=== PATIENT | female | born 1945 | race Caucasian/White ===

== ENCOUNTER 2020-01-27 11:00 | Outpatient (RCR) | payer MEDICARE, SELFPAY | END 2020-04-15 13:08 | disposition other institution (70) | LOC: HO.PT 11:00 | PROVIDERS: Visit Provider Registered Nurse | DX: M54.30 Sciatica, unspecified side (principal) | CPT/HCPCS: 97110; 97140 ==

== ENCOUNTER 2020-02-24 11:48 | Outpatient (REF) | payer MEDICARE, SELFPAY ==
--- NOTE | 2020-02-24 11:59 | XR_ITS ---
EXAMINATION: XR LUMBOSACRAL SPINE WITH OBLIQUES CLINICAL INFORMATION: Low back pain. COMPARISON: None TECHNIQUE: AP, both oblique, and lateral views of the lumbar spine. Lateral view of the lumbosacral junction. FINDINGS: There is normal lumbar lordosis. The vertebral heights, alignment and disc heights are normal. No visible acute fracture, dislocation or subluxation seen. Mild bilateral L5-S1 facet joint arthropathy is noted. There is minimal dextroscoliosis lumbar spine. XR/XR lumbar spine 4V min IMPRESSION: Mild facet joint arthropathy L5-S1 disc level. No visible acute fracture, dislocation or subluxation seen. The SI joints are symmetrical and normal.
== END 2020-02-24 11:49 | disposition home or self-care (01) ==
LOC: HO.XRAY 11:48
PROVIDERS: PCP Internal Medicine; Visit Provider Internal Medicine
DX: D05.10 Intraductal carcinoma in situ of unspecified breast (principal); M54.5 Low back pain
CPT/HCPCS: 72110

== ENCOUNTER 2020-02-28 10:30 | Outpatient (REF) | payer MEDICARE, SELFPAY ==
--- NOTE | 2020-02-28 10:32 | MR_ITS ---
EXAMINATION: ROUTINE UNENHANCED MRI OF THE BRAIN. CLINICAL INFORMATION: Dysarthria. COMPARISON: CT head 02/13/2019. TECHNIQUE: Routine unenhanced MRI of the brain. FINDINGS: No intracranial hemorrhage, tumors or infarcts are noted. Mild diffuse commensurate prominence of ventricles and sulci is noted. A minimal number of nonspecific punctate supratentorial subcortical and periventricular white matter T2 hyperintensities are visualized and are of uncertain clinical significance given that similar findings are a frequent encountered asymptomatic finding. Normal flow-related signal intensity is noted in the major intracranial vessels and dural sinuses. Susceptibility weighted images reveal no evidence of acute or chronic hemorrhage within the brain parenchyma. The cervical medullary junction cerebellar tonsils are normal in configuration. No suspicious marrow abnormalities are visualized. The orbits and globes are normal in appearance. MR/MR head/brain wo con IMPRESSION: Normal unenhanced MRI of the brain. No acute abnormalities. No intrarenal hemorrhage or acute infarcts.
== END 2020-02-28 10:31 | disposition home or self-care (01) ==
LOC: HO.MRI 10:30
PROVIDERS: Visit Provider Internal Medicine
DX: R47.1 Dysarthria and anarthria (principal)
CPT/HCPCS: 70551

== ENCOUNTER → 2020-04-03 11:25 | Outpatient (BNV) | payer MEDICARE, SELFPAY | PROVIDERS: PCP Internal Medicine; Visit Provider Internal Medicine Medical Oncology | DX: D05.12 Intraductal carcinoma in situ of left breast (principal) | CPT/HCPCS: 99212; 99213; 99214 ==

== ENCOUNTER → 2020-04-06 11:19 | Outpatient (BNVA) | payer MEDICARE, SELFPAY | PROVIDERS: PCP Internal Medicine; Visit Provider Internal Medicine Cardiovascular Disease | DX: I47.1 Supraventricular tachycardia (principal); I10 Essential (primary) hypertension; R00.2 Palpitations | CPT/HCPCS: 93005; 99212 ==

== ENCOUNTER 2020-04-22 16:05 | Outpatient (REF) | payer MEDICARE, SELFPAY ==
--- NOTE | 2020-04-22 16:12 | XR_ITS ---
EXAMINATION: XR CHEST CLINICAL INFORMATION: Worsening shortness of breath and productive cough. Covid positive. COMPARISON: Previous chest x-ray 03/11/2019 TECHNIQUE: 2 views of the chest were obtained. FINDINGS: The cardiac and mediastinal contours are stable. There is new airspace disease in the right upper lobe suggestive of pneumonia. The lungs are otherwise clear. There is no pleural effusion or pneumothorax. There are degenerative changes of the spine. XR/XR chest 2V IMPRESSION: New airspace disease in the right upper lobe suggestive of pneumonia.
== END 2020-04-22 16:06 | disposition home or self-care (01) ==
LOC: HO.XRAY 16:05
PROVIDERS: PCP Internal Medicine; Visit Provider Emergency Medicine
DX: J45.901 Unspecified asthma with (acute) exacerbation (principal); R06.02 Shortness of breath; R05 Cough; Z86.16 Personal history of COVID-19
CPT/HCPCS: 71046

== ENCOUNTER → 2020-06-26 11:14 | Outpatient (BNVA) | payer MEDICARE, SELFPAY | PROVIDERS: PCP Internal Medicine; Visit Provider Nurse Practitioner | DX: Z13.89 Encounter for screening for other disorder (principal) | CPT/HCPCS: Q3014 ==

== ENCOUNTER 2020-07-08 20:15 | Emergency (ER) | payer MEDICARE, SELFPAY ==
--- NOTE | ~2020-07-08 | XR_ITS ---
EXAMINATION: PORTABLE CHEST 1 VIEW CLINICAL INFORMATION: chest pain . COMPARISON: 04/22/2020. TECHNIQUE: Portable frontal view of the chest was obtained. FINDINGS: The lungs are well expanded. Chronic appearing coarsened reticular markings seen with linear scarring or postinfectious/postinflammatory change in the right upper lobe improved from the prior study. No additional superimposed focal infiltrate, effusion, edema, or pneumothorax. Cardiac and mediastinal silhouettes are within normal limits for technique. No acute bony abnormality seen. XR/XR chest 1V IMPRESSION: Chronic appearing coarsened reticular and likely postinfectious/postinflammatory changes without acute superimposed process.
--- NOTE | 2020-07-08 20:18 | ECG_ITS ---
Test Reason : CHEST PAIN Blood Pressure : / mmHG Vent. Rate : 061 BPM Atrial Rate : 061 BPM P-R Int : 124 ms QRS Dur : 076 ms QT Int : 408 ms P-R-T Axes : 017 004 002 degrees QTc Int : 410 ms Normal sinus rhythm Nonspecific T wave abnormality Abnormal ECG When compared with ECG of 09-JUL-2016 23:10, No significant change was found Referred By: Generic ED Physician Electronically Signed By:Nate Arroyo
[2020-07-08 20:46] VITALS: BP 162/78; PULSE 67; RESP 18; TEMP 36.8; O2SAT 99
[2020-07-08 21:05] LABS: MANUAL DIFF FLAG NO
[2020-07-08 21:06] LABS: Basophils Percent Auto 0.3 % (0-2); Eosinophils Absolute Auto 0.1 X10*3/uL (0.0-0.4); Eosinophils Percent Auto 0.7 % (0-4); Hematocrit 41.1 % (37-47); Hemoglobin 13.6 g/dl (12.0-16.0); Imm Gran Abs Auto 0.01 X10*3/uL (0.00-0.03); Imm Gran Pct Auto 0.1 % (0.0-0.4); Lymphocytes Absolute Auto 2.6 X10*3/uL (1.2-4.9); Lymphocytes Percent Auto 37.5 % (20-40); Mean Corpuscular HGB Conc 33.1 g/dl (31.0-35.0); Mean Corpuscular Hemoglobin 30.3 pg (27.0-33.0); Mean Corpuscular Volume 91.5 fL (80-98); Mean Platelet Volume 10.5 fL (9.4-12.3); Monocytes Absolute Auto 0.5 X10*3/uL (0.1-1.2); Monocytes Percent Auto 7.2 % (2-11); Neutrophils Absolute Auto 3.8 X10*3/uL (2.0-8.3); Neutrophils Percent Auto 54.2 % (45-73); Platelet Count 236 X10*3/uL (160-400); Red Blood Count 4.49 X10*6/uL (4.20-5.50); Red Cell Distribution Width 13.2 % (11.0-16.0); White Blood Count 6.9 X10*3/uL (4.8-10.8)
[2020-07-08 21:33] LABS: Anion Gap 13 (12-20); Blood Urea Nitrogen 14 mg/dL (9-16); Calcium 10.2 mg/dL (8.4-10.2); Carbon Dioxide 31 mmol/L (22-29); Chloride 101 mmol/L (96-108); Creatinine Clr Calc Pharmacy 44.5; Estimated Glomerular Filt Rate 57; Glucose Random 134 mg/dL (60-115); Potassium 3.7 mmol/L (3.3-5.1); Sodium 141 mmol/L (135-145)
[2020-07-08 21:41] LABS: Troponin-I High Sensitivity < 3.5 ng/L (<3.5-17.0)
[2020-07-08 21:53] VITALS: BP 120/71; PULSE 62; RESP 18; TEMP 36.5; O2SAT 97
--- NOTE | 2020-07-08 23:17 | ED_ITS ---
HPI - Chest Pain General Chief Complaint: Chest Pain Stated Complaint: Chest pain Time Seen by Provider: 07/08/20 22:13 Source: patient Mode of arrival: ambulatory Limitations: no limitations History of Present Illness HPI narrative: 75-year-old female who presents emergency department for evaluation of chest pain x3 days. The patient states that the chest pain is intermittent and lasts seconds. She states she gets 20 episodes per day. She describes the pain as a sharp pain located in her anterior chest, greater on the left than on the right. The pain does radiate to her left neck left shoulder and left back. She states the pain is moderate in intensity. She denies associated lightheadedness, diaphoresis, nausea, vomiting. She did not take any medications at home for the pain. She states the pain can come on at rest and with exertion. Patient states that she had a COVID-19 infection in March of 2020 and that she had symptoms up until May 2020. She denies any recent fever, chills, cough. S he states she still feels short of breath and has dyspnea on exertion. Related Data Home Medications Medication Instructions Recorded Confirmed acetaminophen [Mapap Arthritis 1 tab PO Q8H PRN 04/03/20 04/06/20 Pain] atorvastatin 1 tab PO QAM 04/03/20 04/06/20 fluticasone propionate [Flovent 2 puff PO BID 04/03/20 04/06/20 HFA] hydrochlorothiazide 1 tab PO QAM 04/03/20 04/06/20 lisinopril 1 tab PO QAM 04/03/20 04/06/20 loratadine 1 tab PO QAM 04/03/20 04/06/20 ammonium lactate 12 % topical cream appl TOPICAL 04/06/20 04/06/20 ergocalciferol (vitamin D2) 1,250 1,250 mcg PO DAILY cap 04/06/20 04/06/20 mcg (50,000 unit) capsule fluticasone propionate 50 0 mcg INTRANASAL 04/06/20 04/06/20 mcg/actuation nasal spray,suspension levocetirizine 5 mg tablet 5 mg PO BEDTIME 04/06/20 04/06/20 meclizine 25 mg tablet 25 mg PO Q8H PRN 06/26/20 polyvinyl alcohol 1.4 % eye drops 20 drp OPHTHALMIC (EYE) BEDTIME 06/26/20 Previous Rx's Medication Instructions Recorded diltiazem HCl 120 mg 120 mg PO QAM #30 cap 02/06/20 capsule,extended release 24 hr metoprolol succinate 25 mg 25 mg PO DAILY 90 Days #90 tab 02/11/20 tablet,extended release 24 hr sennosides 8.6 mg tablet 17.2 mg PO BEDTIME #60 tab 03/05/20 dexlansoprazole 60 mg 60 mg PO BEDTIME #30 cap 05/29/20 capsule,biphase delayed release docusate sodium 100 mg capsule 100 mg PO BID #180 ea 06/18/20 methylcellulose (laxative) 500 mg 1,000 mg PO DAILY 30 Days #60 tab 06/26/20 tablet simethicone 180 mg capsule 180 mg PO QID 30 Days #120 cap 06/26/20 acidophilus 25 million 1 tab PO DAILY #30 tab 07/07/20 cell-pectin, citrus 100 mg tablet Allergies Allergy/AdvReac Type Severity Reaction Status Date / Time Tetanus Vaccines and Toxoid Allergy Mild SWELLING, Verified 06/26/20 11:16 [TETANUS VACCINES AND TOXOID] RASH albuterol [ALBUTEROL] Allergy Unknown HIVES Verified 06/26/20 11:16 verapamil [VERAPAMIL] Allergy Unknown UNKNOWN Verified 06/26/20 11:16 From Tuberculin PPD Eligh Test Allergy Unknown ARM Uncoded 12/05/19 16:27 SWELLING TB test Allergy Unknown large Uncoded 10/14/19 00:00 local reaction Review of Systems Review of Systems: Yes all other systems are reviewed and are negative [facility] Past Medical History [facility] Narrative: The patient lives alone. She does have a [employer] that helps her daily. She denies tobacco, alcohol and drug use. Medical History Bronchial asthma COVID-19 Gastritis HTN (hypertension) Hx of migraine headaches Hx of sinusitis Hyperlipidemia Osteopenia Supraventricular tachycardia Surgical History History of esophagogastroduodenoscopy (EGD) Hx of colonoscopy Status post tubal ligation Family History Family History (Updated 06/26/20 @ 11:45 by Jocelyn Batista Chloe) Mother Heart problem Angina pectoris Social History Social History Alcohol intake: current Alcohol intake frequency: does not drink Smoking Status: Never smoker Advance Directives: No Advance Directives Information Provided: Yes Physical Exam Vital Signs: Vital Signs: Last Vital Signs Temp 97.7 F 07/08/20 21:53 Pulse 62 07/08/20 21:53 Resp 18 07/08/20 21:53 BP 120/71 07/08/20 21:53 Pulse Ox 97 07/08/20 21:53 Body Mass Index 30.0 Const: General: cooperative and healthy appearing Orientation/consciousness: oriented to person and oriented to place Limitations: no limitations HENMT: Head: Yes normal to inspection, Yes normocephalic and Yes atraumatic Ears: external ears normal General nose exam: Normal external nose present Face and sinus: Yes normal facial exam Mouth: Normal oral and palatal mucosa present Throat: Yes posterior oropharynx normal Eyes: Periorbital: periorbital findings normal Eyelids: Yes eyelids normal Conjunctivae: conjunctivae normal Sclerae: sclerae normal Corneas: corneas normal Pupils: Equal, round and reactive pupils present Direct Ophthalmoscopy: normal light reflex Neck: Neck: Yes full ROM, Yes no lymphadenopathy, Yes no meningeal signs, Yes trachea midline and Yes supple Chest: Chest palpation & inspection: normal inspection of the chest and tenderness (Left anterior chest, moderate) Resp: Effort & Inspection: normal respiratory effort and able to speak in complete sentences Auscultation: clear to auscultation bilaterally Cardio: Rate: regular rate Rhythm: regular rhythm Heart sounds: S1 normal heart sound present, S2 normal heart sound present and no murmurs GI: Inspection: Yes normal to inspection Palpation (GI): Soft to palpation, nontender, no guarding, not rigid and No hepatosplenomegaly present : General: Yes no CVA tenderness Back/Spine/Pelvis: Back: no CVA tenderness Cervical Spine: normal cervical lordosis Thoracic/Lumbar Spine: thoracic and lumbar spine normal to inspection Skin: Lesions: no lesions Rashes: no rashes Wounds: no wounds Neuro: General: oriented to person, oriented to place and no meningeal signs Cranial nerves: Yes CN's II-XII intact bilaterally and Yes Equal, round and reactive pupils present Cognition (Neuro): normal cognition Motor exam (neuro): 5/5 motor strength present throughout Extrem: General: Yes normal to inspection and Yes full ROM Psych: Appearance: well kempt Mental Status: mental status grossly normal Speech and movement: Normal speech and movement present Affect: normal affect Attitude: cooperative Thought process: Normal thought process present Thought content: Normal thought content present Course Course Course Narrative: 75-year-old female who presents emergency department for evaluation of intermittent anterior left-sided chest pain which lasts seconds, she had more than 20 episodes per day each day over the past 3 days, pain does radiate to her left neck and left shoulder. She had no other concerning associated symptoms. Physical examination did reveal left-sided chest wall tenderness and mild hypertension with a blood pressure of 162/78. Laboratory evaluation was unremarkable with a nondetectable troponin. Twelve EKG revealed no acute ST segment elevation or depression. Chest x-ray revealed no acute findings. The patient's pain is very atypical for coronary pain and I did discuss this with her. Patient's pain is more consistent with costochondritis. She was given Tylenol for her pain here in the emergency department advised to take Tylenol 3 times a day over the next several days to try to see if this relieves her pain. She was given printed and verbal instructions advised to f ollow-up with her PCP and return to the emergency department if her symptoms get worse. MDM - Chest Pain Lab Data Result diagrams: 07/08/20 20:57 07/08/20 20:57 Labs: Lab Results 07/08/20 07/08/20 07/08/20 Range/Units 20:57 20:57 20:57 WBC 6.9 (4.8-10.8) X10*3/uL RBC 4.49 (4.20-5.50) X10*6/uL Hgb 13.6 (12.0-16.0) g/dl Hct 41.1 (37-47) % MCV 91.5 (80-98) fL MCH 30.3 (27.0-33.0) pg MCHC 33.1 (31.0-35.0) g/dl RDW 13.2 (11.0-16.0) % Plt Count 236 (160-400) X10*3/uL MPV 10.5 (9.4-12.3) fL Immature Gran % (Auto) 0.1 (0.0-0.4) % Neut % (Auto) 54.2 (45-73) % Lymph % (Auto) 37.5 (20-40) % Weakley % (Auto) 7.2 (2-11) % Eos % (Auto) 0.7 (0-4) % Baso % (Auto) 0.3 (0-2) % Lymph # (Auto) 2.6 (1.2-4.9) X10*3/uL Weak[place] # (Auto) 0.5 (0.1-1.2) X10*3/uL Eos # (Auto) 0.1 (0.0-0.4) X10*3/uL Baso # (Auto) 0.0 (0.0-0.2) X10*3/uL Abs Immat Gran (auto) 0.01 (0.00-0.03) X10*3/uL Absolute Neuts (auto) 3.8 (2.0-8.3) X10*3/uL Absolute Nucleated RBC 0.000 (0.0-0.012) X10*3/uL Nucleated RBC % (auto) 0.0 (0.0-0.2) /100WBC Hold Blue Top SEE NOTE Sodium 141 (135-145) mmol/L Potassium 3.7 (3.3-5.1) mmol/L Chloride 101 (96-108) mmol/L Carbon Dioxide 31 H (22-29) mmol/L Anion Gap 13 (12-20) BUN 14 D (9-16) mg/dL Creatinine 0.95 (0.5-1.4) mg/dL Estim Creat Clear Calc 44.5 Estimated GFR 57 Random Glucose 134 H D (60-115) mg/dL Calcium 10.2 D (8.4-10.2) mg/dL Troponin I High Sens (<3.5-17.0) ng/L 07/08/20 Range/Units 20:57 WBC (4.8-10.8) X10*3/uL RBC (4.20-5.50) X10*6/uL Hgb (12.0-16.0) g/dl Hct (37-47) % MCV (80-98) fL MCH (27.0-33.0) pg MCHC (31.0-35.0) g/dl RDW (11.0-16.0) % Plt Count (160-400) X10*3/uL MPV (9.4-12.3) fL Immature Gran % (Auto) (0.0-0.4) % Neut % (Auto) (45-73) % Lymph % (Auto) (20-40) % Weakley % (Auto) (2-11) % Eos % (Auto) (0-4) % Baso % (Auto) (0-2) % Lymph # (Auto) (1.2-4.9) X10*3/uL Weakley # (Auto) (0.1-1.2) X10*3/uL Eos # (Auto) (0.0-0.4) X10*3/uL Baso # (Auto) (0.0-0.2) X10*3/uL Abs Immat Gran (auto) (0.00-0.03) X10*3/uL Absolute Neuts (auto) (2.0-8.3) X10*3/uL Absolute Nucleated RBC (0.0-0.012) X10*3/uL Nucleated RBC % (auto) (0.0-0.2) /100WBC Hold Blue Top Sodium (135-145) mmol/L Potassium (3.3-5.1) mmol/L Chloride (96-108) mmol/L Carbon Dioxide (22-29) mmol/L Anion Gap (12-20) BUN (9-16) mg/dL Creatinine (0.5-1.4) mg/dL Estim Creat Clear Calc Estimated GFR Random Glucose (60-115) mg/dL Calcium (8.4-10.2) mg/dL Troponin I High Sens < 3.5 (<3.5-17.0) ng/L ECG Data ECG #1: Attestation: I personally reviewed and interpreted this ECG as follows: Interpretation: 2324: Normal sinus rhythm rate of 61, normal intervals, no ST segment elevation or depression, no T-wave abnormalities, no old EKG for comparison. Discharge Plan Discharge Clinical Impression: Chest pain Qualifiers: Chest pain type: unspecified Qualified Code(s): R07.9 - Chest pain, unspecified Patient Disposition: Home, Self-Care Instructions: Costochondritis (ED) Additional Instructions: Your blood work was normal. Your chest x-ray was unremarkable. Your EKG was unremarkable. Your pain is most likely caused by inflammation of the joints and muscles of your chest (costochondritis). Take Tylenol (acetaminophen) 500 mg pills, 2 pills every 4 to 6 hours as needed for pain. Follow-up with your doctor in 2 days. Please return to the emergency department if your symptoms get worse or if you develop any symptoms that are concerning to you. Prescriptions: No Action diltiazem HCl 120 mg capsule,extended release 24hr 120 mg PO QAM Qty: 30 RF: 6 metoprolol succinate 25 mg tablet extended release 24 hr 25 mg PO DAILY 90 Days Qty: 90 RF: 1 sennosides [senna] 8.6 mg tablet 17.2 mg PO BEDTIME Qty: 60 RF: 1 dexlansoprazole [Dexilant] 60 mg capsule,biphase delayed releas 60 mg PO BEDTIME Qty: 30 RF: 3 docusate sodium 100 mg capsule 100 mg PO BID Qty: 180 RF: 0 acidophilus-pectin, citrus 25 million cell -100 mg tablet 1 tab PO DAILY Qty: 30 RF: 2 acetaminophen [Mapap Arthritis Pain] 650 mg tablet extended release 1 tab PO Q8H PRN (Reason: Pain) RF: 0 lisinopril 10 mg tablet 1 tab PO QAM RF: 0 hydrochlorothiazide 25 mg tablet 1 tab PO QAM RF: 0 loratadine 10 mg tablet 1 tab PO QAM RF: 0 atorvastatin 20 mg tablet 1 tab PO QAM RF: 0 Flovent HFA 110 mcg/actuation HFA aerosol inhaler 2 puff PO BID RF: 0 levocetirizine 5 mg tablet 5 mg PO BEDTIME RF: 0 ammonium lactate 12 % cream topical RF: 0 fluticasone propionate 50 mcg/actuation spray,suspension 0 mcg intranasal RF: 0 ergocalciferol (vitamin D2) 1,250 mcg (50,000 unit) capsule 1,250 mcg PO DAILY RF: 0 meclizine 25 mg tablet 25 mg PO Q8H PRN (Reason: dizziness) RF: 0 polyvinyl alcohol 1.4 % drops 20 drp ophthalmic (eye) BEDTIME RF: 0 simethicone 180 mg capsule 180 mg PO QID 30 Days Qty: 120 RF: 3 Citrucel 500 mg tablet 1,000 mg PO DAILY 30 Days Qty: 60 RF: 4 Print Language: [place] Citizen
[2020-07-08] MEDS: Acetaminophen 325 MG TABLET 975 MG PO (23:36)
== END 2020-07-08 23:42 | disposition home or self-care (01) ==
PROVIDERS: Emergency Provider Emergency Medicine Emergency Medical Services; PCP Internal Medicine
DX: R07.9 Chest pain, unspecified (principal); Z79.899 Other long term (current) drug therapy
CPT/HCPCS: 36415; 71045; 80048; 84484; 85025; 93005; 99284

== ENCOUNTER 2020-08-05 13:23 | Outpatient (REF) | payer MEDICARE, SELFPAY ==
--- NOTE | ~2020-08-05 | MM_ITS ---
EXAMINATION: MM SCREENING DIGITAL BREAST TOMOSYNTHESIS, BILATERAL CLINICAL INFORMATION: Screening. Asymptomatic. COMPARISON: Mammography: May 06, 2019 and studies dating back to October 17, 2011 TECHNIQUE: Digital breast tomosynthesis is performed in both the craniocaudal and mediolateral oblique views along with computer-aided detection (CAD). Synthesized 2D images are generated from the tomosynthesis. FINDINGS: There are scattered areas of fibroglandular density (ACR BI-RADS breast composition Category b). There are no significant masses, abnormal calcifications, or other abnormalities. Architecture distortion within the left breast from previous lumpectomy again seen. MM/MM tomosynthesis screening BI IMPRESSION: There are no significant changes from prior study. ASSESSMENT: BI-RADS 2: Benign RECOMMENDATION: Routine annual mammography screening. This patient's information was entered into a reminder system with a target due date for their next mammogram.
== END 2020-08-05 13:24 | disposition home or self-care (01) ==
LOC: HO.MAMMO 13:23
PROVIDERS: Visit Provider Internal Medicine
DX: Z12.31 Encounter for screening mammogram for malignant neoplasm of breast (principal)
CPT/HCPCS: 77063; 77067

== ENCOUNTER → 2020-09-24 09:51 | Outpatient (BNVA) | payer MEDICARE, SELFPAY | PROVIDERS: Visit Provider Nurse Practitioner | DX: Z13.89 Encounter for screening for other disorder (principal) | CPT/HCPCS: Q3014 ==

== ENCOUNTER 2020-10-09 15:31 | Emergency (ER) | payer MEDICARE, SELFPAY ==
--- NOTE | ~2020-10-09 | XR_ITS ---
EXAMINATION: XR ELBOW, RIGHT CLINICAL INFORMATION: This is a 75-year-old female who is status post fall. Pain in the right elbow. COMPARISON: None TECHNIQUE: AP, lateral, and oblique views of the right elbow. FINDINGS: There is a small anterior joint effusion. There is a well-corticated bony density off the coronoid process of the proximal ulna. This is suspicious for a small avulsion fracture. The radial head appears intact. The distal humerus appears intact. XR/XR elbow RT min 3V IMPRESSION: 1. Possible avulsion fracture off the coronoid process of the proximal ulna.
--- NOTE | ~2020-10-09 | XR_ITS ---
EXAMINATION: RIGHT HAND/WRIST CLINICAL INFORMATION: Fall. Pain COMPARISON: None TECHNIQUE: 3 views of the right hand and wrist. Navicular view right wrist FINDINGS: There is no acute fracture or subluxation. There is some osteophyte formation predominantly involving the DIP joints. There is apparent soft tissue swelling involving the thumb. No definite navicular fracture demonstrated. XR/XR hand wrist RT IMPRESSION: No definite fracture or subluxation. There are degenerative changes. Suspect soft tissue swelling.
--- NOTE | ~2020-10-09 | CT_ITS ---
EXAMINATION: CT HEAD. CT CERVICAL SPINE CLINICAL INFORMATION: Trauma. Fall. Head injury. COMPARISON: CT abdomen 02/13/2019. TECHNIQUE: Head CT: Contiguous axial imaging from the skull base through the vertex. Coronal and sagittal reformats. Cervical spine CT: Contiguous axial imaging from the skull base through the thoracic inlet. Coronal and sagittal reformats. This CT examination was performed using dose optimization techniques as appropriate, variously including the following: *Automated exposure control *Adjustment of mA and/or kV according to patient size (this includes techniques or standardized protocols for targeted exams where dose is matched to indication/reason for exam; i.e. extremities or head) *Use of iterative reconstruction technique DLP: 976.09 FINDINGS: CT head: Small subgaleal hematoma underlying the right posterior parietal calvarium. No acute hemorrhage. No abnormal intra or extra-axial collection. No acute territorial infarction. Radford-white differentiation is preserved. No mass effect or shift of midline structures. The ventricles are symmetric, normal in size and midline in position. The posterior fossa is intact. The orbital contents are preserved. Hyperostosis frontalis interna. No acute fracture. The mastoid air cells and visualized paranasal sinuses are clear. The patient is edentulous. Cervical spine: No acute fracture. No compression deformity or malalignment. Vertebral body heights are maintained. Mild degenerative disc disease and spondylosis in the lower lumbar spine. Straightening of the cervical spine may indicate muscular spasm. Prevertebral soft tissues are normal. Facet joints articulate normally. Atherosclerotic peripheral vascular disease. The lung apices are clear. CT/CT cervical spine wo con IMPRESSION: 1. No acute intracranial abnormality. 2. Small right posterior scalp subgaleal hematoma. 3. No acute cervical spine fracture. Straightening of the cervical spine may indicate spasm.
--- NOTE | ~2020-10-09 | XR_ITS ---
EXAMINATION: XR SHOULDER, RIGHT CLINICAL INFORMATION: Fall. Pain COMPARISON: None TECHNIQUE: Four views of the right shoulder. FINDINGS: The alignment is within normal limits No acute fracture demonstrated. No suspicious focal lesion. There are some minor osteophytes in the visualized portions of the spine. Minor subsegmental linear opacity in the right upper lung could be atelectasis but is nonspecific. No obvious fracture of the scapula. XR/XR shoulder RT min 2V IMPRESSION: No acute fracture or subluxation demonstrated
[2020-10-09 16:46] VITALS: BP 163/85; PULSE 62; RESP 16; TEMP 36.7; O2SAT 99; BMI 30.9
--- NOTE | 2020-10-09 16:51 | ED.FALL ---
HPI - Fall General Chief Complaint: Fall Stated Complaint: fall Time Seen by Provider: 10/09/20 16:47 Related Data Home Medications Medication Instructions Recorded Confirmed acetaminophen [Mapap Arthritis 1 tab PO Q8H PRN 04/03/20 10/02/20 Pain] atorvastatin 1 tab PO QAM 04/03/20 10/02/20 fluticasone propionate [Flovent 2 puff PO BID 04/03/20 10/02/20 HFA] hydrochlorothiazide 1 tab PO QAM 04/03/20 10/02/20 loratadine 1 tab PO QAM 04/03/20 10/02/20 ammonium lactate 12 % topical cream 1 appl TOPICAL DAILY 04/06/20 10/02/20 ergocalciferol (vitamin D2) 1,250 1,250 mcg PO DAILY cap 04/06/20 10/02/20 mcg (50,000 unit) capsule levocetirizine 5 mg tablet 5 mg PO BEDTIME 04/06/20 10/02/20 polyvinyl alcohol 1.4 % eye drops 20 drp OPHTHALMIC (EYE) BEDTIME 06/26/20 10/02/20 Previous Rx's Medication Instructions Recorded metoprolol succinate 25 mg 25 mg PO QAM #90 tab 08/18/20 tablet,extended release 24 hr diltiazem HCl 120 mg 120 mg PO QAM #30 cap 09/01/20 capsule,extended release 24 hr lisinopril 10 mg tablet 10 mg PO QAM 90 Days #90 tab 09/02/20 acidophilus 25 million 1 tab PO DAILY #30 tab 09/24/20 cell-pectin, citrus 100 mg tablet dexlansoprazole 60 mg 60 mg PO BEDTIME #30 cap 09/24/20 capsule,biphase delayed release docusate sodium 100 mg capsule 100 mg PO BID #180 ea 09/24/20 methylcellulose (laxative) 500 mg 1,000 mg PO DAILY 30 Days #60 tab 09/24/20 tablet sennosides 8.6 mg tablet 17.2 mg PO BEDTIME #60 tab 09/24/20 simethicone 180 mg capsule 180 mg PO QID 30 Days #120 cap 09/24/20 Allergies Allergy/AdvReac Type Severity Reaction Status Date / Time Tetanus Vaccines and Toxoid Allergy Mild SWELLING, Verified 09/24/20 09:52 [TETANUS VACCINES AND TOXOID] RASH albuterol [ALBUTEROL] Allergy Unknown HIVES Verified 09/24/20 09:52 verapamil [VERAPAMIL] Allergy Unknown UNKNOWN Verified 09/24/20 09:52 From Tuberculin PPD Leigh Test Allergy Unknown ARM Uncoded 12/05/19 16:27 SWELLING TB test Allergy Unknown large Uncoded 10/14/19 00:00 local reaction PMFSH Past Medical History Medical History Bronchial asthma Costochondritis COVID-19 Gastritis HTN (hypertension) Hx of migraine headaches Hx of sinusitis Hyperlipidemia Osteopenia Supraventricular tachycardia Surgical History History of esophagogastroduodenoscopy (EGD) Hx of colonoscopy Status post tubal ligation Family History Family History Mother Heart problem Angina pectoris Social History Social History Alcohol intake: current Alcohol intake frequency: does not drink Course Course Course Narrative: 16:50 - 75-year-old female presenting to the ED with complaints of head pain, neck pain, right shoulder posterior aspect, right elbow and right hand and wrist pain after she had a mechanical fall yesterday where she lost her balance when she was trying to sit down she hit her head but did not lose consciousness. She denies prolonged down time. She is not on any blood thinners. She denies any symptoms prior to the fall. On exam patient is alert and oriented x3. Not in any acute distress. No focal no definite are noted. Lungs clear to auscultation. Normal steady gait with her cane. She is safe to go back to the waiting room for further evaluation and treatment into the emergency department. CT scan of brain/cervical spine, x-ray of right shoulder right hand and wrist and right elbow ordered at this time. Discharge Plan Discharge Prescriptions: No Action metoprolol succinate 25 mg tablet extended release 24 hr 25 mg PO QAM Qty: 90 RF: 3 diltiazem HCl 120 mg capsule,extended release 24hr 120 mg PO QAM Qty: 30 RF: 6 lisinopril 10 mg tablet 10 mg PO QAM 90 Days Qty: 90 RF: 1 acetaminophen [Mapap Arthritis Pain] 650 mg tablet extended release 1 tab PO Q8H PRN (Reason: Pain) RF: 0 hydrochlorothiazide 25 mg tablet 1 tab PO QAM RF: 0 loratadine 10 mg tablet 1 tab PO QAM RF: 0 atorvastatin 20 mg tablet 1 tab PO QAM RF: 0 Flovent HFA 110 mcg/actuation HFA aerosol inhaler 2 puff PO BID RF: 0 levocetirizine 5 mg tablet 5 mg PO BEDTIME RF: 0 ammonium lactate 12 % cream 1 appl topical DAILY RF: 0 ergocalciferol (vitamin D2) 1,250 mcg (50,000 unit) capsule 1,250 mcg PO DAILY RF: 0 Dexilant 60 mg capsule,biphase delayed releas 60 mg PO BEDTIME Qty: 30 RF: 6 Citrucel 500 mg tablet 1,000 mg PO DAILY 30 Days Qty: 60 RF: 6 simethicone 180 mg capsule 180 mg PO QID 30 Days Qty: 120 RF: 6 sennosides [senna] 8.6 mg tablet 17.2 mg PO BEDTIME Qty: 60 RF: 6 acidophilus-pectin, citrus 25 million cell -100 mg tablet 1 tab PO DAILY Qty: 30 RF: 6 docusate sodium 100 mg capsule 100 mg PO BID Qty: 180 RF: 1 polyvinyl alcohol 1.4 % drops 20 drp ophthalmic (eye) BEDTIME RF: 0
--- NOTE | 2020-10-09 20:08 | ED.FALL ---
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 Mode of arrival: ambulatory Limitations: no limitations History of Present Illness HPI Narrative: 75 yo female no AC therapy here with mechanical fall trying to sit in a chair - hit head no LOC and struck R arm MD complaint: fall Onset (ago): day(s) (yesterday ) Fall from: chair Fall witnessed: no Place fall occurred: home Loss of consciousness: none Prolonged down time: no Symptoms prior to fall: none Context: tripped/slipped Location of injury: head Location of injury - extremities: right: elbow Severity: mild Quality: dull and aching Associated symptoms (after fall): denies Related Data Home Medications Medication Instructions Recorded Confirmed acetaminophen [Mapap Arthritis 1 tab PO Q8H PRN 04/03/20 10/02/20 Pain] atorvastatin 1 tab PO QAM 04/03/20 10/02/20 fluticasone propionate [Flovent 2 puff PO BID 04/03/20 10/02/20 HFA] hydrochlorothiazide 1 tab PO QAM 04/03/20 10/02/20 loratadine 1 tab PO QAM 04/03/20 10/02/20 ammonium lactate 12 % topical cream 1 appl TOPICAL DAILY 04/06/20 10/02/20 ergocalciferol (vitamin D2) 1,250 1,250 mcg PO DAILY cap 04/06/20 10/02/20 mcg (50,000 unit) capsule levocetirizine 5 mg tablet 5 mg PO BEDTIME 04/06/20 10/02/20 polyvinyl alcohol 1.4 % eye drops 20 drp OPHTHALMIC (EYE) BEDTIME 06/26/20 10/02/20 Previous Rx's Medication Instructions Recorded metoprolol succinate 25 mg 25 mg PO QAM #90 tab 08/18/20 tablet,extended release 24 hr diltiazem HCl 120 mg 120 mg PO QAM #30 cap 09/01/20 capsule,extended release 24 hr lisinopril 10 mg tablet 10 mg PO QAM 90 Days #90 tab 09/02/20 acidophilus 25 million 1 tab PO DAILY #30 tab 09/24/20 cell-pectin, citrus 100 mg tablet dexlansoprazole 60 mg 60 mg PO BEDTIME #30 cap 07/08/21 capsule,biphase delayed release docusate sodium 100 mg capsule 100 mg PO BID #180 ea 09/24/20 methylcellulose (laxative) 500 mg 1,000 mg PO DAILY 30 Days #60 tab 09/24/20 tablet sennosides 8.6 mg tablet 17.2 mg PO BEDTIME #60 tab 09/24/20 simethicone 180 mg capsule 180 mg PO QID 30 Days #120 cap 09/24/20 hydrocodone-acetaminophen 1 tab PO Q6H PRN #12 tab 10/09/20 Allergies Allergy/AdvReac Type Severity Reaction Status Date / Time Tetanus Vaccines and Toxoid Allergy Mild SWELLING, Verified 09/24/20 09:52 [TETANUS VACCINES AND TOXOID] RASH albuterol [ALBUTEROL] Allergy Unknown HIVES Verified 09/24/20 09:52 verapamil [VERAPAMIL] Allergy Unknown UNKNOWN Verified 09/24/20 09:52 From Tuberculin PPD Leigh Test Allergy Unknown ARM Uncoded 12/05/19 16:27 SWELLING TB test Allergy Unknown large Uncoded 10/14/19 00:00 local reaction Review of Systems Review of Systems: Constitutional : No Fever, No Chills ENT/Mouth : No Ear Pain, No Hoarseness, No sore throat Eyes: No Eye Pain, No Swelling, No Redness, No Foreign Body Cardiovascular : No Chest Pain, No SOB Respiratory : No Cough, No Dyspnea Gastrointestinal : No Nausea, No Vomiting, No Diarrhea, No abdominal Pain Genitourinary : No Dysuria, No Hematuria Musculoskeletal : positive joint pain, No Myalgias, No Joint Swelling Skin : No Skin lacerations, No rash Neuro : No Weakness, No Numbness, No Loss of Consciousness, No Dizziness, No Headache Psych : No Anxiety/Panic, No Depression Heme/Lymph: no easy bruising, no Lymphadenopathy Endocrine : No Polyuria, No Polydipsia All other systems reviewed and are negative PMFSH Past Medical History Attestation statement: The following information was validated with the patient. Medical History Bronchial asthma Costochondritis COVID-19 Gastritis HTN (hypertension) Hx of migraine headaches Hx of sinusitis Hyperlipidemia Osteopenia Supraventricular tachycardia Surgical History History of esophagogastroduodenoscopy (EGD) Hx of colonoscopy Status post tubal ligation Family History Family History Mother Heart problem Angina pectoris Social History Social History (Updated 10/09/20 @ 20:35 by Kami Montelongo DO) Alcohol intake: current Alcohol intake frequency: does not drink Patient Tobacco Use Status: Never used Tobacco Advance Directives: No Advance Directives Information Provided: No Physical Exam Vital Signs: Vital Signs: Last Vital Signs Temp 98.1 F 10/09/20 16:46 Pulse 62 10/09/20 16:46 Resp 16 10/09/20 16:46 BP 163/85 H 10/09/20 16:46 Pulse Ox 99 10/09/20 16:46 Body Mass Index 30.9 Appearance: Alert. Oriented X3. No acute distress. Eyes: Pupils equal, round and reactive to light. ENT: Pharynx normal. Neck: Normal inspection. Neck supple. CVS: Normal heart rate and rhythm. Pulses normal. Respiratory: No respiratory distress. Breath sounds normal. Abdomen: Soft and nontender. Skin: Skin warm and dry. Normal skin color. Normal skin turgor. Extremities: No lower extremity edema. No calf ttp R elbow no effusion noted, has good range of motion distal NV intact, mild ttp on medial aspect Neuro: Oriented X 3. No motor deficit. No sensory deficit. Procedures Orthopedic Splinting/Casting Injury #1: Side: right Upper Extremity Injury Location: elbow Upper Extremity Immobilizer: sling/shoulder immobilizer MDM - Fall MDM Narrative Medical decision making narrative: 75 yo female with hx of falls, GERD, no AC therapy here with mechanical fall hitting head - CT head/cspine xrays of RUE for fracture dispo per results and findings Discharge Plan Discharge Clinical Impression: Hematoma Ulna fracture Qualifiers: Encounter type: initial encounter Ulna location: coronoid process Fracture type: closed Fracture alignment: displaced Laterality: right Qualified Code(s): S52.041A - Displaced fracture of coronoid process of right ulna, initial encounter for closed fracture Patient Disposition: Home, Self-Care Instructions: Elbow Fracture (ED), Head Injury (ED) Additional Instructions: Use eslinga hasta que sea liberada por [employer] Prescriptions: New hydrocodone-acetaminophen 5-325 mg tablet 1 tab PO Q6H PRN (Reason: pain) Qty: 12 RF: 0 No Action metoprolol succinate 25 mg tablet extended release 24 hr 25 mg PO QAM Qty: 90 RF: 3 diltiazem HCl 120 mg capsule,extended release 24hr 120 mg PO QAM Qty: 30 RF: 6 lisinopril 10 mg tablet 10 mg PO QAM 90 Days Qty: 90 RF: 1 acetaminophen [Mapap Arthritis Pain] 650 mg tablet extended release 1 tab PO Q8H PRN (Reason: Pain) RF: 0 hydrochlorothiazide 25 mg tablet 1 tab PO QAM RF: 0 loratadine 10 mg tablet 1 tab PO QAM RF: 0 atorvastatin 20 mg tablet 1 tab PO QAM RF: 0 Flovent HFA 110 mcg/actuation HFA aerosol inhaler 2 puff PO BID RF: 0 levocetirizine 5 mg tablet 5 mg PO BEDTIME RF: 0 ammonium lactate 12 % cream 1 appl topical DAILY RF: 0 ergocalciferol (vitamin D2) 1,250 mcg (50,000 unit) capsule 1,250 mcg PO DAILY RF: 0 Dexilant 60 mg capsule,biphase delayed releas 60 mg PO BEDTIME Qty: 30 RF: 6 Citrucel 500 mg tablet 1,000 mg PO DAILY 30 Days Qty: 60 RF: 6 simethicone 180 mg capsule 180 mg PO QID 30 Days Qty: 120 RF: 6 sennosides [senna] 8.6 mg tablet 17.2 mg PO BEDTIME Qty: 60 RF: 6 acidophilus-pectin, citrus 25 million cell -100 mg tablet 1 tab PO DAILY Qty: 30 RF: 6 docusate sodium 100 mg capsule 100 mg PO BID Qty: 180 RF: 1 polyvinyl alcohol 1.4 % drops 20 drp ophthalmic (eye) BEDTIME RF: 0
[2020-10-09 20:52] VITALS: BP 163/93; PULSE 50; RESP 16; TEMP 36.5; O2SAT 96
== END 2020-10-09 21:17 | disposition home or self-care (01) ==
PROVIDERS: Emergency Provider Emergency Medicine
DX: S52.041A Displaced fracture of coronoid process of right ulna, initial encounter for closed fracture (principal); S50.01XA Contusion of right elbow, initial encounter; S19.9XXA Unspecified injury of neck, initial encounter; G44.309 Post-traumatic headache, unspecified, not intractable; M54.2 Cervicalgia; M79.601 Pain in right arm; I10 Essential (primary) hypertension; W01.0XXA Fall on same level from slipping, tripping and stumbling without subsequent striking against object, initial encounter; Y93.9 Activity, unspecified; Y92.9 Unspecified place or not applicable; Y99.9 Unspecified external cause status; Z79.899 Other long term (current) drug therapy
CPT/HCPCS: 29105; 70450; 72125; 73030; 73080; 73110; 73130; 99284

== ENCOUNTER → 2020-10-29 14:44 | Outpatient (BNVA) | payer OTHER, SELFPAY | PROVIDERS: PCP Internal Medicine; Visit Provider Physician Assistant | DX: M77.8 Other enthesopathies, not elsewhere classified (principal) | CPT/HCPCS: 99202 ==

== ENCOUNTER → 2020-12-07 14:04 | Outpatient (BNVA) | payer MEDICARE, SELFPAY | PROVIDERS: PCP Internal Medicine; Referring Provider Internal Medicine; Visit Provider Internal Medicine Cardiovascular Disease | DX: R07.9 Chest pain, unspecified (principal); I47.1 Supraventricular tachycardia; I10 Essential (primary) hypertension; M94.0 Chondrocostal junction syndrome [Tietze]; J45.909 Unspecified asthma, uncomplicated; E78.5 Hyperlipidemia, unspecified; R42 Dizziness and giddiness; R11.0 Nausea; Z86.16 Personal history of COVID-19; Z88.7 Allergy status to serum and vaccine; Z88.8 Allergy status to other drugs, medicaments and biological substances; Z79.899 Other long term (current) drug therapy | CPT/HCPCS: 99212 ==

== ENCOUNTER 2020-12-16 13:00 | Outpatient (RCR) | payer MEDICARE, SELFPAY ==
--- NOTE | 2020-11-20 15:19 | MHC.PT.EP ---
[facility] [place] Office [place] Office [place] Office [address] [phone] F: [phone] F: [phone] F: [phone] F: [phone] Physical Therapy Plan of Care Date of Evaluation: Date of Surgery: na Diagnosis: RIGHT SHOULDER TENDONITIS Assessment: Eden is a pleasant 75 yo female with increasing shoulder and axillary pain. Upon exam she demonstrates decreased shoulder ROM, decreased thoracioc mobility, (+)scoli (previous PT for same), decreased strength of UE and upper back, altered posture and positioning, increased pain. Functional limitations included decreased ability to perform lifting, reaching, pushing and pulling, she reports disrupted sleep. She reports decreased ability to perform homemaking tasks, ADLs, decreased participation in comminuty and recreational tasks. 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 Manual therapy to restore motion and function. Therapeutic exercise to improve strength and flexibility. Neuromuscular re-education for posture and balance. Therapeutic activities to return to functional activities of daily living. Electronically signed by: Corazon Nguyễn PT, DPT Please sign and return to therapist. Thank you for your referral.
--- NOTE | 2021-01-14 08:06 | MHC.PT.DC ---
[facility] [place] Office [place] Office [place] Office [address] D[address] [phone] F: [phone] F: [phone] F: [phone] F: [phone] Physical Therapy Discharge Report Diagnosis: RIGHT SHOULDER TENDONITIS Date of Surgery: na Date of Evaluation: 11/19/20 Date of Discharge: 01/14/21 Treatments to Date: 8 Cancellations to Date: 1 No Shows to Date: 1 Discharge Status: Improved Function Independent with HEP Discharge Summary: Eden is independent with her current home program. Her shoulder demonstrates increased ROM and strength and she is more aware of her posture. Currently she is experiencing vertigo and low back pain which is impacting her tolerance to upper body exercise. At this time she is being DCed from therapy for her shoulder and has set up appointment to assess her low back pain. Electronically signed by: Corazon Nguyễn PT, DPT Please sign and return to therapist. Thank you for your referral.
== END 2021-01-14 08:06 | disposition home or self-care (01) ==
LOC: HO.PT 13:00
PROVIDERS: PCP Internal Medicine; Visit Provider Physician Assistant
DX: M77.8 Other enthesopathies, not elsewhere classified (principal)
CPT/HCPCS: 97110; 97161; 97535

== ENCOUNTER 2021-02-22 14:08 | Outpatient (REF) | payer MEDICARE, SELFPAY ==
--- NOTE | ~2021-02-22 | CT_ITS ---
EXAMINATION: CT HEAD WITHOUT CONTRAST CLINICAL INFORMATION: Headaches. Epicranial subaponeurotic hemorrhage. COMPARISON: Head CT 10/09/2020. TECHNIQUE: Contiguous axial imaging was performed from the skull base to vertex without intravenous administration of contrast. This CT examination was performed using dose optimization techniques as appropriate, variously including the following: *Automated exposure control *Adjustment of mA and/or kV according to patient size (this includes techniques or standardized protocols for targeted exams where dose is matched to indication/reason for exam; i.e. extremities or head) *Use of iterative reconstruction technique DLP: 685 mGy-cm FINDINGS: There is no intracranial hemorrhage, extra-axial collection, mass effect, or territorial infarction. The ventricles are normal in size and configuration without evidence of hydrocephalus. The paranasal sinuses are clear. No mastoid opacification is seen. No calvarial fracture is seen. A minimal amount of scarring is seen within the region of the prior right parietal scalp hematoma CT/CT head/brain wo con IMPRESSION: No acute intracranial abnormality identified.
== END 2021-02-22 14:09 | disposition home or self-care (01) ==
LOC: HO.CT 14:08
PROVIDERS: Visit Provider Internal Medicine
DX: R51.9 Headache, unspecified (principal); I62.9 Nontraumatic intracranial hemorrhage, unspecified
CPT/HCPCS: 70450

== ENCOUNTER 2021-03-10 13:00 | Outpatient (RCR) | payer MEDICARE, SELFPAY | END 2021-03-10 14:59 | disposition home or self-care (01) | LOC: HO.PT 13:00 | PROVIDERS: Visit Provider Internal Medicine | DX: M54.50 Low back pain, unspecified (principal) | CPT/HCPCS: 97110; 97161; 97530 ==

== ENCOUNTER → 2021-04-29 11:40 | Outpatient (BNVA) | payer MEDICARE, SELFPAY | PROVIDERS: PCP Internal Medicine Medical Oncology; Referring Provider Internal Medicine Medical Oncology; Visit Provider Surgery | DX: D05.12 Intraductal carcinoma in situ of left breast (principal) | CPT/HCPCS: 99202 ==

== ENCOUNTER → 2021-05-18 12:10 | Outpatient (BNVA) | payer MEDICARE, SELFPAY | PROVIDERS: PCP Internal Medicine; Referring Provider Internal Medicine; Visit Provider Nurse Practitioner | DX: K21.9 Gastro-esophageal reflux disease without esophagitis (principal); K58.2 Mixed irritable bowel syndrome; D12.6 Benign neoplasm of colon, unspecified; R14.0 Abdominal distension (gaseous) | CPT/HCPCS: 99212 ==

== ENCOUNTER → 2021-11-03 12:33 | Outpatient (BNVA) | payer MEDICARE, SELFPAY | PROVIDERS: PCP Internal Medicine; Visit Provider Nurse Practitioner | DX: K21.9 Gastro-esophageal reflux disease without esophagitis (principal); K59.04 Chronic idiopathic constipation; R14.0 Abdominal distension (gaseous); Z79.899 Other long term (current) drug therapy | CPT/HCPCS: 99212 ==

== ENCOUNTER 2022-01-31 12:21 | Emergency (ER) | payer MEDICARE, SELFPAY ==
--- NOTE | ~2022-01-31 | XR_ITS ---
EXAMINATION: RIGHT SHOULDER AND RIGHT ELBOW CLINICAL INFORMATION: Fall, pain. COMPARISON: None TECHNIQUE: 3 views right elbow and 3 views right shoulder. FINDINGS: RIGHT ELBOW: There is no visible acute fracture, dislocation or subluxation seen. There is mild spurring along the anterior coronoid process of the ulna. No loose bodies or joint effusion seen. RIGHT SHOULDER: The glenohumeral joint space is maintained normal. AC joint space is normal. No visible acute fracture, dislocation or lytic process seen. The soft tissues are normal. XR/XR shoulder RT min 2V IMPRESSION: Small anterior coronoid process enthesophyte. No visible acute fracture or dislocation seen. No abnormal joint effusion. Unremarkable right shoulder exam.
--- NOTE | ~2022-01-31 | XR_ITS ---
EXAMINATION: RIGHT SHOULDER AND RIGHT ELBOW CLINICAL INFORMATION: Fall, pain. COMPARISON: None TECHNIQUE: 3 views right elbow and 3 views right shoulder. FINDINGS: RIGHT ELBOW: There is no visible acute fracture, dislocation or subluxation seen. There is mild spurring along the anterior coronoid process of the ulna. No loose bodies or joint effusion seen. RIGHT SHOULDER: The glenohumeral joint space is maintained normal. AC joint space is normal. No visible acute fracture, dislocation or lytic process seen. The soft tissues are normal. XR/XR elbow RT min 3V IMPRESSION: Small anterior coronoid process enthesophyte. No visible acute fracture or dislocation seen. No abnormal joint effusion. Unremarkable right shoulder exam.
[2022-01-31 12:59] VITALS: BP 137/72; PULSE 53; RESP 18; TEMP 36; O2SAT 97; BMI 30.9
--- NOTE | 2022-01-31 13:00 | ED.GENADULT ---
HPI - General Adult General Chief complaint: Fall <Sally Nelson MD - Last Filed: 01/31/22 15:36> Stated complaint: Fall/Back pain/R side pain <Sally Nelson MD - Last Filed: 01/31/22 15:36> Time Seen by Provider: 01/31/22 15:53 <Sally Nelson MD - Last Filed: 01/31/22 15:36> Source: patient <Jazmine Vogel WILMAR Tello - Last Filed: 01/31/22 18:17> Mode of arrival: ambulatory <Jazmine Tello CNP - Last Filed: 01/31/22 18:17> Limitations: language barrier (Lebanese-speaking medical reception specialist utilized) <Jazmine Tello CNP - Last Filed: 01/31/22 18:17> History of Present Illness HPI narrative: Patient is a 76-year-old female who presents emergency department for evaluation of right arm pain. Patient had a mechanical fall 4 days ago is not using her cane and she fell forward without any head strike or loss of consciousness. Denies use of anticoagulants. She has since been experiencing pain to the right elbow, shoulder, and posterior shoulder region. Denies any numbness or tingling to the extremity. No cold sensation to the extremity. No subjective weakness. <Jazmine Tello CNP - Last Filed: 01/31/22 18:17> Related Data Home medications: Home Medications Medication Instructions Recorded Confirmed acetaminophen 650 mg 1 tab PO Q8H PRN Pain 04/03/20 04/29/21 tablet,extended release (Mapap Arthritis Pain) fluticasone propionate 110 2 puff PO BID 04/03/20 04/29/21 mcg/actuation HFA aerosol inhaler (Flovent HFA) loratadine 10 mg tablet 1 tab PO QAM 04/03/20 04/29/21 ammonium lactate 12 % topical cream 1 appl topical DAILY 04/06/20 04/29/21 ergocalciferol (vitamin D2) 1,250 1,250 mcg PO DAILY 04/06/20 04/29/21 mcg (50,000 unit) capsule polyvinyl alcohol 1.4 % eye drops 20 drp ophthalmic (eye) BEDTIME 06/26/20 04/29/21 atorvastatin 20 mg tablet 20 mg PO QAM 12/07/20 04/29/21 hydrochlorothiazide 25 mg tablet 25 mg PO QAM 12/07/20 04/29/21 levalbuterol tartrate 45 1 puff inhalation BID 12/07/20 04/29/21 mcg/actuation aerosol inhaler (Xopenex HFA) Previous Rx's Medication Instructions Recorded methylcellulose (laxative) 500 mg 1,000 mg PO DAILY 30 days #60 tabs 09/24/20 tablet (Citrucel) simethicone 180 mg capsule 180 mg PO QID 30 days #120 caps 09/24/20 ibuprofen 800 mg tablet 800 mg PO Q8H PRN pain 30 days #90 10/29/20 tabs lisinopril 10 mg tablet 10 mg PO QAM 90 days #90 tabs 02/22/21 docusate sodium 100 mg capsule 100 mg PO BID #180 caps 04/19/21 acidophilus 25 million 1 tab PO DAILY #30 tabs 06/29/21 cell-pectin, citrus 100 mg tablet metoprolol succinate 25 mg 25 mg PO QAM #90 tabs 08/30/21 tablet,extended release 24 hr diltiazem HCl 120 mg 120 mg PO QAM #30 caps 10/19/21 capsule,extended release 24 hr peg 3350-electrolytes 236 240 ml PO Q10M 1 day #4,000 mL 11/03/21 gram-22.74 gram-6.74 gram-5.86 gram solution (Golytely) plecanatide 3 mg tablet (Trulance) 3 mg PO DAILY #30 tabs 11/03/21 lansoprazole 30 mg capsule,delayed 30 mg PO BID #60 caps 11/26/21 release <Sally Nelson MD - Last Filed: 01/31/22 15:36> Allergies/adverse reactions: Allergies Allergy/AdvReac Type Severity Reaction Status Date / Time Tetanus Vaccines and Toxoid Allergy Mild SWELLING, Verified 11/03/21 12:35 [TETANUS VACCINES AND TOXOID] RASH albuterol [ALBUTEROL] Allergy Unknown HIVES Verified 11/03/21 12:35 verapamil [VERAPAMIL] Allergy Unknown UNKNOWN Verified 11/03/21 12:35 From Tuberculin PPD Leigh Test Allergy Unknown ARM Uncoded 05/18/21 12:23 SWELLING TB test Allergy Unknown large Uncoded 05/18/21 12:23 local reaction <Sally Nelson MD - Last Filed: 01/31/22 15:36> Review of Systems Review of Systems: Constitutional: No fever, chills, weakness or fatigue. Skin: No rash or itching. Cardiovascular: No chest pain. No palpitations Respiratory: No shortness of breath, cough or sputum production. Gastrointestinal: No nausea, vomiting or diarrhea. No abdominal pain Genitourinary: No burning micturition. No urinary frequency Musculoskeletal: Positive right arm pain as noted in HPI Psychiatric: No depression or anxiety. <Jazmine Tello CNP - Last Filed: 01/31/22 18:17> Yes all other systems are reviewed and are negative <Jazmine Tello CNP - Last Filed: 01/31/22 18:17> [facility] Past Medical History Attestation statement: The following information was validated with the patient. <Jazimne Tello CNP - Last Filed: 01/31/22 18:17> Source: old records reviewed <Jazmine Tello CNP - Last Filed: 01/31/22 18:17> Medical History: Medical History Bronchial asthma Costochondritis COVID-19 Gastritis HTN (hypertension) Hx of migraine headaches Hx of sinusitis Hyperlipidemia Osteopenia Supraventricular tachycardia <Sally Nelson MD - Last Filed: 01/31/22 15:36> Surgical History: Surgical History History of esophagogastroduodenoscopy (EGD) Hx of colonoscopy Status post tubal ligation <Sally Nelson MD - Last Filed: 01/31/22 15:36> Family History Family History: Family History Mother Heart problem Angina pectoris <Sally Nelson MD - Last Filed: 01/31/22 15:36> Social History Social History: Social History Alcohol intake: current Alcohol intake frequency: does not drink Patient Tobacco Use Status: Never used Tobacco Advance Directives: No Advance Directives Information Provided: Yes Current occupational status: retired Current occupation: rt handed <Sally Nelson MD - Last Filed: 01/31/22 15:36> Physical Exam ED Vital Signs: Vital Signs - 24 hr 01/31/22 12:59 Temperature 96.8 F Pulse Rate 53 Respiratory Rate 18 Blood Pressure 137/72 Pulse Oximetry 97 Oxygen Delivery Method Room Air BMI result Body Mass Index 30.9 <Sally Nelson MD - Last Filed: 01/31/22 15:36> Vital Signs - 24 hr 01/31/22 12:59 Temperature 96.8 F Pulse Rate 53 Respiratory Rate 18 Blood Pressure 137/72 Pulse Oximetry 97 Oxygen Delivery Method Room Air BMI result Body Mass Index 30.9 <Jazmine Tello CNP - Last Filed: 01/31/22 18:17> Course Course Course Narrative: FRANCISCA triage -c/o fall 4 days, fall, was supposed no use cane but didnt', pt fell forward, no loss of consciousness, no thinners -from the fall, pt c/o R arm pain elbow and shouler pain, and suprascapular pain -PE: pt able to abduct/adduct arm on right side, ecchymosis in r upper back posterior to axialla -f/u xrays <Sally Nelson MD - Last Filed: 01/31/22 15:36> Reevaluation(s) Reevaluation #1: Patient is a 76-year-old female with a past medical history of asthma, gastritis, hypertension, hyperlipidemia, osteopenia, SVT presents emergency department for evaluation of traumatic right arm pain status post mechanical fall 4 days ago. Patient without any head injury at the time of fall, no focal neurological deficits. Right upper extremity is neurovascularly intact distally upon examination. No obvious deformities. Has full range of motion to right shoulder elbow and wrist. XR right shoulder is unremarkable no visible fracture dislocation. XR of the right elbow without acute fracture dislocation, no joint effusion. Discussed plan of care for discharge home, rest, ice, acetaminophen, elevation of the extremity, and outpatient follow-up with primary care provider. Reviewed worsening any symptoms to return back to emergency department for pad all questions answered. Patient discharged home in stable condition. <Jazmine Tello CNP - Last Filed: 01/31/22 18:17> Time: 16:23 <Jazmine Tello CNP - Last Filed: 01/31/22 18:17> Medical Decision Making Medical Records Medical records reviewed: Yes I reviewed the patient's medical records. <Jazmine Gravesdavied Tello CNP - Last Filed: 01/31/22 18:17> Imaging Data elbow XR: Radiologist's impression: XR/XR elbow RT min 3V IMPRESSION: Small anterior coronoid process enthesophyte. No visible acute fracture or dislocation seen. No abnormal joint effusion. <Jazmineriya Tello CNP - Last Filed: 01/31/22 18:17> XR shoulder: Radiologist's impression: RIGHT SHOULDER: The glenohumeral joint space is maintained normal. AC joint space is normal. No visible acute fracture, dislocation or lytic process seen. The soft tissues are normal. IMPRESSION: Unremarkable right shoulder exam.? <Jazmine Vogel WILMAR Tello - Last Filed: 01/31/22 18:17> Discharge Plan Discharge Clinical Impression: Right shoulder strain, Contusion of elbow, right <Sally Nelson MD - Last Filed: 01/31/22 15:36> Patient Disposition: Home, Self-Care <Sally Nelson MD - Last Filed: 01/31/22 15:36> Instructions: Muscle Strain (ED), Contusion in Adults (ED) <Sally Nelson MD - Last Filed: 01/31/22 15:36> Additional Instructions: As discussed the x-rays do not show any broken bones or dislocations. You can take Tylenol 500 mg, 2 tablets (1,000mg) every 4-6 hours as needed for pain, but not to exceed 3 doses daily (3,000mg).? Be sure to rest over the next few days, apply ice/heat to the areas of pain for 10-15 minutes 4-6 times daily, elevate your arm when possible on pillows. Follow-up with your primary care provider within the next week as needed Return to the emergency department any new or worsening symptoms or concerns. <Slaly Nelson MD - Last Filed: 01/31/22 15:36> Prescriptions: No Action lisinopril 10 mg tablet 10 mg PO QAM 90 Days Qty: 90 3RF docusate sodium 100 mg capsule 100 mg PO BID Qty: 180 1RF acidophilus-pectin, citrus 25 million cell -100 mg tablet 1 tab PO DAILY Qty: 30 6RF metoprolol succinate 25 mg tablet extended release 24 hr 25 mg PO QAM Qty: 90 3RF diltiazem HCl 120 mg capsule,extended release 24hr 120 mg PO QAM Qty: 30 6RF lansoprazole 30 mg capsule,delayed release(DR/EC) 30 mg PO BID Qty: 60 6RF acetaminophen [Mapap Arthritis Pain] 650 mg tablet extended release 1 tab PO Q8H PRN (Reason: Pain) loratadine 10 mg tablet 1 tab PO QAM Flovent HFA 110 mcg/actuation HFA aerosol inhaler 2 puff PO BID atorvastatin 20 mg tablet 20 mg PO QAM hydrochlorothiazide 25 mg tablet 25 mg PO QAM ammonium lactate 12 % cream 1 appl topical DAILY ergocalciferol (vitamin D2) 1,250 mcg (50,000 unit) capsule 1,250 mcg PO DAILY Citrucel 500 mg tablet 1,000 mg PO DAILY 30 Days Qty: 60 6RF simethicone 180 mg capsule 180 mg PO QID 30 Days Qty: 120 6RF Rx Instructions: after meals ibuprofen 800 mg tablet 800 mg PO Q8H PRN (Reason: pain) 30 Days Qty: 90 3RF polyvinyl alcohol 1.4 % drops 20 drp ophthalmic (eye) BEDTIME levalbuterol tartrate [Xopenex HFA] 45 mcg/actuation HFA aerosol inhaler 1 puff inhalation BID peg 3350-electrolytes [Golytely] 236-22.74-6.74 -5.86 gram recon soln 240 ml PO Q10M 1 Days Qty: 4000 0RF Rx Instructions: until fecal effluent is clear; do not exceed a total volume of 2,000 mL Trulance 3 mg tablet 3 mg PO DAILY Qty: 30 3RF <Sally Nelson MD - Last Filed: 01/31/22 15:36> Referrals: Eden Leo NP [Primary Care Provider] - <Sally Nelson MD - Last Filed: 01/31/22 15:36> Interventions: ED Discharge Assessment Last Done: 01/31/22 16:43 <Sally Nelson MD - Last Filed: 01/31/22 15:36> Discharge Date/Time: 01/31/22 16:46 <Sally Nelson MD - Last Filed: 01/31/22 15:36> Print Language: Lebanese <Sally Nelson MD - Last Filed: 01/31/22 15:36>
== END 2022-01-31 16:46 | disposition home or self-care (01) ==
PROVIDERS: Emergency Provider Internal Medicine; PCP Hospitalist
DX: S46.911A Strain of unspecified muscle, fascia and tendon at shoulder and upper arm level, right arm, initial encounter (principal); S50.01XA Contusion of right elbow, initial encounter; W01.0XXA Fall on same level from slipping, tripping and stumbling without subsequent striking against object, initial encounter; Y93.9 Activity, unspecified; Y92.9 Unspecified place or not applicable; Y99.9 Unspecified external cause status
CPT/HCPCS: 73030; 73080; 99283

== ENCOUNTER → 2022-02-09 12:50 | Outpatient (BNVA) | payer MEDICARE, SELFPAY | PROVIDERS: PCP Internal Medicine; Visit Provider Nurse Practitioner | DX: K59.04 Chronic idiopathic constipation (principal); K21.9 Gastro-esophageal reflux disease without esophagitis; K58.2 Mixed irritable bowel syndrome | CPT/HCPCS: 99212 ==

== ENCOUNTER → 2022-02-24 12:22 | Outpatient (BNVA) | payer MEDICARE, SELFPAY | PROVIDERS: PCP Internal Medicine; Referring Provider Internal Medicine; Visit Provider Internal Medicine Cardiovascular Disease | DX: I47.1 Supraventricular tachycardia (principal); I10 Essential (primary) hypertension; R51.9 Headache, unspecified | CPT/HCPCS: 93005; 99212 ==

== ENCOUNTER 2022-03-16 16:44 | Emergency (ER) | payer MEDICARE, SELFPAY ==
[2022-03-16] VITALS (7 sets, daily range): BP systolic 130–152; BP diastolic 60–78; PULSE 49–60; RESP 16–20; TEMP 36.5–37.1; O2SAT 96–98; BMI 32.4
--- NOTE | ~2022-03-16 | CT_ITS ---
EXAMINATION: NONCONTRAST HEAD CT NONCONTRAST CERVICAL SPINE CT INDICATION INFORMATION: Fall. Question head strike COMPARISON: Head CT 02/22/2021, CT cervical spine 08/09 2020 TECHNIQUE: Separate noncontrast CT examinations of the head and cervical spine were performed. Coronal and sagittal images were created for each examination at the technologist workstation. This CT examination was performed using dose optimization techniques as appropriate, variously including the following: *Automated exposure control *Adjustment of mA and/or kV according to patient size (this includes techniques or standardized protocols for targeted exams where dose is matched to indication/reason for exam; i.e. extremities or head) *Use of iterative reconstruction technique DLP: 943 mGy-cm FINDINGS: HEAD: No intra or extra-axial fluid collection, hemorrhage, or mass. No ventriculomegaly. No midline shift or herniation. Basal cisterns are patent. Radford-white matter differentiation is maintained. No territorial encephalomalacia. No significant volume loss. There is no abnormal attenuation within the brain parenchyma. No calvarial fracture or soft tissue abnormality. Mild hyperostosis frontalis interna. The mastoid air cells and visualized portions of the paranasal sinuses are well aerated. CERVICAL SPINE: Alignment: Minimal retrolisthesis at C3-C4. Straightening of the normal cervical lordosis. No additional subluxation. Vertebra: No acute fracture. No prevertebral soft tissue swelling. Degenerative disc disease: Moderate cervical spondylosis at C5-C6 and C6-C7 with disc height loss, endplate sclerosis and proliferative change. Multilevel bilateral facet arthrosis and uncovertebral spurring. Other findings: No cervical lymphadenopathy. Visualized major salivary glands and thyroid gland are unremarkable. Visualized lung apices are clear. CT/CT cervical spine wo IV con IMPRESSION: 1. No intracranial hemorrhage or calvarial fracture. 2. No traumatic subluxation or acute cervical spine fracture.
--- NOTE | ~2022-03-16 | CT_ITS ---
EXAMINATION: CT CHEST, ABDOMEN AND PELVIS without contrast CLINICAL INFORMATION: Reason for Exam right sided cp sp trauma COMPARISON: CT abdomen and pelvis 2016 TECHNIQUE: Multidetector volumetric CT imaging of the chest abdomen and pelvis obtained Axial MIP volume rendering provided. Sagittal and coronal reformatted images were obtained. This CT examination was performed using dose optimization techniques as appropriate, variously including the following: *Automated exposure control *Adjustment of mA and/or kV according to patient size (this includes techniques or standardized protocols for targeted exams where dose is matched to indication/reason for exam; i.e. extremities or head) *Use of iterative reconstruction technique CONTRAST: , Noncontrasted study. Reformatted coronal and sagittal imaging was performed. DLP: 278 mGy-cm FINDINGS: FRAME SAMPLE AND PATTERN SUPERVISOR, LINES TUBES: Analysis Or Research Safety Inspector reviewed, no lines. LUNGS: Interstitial: Mild patchy interstitial groundglass opacification over the right upper lobe nonspecific, cannot rule out mild interstitial pneumonitis or residual of prior pneumonia versus mild interstitial lung disease. There is a platelike atelectasis at right lower lobe. Lung nodules: No lung mass or suspicious spiculated nodules, there are few scattered tiny nonspecific lung nodular densities measuring up to 4 mm or less. Discoid density upper segment left lower lobe likely mucus impaction in bronchial. AIRWAYS: No intratracheal mass. PLEURA: No pleural effusion or pneumothorax. MEDIASTINUM AND NORM: The visualized thyroid gland is unremarkable. No mediastinal, hilar or axillary lymphadenopathy. There is no mediastinal mass. THORACIC AORTA: Thoracic aorta is normal in size. CHEST WALL, LOWER NECK, SURROUNDING SOFT TISSUES: Normal HEART AND PERICARDIUM: Heart is normal in size. There is no pericardial effusion. There are coronary calcifications. HEPATOBILIARY: No focal hepatic lesions. No biliary ductal dilatation. GALLBLADDER: Gallbladder unremarkable. SPLEEN: Spleen is normal in size. PANCREAS: No focal mass or ductal dilatation. GI TRACT: No distention or wall thickening. No CT evidence of appendicitis. ADRENALS: No adrenal nodules. KIDNEYS/URETERS: No hydronephrosis, stones or solid mass lesions. PELVIC ORGANS/BLADDER: Unremarkable PERITONEUM: No free air or fluid. LYMPH NODES: no retroperitoneal or mesenteric lymphadenopathy. VASCULAR:Abdominal aorta normal in size, no aneurysm found. BONES, ABDOMINAL WALL AND SOFT TISSUES: Age-appropriate changes of the spine and skeletal system, no destructive osteolytic or osteosclerotic bone lesion found CT/CT chest wo IV con IMPRESSION: Limited CT noncontrast study has limited sensitivity detecting solid organ injuries. * Given its limitation, No definite evidence of solid organ injury. * No lung mass or suspicious spiculated nodules, there are few scattered tiny nonspecific lung nodular densities measuring up to 4 mm or less. * Mild patchy interstitial groundglass opacification at the right upper lobe nonspecific, cannot rule out mild interstitial pneumonitis or residual of prior pneumonia versus mild interstitial lung disease. Please correlate clinically. * Platelike atelectasis at right lower lobe. * Coronary calcifications.
--- NOTE | ~2022-03-16 | CT_ITS ---
EXAMINATION: CT CHEST, ABDOMEN AND PELVIS without contrast CLINICAL INFORMATION: Reason for Exam right sided cp sp trauma COMPARISON: CT abdomen and pelvis 2016 TECHNIQUE: Multidetector volumetric CT imaging of the chest abdomen and pelvis obtained Axial MIP volume rendering provided. Sagittal and coronal reformatted images were obtained. This CT examination was performed using dose optimization techniques as appropriate, variously including the following: *Automated exposure control *Adjustment of mA and/or kV according to patient size (this includes techniques or standardized protocols for targeted exams where dose is matched to indication/reason for exam; i.e. extremities or head) *Use of iterative reconstruction technique CONTRAST: , Noncontrasted study. Reformatted coronal and sagittal imaging was performed. DLP: 278 mGy-cm FINDINGS: MEDIA EXECUTIVE, LINES TUBES: [employer] reviewed, no lines. LUNGS: Interstitial: Mild patchy interstitial groundglass opacification over the right upper lobe nonspecific, cannot rule out mild interstitial pneumonitis or residual of prior pneumonia versus mild interstitial lung disease. There is a platelike atelectasis at right lower lobe. Lung nodules: No lung mass or suspicious spiculated nodules, there are few scattered tiny nonspecific lung nodular densities measuring up to 4 mm or less. Discoid density upper segment left lower lobe likely mucus impaction in bronchial. AIRWAYS: No intratracheal mass. PLEURA: No pleural effusion or pneumothorax. MEDIASTINUM AND NORM: The visualized thyroid gland is unremarkable. No mediastinal, hilar or axillary lymphadenopathy. There is no mediastinal mass. THORACIC AORTA: Thoracic aorta is normal in size. CHEST WALL, LOWER NECK, SURROUNDING SOFT TISSUES: Normal HEART AND PERICARDIUM: Heart is normal in size. There is no pericardial effusion. There are coronary calcifications. HEPATOBILIARY: No focal hepatic lesions. No biliary ductal dilatation. GALLBLADDER: Gallbladder unremarkable. SPLEEN: Spleen is normal in size. PANCREAS: No focal mass or ductal dilatation. GI TRACT: No distention or wall thickening. No CT evidence of appendicitis. ADRENALS: No adrenal nodules. KIDNEYS/URETERS: No hydronephrosis, stones or solid mass lesions. PELVIC ORGANS/BLADDER: Unremarkable PERITONEUM: No free air or fluid. LYMPH NODES: no retroperitoneal or mesenteric lymphadenopathy. VASCULAR:Abdominal aorta normal in size, no aneurysm found. BONES, ABDOMINAL WALL AND SOFT TISSUES: Age-appropriate changes of the spine and skeletal system, no destructive osteolytic or osteosclerotic bone lesion found CT/CT abdomen pelvis wo IV con IMPRESSION: Limited CT noncontrast study has limited sensitivity detecting solid organ injuries. * Given its limitation, No definite evidence of solid organ injury. * No lung mass or suspicious spiculated nodules, there are few scattered tiny nonspecific lung nodular densities measuring up to 4 mm or less. * Mild patchy interstitial groundglass opacification at the right upper lobe nonspecific, cannot rule out mild interstitial pneumonitis or residual of prior pneumonia versus mild interstitial lung disease. Please correlate clinically. * Platelike atelectasis at right lower lobe. * Coronary calcifications.
--- NOTE | 2022-03-16 17:28 | ED_ITS ---
HPI - Fall General Chief Complaint: Fall Stated Complaint: CP, R SIDE PAIN S/P FALL DOWN ESCALATOR PER EMS Time Seen by Provider: 03/16/22 17:26 Source: patient Mode of arrival: EMS Limitations: other (poor historian ) History of Present Illness HPI Narrative: This is a 77-year-old female poor historian history of hypertension presenting via ambulance for complaints of headache, neck pain sp fall just prior to hakeem kang's arrival, according to EMS and patient patient fell down 3 steps of the escalator at the [facility]. Patient reports she hit her head however did not lose consciousness. Currently reporting she has a severe headache, without vision changes, dizziness or weakness. Also reporting that she has pain to her right side of chest and right-sided ribs. Patient is a poor historian she tells me she is unsure if she is on blood thinners. She denies any preceding symptoms to fall. Denies double vision, neck pain, nausea, vomiting, abdominal pain, vision changes, weakness, numbness or tingling, shortness of breath chest pain Patient arrives in a cervical collar out of precaution Related Data Home Medications Medication Instructions Recorded Confirmed acetaminophen 650 mg 1 tab PO Q8H PRN Pain 04/03/20 03/16/22 tablet,extended release (Mapap Arthritis Pain) atorvastatin 20 mg tablet 20 mg PO DAILY 12/07/20 03/16/22 hydrochlorothiazide 25 mg tablet 25 mg PO DAILY 12/07/20 03/16/22 fexofenadine 180 mg tablet 180 mg PO DAILY 02/09/22 03/16/22 (Allergy Relief (fexofenadine)) fluticasone propionate 50 1 - 2 spray intranasal DAILY PRN 02/09/22 03/16/22 mcg/actuation nasal Allergy Symptoms spray,suspension diltiazem HCl 120 mg 120 mg PO DAILY 03/16/22 03/16/22 capsule,extended release 24 hr ergocalciferol (vitamin D2) 1,250 1 cap PO DIAZ 03/16/22 03/16/22 mcg (50,000 unit) capsule fluticasone propionate 220 1 puff inhalation BID 03/16/22 03/16/22 mcg/actuation HFA aerosol inhaler (Flovent HFA) lisinopril 10 mg tablet 10 mg PO DAILY 12/28/22 12/28/22 metoprolol succinate 25 mg 25 mg PO DAILY 03/16/22 03/16/22 tablet,extended release 24 hr simethicone 180 mg capsule 180 mg PO QID 03/16/22 03/16/22 sodium chloride 0.65 % nasal spray 1 spray intranasal Q3H PRN Dry 03/16/22 03/16/22 aerosol (Deep Sea Nasal) Nasal Passages triamcinolone acetonide 55 mcg 2 spray intranasal DAILY 03/16/22 03/16/22 nasal spray aerosol Previous Rx's Medication Instructions Recorded acidophilus 25 million 1 tab PO DAILY #30 tabs 06/29/21 cell-pectin, citrus 100 mg tablet docusate sodium 100 mg capsule 100 mg PO BID #180 caps 02/09/22 lansoprazole 30 mg capsule,delayed 30 mg PO BID #60 caps 02/09/22 release methylcellulose (laxative) 500 mg 1,000 mg PO DAILY 30 days #60 tabs 02/09/22 tablet (Citrucel) plecanatide 3 mg tablet (Trulance) 3 mg PO DAILY #30 tabs 02/09/22 Allergies Allergy/AdvReac Type Severity Reaction Status Date / Time Tetanus Vaccines and Toxoid Allergy Mild SWELLING, Verified 02/09/22 13:22 [TETANUS VACCINES AND TOXOID] RASH albuterol [ALBUTEROL] Allergy Unknown HIVES Verified 02/09/22 13:22 verapamil [VERAPAMIL] Allergy Unknown UNKNOWN Verified 02/09/22 13:22 From Tuberculin PPD Leigh Test Allergy Unknown ARM Uncoded 05/18/21 12:23 SWELLING TB test Allergy Unknown large Uncoded 05/18/21 12:23 local reaction Review of Systems Review of Systems: Constitutional : No Weight loss, No Fever, No Chills, No Fatigue, No Malaise ENT/Mouth : No sore throat, No Rhinorrhea Eyes: No Eye Pain, No Swelling, No Redness Cardiovascular : No Chest Pain, No SOB, No Dyspnea on Exertion, No Orthopnea, No Edema, No Palpitations Respiratory : No Cough, No Sputum, No Wheezing Gastrointestinal : No Nausea, No Vomiting, No Diarrhea, No Constipation, No abdominal Pain, No Hematochezia, No Melena Genitourinary : No Dysuria, No Urinary Frequency, No Hematuria, Musculoskeletal : No joint pain, No Myalgias, No Joint Swelling, + rib pain Skin : No Skin Lesions, No rash Neuro : No Weakness, No Numbness, No Dizziness, + Headache Psych : No Anxiety/Panic, No Depression All other systems reviewed and are negative Yes all other systems are reviewed and are negative [facility] Past Medical History Attestation statement: The following information was validated with the patient. Source: old records reviewed and nursing notes reviewed Medical History Bronchial asthma Costochondritis COVID-19 Gastritis HTN (hypertension) Hx of migraine headaches Hx of sinusitis Hyperlipidemia Osteopenia Supraventricular tachycardia Surgical History History of esophagogastroduodenoscopy (EGD) Hx of colonoscopy Status post tubal ligation Family History Family History Mother Heart problem Angina pectoris Social History Social History Alcohol intake: current Alcohol intake frequency: does not drink Patient Tobacco Use Status: Never used Tobacco Advance Directives: No Advance Directives Information Provided: No Current occupational status: retired Current occupation: rt handed Physical Exam Vital Signs: Vital Signs: Last Vital Signs Temp 98.7 F 03/16/22 20:54 Pulse 56 03/16/22 20:54 Resp 17 03/16/22 20:54 BP 140/74 H 03/16/22 20:54 Pulse Ox 97 03/16/22 20:54 O2 Del Method 03/16/22 20:54 BMI result Body Mass Index 32.4 vss Appearance: Alert.? Oriented X3.? No acute distress.? Head: Normocephalic, atraumatic, no step-offs or deformities Eyes: Pupils equal, round and reactive to light.? Extraocular movements intact and pain-free. ENT: Pharynx normal.? Neck: Normal inspection.? Neck supple.? CVS: Normal heart rate and rhythm.? Pulses normal.?+ pain w/ palpation of right sided ribs/ chest wall. No overlying skin changes. Respiratory: No respiratory distress.? Breath sounds normal.? Abdomen: Soft and nontender.? Skin: Skin warm and dry.? Normal skin color.? Normal skin turgor.? Extremities: No lower extremity edema.? No calf ttp. Global weakness. 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 Back: No midline tenderness, no C-spine tenderness, full range of motion, no CVA tenderness bilaterally Neuro: Oriented X 3.? No motor deficit.? No sensory deficit. CN 2-12 intact . No saddle paresthesias. Negative Romberg and pronator drift. Course Reevaluation(s) Reevaluation #1: CBC within normal limits. Chemistry with no acute electrolyte abnormalities req uiring intervention. Carbon dioxide slightly elevated however this appears to be around patient's baseline. Troponin negative, EKG nonischemic. Her EKG does show sinus bradycardia will obtain orthostatic vitals. Coags within normal limits. Patient in CT scan and adamantly refusing injection of contrast. Was explained risks versus benefits of this by myself and CT scan however patient refusing. Will do dry scans. Time: 19:00 Reevaluation #2: CT of head with no acute intracranial hemorrhage or clavicular fracture. No traumatic subluxation or acute cervical spine fracture. CT of the chest with no lung mass or suspicious spiculated nodules. Noncontrast study limited in detecting solid organ injuries however given with limitation noted definite evidence of solid organ injury. Mild patchy interstitial ground-glass opacification at the right upper lobe, patient not complaining of any respiratory symptoms at this time, unlikely interstitial pneumonitis or residual to prior pneumonia. No acute findings in the abdomen. Pending orthostatic vital signs. If these are normal I suspect patient can be discharged home. Time: 20:52 Reevaluation #3: Orthostatic vital signs negative. Patient feeling well. Neuro nonfocal. Patient without complaints of pain at this time. Will discharge home with prompt PCP follow-up. Advised to return with new or worsening symptoms. Educated on worrisome signs and symptoms, educated on signs of post concussive syndrome. Educated patient on diagnosis and treatment plan, answered all question, patient verbalizes understanding. At this time patient will be discharged home, advised to return with new or worsening symptoms. Educated on worrisome signs and symptoms and when to return. At this time I feel comfortable discharge home. Time: 21:12 Medications Administered Discontinued Medications Generic Name Dose Route Start Last Admin Trade Name Freq PRN Reason Stop Dose Admin Acetaminophen 975 mg 03/16/22 21:13 03/16/22 21:26 Acetaminophen 325 Mg Tablet PO 03/16/22 21:14 975 mg ONCE ONE Administration Medical Decision Making Medical Decision Making [facility] Narrative: 9822 This is a 77-year-old female presenting status post fall, complaining of headache and right-sided rib/chest pain. Unknown if patient is on blood thinners. Patient poor historian. Patient collared out of precaution. Physical examination significant for pain w/ palpation of right sided ribs/ chest wall. No overlying skin changes. Neuro nonfocal. GCS of 15. NIH stroke scale 0. Will obtain trauma scans as patient is poor historian, will rule out intracranial hemorrhage, fractures and dislocations of ribs. On my examination there is no signs of flail chest or pneumothorax. Will also rule out internal bleeding. Lab Data Result Diagrams: 03/16/22 17:52 03/16/22 17:52 Labs: Lab Results 03/16/22 03/16/22 03/16/22 Range/Units 17:52 17:52 17:52 WBC 6.1 (4.8-10.8) X10*3/uL RBC 4.37 (4.20-5.50) X10*6/uL Hgb 13.1 (12.0-16.0) g/dl Hct 38.7 (37.0-47.0) % MCV 88.6 (80.0-98.0) fL MCH 30.0 (27.0-33.0) pg MCHC 33.9 (31.0-35.0) g/dl RDW 12.3 (11.0-16.0) % Plt Count 211 (160-400) X10*3/uL MPV 10.6 (9.4-12.3) fL Immature Gran % (Auto) 0.2 (0.0-0.4) % Neut % (Auto) 53.5 (45-73) % Lymph % (Auto) 37.4 (20-40) % [place] % (Auto) 8.1 (2-11) % Eos % (Auto) 0.5 (0-4) % Baso % (Auto) 0.3 (0-2) % Lymph # (Auto) 2.3 (1.2-4.9) X10*3/uL [place] # (Auto) 0.5 (0.1-1.2) X10*3/uL Eos # (Auto) 0.0 (0.0-0.4) X10*3/uL Baso # (Auto) 0.0 (0.0-0.2) X10*3/uL Abs Immat Gran (auto) 0.01 (0.00-0.03) X10*3/uL Absolute Neuts (auto) 3.2 (2.0-8.3) x10*3/uL Absolute Nucleated RBC 0.000 (0.0-0.012) X10*3/uL Nucleated RBC % (auto) 0.0 (0.0-0.2) /100WBC PT 12.7 (10.0-13.1) SEC INR 1.1 (0.9-1.1) Sodium 140 (135-145) mmol/L Potassium 3.5 (3.3-5.1) mmol/L Chloride 103 (96-108) mmol/L Carbon Dioxide 30 H (22-29) mmol/L Anion Gap 11 L (12-20) BUN 19 H (9-16) mg/dL Creatinine 0.91 (0.5-1.4) mg/dL Estim Creat Clear Calc 56.9 Estimated GFR 60 Random Glucose 100 (60-115) mg/dL Calcium 9.7 (8.4-10.2) mg/dL Magnesium 1.8 (1.6-2.6) mg/dL Total Bilirubin 0.5 (0.0-1.0) mg/dL AST 17 (5-31) U/L ALT 17 (0-31) U/L Alkaline Phosphatase 75 (39-117) U/L Troponin I High Sens (<3.5-17.0) ng/L Total Protein 6.4 L (6.5-8.0) g/dL Albumin 4.1 (3.5-5.0) g/dL 03/16/22 Range/Units 17:52 WBC (4.8-10.8) X10*3/uL RBC (4.20-5.50) X10*6/uL Hgb (12.0-16.0) g/dl Hct (37.0-47.0) % MCV (80.0-98.0) fL MCH (27.0-33.0) pg MCHC (31.0-35.0) g/dl RDW (11.0-16.0) % Plt Count (160-400) X10*3/uL MPV (9.4-12.3) fL Immature Gran % (Auto) (0.0-0.4) % Neut % (Auto) (45-73) % Lymph % (Auto) (20-40) % [place] % (Auto) (2-11) % Eos % (Auto) (0-4) % Baso % (Auto) (0-2) % Lymph # (Auto) (1.2-4.9) X10*3/uL [place] # (Auto) (0.1-1.2) X10*3/uL Eos # (Auto) (0.0-0.4) X10*3/uL Baso # (Auto) (0.0-0.2) X10*3/uL Abs Immat Gran (auto) (0.00-0.03) X10*3/uL Absolute Neuts (auto) (2.0-8.3) x10*3/uL Absolute Nucleated RBC (0.0-0.012) X10*3/uL Nucleated RBC % (auto) (0.0-0.2) /100WBC PT (10.0-13.1) SEC INR (0.9-1.1) Sodium (135-145) mmol/L Potassium (3.3-5.1) mmol/L Chloride (96-108) mmol/L Carbon Dioxide (22-29) mmol/L Anion Gap (12-20) BUN (9-16) mg/dL Creatinine (0.5-1.4) mg/dL Estim Creat Clear Calc Estimated GFR Random Glucose (60-115) mg/dL Calcium (8.4-10.2) mg/dL Magnesium (1.6-2.6) mg/dL Total Bilirubin (0.0-1.0) mg/dL AST (5-31) U/L ALT (0-31) U/L Alkaline Phosphatase (39-117) U/L Troponin I High Sens < 3.5 (<3.5-17.0) ng/L Total Protein (6.5-8.0) g/dL Albumin (3.5-5.0) g/dL Critical Care Time Critical Care Time Critical Care Time: No Discharge Plan Discharge Clinical Impression: Fall, Concussion without loss of consciousness, Rib pain on right side Patient Disposition: Home, Self-Care Instructions: Chest Pain (ED), Concussion (ED), Fall Prevention for Older Adults (ED), Post Concussion Syndrome (ED), Fall Prevention (ED) Additional Instructions: Take your medications as prescribed. If you were prescribed antibiotics today, it is important that you take your medication to their entirety, do not skip any doses, do not finish them early. Follow-up with your primary care provider this week. Return to the emergency department with new or worsening symptoms. Such as fevers, chills, chest pain, shortness of breath, nausea, vomiting, dizziness, headache, vision changes, lethargy In case of emergency call 911 [place] medicamentos seg?n lo prescrito. Si le recetaron antibi?ticos hoy, es importante que tome diaz medicamento en daiz totalidad, no se salte ninguna dosis, no los termine antes de tiempo. Seguimiento con diaz proveedor de atenci?n primaria esta semana. Regrese al departamento de emergencias con s?ntomas nuevos o que empeoran. Escalante fiebre, escalofr?os, dolor de pecho, dificultad para respirar, n?useas, v?mitos, mareos, dolor de manjit, cambios en la visi?n, letargo En eileen de emergencia llama al 911 Prescriptions: No Action acidophilus-pectin, citrus 25 million cell -100 mg tablet 1 tab PO DAILY Qty: 30 6RF acetaminophen [Mapap Arthritis Pain] 650 mg tablet extended release 1 tab PO Q8H PRN (Reason: Pain) atorvastatin 20 mg tablet 20 mg PO DAILY hydrochlorothiazide 25 mg tablet 25 mg PO DAILY triamcinolone acetonide 55 mcg aerosol,spray 2 spray intranasal DAILY fluticasone propionate [Flovent HFA] 220 mcg/actuation HFA aerosol inhaler 1 puff INHALATION BID Deep Sea Nasal 0.65 % aerosol,spray 1 spray intranasal Q3H PRN (Reason: Dry Nasal Passages) simethicone 180 mg capsule 180 mg PO QID Rx Instructions: after meals diltiazem HCl 120 mg capsule,extended release 24hr 120 mg PO DAILY metoprolol succinate 25 mg tablet extended release 24 hr 25 mg PO DAILY ergocalciferol (vitamin D2) 1,250 mcg (50,000 unit) capsule 1 cap PO DIAZ lisinopril 10 mg tablet 10 mg PO DAILY fluticasone propionate 50 mcg/actuation spray,suspension 1 - 2 spray intranasal DAILY PRN (Reason: Allergy Symptoms) fexofenadine [Allergy Relief (fexofenadine)] 180 mg tablet 180 mg PO DAILY lansoprazole 30 mg capsule,delayed release(DR/EC) 30 mg PO BID Qty: 60 6RF Trulance 3 mg tablet 3 mg PO DAILY Qty: 30 6RF docusate sodium 100 mg capsule 100 mg PO BID Qty: 180 1RF Citrucel 500 mg tablet 1,000 mg PO DAILY 30 Days Qty: 60 6RF Referrals: Physician,Unknown J [Primary Care Provider] - 2 days Stand Alone Forms: Work/School Release Print Language: New Zealander
--- NOTE | 2022-03-16 17:29 | ECG_ITS ---
Test Reason : FALL Blood Pressure : / mmHG Vent. Rate : 052 BPM Atrial Rate : 052 BPM P-R Int : 144 ms QRS Dur : 074 ms QT Int : 448 ms P-R-T Axes : 014 006 -10 degrees QTc Int : 416 ms Sinus bradycardia Otherwise normal ECG When compared with ECG of 08-JUL-2020 20:28, No significant change was found Referred By: Tin Bales Electronically Signed By:NIMO BAUTISTA MD
[2022-03-16 17:56] LABS: MANUAL DIFF FLAG NO
--- NOTE | 2022-03-16 17:57 | PHA.MEDREC ---
Pharmacy Consult ? Medication Reconciliation Pharmacy has completed the medication reconciliation.
[2022-03-16 18:00] LABS: Basophils Percent Auto 0.3 % (0-2); Eosinophils Percent Auto 0.5 % (0-4); Hematocrit 38.7 % (37.0-47.0); Hemoglobin 13.1 g/dl (12.0-16.0); Imm Gran Abs Auto 0.01 X10*3/uL (0.00-0.03); Imm Gran Pct Auto 0.2 % (0.0-0.4); Lymphocytes Absolute Auto 2.3 X10*3/uL (1.2-4.9); Lymphocytes Percent Auto 37.4 % (20-40); Mean Corpuscular HGB Conc 33.9 g/dl (31.0-35.0); Mean Corpuscular Volume 88.6 fL (80.0-98.0); Mean Platelet Volume 10.6 fL (9.4-12.3); Monocytes Absolute Auto 0.5 X10*3/uL (0.1-1.2); Monocytes Percent Auto 8.1 % (2-11); Neutrophils Absolute Auto 3.2 x10*3/uL (2.0-8.3); Neutrophils Percent Auto 53.5 % (45-73); Platelet Count 211 X10*3/uL (160-400); Red Blood Count 4.37 X10*6/uL (4.20-5.50); Red Cell Distribution Width 12.3 % (11.0-16.0); White Blood Count 6.1 X10*3/uL (4.8-10.8)
[2022-03-16 18:03] LABS: INTERNATIONAL NORM RATIO 1.1 (0.9-1.1); Prothrombin Time 12.7 SEC (10.0-13.1)
[2022-03-16 18:15] LABS: Alanine Aminotransferase 17 U/L (0-31); Albumin Level 4.1 g/dL (3.5-5.0); Alkaline Phosphatase 75 U/L (39-117); Anion Gap 11 (12-20); Aspartate Amino Transferase 17 U/L (5-31); Bilirubin Total 0.5 mg/dL (0.0-1.0); Blood Urea Nitrogen 19 mg/dL (9-16); Calcium 9.7 mg/dL (8.4-10.2); Carbon Dioxide 30 mmol/L (22-29); Chloride 103 mmol/L (96-108); Creatinine Clr Calc Pharmacy 56.9; Estimated Glomerular Filt Rate 60; Glucose Random 100 mg/dL (60-115); Magnesium 1.8 mg/dL (1.6-2.6); Potassium 3.5 mmol/L (3.3-5.1); Sodium 140 mmol/L (135-145); Total Protein 6.4 g/dL (6.5-8.0)
[2022-03-16 18:18] LABS: Troponin-I High Sensitivity < 3.5 ng/L (<3.5-17.0)
--- NOTE | 2022-03-16 18:43 | PC.NURSE ---
Pt taken for CT scan
[2022-03-16] MEDS: Acetaminophen 325 MG TABLET 975 MG PO (21:26)
--- NOTE | 2022-03-16 21:29 | PC.NURSE ---
Pt's V/S are stable, this nurse just got report. Pt is d/c and reports pain 9/10. Meds has been given as order.
== END 2022-03-16 21:32 | disposition home or self-care (01) ==
PROVIDERS: Physician Assistant; Emergency Provider Emergency Medicine
DX: S06.0X0A Concussion without loss of consciousness, initial encounter (principal); R07.89 Other chest pain; R07.81 Pleurodynia; M54.2 Cervicalgia; R51.9 Headache, unspecified; M54.6 Pain in thoracic spine; W10.9XXA Fall (on) (from) unspecified stairs and steps, initial encounter; Y93.9 Activity, unspecified; Y92.9 Unspecified place or not applicable; Y99.9 Unspecified external cause status; Z79.899 Other long term (current) drug therapy
CPT/HCPCS: 36415; 70450; 71250; 72125; 74176; 80053; 83735; 84484; 85025; 85610; 93005; 99284; 99285

== ENCOUNTER → 2022-03-24 13:02 | Outpatient (BNVA) | payer MEDICARE, SELFPAY | PROVIDERS: PCP Internal Medicine; Visit Provider Surgery Vascular Surgery | DX: I83.11 Varicose veins of right lower extremity with inflammation (principal) | CPT/HCPCS: 99202 ==

== ENCOUNTER 2022-05-05 13:14 | Outpatient (REF) | payer OTHER, SELFPAY ==
--- NOTE | ~2022-05-05 | US_ITS ---
EXAMINATION: US VENOUS REFLUX/INSUFFICIENCY CLINICAL INFORMATION: The patient is a 77 year-old female with right lower extremity varicosities and inflammation. COMPARISON: None. TECHNIQUE: Bilateral lower extremity and venous insufficiency ultrasound was performed with velocity measurements. Color flow Doppler imaging was performed. FINDINGS: RIGHT SIDE: GREATER SAPHENOUS VEIN: The right saphenofemoral junction diameter is 0.7 cm. There is no reflux. The right proximal thigh diameter is 0.3 cm. There is no reflux. The right mid thigh diameter is 0.3 cm. There is no reflux. The right above-knee diameter is 0.3 cm. There is no reflux. The right at-knee diameter is 0.3 cm. There is no reflux. The right below-knee diameter is 0.3 cm. The reflux time is 1148 ms. The right mid calf diameter is 0.2 cm. The reflux time is 1100 ms. The right ankle diameter is 0.3 cm. There is no reflux. LATERAL ACCESSORY GREATER SAPHENOUS VEIN: The right saphenofemoral junction diameter is 0.2 cm. There is no reflux. The right mid thigh diameter is 0.2 cm. There is no reflux. LESSER SAPHENOUS VEIN: The right saphenopopliteal junction diameter is 0.2 cm. There is no reflux. The right mid calf diameter is 0.2 cm. There is no reflux. The right distal calf diameter is 0.2 cm. There is no reflux. LEFT SIDE: GREATER SAPHENOUS VEIN: The left saphenofemoral junction diameter is 0.8 cm. There is no reflux. The left proximal thigh diameter is 0.5 cm. There is no reflux. The left mid thigh diameter is 0.3 cm. There is no reflux. The left above-knee diameter is 0.4 cm. There is no reflux. The left at-knee diameter is 0.4 cm. There is no reflux. The left below-knee diameter is 0.2 cm. There is no reflux. The left mid calf diameter is 0.2 cm. There is no reflux. The left ankle diameter is 0.2 cm. There is no reflux. LATERAL ACCESSORY GREATER SAPHENOUS VEIN: The left saphenofemoral junction diameter is 0.4 cm. There is no reflux The left mid thigh diameter is 0.2 cm. There is no reflux. LESSER SAPHENOUS VEIN: The left saphenopopliteal junction diameter is 0.3 cm. There is no reflux. The left mid calf diameter is 0.1 cm. There is no reflux. The left distal calf diameter is 0.2 cm. There is no reflux. BILATERAL DEEP VENOUS SYSTEMS: There is no deep venous thrombosis or reflux on the right. There is no deep venous thrombosis or reflux on the left. OTHER: In the medial left calf, a 0.8 x 0.4 x 0.4 cm anechoic cyst is seen. US/US venous duplex LE BI IMPRESSION: 1. There is hemodynamically significant reflux of the right greater saphenous vein. 2. No hemodynamically significant reflux is seen of the right lesser saphenous vein. 3. No hemodynamically significant reflux is seen of the left greater or lesser saphenous veins. 4. An 8 mm simple appearing cyst is seen within the medial left calf soft tissues. The possibility of a liquefying hematoma is raised; the exact etiology is indeterminate. If of continued clinical concern, this can be further evaluated with MRI.
== END 2022-05-05 13:15 | disposition home or self-care (01) ==
LOC: HO.US 13:14
PROVIDERS: PCP Internal Medicine; Visit Provider Surgery Vascular Surgery
DX: I83.893 Varicose veins of bilateral lower extremities with other complications (principal)
CPT/HCPCS: 93970

== ENCOUNTER 2022-05-26 13:29 | Outpatient (REF) | payer OTHER, SELFPAY ==
[2022-05-26 14:31] LABS: MANUAL DIFF FLAG NO
[2022-05-26 15:16] LABS: Basophils Percent Auto 0.3 % (0-2); Eosinophils Percent Auto 0.3 % (0-4); Hematocrit 39.6 % (37.0-47.0); Hemoglobin 13.3 g/dl (12.0-16.0); Imm Gran Abs Auto 0.01 X10*3/uL (0.00-0.03); Imm Gran Pct Auto 0.2 % (0.0-0.4); Lymphocytes Absolute Auto 1.8 X10*3/uL (1.2-4.9); Lymphocytes Percent Auto 29.7 % (20-40); Mean Corpuscular HGB Conc 33.6 g/dl (31.0-35.0); Mean Corpuscular Hemoglobin 29.9 pg (27.0-33.0); Mean Platelet Volume 10.9 fL (9.4-12.3); Monocytes Absolute Auto 0.5 X10*3/uL (0.1-1.2); Neutrophils Absolute Auto 3.6 x10*3/uL (2.0-8.3); Neutrophils Percent Auto 61.5 % (45-73); Platelet Count 240 X10*3/uL (160-400); Red Blood Count 4.45 X10*6/uL (4.20-5.50); Red Cell Distribution Width 12.7 % (11.0-16.0); White Blood Count 5.9 X10*3/uL (4.8-10.8)
[2022-05-26 16:26] LABS: Erythrocyte Sedimentation Rate 10 MM/HR (0-20)
[2022-05-30 15:24] LABS: Cyclic Citrullinated Peptide <16 UNITS
[2022-05-30 15:28] LABS: Anti Nuclear Antibody Screen NEGATIVE (NEGATIVE)
[2022-05-31 01:53] LABS: Angiotensin Converting Enzyme 10.3 U/L (9-67)
== END 2022-05-26 13:30 | disposition home or self-care (01) ==
LOC: HO.LAB 13:29
PROVIDERS: PCP Internal Medicine; Visit Provider Hospitalist
DX: J18.9 Pneumonia, unspecified organism (principal); J45.909 Unspecified asthma, uncomplicated; R91.8 Other nonspecific abnormal finding of lung field; T78.40XA Allergy, unspecified, initial encounter
CPT/HCPCS: 36415; 82164; 82785; 85025; 85652; 86003; 86038; 86039; 86200; 99202

== ENCOUNTER 2022-06-09 12:07 | Outpatient (REF) | payer OTHER, SELFPAY ==
--- NOTE | ~2022-06-09 | XR_ITS ---
EXAMINATION: XR CHEST CLINICAL INFORMATION: Chest pain COMPARISON: Chest CT on 03/08/2022 TECHNIQUE: 2 views of the chest were obtained. FINDINGS: No significant abnormality is noted involving the heart, lungs, mediastinum, bony thorax or soft tissues. XR/XR chest 2V IMPRESSION: Unremarkable examination.
== END 2022-06-09 12:08 | disposition home or self-care (01) ==
LOC: HO.XRAY 12:07
PROVIDERS: PCP Internal Medicine; Visit Provider Hospitalist
DX: R07.9 Chest pain, unspecified (principal)
CPT/HCPCS: 71046

== ENCOUNTER 2022-06-10 11:04 | Outpatient (REF) | payer OTHER, SELFPAY ==
--- NOTE | 2022-06-10 14:36 | PFT_ITS ---
INDICATION: Pneumonia. SPIROMETRY: FEV1 to FVC of 81% with an FEV1 of 1.43 L, which is 92% predicted and FVC of 1.76 L, which is 84% predicted. No significant response to bronchodilators noted. Maximum voluntary ventilation 58% predicted. LUNG VOLUMES: Total lung capacity 76% predicted with a residual volume of 69% predicted. DIFFUSION CAPACITY: DLCO 99% predicted. COMPARISON: None. INTERPRETATION: No obstructive ventilatory defects. No significant response to bronchodilators noted, although there is some moderate decrease in maximum voluntary ventilation which could be secondary to deconditioning and/or neuromuscular conditions. Lung volumes with a restrictive ventilatory defect consistent with mild restrictive lung disease. In addition to that, diffusion capacity is within normal limits. Clinical correlation warranted. MD PHUONG Henry/MODRobbie / [id number]
== END 2022-06-10 11:05 | disposition home or self-care (01) ==
LOC: HO.RESP 11:04
PROVIDERS: PCP Emergency Medicine; Visit Provider Hospitalist
DX: J18.9 Pneumonia, unspecified organism (principal)
CPT/HCPCS: 94060; 94727; 94729

== ENCOUNTER → 2022-06-24 11:42 | Outpatient (BNVA) | payer OTHER, SELFPAY | PROVIDERS: PCP Internal Medicine; Visit Provider Surgery | DX: N64.4 Mastodynia (principal); Z86.000 Personal history of in-situ neoplasm of breast | CPT/HCPCS: 99212 ==

== ENCOUNTER → 2022-06-30 12:55 | Outpatient (BNVA) | payer OTHER, SELFPAY | PROVIDERS: PCP Internal Medicine; Visit Provider Surgery Vascular Surgery | DX: I83.11 Varicose veins of right lower extremity with inflammation (principal) | CPT/HCPCS: 99212 ==

== ENCOUNTER → 2022-07-07 13:01 | Outpatient (BNVA) | payer OTHER, SELFPAY | PROVIDERS: PCP Internal Medicine; Visit Provider Nurse Practitioner | DX: K21.9 Gastro-esophageal reflux disease without esophagitis (principal); K59.04 Chronic idiopathic constipation; D12.6 Benign neoplasm of colon, unspecified | CPT/HCPCS: 99212 ==

== ENCOUNTER 2022-08-01 13:00 | Outpatient (RCR) | payer OTHER, SELFPAY ==
--- NOTE | 2022-07-15 15:40 | MHC.PT.EP ---
[facility] Office [place] Office [place] Office [address] Joo Denson [address] [phone] F: [phone] F: [phone] F: [phone] F: [phone] Physical Therapy Plan of Care Date of Evaluation: Date of Surgery: Diagnosis: LOW BACK PAIN (KP) Assessment: JULIET IS A PLEASANT 77 YO FEMALE WHO FELL DOWN AN ESCALATOR IN [facility] AFTER LOSING HER BALANCE. SHE STATES SHE DID HIT HER HEAD ON THE WAY DOWN AND MAY HAVE LOST CONCIOUSNESS. EMS ON SCENE TO -> [facility], TREATED AND RELEASED. SINCE THAT TIME THE LOW BACK PAIN HAS REMAINED ABOUT THE SAME. DOES REPORT SOME PULMONARY EDEMA FOLLOWING FALL WELL. PAIN IS REPORTED ACROSS NECK, FRANSICO SHOULDERS AND ACROSS LOW BACK. PAIN IS DESCRIBED STRONG , STABBING . WHE SHE STANDS TOO LONG HER PAIN INCREASES TO THE POINT SHE BECOMES NAUSEOUS. SHE REPORTS AT HOME SHE MUST TAKE FREQUENT REST BREAKS TO KEEP PAIN FROM WORSENING. CURRENTLY HAS A SUPERVISOR ORDER TAKERS 21 HOURS/WEEK TO ASSIST WITH BATHING, DRESSING, COOKING AND CLEANING. Frequency and Duration: The patient will be seen 2 X WEEKS FOR 4 WEEKS Short Term Goals: INITIATE HEP AND PROMOTE SELF MANAGEMENT OF SYMPTOMS Acid Mixer Goals: To ambulate ad nathan on variable surfaces without pain greater than 2/10 To demonstrate 5/5 LE strength equal [place] IN To demonstrate a minimum of 50% lumbar ROM without pain greater than 2/10 Independent HEP Treatment Plan: Modalities to reduce pain, spasms and effusion. Manual therapy to restore motion and function. Therapeutic exercise to improve strength and flexibility. Neuromuscular re-education for posture and balance. Therapeutic activities to return to functional activities of daily living. Electronically signed by: Corazon Nguyễn PT, DPT Please sign and return to therapist. Thank you for your referral.
== END 2022-09-22 08:50 | disposition home or self-care (01) ==
LOC: HO.PT 13:00
PROVIDERS: PCP Internal Medicine; Visit Provider Emergency Medicine
DX: M51.36 Other intervertebral disc degeneration, lumbar region (principal); G89.29 Other chronic pain
CPT/HCPCS: 97110; 97161

== ENCOUNTER 2022-08-03 15:31 | Emergency (ER) | payer OTHER, SELFPAY ==
--- NOTE | ~2022-08-03 | XR_ITS ---
EXAMINATION: XR RIBS, RIGHT CLINICAL INFORMATION: Pain post fall COMPARISON: Previous chest x-ray most recent May 2022 TECHNIQUE: 3 views of the right ribs and one view of the chest were obtained. FINDINGS: Lungs are clear. No consolidation, pneumothorax, or pleural effusion. The cardiomediastinal silhouette and pulmonary vasculature are normal. Osseous structures are unremarkable. Ribs are intact. No fractures are identified. XR/XR ribs RT min 3V w CXR1V IMPRESSION: Unremarkable examination.
[2022-08-03 15:55] VITALS: BP 135/67; PULSE 66; RESP 18; TEMP 36.1; O2SAT 95; BMI 32.6
--- NOTE | 2022-08-03 15:57 | ED.FALL ---
HPI - Fall General Chief Complaint: Fall <JESSA Pastrana - Last Filed: 08/03/22 16:03> Stated Complaint: fall/hurt hip lower back <JESSA Pastrana - Last Filed: 08/03/22 16:03> Time Seen by Provider: 08/03/22 16:31 <JESSA Pastrana - Last Filed: 08/03/22 16:03> Source: patient <Bryn Martinez - Last Filed: 08/03/22 17:42> Limitations: no limitations <Bryn Martinez - Last Filed: 08/03/22 17:42> History of Present Illness HPI Narrative: 77-year-old female presents to the ER status post falling in the tub this morning. Patient states she slipped injuring the right side of her back and ribs on [place]. Patient denies hitting her head or passing out. Patient describes the pain as aching nature increases the palpation. Patient also states pain increases with deep inspiration. Patient denies loss consciousness states she is on no blood thinners. Patient has longstanding history of asthma right shoulder tendinitis hyperlipidemia hypertension. Patient states she did not pass out and did not feel dizzy. Patient states she has hurt her right shoulder in the past secondary to falls. <Bryn Martinez - Last Filed: 08/03/22 17:42> Related Data Home Medications: Home Medications Medication Instructions Recorded Confirmed acetaminophen 650 mg 1 tab PO Q8H PRN Pain 04/03/20 06/24/22 tablet,extended release (Mapap Arthritis Pain) atorvastatin 20 mg tablet 20 mg PO DAILY 12/07/20 06/24/22 hydrochlorothiazide 25 mg tablet 25 mg PO DAILY 12/07/20 06/24/22 fexofenadine 180 mg tablet 180 mg PO DAILY 02/09/22 06/24/22 (Allergy Relief (fexofenadine)) ergocalciferol (vitamin D2) 1,250 1 cap PO ASHER 03/16/22 06/24/22 mcg (50,000 unit) capsule fluticasone propionate 220 1 puff inhalation BID 03/16/22 06/24/22 mcg/actuation HFA aerosol inhaler (Flovent HFA) metoprolol succinate 25 mg 25 mg PO DAILY 03/16/22 06/24/22 tablet,extended release 24 hr sodium chloride 0.65 % nasal spray 1 spray intranasal Q3H PRN Dry 03/16/22 06/24/22 aerosol (Deep Sea Nasal) Nasal Passages triamcinolone acetonide 55 mcg 2 spray intranasal DAILY 03/16/22 06/24/22 nasal spray aerosol diltiazem HCl 120 mg 120 mg PO DAILY 07/07/22 capsule,extended release 24 hr levalbuterol tartrate 45 1 inh inhalation 07/07/22 mcg/actuation aerosol inhaler Previous Rx's Medication Instructions Recorded acidophilus 25 million 1 tab PO DAILY #30 tabs 06/29/21 cell-pectin, citrus 100 mg tablet lisinopril 10 mg tablet 10 mg PO DAILY 90 days #90 tabs 06/03/22 docusate sodium 100 mg capsule 100 mg PO BID #180 caps 07/07/22 lansoprazole 30 mg capsule,delayed 30 mg PO BID #60 caps 07/07/22 release methylcellulose (laxative) 500 mg 1,000 mg PO DAILY 30 days #60 tabs 07/07/22 tablet (Citrucel) plecanatide 3 mg tablet (Trulance) 3 mg PO DAILY #30 tabs 07/07/22 tramadol 50 mg tablet 50 mg PO BID PRN pain (scale score 08/03/22 7-10) #10 tabs <JESSA Pastrana - Last Filed: 08/03/22 16:03> Allergies/Adverse Reactions: Allergies Allergy/AdvReac Type Severity Reaction Status Date / Time Tetanus Vaccines and Toxoid Allergy Mild SWELLING, Verified 08/03/22 16:02 [TETANUS VACCINES AND TOXOID] RASH albuterol [ALBUTEROL] Allergy Unknown HIVES Verified 08/03/22 16:02 verapamil [VERAPAMIL] Allergy Unknown UNKNOWN Verified 08/03/22 16:02 aspirin AdvReac Severe Abdominal Verified 08/03/22 16:02 Pain From Tuberculin PPD Leigh Test Allergy Unknown ARM Uncoded 06/24/22 11:48 SWELLING TB test Allergy Unknown large Uncoded 06/24/22 11:48 local reaction <JESSA Pastrana - Last Filed: 08/03/22 16:03> Review of Systems Review of Systems: General: No fever, no chills Ophthalmology: No vision changes, no discharge ENT: No sore throat, no ear pain Cardiovascular: No chest pain, no peripheral edema, no shortness of breath Respiratory: Patient denies shortness rest present for right-sided rib pain. Pain with deep inspiration Muscle skeletal: Patient denies back pain neck pain GI: No abdominal pain: no nausea vomiting, no diarrhea : No dysuria, no urgency, no frequency Psychiatric: No depression, no suicidal ideation, no homicidal ideation Skin: No rash Neuro: No headache no loss of consciousness Immunology: No immunocompromised Hematology: No bleeding, no bruising <Bryn Martinez - Last Filed: 08/03/22 17:42> FOR[facility]LY [facility], [facility] Past Medical History Attestation statement: The following information was validated with the patient. <Bryn Martinez - Last Filed: 08/03/22 17:42> Medical History: Medical History Bronchial asthma Costochondritis COVID-19 Gastritis HTN (hypertension) Hx of migraine headaches Hx of sinusitis Hyperlipidemia Osteopenia Pneumonitis Pulmonary nodules Supraventricular tachycardia <JESSA Pastrana - Last Filed: 08/03/22 16:03> Surgical History: Surgical History History of esophagogastroduodenoscopy (EGD) Hx of colonoscopy Status post tubal ligation <JESSA Pastrana - Last Filed: 08/03/22 16:03> Family History Family History: Family History Mother Heart problem Angina pectoris Daughter Breast cancer <JESSA Pastrana - Last Filed: 08/03/22 16:03> Social History Social History: Social History Household Members: None Housing: Apartment Are you a primary early breastfeeding care specialist to a significant other at home: No Do you presently have visiting nurse or other home services: Yes Alcohol intake: current Alcohol intake frequency: does not drink Patient Tobacco Use Status: Never used Tobacco service: No Current occupational status: retired Current occupation: rt handed <JESSA Pastrana - Last Filed: 08/03/22 16:03> Physical Exam Vital Signs: Vital Signs: Last Vital Signs Temp 97.0 F 08/03/22 15:55 Pulse 66 08/03/22 15:55 Resp 18 08/03/22 15:55 BP 135/67 08/03/22 15:55 Pulse Ox 95 08/03/22 15:55 O2 Del Method Room Air 08/03/22 15:55 BMI result Body Mass Index 32.6 <JESSA Pastrana - Last Filed: 08/03/22 16:03> Vital Signs: Last Vital Signs Temp 97.0 F 08/03/22 15:55 Pulse 66 08/03/22 15:55 Resp 18 08/03/22 15:55 BP 135/67 08/03/22 15:55 Pulse Ox 95 08/03/22 15:55 O2 Del Method Room Air 08/03/22 15:55 BMI result Body Mass Index 32.6 <Bryn Martinez - Last Filed: 08/03/22 17:42> General appearance: Awake, alert, cooperative, in no acute distress Skin: No ecchymosis noted Eyes: PERRL, EOMI, no icterus ENT: Oropharynx normal, uvula midline Neck: Soft supple full range of motion, no midline tenderness Pulmonary: Breath sounds clear to auscultation bilaterally, no accessory muscle use, right lateral ribs positive tenderness no crepitus Cardiovascular: Regular rate and rhythm, no murmurs and rubs Abdomen: Soft nontender, no rebound or guarding, positive bowel sounds Extremities: Right shoulder full range of motion no crepitus clavicles intact scapula nontender. Neuro: Alert oriented x3, no focal deficit Psych: Normal affect <Bryn Martinez - Last Filed: 08/03/22 17:42> Course Course Course Narrative: RME 77 yo female with a PMH of presenting for right middle and posterior ribs s/p fall backwards onto the sink when she was stepping into the bathtub, without hitting her head (no anticoagulation). She has no bruising, is tender with palpation to right middle and posterior ribs, no midline tenderness. Plan: XR ribs <JESSA Pastrana - Last Filed: 08/03/22 16:03> Medications Administered Discontinued Medications Generic Name Dose Route Start Last Admin Trade Name Freq PRN Reason Stop Dose Admin Tramadol HCl 25 mg 08/03/22 17:14 08/03/22 17:23 Tramadol Hcl 50 Mg Tablet PO 08/03/22 17:15 25 mg ONCE ONE Administration <JESSA Pastrana - Last Filed: 08/03/22 16:03> Medications Administered Discontinued Medications Generic Name Dose Route Start Last Admin Trade Name David PRN Reason Stop Dose Admin Tramadol HCl 25 mg 08/03/22 17:14 08/03/22 17:23 Tramadol Hcl 50 Mg Tablet PO 08/03/22 17:15 25 mg ONCE ONE Administration <Bryn Martinez - Last Filed: 08/03/22 17:42> Medical Decision Making Medical Decision Making MDM Narrative: Right rib contusion Right-sided rib fracture Pneumothorax less likely Muscle strain 77-year-old female status post falling out of a tub injuring her midback and right ribs on sink. Patient states throughout the day the pain is slightly increased denies hitting her head loss of consciousness. X-ray of chest and ribs are pending at this time. Vital signs stable X-ray negative for rib fracture no pneumothorax otherwise clear <Bryn Martinez - Last Filed: 08/03/22 17:42> Radiology Impression Discussion of test interpretation with radiology: I have reviewed the radiologist's reading. <Bryn Martinez - Last Filed: 08/03/22 17:42> Radiologist Impression: [address] [address] XRay Report Signed Patient: Eden Mckinney MR#: [id number] : 1945 Acct:[id number] Age/Sex: 77 / F ADM Date: 08/03/22 Loc: .ED Attending Dr: Ordering Physician: Nadine Scruggs Date of Service: 08/03/22 Procedure(s): XR ribs RT min 3V w CXR1V Accession Number(s): [id number] cc: Nadine Scruggs~ EXAMINATION: XR RIBS, RIGHT CLINICAL INFORMATION: Pain post fall COMPARISON: Previous chest x-ray most recent May 2022 TECHNIQUE: 3 views of the right ribs and one view of the chest were obtained. FINDINGS: Lungs are clear. No consolidation, pneumothorax, or pleural effusion. The cardiomediastinal silhouette and pulmonary vasculature are normal. Osseous structures are unremarkable. Ribs are intact. No fractures are identified. XR/XR ribs RT min 3V w CXR1V IMPRESSION: Unremarkable examination. ? Dictated By: Stefanie Aguilar MD Signed By: <Electronically signed by Stefanie Aguilar MD in OV> 08/03/22 1641 DD/ 1626 TD/TT:? Editor [employer]: OTONIEL <Bryn Beens - Last Filed: 08/03/22 17:42> Discharge Plan Discharge Clinical Impression: Contusion of rib on right side <JESSA Pastrana - Last Filed: 08/03/22 16:03> Patient Disposition: Home, Self-Care <JESSA Pastrana - Last Filed: 08/03/22 16:03> Instructions: Rib Contusion (ED) <JESSA Pastrana - Last Filed: 08/03/22 16:03> Additional Instructions: X-ray of the chest and ribs was negative for fracture Medication as directed for pain When you bruising ribs it will take time for them to heal Return if symptoms worsen <JESSA Pastrana - Last Filed: 08/03/22 16:03> Prescriptions: New tramadol 50 mg tablet 50 mg PO BID PRN (Reason: pain (scale score 7-10)) Qty: 10 0RF No Action acidophilus-pectin, citrus 25 million cell -100 mg tablet 1 tab PO DAILY Qty: 30 6RF lisinopril 10 mg tablet 10 mg PO DAILY 90 Days Qty: 90 3RF acetaminophen [Mapap Arthritis Pain] 650 mg tablet extended release 1 tab PO Q8H PRN (Reason: Pain) atorvastatin 20 mg tablet 20 mg PO DAILY hydrochlorothiazide 25 mg tablet 25 mg PO DAILY triamcinolone acetonide 55 mcg aerosol,spray 2 spray intranasal DAILY fluticasone propionate [Flovent HFA] 220 mcg/actuation HFA aerosol inhaler 1 puff INHALATION BID Deep Sea Nasal 0.65 % aerosol,spray 1 spray intranasal Q3H PRN (Reason: Dry Nasal Passages) metoprolol succinate 25 mg tablet extended release 24 hr 25 mg PO DAILY ergocalciferol (vitamin D2) 1,250 mcg (50,000 unit) capsule 1 cap PO ASHER fexofenadine [Allergy Relief (fexofenadine)] 180 mg tablet 180 mg PO DAILY diltiazem HCl 120 mg capsule,extended release 24hr 120 mg PO DAILY levalbuterol tartrate 45 mcg/actuation HFA aerosol inhaler 1 inh inhalation docusate sodium 100 mg capsule 100 mg PO BID Qty: 180 1RF lansoprazole 30 mg capsule,delayed release(DR/EC) 30 mg PO BID Qty: 60 6RF Citrucel 500 mg tablet 1,000 mg PO DAILY 30 Days Qty: 60 6RF Trulance 3 mg tablet 3 mg PO DAILY Qty: 30 6RF <JESSA Pastrana - Last Filed: 08/03/22 16:03>
[2022-08-03] MEDS: traMADoL HCL 50 MG TABLET 25 MG PO (17:23)
[2022-08-03 17:44] VITALS: BP 124/57; PULSE 50; RESP 18; O2SAT 99
== END 2022-08-03 18:12 | disposition home or self-care (01) ==
LOC: HO.ED 18:09
PROVIDERS: Emergency Provider Emergency Medicine; PCP Internal Medicine
DX: S70.01XA Contusion of right hip, initial encounter (principal); R07.81 Pleurodynia; S20.211A Contusion of right front wall of thorax, initial encounter; W01.0XXA Fall on same level from slipping, tripping and stumbling without subsequent striking against object, initial encounter; Y93.9 Activity, unspecified; Y92.9 Unspecified place or not applicable; Y99.9 Unspecified external cause status
CPT/HCPCS: 71101; 99283; 99284

== ENCOUNTER 2022-08-11 12:15 | Outpatient (REF) | payer OTHER, SELFPAY | END 2022-08-11 12:16 | disposition home or self-care (01) | LOC: HO.MAMMO 12:15 | PROVIDERS: PCP Internal Medicine; Visit Provider Surgery | DX: Z13.89 Encounter for screening for other disorder (principal) ==

== ENCOUNTER → 2022-08-16 10:56 | Outpatient (BNVA) | payer OTHER, SELFPAY | PROVIDERS: PCP Internal Medicine; Visit Provider Hospitalist | DX: J18.9 Pneumonia, unspecified organism (principal); J45.909 Unspecified asthma, uncomplicated; R91.8 Other nonspecific abnormal finding of lung field; Z79.899 Other long term (current) drug therapy | CPT/HCPCS: 99212 ==

== ENCOUNTER 2022-09-27 13:12 | Outpatient (REF) | payer OTHER, SELFPAY ==
--- NOTE | ~2022-09-27 | MM_ITS ---
EXAMINATION: MM SCREENING DIGITAL BREAST TOMOSYNTHESIS, BILATERAL CLINICAL INFORMATION: Screening. Asymptomatic. History of conservatively treated left breast cancer. COMPARISON: Mammography: This study is compared with prior exams dating back to TECHNIQUE: Digital breast tomosynthesis is performed in both the craniocaudal and mediolateral oblique views along with computer-aided detection (CAD). Synthesized 2D images are generated from the tomosynthesis. FINDINGS: There are scattered areas of fibroglandular density (ACR BI-RADS breast composition Category b). There are no significant masses, abnormal calcifications, or other abnormalities. There are architectural changes in the upper inner quadrant of the left breast from prior surgery for breast cancer. There is biopsy tissue marker present in the central portion of the left breast. MM/MM tomosynthesis screening BI IMPRESSION: No mammographic evidence of malignancy. ASSESSMENT: BI-RADS BI-RADS 2 - Benign Findings RECOMMENDATION: Routine annual mammography screening. 1 year F/U This examination should not preclude the clinical evaluation of a suspicious palpable abnormality. This patient's information was entered into a reminder system with a target due date for their next mammogram.
== END 2022-09-27 13:13 | disposition home or self-care (01) ==
LOC: HO.MAMMO 13:12
PROVIDERS: PCP Internal Medicine; Visit Provider Surgery
DX: Z12.31 Encounter for screening mammogram for malignant neoplasm of breast (principal)
CPT/HCPCS: 77063; 77067

== ENCOUNTER → 2022-09-27 13:15 | Outpatient (BNV) | payer OTHER, SELFPAY | PROVIDERS: PCP Internal Medicine; Visit Provider Radiology Diagnostic Radiology | DX: Z12.31 Encounter for screening mammogram for malignant neoplasm of breast (principal) | CPT/HCPCS: 77063; 77067 ==

== ENCOUNTER 2022-10-25 13:05 | Outpatient (REF) | payer OTHER, SELFPAY ==
--- NOTE | ~2022-10-25 | MM_ITS ---
EXAMINATION: BONE DENSITOMETRY CLINICAL INDICATION: Osteopenia. COMPARISON: Previous BD dated 01/22/2019 and baseline BD dated 02/19/2007. TECHNIQUE: Using a [employer] DXA System (software version: 13.1) manufactured by [employer] for [employer], dual-energy x-ray absorptiometry was performed of the lumbar spine and left hip. The images are of good technical quality. Summary results are attached. FINDINGS: LEFT FEMUR, NECK: Current: BMD 0.816 g/cm2, Z-score 0.3, T-score -1.6, osteopenia. Prior: BMD 0.818 g/cm2. Baseline: BMD 0.808 g/cm2. LEFT FEMUR, TOTAL: Current: BMD 0.925 g/cm2, Z-score 1.1, T-score -0.7, normal, 2.2% decrease from previous, 2.7% decrease from baseline (<5% change is not significant). Prior: BMD 0.946 g/cm2. Baseline: BMD 0.951 g/cm2. AP SPINE L1-L4: Diffuse degenerative changes are seen in the lumbar spine, which may cause overestimation of the lumbar spine density. Current: BMD 1.052 g/cm2, Z-score 0.6, T-score -1.1, osteopenia, 4.9% increase from previous, 12.6% increase from baseline (<5% change is not significant). Prior: BMD 1.003 g/cm2. Baseline: BMD 0.934 g/cm2. IDENTIFIED RISK FACTORS: Early menopause, secondary osteoporosis, family history (parental hip fracture), glucocorticoids (chronic), height loss, history of fracture (adult), recurrent falls. HISTORY OF FRACTURE: Shoulder, forearm. MEDICATIONS: ERT/SERMS. Calcium supplements or multivitamin, vitamin D. MM/XR DEXA axial skeleton IMPRESSION: 1. DIAGNOSIS: Osteopenia based on the lowest T-score value of -1.6 in the femoral neck applying World Health Organization criteria. 2. 10-YEAR FRACTURE RISK PREDICTION, FRAX: Major osteoporotic fracture (clinical spine, forearm, hip or shoulder) 28.1%. Hip fracture 15.6%. 3. Treatment Recommendations: NOF guidelines recommend consideration for treatment in postmenopausal women and men age 50 and older presenting with the following: -A hip or vertebral (clinical or morphometric) fracture. -T-score less than or equal to -2.5 at the femoral neck or spine after appropriate evaluation to exclude secondary causes. -Low bone mass at the hip or spine and a 10-year fracture probability by FRAX of greater than or equal to 3% for hip fracture or greater than or equal to 20% for major osteoporotic fracture based on the [place] adapted WHO algorithm. 4. Other Recommendations: All treatment decisions require clinical judgment and consideration of individual patient factors, including patient preferences, comorbidities, previous drug use, risk factors not captured in the FRAX model (e.g. frailty, falls, vitamin D deficiency, increased bone turnover, interval significant decline in bone density) and possible under or overestimation of fracture risk by FRAX. Additional medical evaluation for secondary cause of low bone mineral density may be appropriate. FUTURE SCAN RECOMMENDATION: People with diagnosed cases of osteoporosis or at high risk for fracture should have regular bone mineral density tests. For patients eligible for Medicare, routine testing is allowed once every 2 years. The testing frequency can be increased to one year for patients who have rapidly progressing disease, those who are receiving or discontinuing medical therapy to restore bone mass, or have additional risk factors.
== END 2022-10-25 13:06 | disposition home or self-care (01) ==
LOC: HO.MAMMO 13:05
PROVIDERS: PCP Internal Medicine; Visit Provider Internal Medicine Medical Oncology
DX: Z13.820 Encounter for screening for osteoporosis (principal); Z78.0 Asymptomatic menopausal state; M85.80 Other specified disorders of bone density and structure, unspecified site
CPT/HCPCS: 77080

== ENCOUNTER 2022-11-01 11:26 | Outpatient (REF) | payer OTHER, SELFPAY ==
[2022-11-01 13:59] LABS: Cholesterol 155 mg/dL; HDL Cholesterol 40 mg/dL; LDL Cholesterol Calculated 92 mg/dl; Triglycerides 117 mg/dL
[2022-11-01 14:14] LABS: Reflex LDLD? No
[2022-11-01 14:23] LABS: Anion Gap 11 (12-20); Blood Urea Nitrogen 17 mg/dL (9-16); Calcium 9.8 mg/dL (8.4-10.2); Carbon Dioxide 29 mmol/L (22-29); Chloride 106 mmol/L (96-108); Estimated Glomerular Filt Rate 53; Glucose Random 103 mg/dL (60-115); Potassium 3.5 mmol/L (3.3-5.1); Sodium 142 mmol/L (135-145); TSH reflex Free T4 1.51 uIU/mL (0.32-4.0); Vitamin D 25-OH Total 52.7 ng/mL (>30)
== END 2022-11-01 11:27 | disposition home or self-care (01) ==
LOC: HO.HHCL 11:26
PROVIDERS: Visit Provider Internal Medicine
DX: I10 Essential (primary) hypertension (principal)
CPT/HCPCS: 36415; 80048; 80061; 82306; 84443

== ENCOUNTER 2022-11-18 12:58 | Outpatient (REF) | payer OTHER, SELFPAY ==
--- NOTE | ~2022-11-18 | CT_ITS ---
EXAMINATION: CT CHEST WITHOUT CONTRAST CLINICAL INFORMATION: Normal nonspecific lung findings. COMPARISON: Chest x-ray 08/03/2022. CT chest 03/08/2022. TECHNIQUE: Multidetector volumetric CT imaging of the chest was done. Axial MIP volume rendering provided. Sagittal and coronal reformatted images were obtained. This CT examination was performed using dose optimization techniques as appropriate, variously including the following: *Automated exposure control *Adjustment of mA and/or kV according to patient size (this includes techniques or standardized protocols for targeted exams where dose is matched to indication/reason for exam; i.e. extremities or head) *Use of iterative reconstruction technique DLP: 209 mGy-cm. 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 LUNGS: The lungs are well expanded with band-like atelectasis right lung base and ground-glass opacification right upper lobe similar to previous study. There are cystic changes in right upper lobe. There are 2 pulmonary nodules; a 4 mm nodule right upper lobe axial image 127/6, stable, a 5 mm nodule left upper lobe axial image 125/6, new, and a 3 mm nodule right upper lobe at the level of the bakari axial image 185/6, new. MEDIASTINUM: The thyroid lobes are symmetric and normal. The central trachea and the bronchi are widely patent. The heart size and pulmonary vascularity are normal. There is no pericardial effusion. CORONARY ARTERY CALCIFICATION: Mild coronary artery calcifications are present. PLEURA: There is no pleural effusion. No pleural mass or thickening. AXILLA: There are small shotty lymph nodes in the bilateral axilla. The chest wall is unremarkable. UPPER ABDOMEN: Visualized liver, spleen, pancreas and bilateral adrenal glands are unremarkable. OSSEOUS STRUCTURES: No aggressive lytic or sclerotic process seen. There is mild ventral spondylosis mid and lower dorsal spine. CT/CT chest wo IV con IMPRESSION: 1. Stable right upper lobe 4 mm nodule. There are 2 new nodules in the left upper lobe and right upper lobe 2. No abnormal mediastinal or axillary lymph nodes seen. 3. Stable ground-glass opacification right upper lobe and band-like atelectasis right lung base. Fleischner guidelines were followed.
== END 2022-11-18 12:59 | disposition home or self-care (01) ==
LOC: HO.CT 12:58
PROVIDERS: PCP Internal Medicine; Visit Provider Hospitalist
DX: R91.8 Other nonspecific abnormal finding of lung field (principal)
CPT/HCPCS: 71250

== ENCOUNTER 2022-11-29 12:51 | Outpatient (AMB) | payer OTHER, SELFPAY ==
--- NOTE | 2022-11-29 12:57 | A.OFFVIS_ITS ---
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 Contact Lens Required: No Allergies Tetanus Vaccines and Toxoid [TETANUS VACCINES AND TOXOID] Allergy (Mild, Verified 11/29/22 13:02) SWELLING, RASH albuterol [ALBUTEROL] Allergy (Unknown, Verified 11/29/22 13:02) HIVES verapamil [VERAPAMIL] Allergy (Unknown, Verified 11/29/22 13:02) UNKNOWN aspirin Adverse Reaction (Severe, Verified 11/29/22 13:02) Abdominal Pain From Tuberculin PPD Leigh Test Allergy (Unknown, Uncoded 11/29/22 13:02) ARM SWELLING TB test Allergy (Unknown, Uncoded 11/29/22 13:02) large local reaction HPI HPI Comments History of Present Illness Details The patient is a 77 year woman with a history of asthma who apparently was in her usual state health until sometime in February when she was in the mall and she fell down the escalator is a. She had significant amount of discomfort in injuries due to the event. She was taken to the hospital which she did have a CT of her major structures. She was noted to have evidence pneumonitis in the upper lung zones primarily on the right and also some small pulmonary nodules. The patient also has been complaining of worsening cough shortness of breath. And she still recovering from her significant injury. Will go ahead and request blood work in addition to that be reasonable just to treated with some prednisone to see if we can not decrease the inflammatory changes. in the meantime she is going to continue with respiratory therapy. 08/16/2022 the patient is here for pulmon allison follow-up visit. Overall she is doing okay. A few weeks ago she did have a fall in the bathroom hurt her right chest area. She did come into the hospital and she did have a rib series without any evidence of any fractures. She also start the prednisone because she did not like the way it made her feel. She did take it for a 1-2 weeks. I did review her chest x-ray that she had recently that shows better aeration overall. I do not appreciate any crackles on examination to suggest pneumonitis either. I do believe that she is doing better. She will need a repeat CT scan at some point. The patient also has continue to use the Flovent daily. She had 1 episode which she was having significant shortness of breath making it hard for her to breathe. She did use her Xopenex with good effect. She also has a history of glaucoma so therefore use of muscarinic antagonist are relatively contraindicated. Therefore, I did recommend that she can use Xopenex once or twice a day and also as needed in between. Hopefully this along with her Flovent will give her good asthma control without unnecessary adverse effects. 11/29/2022 the patient is here for pulmon allison follow-up visit. Overall she is doing well from a respiratory status. Over the summer she did have an episode of shortness of breath but now is back to baseline. She continues on the Flovent. She also has a rescue inhaler that she does not use more than twice a week. The patient has had issues with her gait. She has had some falls. Still recovering from some injuries. The patient does use a cane. She also has a walker at home. In the meantime she also had a CT scan of the chest on 11/18/2022 demonstrating stable pulmonary nodules although she has 2 new nodules measuring 3 and 5 mm in size. Both on the right side. The patient also still has some areas of ground-glass opacities have not changed. Based on the new nodules she will need another CT scan in a year's time. If the patient has any worsening symptoms prior to the next visit she will call in order to further optimize respiratory therapy. [facility] Medical History Bronchial asthma Costochondritis COVID-19 Gastritis HTN (hypertension) Hx of migraine headaches Hx of sinusitis Hyperlipidemia Osteopenia Pneumonitis Pulmonary nodules Supraventricular tachycardia Surgical History History of esophagogastroduodenoscopy (EGD) Hx of colonoscopy Status post tubal ligation Family History Mother Heart problem Angina pectoris Daughter Breast cancer Social History Household Members: None Housing: Apartment Are you a primary senior care specialist to a significant other at home: No Do you presently have visiting nurse or other home services: Yes Alcohol intake: current Alcohol intake frequency: does not drink Patient Tobacco Use Status: Never used Tobacco service: No Current occupational status: retired Current occupation: rt handed Female Reproductive History Menstrual Age of Menarche: 13 Review of Systems Const Denies chills, Denies fatigue, Denies fever(s), Denies frequent falls, Denies weakness, Denies weight gain and Denies weight loss ENT Reports Normal hearing present and Denies dizziness Card Denies chest pain, Denies leg edema, Denies lightheadedness, Denies palpitations, Denies dyspnea, Denies dyspnea on exertion, Denies orthopnea and Denies other (loss of consciousness) Resp Reports cough, Denies dyspnea, Denies dyspnea on exertion and Reports wheezing GI Denies hematochezia and Denies change in stool character Musc Denies abnormal gait, Reports myalgias, Reports arthralgias and Reports joint swelling Neuro Reports Normal hearing present, Denies Abnormal speech present, Denies abnormal gait, Denies dizziness, Denies frequent falls and Denies weakness Endo Denies fatigue and Denies palpitations Aller/Immun Reports wheezing Physical Exam Vital Signs: Last Vital Signs Pulse 57 11/29/22 12:59 BP 128/64 11/29/22 12:59 Pulse Ox 97 11/29/22 12:59 Oxygen Delivery Method Room Air 11/29/22 12:59 BMI result Body Mass Index 32.3 Const General: cooperative, no acute distress, well developed and well groomed Nutritional Appearance: well nourished Orientation/consciousness: oriented to person, oriented to place and oriented to time Limitations: language barrier HEENT Head: Yes normocephalic and Yes atraumatic Eyes General: appearance normal, both eyes and all related structures Pupils: Equal, round and reactive pupils present Neck Neck: Yes normal visual inspection and Yes no lymphadenopathy Thyroid: Thyroid normal Chest Chest palpation & inspection: normal inspection of the chest Resp Effort & Inspection: normal respiratory effort and able to speak in complete sentences Auscultation: clear to auscultation bilaterally, no crackles, no rales, no rhonchi and no wheezes Cardio Rate: regular rate Rhythm: regular rhythm Heart sounds: Normal, physiologic split S2 sound present Peripheral pulses: radial pulses present and posterior tibial pulses present GI Palpation (GI): Soft to palpation Auscultation: normal bowel sounds Skin General skin exam: no rashes or lesions noted Rashes: no rashes Nails: normal Neuro General: oriented to person, oriented to place and oriented to time Cranial nerves: Yes Equal, round and reactive pupils present and Yes Normal hearing present Speech: No Abnormal speech present Extrem General: Yes normal to inspection, No clubbing, No cyanosis and No edema Psych Appearance: grossly normal and well kempt Assessment & Plan Assessment & Plan (1) Pneumonitis: Code(s): J18.9 - Pneumonia, unspecified organism (2) Pulmonary nodules: Code(s): R91.8 - Other nonspecific abnormal finding of lung field (3) Bronchial asthma: Code(s): J45.909 - Unspecified asthma, uncomplicated Qualifiers: Asthma severity: moderate Asthma persistence: persistent Asthma complication type: uncomplicated Qualified Code(s): J45.40 - Moderate persistent asthma, uncomplicated Plan continue Flovent No LAMA due to history of glaucoma Xopenex twice a day and as needed CT chest in 12 months F/U 12 months Orders: Orders CT chest wo IV con 364 Days R91.8 - Other nonspecific abnormal finding of lung field Coding Level of Care Code Est Pt Level 4 (92731) Diagnoses Pneumonitis J18.9 Pulmonary nodules R91.8 Moderate persistent asthma without complication J45.40 Asthma severity: moderate Asthma persistence: persistent Asthma complication type: uncomplicated Time Spent (min) 17
[2022-11-29 12:59] VITALS: BP 128/64; PULSE 57; O2SAT 97; BMI 32.3
== END 2022-11-29 13:16 | disposition home or self-care (01) ==
PROVIDERS: PCP Internal Medicine; Visit Provider Hospitalist
DX: J18.9 Pneumonia, unspecified organism (principal); R91.8 Other nonspecific abnormal finding of lung field; J45.40 Moderate persistent asthma, uncomplicated
CPT/HCPCS: 99214

== ENCOUNTER → 2022-11-29 12:51 | Outpatient (BNVA) | payer OTHER, SELFPAY | PROVIDERS: PCP Internal Medicine; Visit Provider Hospitalist | DX: J18.9 Pneumonia, unspecified organism (principal); R91.8 Other nonspecific abnormal finding of lung field; J45.40 Moderate persistent asthma, uncomplicated | CPT/HCPCS: 99212 ==

== ENCOUNTER 2022-12-13 18:48 | Outpatient (REF) | payer OTHER, SELFPAY ==
[2022-12-13 20:05] LABS: Influenza A PCR NEGATIVE (Negative); Influenza B PCR POSITIVE (Negative); Resp Syncy Virus RNA Qual PCR NEGATIVE (Negative); SARS COV2 PCR INHOUSE NEGATIVE (Negative)
== END 2022-12-13 18:49 | disposition home or self-care (01) ==
LOC: HO.HHCLNP 18:48
PROVIDERS: Visit Provider Internal Medicine
DX: Z20.822 Contact with and (suspected) exposure to COVID-19 (principal); J45.40 Moderate persistent asthma, uncomplicated
CPT/HCPCS: 0241U

== ENCOUNTER → 2023-02-01 14:00 | Outpatient (BNV) | payer OTHER, SELFPAY | PROVIDERS: PCP Internal Medicine; Visit Provider Radiology Diagnostic Radiology | DX: N64.4 Mastodynia (principal) | CPT/HCPCS: 76642; 77061; 77065 ==

== ENCOUNTER 2023-02-01 14:02 | Outpatient (REF) | payer OTHER, SELFPAY ==
--- NOTE | ~2023-02-01 | MM_ITS ---
EXAMINATION: MM DIAGNOSTIC DIGITAL BREAST TOMOSYNTHESIS, LEFT US BREAST LIMITED, LEFT MAMMOGRAPHY: CLINICAL INFORMATION: The patient is seen for evaluation of upper outer quadrant left breast pain which extends from the 11 to 2:00 position. COMPARISON: Mammography: This study is compared with prior mammograms dating back to 2019. TECHNIQUE: Digital breast tomosynthesis is performed in both the craniocaudal and mediolateral oblique views along with computer-aided detection (CAD). Synthesized 2D images are generated from the tomosynthesis. A lateral view of the left breast was performed. FINDINGS: There are scattered areas of fibroglandular density (ACR BI-RADS breast composition Category b). There are minor architectural changes in the 12:00 region of the left breast from prior rest cancer surgery. The patient's focal pain occurs lateral to this region. There are no mammographic abnormalities in the area of focal pain. There is a tissue marker in the central portion of the left breast from prior biopsy. There are no mammographic signs of malignancy in the left breast.. ULTRASOUND: CLINICAL INFORMATION: Left breast pain from the 11 to 2:00 position. COMPARISON: None TECHNIQUE: Targeted sonographic evaluation was performed using a high frequency linear transducer. Selected archived documentation. FINDINGS: LEFT BREAST: Sonography of the 11:00 position, the area of patient's breast pain, reveals no abnormalities. MM/MM tomosynthesis diagnostic LT IMPRESSION: No mammographic or sonographic findings in the area patient's focal left breast pain. There is no evidence of malignancy. Clinical follow-up for the patient's breast pain is advised. The next bilateral annual screening mammogram is due in September 2023. OVERALL ASSESSMENT: Mammography: BI-RADS 2 - Benign Findings Ultrasound: BI-RADS 2 - Benign Findings RECOMMENDATION: 1 year F/U Results were provided to the patient at time of visit by the technologist. This patient's information was entered into a reminder system with a target due date for their next mammogram.
== END 2023-02-01 14:03 | disposition home or self-care (01) ==
LOC: HO.MAMMO 14:02
PROVIDERS: PCP Internal Medicine; Visit Provider Internal Medicine
DX: N64.4 Mastodynia (principal)
CPT/HCPCS: 76642; 77061; 77065

== ENCOUNTER 2023-03-30 12:35 | Outpatient (AMB) | payer OTHER, SELFPAY ==
--- NOTE | 2023-03-30 12:37 | MHC.OFFVIS ---
Intake Vital Signs 03/30/23 12:41 Height 4 ft 9 in Weight 145 lb BMI 31.4 BP 125/68 Blood Pressure Location Rt brachial Position Sitting Pulse 60 Intake Visit Reasons: Follow up CIC Allergies Tetanus Vaccines and Toxoid [TETANUS VACCINES AND TOXOID] Allergy (Mild, Verified 03/30/23 12:45) SWELLING, RASH albuterol [ALBUTEROL] Allergy (Unknown, Verified 03/30/23 12:45) HIVES verapamil [VERAPAMIL] Allergy (Unknown, Verified 03/30/23 12:45) UNKNOWN aspirin Adverse Reaction (Severe, Verified 03/30/23 12:45) Abdominal Pain From Tuberculin PPD Leigh Test Allergy (Unknown, Uncoded 11/29/22 13:02) ARM SWELLING TB test Allergy (Unknown, Uncoded 11/29/22 13:02) large local reaction HPI Follow up CIC HPI Details Assessment & Plan (1) GERD (gastroesophageal reflux disease): Code(s): K21.9 - Gastro-esophageal reflux disease without esophagitis Plan: Amharic #[employer]SEM[employer]PHOL[employer]ER will interpret per pt request/but then Sharon stefania We verify that she has the lansoprazole and is taking it bid. She also is taking the Trulance. But she complains of gasses and GERD with HB; but she admits she is not taking it bid. She is over due for colonoscopy, but she is reluctant because she had a lot of cramping that hurt in my vagina like period pain after the last one. It was preformed by Dr. Simon, I will speak with her and see if there is a way to prevent this. (? We consider Cologuard) ROV 6 mos. (2) Chronic idiopathic constipation: Code(s): K59.04 - Chronic idiopathic constipation (3) Tubular adenoma of colon: Comment: She is due for repeat colonoscopy in 2021 r/t large TA. 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 She again declines to have a repeat colonoscopy. We discuss Cologuard and watch the video. She is agreeable to doing this. This at least may convince her that she does have something that needs to be removed or me by her another 3 years. Her objection was that she had a great deal of cramping that hurt into her vagina after the last colonoscopy and I am uncertain how we could avoid that for the next 1. However she did have a rather large tubular adenoma that was removed at that time. ROV 8 weeks. [facility] Medical History Pulmonary nodules Pneumonitis Costochondritis COVID-19 Gastritis Hyperlipidemia Supraventricular tachycardia Osteopenia Hx of migraine headaches Hx of sinusitis HTN (hypertension) Bronchial asthma Surgical History History of esophagogastroduodenoscopy (EGD) Hx of colonoscopy Status post tubal ligation Family History Mother Heart problem Angina pectoris Daughter Breast cancer Social History Household Members: None Housing: Apartment Are you a primary customer care assistant to a significant other at home: No Do you presently have visiting nurse or other home services: Yes Alcohol intake: current Alcohol intake frequency: does not drink Patient Tobacco Use Status: Never used Tobacco service: No Current occupational status: retired Current occupation: rt handed Female Reproductive History Menstrual Age of Menarche: 13 Review of Systems Const Denies fatigue, Denies fever(s), Denies night sweats, Denies poor appetite and Denies weight loss Eyes Details: GLASSES Reports requires corrective lenses ENT Reports Normal hearing present, Denies dental pain, Denies dysphagia, Denies hearing loss, Denies mouth pain, Denies odynophagia, Denies throat swelling, Denies tongue swelling and Reports other (Dentition adequate) Card Reports no additional complaints Resp Reports no additional complaints GI Denies abdominal pain, Denies melena, Denies bloating, Denies hematochezia, Reports constipation, Denies GI cramping, Denies dysphagia, Denies excessive flatus, Denies early satiety, Reports heartburn, Denies diarrhea, Denies nausea, Denies odynophagia, Denies vomiting and Denies hematemesis Skin/Breast Denies pruritus, Denies lesions, Denies rash and Denies jaundice Neuro Reports Normal hearing present and Denies Abnormal speech present Endo Denies fatigue Aller/Immun Denies throat swelling and Denies tongue swelling Physical Exam Vital Signs: Last Vital Signs Pulse 60 03/30/23 12:41 BP 125/68 03/30/23 12:41 BMI result Body Mass Index 31.4 Const General: cooperative, no acute distress, well developed and well groomed Nutritional Appearance: well nourished and obese Orientation/consciousness: oriented to person, oriented to place and oriented to time Limitations: language barrier and ambulation with cane HEENT Head: Yes normocephalic and Yes atraumatic Eyes General: appearance normal, both eyes and all related structures Pupils: Equal, round and reactive pupils present Neck Neck: Yes normal visual inspection and Yes no lymphadenopathy Thyroid: Thyroid normal Resp Effort & Inspection: normal respiratory effort and able to speak in complete sentences Auscultation: clear to auscultation bilaterally Cardio Rate: regular rate Rhythm: regular rhythm Heart sounds: Normal, physiologic split S2 sound present Peripheral pulses: radial pulses present and posterior tibial pulses present GI Inspection: No distended, No Abdominal panniculus present and Yes obesity Palpation (GI): Soft to palpation, nontender, no guarding, not rigid and No hepatosplenomegaly present Percussion: Yes normal to percussion Auscultation: normal bowel sounds Rectal Exam - Female: deferred Skin General skin exam: no rashes or lesions noted, turgor normal, skin not dry, no jaundice, No spider nevi and no striae Rashes: no rashes Nails: normal Neuro General: oriented to person, oriented to place and oriented to time Cranial nerves: Yes Equal, round and reactive pupils present and Yes Normal hearing present Speech: No Abnormal speech present Extrem General: Yes normal to inspection, No clubbing, No cyanosis and No edema Psych Appearance: grossly normal and well kempt Mental Status: mental status grossly normal Speech and movement: Normal speech and movement present Affect: normal affect Attitude: cooperative Thought process: Normal thought process present and not confabulating Thought content: Normal thought content present Insight: Limited insight present (Psych) Judgement: Limited judgement present (Psych) Assessment & Plan Assessment & Plan (1) Chronic idiopathic constipation: Code(s): K59.04 - Chronic idiopathic constipation (2) Abdominal bloating: Code(s): R14.0 - Abdominal distension (gaseous) (3) GERD (gastroesophageal reflux disease): Code(s): K21.9 - Gastro-esophageal reflux disease without esophagitis (4) Tubular adenoma of colon: Comment: She is due for repeat colonoscopy in 2021 r/t large TA. 10-12 mm sessile polyp removed at that time 2019 Code(s): D12.6 - Benign neoplasm of colon, unspecified Plan Amharic #[id number], She continues to do well on her GI regimen of Trulance, lansoprazole, colace and fiber. She again declines to have a repeat colonoscopy. We discuss Cologuard and watch the video. She is agreeable to doing this. This at least may convince her that she does have something that needs to be removed or me by her another 3 years. Her objection was that she had a great deal of cramping that hurt into her vagina after the last colonoscopy and I am uncertain how we could avoid that for the next 1. However she did have a rather large tubular adenoma that was removed at that time. ROV 8 weeks. Medications: Refilled plecanatide (Trulance) 3 mg PO DAILY 30 tabs 6RF K59.04 - Chronic idiopathic constipation lansoprazole 30 mg PO BID 60 caps 6RF K21.9 - Gastro-esophageal reflux disease without esophagitis docusate sodium 100 mg PO BID 180 caps 1RF K58.2 - Mixed irritable bowel syndrome methylcellulose (laxative) (Citrucel) 1,000 mg (2 x 500 mg) PO DAILY 30 days 60 tabs 6RF K58.2 - Mixed irritable bowel syndrome Coding Level of Care Code Est Pt Level 3 (82456) Diagnoses Chronic idiopathic constipation K59.04 Abdominal bloating R14.0 GERD (gastroesophageal reflux disease) K21.9 Tubular adenoma of colon D12.6
--- NOTE | 2023-03-30 12:38 | A.OFFVIS_ITS ---
Intake Vital Signs 03/30/23 12:41 Height 4 ft 9 in Weight 145 lb BMI 31.4 BP 125/68 Blood Pressure Location Rt brachial Position Sitting Pulse 60 Intake Visit Reasons: Follow up CIC Intake Note: Patient presents to in office follow up for CIC and GERD. CC: Patient reports doing well and denies having any GI concerns. Roast Master Required: Yes Allergies Tetanus Vaccines and Toxoid [TETANUS VACCINES AND TOXOID] Allergy (Mild, Verified 03/30/23 12:45) SWELLING, RASH albuterol [ALBUTEROL] Allergy (Unknown, Verified 03/30/23 12:45) HIVES verapamil [VERAPAMIL] Allergy (Unknown, Verified 03/30/23 12:45) UNKNOWN aspirin Adverse Reaction (Severe, Verified 03/30/23 12:45) Abdominal Pain From Tuberculin PPD Leigh Test Allergy (Unknown, Uncoded 11/29/22 13:02) ARM SWELLING TB test Allergy (Unknown, Uncoded 11/29/22 13:02) large local reaction PFSH Medical History Pulmonary nodules Pneumonitis Costochondritis COVID-19 Gastritis Hyperlipidemia Supraventricular tachycardia Osteopenia Hx of migraine headaches Hx of sinusitis HTN (hypertension) Bronchial asthma Surgical History History of esophagogastroduodenoscopy (EGD) Hx of colonoscopy Status post tubal ligation Family History Mother Heart problem Angina pectoris Daughter Breast cancer Social History Household Members: None Housing: Apartment Are you a primary healthcare administrator to a significant other at home: No Do you presently have visiting nurse or other home services: Yes Alcohol intake: current Alcohol intake frequency: does not drink Patient Tobacco Use Status: Never used Tobacco service: No Current occupational status: retired Current occupation: rt handed Female Reproductive History Menstrual Age of Menarche: 13 Coding
[2023-03-30 12:41] VITALS: BP 125/68; PULSE 60; BMI 31.4
== END 2023-03-30 13:14 | disposition home or self-care (01) ==
PROVIDERS: PCP Internal Medicine; Visit Provider Nurse Practitioner
DX: K59.04 Chronic idiopathic constipation (principal); R14.0 Abdominal distension (gaseous); K21.9 Gastro-esophageal reflux disease without esophagitis; D12.6 Benign neoplasm of colon, unspecified
CPT/HCPCS: 99213

== ENCOUNTER → 2023-03-30 12:35 | Outpatient (BNVA) | payer OTHER, SELFPAY | PROVIDERS: PCP Internal Medicine; Visit Provider Nurse Practitioner | DX: K59.04 Chronic idiopathic constipation (principal); K21.9 Gastro-esophageal reflux disease without esophagitis; R14.0 Abdominal distension (gaseous); D12.6 Benign neoplasm of colon, unspecified | CPT/HCPCS: 99212 ==

== ENCOUNTER 2023-04-03 11:00 | Outpatient (RCR) | payer OTHER, SELFPAY | END 2023-04-13 07:25 | disposition home or self-care (01) | LOC: HO.PT 11:00 | PROVIDERS: PCP Internal Medicine; Visit Provider Internal Medicine | DX: M51.36 Other intervertebral disc degeneration, lumbar region (principal) | CPT/HCPCS: 97110; 97162; 97530 ==

== ENCOUNTER 2023-05-25 12:51 | Outpatient (AMB) | payer OTHER, SELFPAY ==
--- NOTE | 2023-05-25 12:52 | MHC.OFFVIS ---
Intake Vital Signs 05/25/23 13:15 05/25/23 13:20 Height 4 ft 9 in 4 ft 9 in Weight 143 lb 11.862 oz BMI 31.1 BP 146/66 H Blood Pressure Location Rt brachial Position Sitting Pulse 75 Pulse Source Pulse Oximeter Intake Visit Reasons: 8 week follow up Intake Note: Pt presents to the office today for a 8 week follow up. She states her abdominal bloating has improved since last time. Pt denies any V/D. She states she will get some nausea occasionally at random times of the day. Allergies Tetanus Vaccines and Toxoid [TETANUS VACCINES AND TOXOID] Allergy (Mild, Verified 05/25/23 13:18) SWELLING, RASH albuterol [ALBUTEROL] Allergy (Unknown, Verified 05/25/23 13:18) HIVES verapamil [VERAPAMIL] Allergy (Unknown, Verified 05/25/23 13:18) UNKNOWN aspirin Adverse Reaction (Severe, Verified 05/25/23 13:18) Abdominal Pain From Tuberculin PPD Leigh Test Allergy (Unknown, Uncoded 05/25/23 13:18) ARM SWELLING TB test Allergy (Unknown, Uncoded 05/25/23 13:18) large local reaction HPI 8 week follow up HPI Details Assessment & Plan (1) Chronic idiopathic constipation: Code(s): K59.04 - Chronic idiopathic constipation (2) Abdominal bloating: Code(s): R14.0 - Abdominal distension (gaseous) (3) GERD (gastroesophageal reflux disease): Code(s): K21.9 - Gastro-esophageal reflux disease without esophagitis (4) Tubular adenoma of colon: Comment: She is due for repeat colonoscopy in 2021 r/t large TA. 10-12 mm sessile polyp removed at that time 2018 Code(s): D12.6 - Benign neoplasm of colon, unspecified Plan Algerian #[id number], She continues to do well on her GI regimen of Trulance, lansoprazole, colace and fiber. She again declines to have a repeat colonoscopy. We discuss Cologuard and watch the video. She is agreeable to doing this. This at least may convince her that she does have something that needs to be removed or me by her another 3 years. Her objection was that she had a great deal of cramping that hurt into her vagina after the last colonoscopy and I am uncertain how we could avoid that for the next 1. However she did have a rather large tubular adenoma that was removed at that time. ROV 8 weeks. Medications: Refilled plecanatide (Trula nce) 3 mg PO DAILY 30 tabs 6RF K59.04 - Chronic i diopathic constipa tion lansoprazole 30 mg PO BID 60 c aps 6RF K21.9 - Gastro-eso phageal reflux dis ease without esoph agitis docusate sodium 100 mg PO BID 180 caps 1RF K58.2 - Mixed irri table bowel syndro me methylcellulose (l axative) (Citrucel ) 1,000 mg (2 x 500 mg) PO DAILY 30 da ys 60 tabs 6RF K58.2 - Mixed irri table bowel syndro me LABS Her Cologuard test was negative. TODAY'S VISIT Algerian #Charley Live She had some episodes of CIC, but she also ran out of her Trulance despite her also saying, my nurse told me I eat too many plantains. Now that her medication has been restored she is moving her bowels well. She also had an increase of HB during her CIC time, but this is now well controlled. Her GI regimen consists of Trulance, lansoprazole, colace and fiber. She was also out of her fiber for a time and she bought an OTC fiber powder with good effect. She continues to decline colonoscopy. However her Cologuard test was negative so we can repeat this in 3 years. ROV 6 mos. PFSH Medical History Pulmonary nodules Pneumonitis Costochondritis COVID-19 Gastritis Hyperlipidemia Supraventricular tachycardia Osteopenia Hx of migraine headaches Hx of sinusitis HTN (hypertension) Bronchial asthma Surgical History History of esophagogastroduodenoscopy (EGD) Hx of colonoscopy Status post tubal ligation Family History Mother Heart problem Angina pectoris Daughter Breast cancer Social History Household Members: None Housing: Apartment Are you a primary critical care registered nurse to a significant other at home: No Do you presently have visiting nurse or other home services: Yes Alcohol intake: current Alcohol intake frequency: does not drink Patient Tobacco Use Status: Never used Tobacco service: No Current occupational status: retired Current occupation: rt handed Female Reproductive History Menstrual Age of Menarche: 13 Review of Systems Const Denies fatigue, Denies fever(s), Denies night sweats, Denies poor appetite and Denies weight loss ENT Reports Normal hearing present, Denies dental pain, Denies dysphagia, Denies hearing loss, Denies mouth pain, Denies odynophagia, Denies throat swelling, Denies tongue swelling and Reports other (Dentition adequate) Card Reports no additional complaints Resp Reports no additional complaints GI Details: Denies abdominal pain, Denies melena, Reports bloating, Denies hematochezia, Reports constipation, Denies GI cramping, Denies dysphagia, Denies excessive flatus, Denies early satiety, Reports heartburn, Denies diarrhea, Denies nausea, Denies odynophagia, Denies vomiting and Denies hematemesis Skin/Breast Denies pruritus, Denies lesions, Denies rash and Denies jaundice Neuro Reports Normal hearing present and Denies Abnormal speech present Endo Denies fatigue Aller/Immun Denies throat swelling and Denies tongue swelling Physical Exam Vital Signs: Last Vital Signs Pulse 75 05/25/23 13:15 BP 146/66 H 05/25/23 13:15 BMI result Body Mass Index 31.1 Const General: cooperative, no acute distress, well developed and well groomed Nutritional Appearance: well nourished and overweight Orientation/consciousness: oriented to person, oriented to place and oriented to time Limitations: language barrier and ambulation with cane HEENT Head: Yes normocephalic and Yes atraumatic Eyes General: appearance normal, both eyes and all related structures Pupils: Equal, round and reactive pupils present Neck Neck: Yes normal visual inspection and Yes no lymphadenopathy Thyroid: Thyroid normal Resp Effort & Inspection: normal respiratory effort and able to speak in complete sentences Auscultation: clear to auscultation bilaterally Cardio Rate: regular rate Rhythm: regular rhythm Heart sounds: Normal, physiologic split S2 sound present Peripheral pulses: radial pulses present and posterior tibial pulses present GI Inspection: No distended, No Abdominal panniculus present and Yes obesity Palpation (GI): Soft to palpation, nontender, no guarding, not rigid and No hepatosplenomegaly present Percussion: Yes normal to percussion Auscultation: normal bowel sounds Rectal Exam - Female: deferred Skin General skin exam: no rashes or lesions noted, turgor normal, skin not dry, no jaundice, No spider nevi and no striae Rashes: no rashes Nails: normal Neuro General: oriented to person, oriented to place and oriented to time Cranial nerves: Yes Equal, round and reactive pupils present and Yes Normal hearing present Speech: No Abnormal speech present Extrem General: Yes normal to inspection, No clubbing, No cyanosis and No edema Psych Appearance: grossly normal and well kempt Mental Status: mental status grossly normal Speech and movement: Normal speech and movement present Affect: normal affect Attitude: cooperative Thought process: Normal thought process present and not confabulating Thought content: Normal thought content present Insight: Limited insight present (Psych) Judgement: Limited judgement present (Psych) Assessment & Plan Assessment & Plan (1) GERD (gastroesophageal reflux disease): Code(s): K21.9 - Gastro-esophageal reflux disease without esophagitis (2) Chronic idiopathic constipation: Code(s): K59.04 - Chronic idiopathic constipation (3) Abdominal bloating: Code(s): R14.0 - Abdominal distension (gaseous) (4) Colon cancer screening: Comment: 2022= negative Cologuard test repeat in 3 years Code(s): Z12.11 - Encounter for screening for malignant neoplasm of colon Plan Algerian #Charley Live She had some episodes of CIC, but she also ran out of her Trulance despite her also saying, my nurse told me I eat too many plantains. Now that her medication has been restored she is moving her bowels well. She also had an increase of HB during her CIC time, but this is now well controlled. Her GI regimen consists of Trulance, lansoprazole, colace and fiber. She was also out of her fiber for a time and she bought an OTC fiber powder with good effect. She continues to decline colonoscopy. However her Cologuard test was negative so we can repeat this in 3 years. ROV 6 mos. Medications: Refilled lansoprazole 30 mg PO BID 60 caps 6RF K21.9 - Gastro-esophageal reflux disease without esophagitis plecanatide (Trulance) 3 mg PO DAILY 30 tabs 6RF K59.04 - Chronic idiopathic constipation methylcellulose (laxative) (Citrucel) 1,000 mg (2 x 500 mg) PO DAILY 30 days 60 tabs 6RF K58.2 - Mixed irritable bowel syndrome docusate sodium 100 mg PO BID 180 caps 1RF K58.2 - Mixed irritable bowel syndrome Coding Level of Care Code Est Pt Level 3 (36535) Diagnoses GERD (gastroesophageal reflux disease) K21.9 Chronic idiopathic constipation K59.04 Abdominal bloating R14.0 Colon cancer screening Z12.11
[2023-05-25 13:15] VITALS: BP 146/66; PULSE 75; BMI 31.1
== END 2023-05-25 14:07 | disposition home or self-care (01) ==
PROVIDERS: PCP Internal Medicine; Visit Provider Nurse Practitioner
DX: K21.9 Gastro-esophageal reflux disease without esophagitis (principal); K59.04 Chronic idiopathic constipation; R14.0 Abdominal distension (gaseous); Z12.11 Encounter for screening for malignant neoplasm of colon
CPT/HCPCS: 99213

== ENCOUNTER → 2023-05-25 12:51 | Outpatient (BNVA) | payer OTHER, SELFPAY | PROVIDERS: PCP Internal Medicine; Visit Provider Nurse Practitioner | DX: Z12.11 Encounter for screening for malignant neoplasm of colon (principal); K21.9 Gastro-esophageal reflux disease without esophagitis; K59.04 Chronic idiopathic constipation; R14.0 Abdominal distension (gaseous) | CPT/HCPCS: 99212 ==

== ENCOUNTER → 2023-07-18 11:59 | Outpatient (BNVA) | payer OTHER, SELFPAY | PROVIDERS: PCP Internal Medicine; Visit Provider Surgery | DX: D05.12 Intraductal carcinoma in situ of left breast (principal) | CPT/HCPCS: 99212 ==

== ENCOUNTER 2023-07-18 13:15 | Outpatient (AMB) | payer OTHER, SELFPAY ==
--- NOTE | 2023-07-18 13:17 | A.OFFVIS_ITS ---
Vital Signs 3 07/18/23 13:20 Height 4 ft 9 in Weight 142 lb BMI 30.7 BP 149/70 H Blood Pressure Location Lt brachial Position Sitting Pulse 71 Intake Visit Reasons: yearly breast exam Intake Note: Patient is seen in office for yearly breast exam. Pt c/o: seen last visit been experiencing right breast discomfort, denies lump, discharge, redness or other concerns Machine Attendant Required: Yes Machine Attendant Language: Senior Talent Acquisition Specialist Name: Dana SAENZ Information Interpreted: non-clinical & clinical Hyster Machine Operator: Hyster Machine Operator Present Accompanied by: Self / Same As Patient Allergies Tetanus Vaccines and Toxoid [TETANUS VACCINES AND TOXOID] Allergy (Mild, Verified 07/18/23 13:20) SWELLING, RASH albuterol [ALBUTEROL] Allergy (Unknown, Verified 07/18/23 13:20) HIVES verapamil [VERAPAMIL] Allergy (Unknown, Verified 07/18/23 13:20) UNKNOWN aspirin Adverse Reaction (Severe, Verified 07/18/23 13:20) Abdominal Pain From Tuberculin PPD Leigh Test Allergy (Unknown, Uncoded 07/18/23 13:20) ARM SWELLING TB test Allergy (Unknown, Uncoded 07/18/23 13:20) large local reaction HPI Comments Details: 78-year-old female patient previous patient of Dr. Radford returning for follow-up breast examination. She was diagnosed with ductal carcinoma in situ, ER/ MD positive and underwent a left breast lumpectomy with needle localization on 09/22/2010. Following radiation therapy she was started on tamoxifen x 5 years and followed by Dr. Bowman. She denies any new breast symptoms on either side. She does have some intermittent pain in the left breast near the incisions. Pain is intermittent seems to increase with activity. She denies any palpable mass, skin changes, nipple discharge, or other associated breast changes. Her most recent mammogram and ultrasound dated 02/01/2023 revealed no mammographic evidence of malignancy and no sonographic evidence of malignancy (BI-RADS 2). Follow-up study in 1 year is recommended. [facility] Medical History Pulmonary nodules Pneumonitis Costochondritis COVID-19 Gastritis Hyperlipidemia Supraventricular tachycardia Osteopenia Hx of migraine headaches Hx of sinusitis HTN (hypertension) Bronchial asthma Surgical History History of esophagogastroduodenoscopy (EGD) Hx of colonoscopy Status post tubal ligation Family History Mother Heart problem Angina pectoris Daughter Breast cancer Social History Household Members: None Housing: Apartment Are you a primary long term care social worker to a significant other at home: No Do you presently have visiting nurse or other home services: Yes Alcohol intake: current Alcohol intake frequency: does not drink Patient Tobacco Use Status: Never used Tobacco service: No Current occupational status: retired Current occupation: rt handed Female Reproductive History Menstrual Age of Menarche: 13 Review of Systems Const Denies chills, Denies fever(s), Denies headache(s) and Denies poor appetite ENT Denies dizziness and Denies headache(s) Card Denies chest pain, Denies rapid heart rate, Denies palpitations and Denies slow heart rate Resp Denies chest congestion, Denies cough, Denies pain on inspiration and Denies wheezing GI Denies abdominal pain, Denies bloating, Denies change in stool character, Denies constipation, Denies diarrhea, Denies nausea, Denies vomiting and Denies hematemesis Musc Denies back pain, Denies arthralgias, Denies joint swelling and Denies numbness Skin/Breast Denies change in pigmentation, Denies erythema and Denies rash Neuro Denies dizziness, Denies headache(s) and Denies numbness Psych Denies anxiety and Denies depression Endo Denies palpitations Armando/Lymph Denies easy bleeding, Denies easy bruising and Denies lymphadenopathy Aller/Immun Denies wheezing Physical Exam Const General: cooperative, comfortable and well developed Nutritional Appearance: well nourished Orientation/consciousness: patient oriented x3 Eyes Sclerae: sclerae normal EOM: EOMs intact bilaterally Neck Neck: Yes normal visual inspection, Yes no lymphadenopathy and Yes trachea midline Chest Other: Left breast with well-healed incision in the upper outer quadrant without redness, discharge, palpable mass, or enlarged lymph nodes. There is tenderness to palpation mainly in the upper outer quadrant. Right breast reveals no skin change, nipple discharge, palpable mass, enlarged lymph node or tenderness. Chest/axillae images: 2 1. Area of tenderness in the upper outer quadrant near previous surgery at the upper outer quadrant. No palpable mass associated with the area of tenderness. Resp Effort & Inspection: normal respiratory effort, no cough, no respiratory distress and no stridor Cardio Jugular venous distension: no JVD GI Inspection: Yes normal to inspection Skin General skin exam: no rashes or lesions noted and dry skin Rashes: no rashes Neuro General: patient oriented x3 and no focal motor deficits Extrem General: Yes full ROM and Yes no clubbing, cyanosis or edema Psych Appearance: grossly normal Assessment & Plan Assessment & Plan (1) Ductal carcinoma in situ (DCIS) of left breast: Code(s): D05.12 - Intraductal carcinoma in situ of left breast Category: Medical Plan: 78-year-old female patient with a prior history of ductal carcinoma in situ of the left breast on 09/22/2010 returning today for follow-up breast examination. Examination today reveals no suspicious findings in either side with a well- healed incision in the left breast. There continues to be tenderness in the upper outer quadrant of the left breast. No suspicious findings are noted in this location. Her most recent mammogram of 02/01/2023 along with ultrasound of the breast revealed no evidence of malignancy on either side (BI-RADS 2). Routine mammography is recommended in 1 year. I recommended follow-up examination in 1 year. Coding Level of Care Code Est Pt Level 3 (73140) Diagnoses Ductal carcinoma in situ (DCIS) of left breast D05.12
[2023-07-18 13:20] VITALS: BP 149/70; PULSE 71; BMI 30.7
== END 2023-07-18 13:38 | disposition home or self-care (01) ==
PROVIDERS: PCP Internal Medicine; Visit Provider Surgery
DX: D05.12 Intraductal carcinoma in situ of left breast (principal)
CPT/HCPCS: 99213

== ENCOUNTER 2023-09-04 14:54 | Outpatient (REF) | payer OTHER, SELFPAY ==
[2023-09-04 15:58] LABS: MANUAL DIFF FLAG NO
[2023-09-04 16:15] LABS: Basophils Percent Auto 0.3 % (0-2); Eosinophils Percent Auto 0.7 % (0-4); Hematocrit 39.9 % (37.0-47.0); Hemoglobin 13.5 g/dl (12.0-16.0); Imm Gran Abs Auto 0.02 X10*3/uL (0.00-0.03); Imm Gran Pct Auto 0.3 % (0.0-0.4); Lymphocytes Percent Auto 33.7 % (20-40); Mean Corpuscular HGB Conc 33.8 g/dl (31.0-35.0); Mean Corpuscular Volume 91.5 fL (80.0-98.0); Monocytes Absolute Auto 0.5 X10*3/uL (0.1-1.2); Monocytes Percent Auto 8.8 % (2-11); Neutrophils Absolute Auto 3.2 x10*3/uL (2.0-8.3); Neutrophils Percent Auto 56.2 % (45-73); Platelet Count 226 X10*3/uL (160-400); Red Blood Count 4.36 X10*6/uL (4.20-5.50); Red Cell Distribution Width 12.9 % (11.0-16.0); White Blood Count 5.8 X10*3/uL (4.8-10.8)
[2023-09-04 16:40] LABS: Alanine Aminotransferase 18 U/L (0-31); Albumin Level 4.3 g/dL (3.5-5.0); Alkaline Phosphatase 71 U/L (39-117); Anion Gap 13 (12-20); Aspartate Amino Transferase 20 U/L (5-31); Bilirubin Total 0.5 mg/dL (0.0-1.0); Blood Urea Nitrogen 16 mg/dL (9-16); Carbon Dioxide 31 mmol/L (22-29); Chloride 102 mmol/L (96-108); Estimated Glomerular Filt Rate > 60; Glucose Random 100 mg/dL (60-115); Magnesium 1.9 mg/dL (1.6-2.6); Potassium 3.9 mmol/L (3.3-5.1); Sodium 142 mmol/L (135-145); Total Protein 7.2 g/dL (6.5-8.0)
[2023-09-04 16:41] LABS: TSH reflex Free T4 0.91 uIU/mL (0.32-4.0); Vitamin D 25-OH Total 48.2 ng/mL (>30)
[2023-09-04 16:59] LABS: Folate 14.8 ng/mL (> or = 4.0)
[2023-09-04 17:21] LABS: Vitamin B12 813 pg/mL (200-900)
[2023-09-05 03:53] LABS: ~HepC Num1 0.05 S/CO (0.00-0.79); ~Hepatitis C Antibody Nonreactive (Nonreactive)
== END 2023-09-04 14:55 | disposition home or self-care (01) ==
LOC: HO.HHCL 14:54
PROVIDERS: Visit Provider Internal Medicine
DX: R53.82 Chronic fatigue, unspecified (principal)
CPT/HCPCS: 36415; 80053; 82306; 82607; 82746; 83735; 84443; 85025; 86803

== ENCOUNTER 2023-09-14 12:50 | Emergency (ER) | payer OTHER, SELFPAY ==
--- NOTE | ~2023-09-14 | XR_ITS ---
EXAMINATION: XR CHEST CLINICAL INFORMATION: Weakness COMPARISON: Chest radiograph 06/09/2022, CT chest 11/18/2022 and 03/16/2022 TECHNIQUE: 2 views of the chest were obtained. FINDINGS: Again seen is some ill-defined patchy density in the right upper lobe slightly improved from prior and has been present on prior CT scan dating back to 03/16/2022. Heart size is normal. No evidence of CHF. No pleural effusions XR/XR chest 2V IMPRESSION: No acute intrathoracic disease. Persistent right upper lobe opacity.
[2023-09-14 13:13] VITALS: BP 141/71; PULSE 64; RESP 16; TEMP 36.6; O2SAT 98; BMI 28.3
--- NOTE | 2023-09-14 13:17 | ED_ITS ---
HPI - General Adult General Chief complaint: General Medical Stated complaint: dizzy tired Time Seen by Provider: 09/15/23 00:48 Source: patient and family Mode of arrival: ambulatory Limitations: no limitations History of Present Illness ED Provider: jose COPPOLA narrative: Patient is 78 years old lives alone comes here for increased weakness for last 3 months patient was seen by her PCP on 09/07 workup done which showed UTI started on Bactrim patient is still feeling weak denied any urinary symptoms no fever no cough no chills patient lives alone Related Data Home Medications ?Medication ?Instructions ?Recorded ?Confirmed acetaminophen 650 mg 1 tab PO Q8H PRN Pain 04/03/20 06/24/22 tablet,extended release (Mapap Arthritis Pain) atorvastatin 20 mg tablet 20 mg PO DAILY 12/07/20 10/07/22 hydrochlorothiazide 25 mg tablet 25 mg PO DAILY 12/07/20 10/07/22 fexofenadine 180 mg tablet 180 mg PO DAILY 02/09/22 10/07/22 (Allergy Relief (fexofenadine)) ergocalciferol (vitamin D2) 1,250 1 cap PO ASHER 03/16/22 10/07/22 mcg (50,000 unit) capsule fluticasone propionate 220 1 puff inhalation BID 03/16/22 10/07/22 mcg/actuation HFA aerosol inhaler (Flovent HFA) sodium chloride 0.65 % nasal spray 1 spray intranasal Q3H PRN Dry 03/16/22 10/07/22 aerosol (Deep Sea Nasal) Nasal Passages triamcinolone acetonide 55 mcg 2 spray intranasal DAILY 03/16/22 10/07/22 nasal spray aerosol levalbuterol tartrate 45 1 inh inhalation DAILY 07/07/22 10/07/22 mcg/actuation aerosol inhaler Previous Rx's ?Medication ?Instructions ?Recorded acidophilus 25 million 1 tab PO DAILY #30 tabs 06/29/21 cell-pectin, citrus 100 mg tablet lisinopril 10 mg tablet 10 mg PO QAM #90 tabs 05/16/23 docusate sodium 100 mg capsule 100 mg PO BID #180 caps 05/25/23 lansoprazole 30 mg capsule,delayed 30 mg PO BID #60 caps 05/25/23 release methylcellulose (laxative) 500 mg 1,000 mg (2 x 500 mg) PO DAILY 30 05/25/23 tablet (Citrucel) days #60 tabs plecanatide 3 mg tablet (Trulance) 3 mg PO DAILY #30 tabs 05/25/23 diltiazem HCl 120 mg 120 mg PO DAILY #30 caps 06/13/23 capsule,extended release 24 hr metoprolol succinate 25 mg 25 mg PO QAM #90 tabs 08/08/23 tablet,extended release 24 hr Allergies Allergy/AdvReac Type Severity Reaction Status Date / Time Tetanus Vaccines and Toxoid Allergy Mild SWELLING, Verified 09/14/23 13:16 [TETANUS VACCINES AND TOXOID] RASH albuterol [ALBUTEROL] Allergy Unknown HIVES Verified 09/14/23 13:16 verapamil [VERAPAMIL] Allergy Unknown UNKNOWN Verified 09/14/23 13:16 aspirin AdvReac Severe Abdominal Verified 09/14/23 13:16 Pain From Tuberculin PPD Leigh Test Allergy Unknown ARM Uncoded 09/14/23 13:16 SWELLING TB test Allergy Unknown large Uncoded 09/14/23 13:16 local reaction Review of Systems 2 Review of Systems: Yes all other systems are reviewed and are negative [facility] Past Medical History Medical History Pulmonary nodules Pneumonitis Costochondritis COVID-19 Gastritis Hyperlipidemia Supraventricular tachycardia Osteopenia Hx of migraine headaches Hx of sinusitis HTN (hypertension) Bronchial asthma Surgical History History of esophagogastroduodenoscopy (EGD) Hx of colonoscopy Status post tubal ligation Family History Family History Mother Heart problem Angina pectoris Daughter Breast cancer Social History Social History Household Members: None Housing: Apartment Are you a primary director of critical care to a significant other at home: No Do you presently have visiting nurse or other home services: Yes Alcohol intake: current Alcohol intake frequency: does not drink Patient Tobacco Use Status: Never used Tobacco Smoked in Last 30 Days: No Use of substances other than those prescribed or required for medical reasons: No Advance Directives: No Advance Directives Information Provided: Yes Do you have a plan to hurt others: No Plan service: No Current occupational status: retired Current occupation: rt handed Physical Exam ED Vital Signs: Vital Signs - 24 hr 09/15/23 02:17 09/15/23 02:18 Temperature 97.8 F 97.8 F Pulse Rate 55 55 Respiratory Rate 16 16 Blood Pressure 121/60 121/60 Pulse Oximetry 97 97 Oxygen Delivery Method Room Air Room Air BMI result Body Mass Index 28.3 Appearance: Alert. Oriented X3. No acute distress. Eyes: PERRLA, No Nystagmus ENT: Pharynx normal. Oral Mucosa moist Neck: Normal inspection. Neck supple. CVS: Normal heart rate and rhythm. Pulses normal. Respiratory: No respiratory distress. Equal air entry bilateral, no wheezing/rales/rhonchi Abdomen: Soft and nontender. Bowel sounds are present, no mass palpable, no CVA tenderness Skin: Skin warm and dry. Normal skin color. Normal skin turgor. Extremities: No lower extremity edema. No calf tenderness Neuro: Oriented X 3. No motor deficit. No sensory deficit.No cerebellar signs , cranial nerves II-XII intact Course Course Course Narrative: This is an RME: Additional HPI, ROS, PE not included below will be deferred to primary provider. RME assessment and note performed by: Tiki Ashton PA-C This is a 78-year-old Romansh-speaking female, with a medical history of HTN, asthma, breast cancer with left lumpectomy, who presents emergency department with complaints of weakness, and dizziness times 3 months of weakness, dizziness. Vital signs within normal limits. She is speaking full sentences under no acute distress. Plan: Labs, further ER evaluation needed. Medical Decision Making Medical Decision Making [facility] Narrative: Patient nonspecific weakness with recent UTI urine negative bacteria workup essentially is negative advised to drink plenty of fluids Differential Diagnosis Differential Diagnoses: The differential diagnosis associated with the presentation includes Metabolic encephalopathy/viral syndrome/UTI Lab Data [facility] Lab Attestation statement: I reviewed the patient's lab results. 09/14/23 14:58 09/14/23 14:58 Labs: Lab Results 09/14/23 09/15/23 Range/Units 14:58 01:32 WBC 6.4 (4.8-10.8) X10*3/uL RBC 4.36 (4.20-5.50) X10*6/uL Hgb 13.7 (12.0-16.0) g/dl Hct 39.8 (37.0-47.0) % MCV 91.3 (80.0-98.0) fL MCH 31.4 (27.0-33.0) pg MCHC 34.4 (31.0-35.0) g/dl RDW 12.8 (11.0-16.0) % Plt Count 234 (160-400) X10*3/uL MPV 10.2 (9.4-12.3) fL Immature Gran % (Auto) 0.3 (0.0-0.4) % Neut % (Auto) 53.2 (45-73) % Lymph % (Auto) 37.1 (20-40) % Knott % (Auto) 8.6 (2-11) % Eos % (Auto) 0.5 (0-4) % Baso % (Auto) 0.3 (0-2) % Lymph # (Auto) 2.4 (1.2-4.9) X10*3/uL Knott # (Auto) 0.6 (0.1-1.2) X10*3/uL Eos # (Auto) 0.0 (0.0-0.4) X10*3/uL Baso # (Auto) 0.0 (0.0-0.2) X10*3/uL Abs Immat Gran (auto) 0.02 (0.00-0.03) X10*3/uL Absolute Neuts (auto) 3.4 (2.0-8.3) x10*3/uL Absolute Nucleated RBC 0.000 (0.0-0.012) X10*3/uL Nucleated RBC % (auto) 0.0 (0.0-0.2) /100WBC Sodium 140 (135-145) mmol/L Potassium 4.0 (3.3-5.1) mmol/L Chloride 103 (96-108) mmol/L Carbon Dioxide 28 (22-29) mmol/L Anion Gap 13 (12-20) BUN 19 H (9-16) mg/dL Creatinine 1.26 (0.5-1.4) mg/dL Estim Creat Clear Calc 29.8 Estimated GFR 41 Random Glucose 87 (60-115) mg/dL Calcium 9.9 (8.4-10.2) mg/dL Magnesium 2.0 (1.6-2.6) mg/dL Total Bilirubin 0.4 (0.0-1.0) mg/dL Direct Bilirubin 0.1 (0.0-0.5) mg/dL AST 20 (5-31) U/L ALT 17 (0-31) U/L Alkaline Phosphatase 72 (39-117) U/L Troponin I High Sens < 2.7 (<3.5-17.0) ng/L Total Protein 7.3 (6.5-8.0) g/dL Albumin 4.5 (3.5-5.0) g/dL Urine Color Yellow Urine Appearance Clear Urine pH 5.5 (5.0-9.0) Ur Specific [place] 1.015 (1.005-1.025) Urine Protein Negative (Neg-Trace) mg/dL Urine Glucose (UA) Negative (Negative) mg/dL Urine Ketones Negative (Negative) mg/dL Urine Blood Negative (Negative) Urine Nitrite Negative (Negative) Ur Leukocyte Esterase Small (1+) H (Negative) Urine RBC 0-2 (0-2) /HPF Urine WBC 6-10 H (0-5) /HPF Ur Squamous Epith Cells 0-2 (0-2) /HPF Urine Bacteria None Seen (None Seen) Hyaline Casts 0-2 (0-2) /LPF Influenza Type A (PCR) NEGATIVE (Negative) Influenza Type B (PCR) NEGATIVE (Negative) RSV RNA Qual (PCR) NEGATIVE (Negative) SARS-CoV-2 RNA (RT-PCR) NEGATIVE (Negative) Discharge Plan Discharge Clinical Impression: Weakness, Acute UTI Patient Disposition: Home, Self-Care Instructions: Weakness (ED), Urinary Tract Infection in Older Adults (ED) Additional Instructions: Drink plenty of fluids You have slight infection of the urine which is getting better continue take medication as prescribed Prescriptions: No Action acidophilus-pectin, citrus 25 million cell -100 mg tablet 1 tab PO DAILY Qty: 30 6RF lisinopril 10 mg tablet 10 mg PO QAM Qty: 90 3RF diltiazem HCl 120 mg capsule,extended release 24hr 120 mg PO DAILY Qty: 30 5RF Rx Instructions: DUE FOR APPT IN 2023. PLEASE CALL [phone] TO SCHEDULE AN APPT SO WE CAN CONTINUR TO REFILL THIS MED. metoprolol succinate 25 mg tablet extended release 24 hr 25 mg PO QAM Qty: 90 1RF Rx Instructions: Due for 2 year follow up appt. Please call office to get scheduled by year end 2023. acetaminophen [Mapap Arthritis Pain] 650 mg tablet extended release 1 tab PO Q8H PRN (Reason: Pain) atorvastatin 20 mg tablet 20 mg PO DAILY hydrochlorothiazide 25 mg tablet 25 mg PO DAILY triamcinolone acetonide 55 mcg aerosol,spray 2 spray intranasal DAILY fluticasone propionate [Flovent HFA] 220 mcg/actuation HFA aerosol inhaler 1 puff INHALATION BID Deep Sea Nasal 0.65 % aerosol,spray 1 spray intranasal Q3H PRN (Reason: Dry Nasal Passages) ergocalciferol (vitamin D2) 1,250 mcg (50,000 unit) capsule 1 cap PO ASHER fexofenadine [Allergy Relief (fexofenadine)] 180 mg tablet 180 mg PO DAILY levalbuterol tartrate 45 mcg/actuation HFA aerosol inhaler 1 inh inhalation DAILY Trulance 3 mg tablet 3 mg PO DAILY Qty: 30 6RF Citrucel 500 mg tablet 1,000 mg PO DAILY 30 Days Qty: 60 6RF lansoprazole 30 mg capsule,delayed release(DR/EC) 30 mg PO BID Qty: 60 6RF docusate sodium 100 mg capsule 100 mg PO BID Qty: 180 1RF Interventions: ED Discharge Assessment Last Done: 09/15/23 02:18 Discharge Date/Time: 09/15/23 02:18 Print Language: Romansh
--- NOTE | 2023-09-14 13:19 | ECG_ITS ---
Test Reason : WEAKNESS Blood Pressure : / mmHG Vent. Rate : 058 BPM Atrial Rate : 058 BPM P-R Int : 150 ms QRS Dur : 072 ms QT Int : 412 ms P-R-T Axes : 029 009 004 degrees QTc Int : 404 ms Sinus bradycardia Otherwise normal ECG When compared with ECG of 16-MAR-2022 17:38, No significant change was found Referred By: Tiki Ashton Electronically Signed By:NIMO BAUTISTA MD
[2023-09-14 15:05] LABS: MANUAL DIFF FLAG NO
[2023-09-14 15:15] LABS: Basophils Percent Auto 0.3 % (0-2); Eosinophils Percent Auto 0.5 % (0-4); Hematocrit 39.8 % (37.0-47.0); Hemoglobin 13.7 g/dl (12.0-16.0); Imm Gran Abs Auto 0.02 X10*3/uL (0.00-0.03); Imm Gran Pct Auto 0.3 % (0.0-0.4); Lymphocytes Absolute Auto 2.4 X10*3/uL (1.2-4.9); Lymphocytes Percent Auto 37.1 % (20-40); Mean Corpuscular HGB Conc 34.4 g/dl (31.0-35.0); Mean Corpuscular Hemoglobin 31.4 pg (27.0-33.0); Mean Corpuscular Volume 91.3 fL (80.0-98.0); Mean Platelet Volume 10.2 fL (9.4-12.3); Monocytes Absolute Auto 0.6 X10*3/uL (0.1-1.2); Monocytes Percent Auto 8.6 % (2-11); Neutrophils Absolute Auto 3.4 x10*3/uL (2.0-8.3); Neutrophils Percent Auto 53.2 % (45-73); Platelet Count 234 X10*3/uL (160-400); Red Blood Count 4.36 X10*6/uL (4.20-5.50); Red Cell Distribution Width 12.8 % (11.0-16.0); White Blood Count 6.4 X10*3/uL (4.8-10.8)
[2023-09-14 15:22] LABS: Alanine Aminotransferase 17 U/L (0-31); Albumin Level 4.5 g/dL (3.5-5.0); Alkaline Phosphatase 72 U/L (39-117); Anion Gap 13 (12-20); Aspartate Amino Transferase 20 U/L (5-31); Bilirubin Direct 0.1 mg/dL (0.0-0.5); Bilirubin Total 0.4 mg/dL (0.0-1.0); Blood Urea Nitrogen 19 mg/dL (9-16); Calcium 9.9 mg/dL (8.4-10.2); Carbon Dioxide 28 mmol/L (22-29); Chloride 103 mmol/L (96-108); Creatinine Clr Calc Pharmacy 29.8; Estimated Glomerular Filt Rate 41; Glucose Random 87 mg/dL (60-115); Sodium 140 mmol/L (135-145); Total Protein 7.3 g/dL (6.5-8.0)
[2023-09-14 15:29] LABS: Troponin-I High Sensitivity < 2.7 ng/L (<3.5-17.0)
[2023-09-14 15:44] LABS: Influenza A PCR NEGATIVE (Negative); Influenza B PCR NEGATIVE (Negative); Resp Syncy Virus RNA Qual PCR NEGATIVE (Negative); SARS COV2 PCR INHOUSE NEGATIVE (Negative)
[2023-09-14 19:06] VITALS: BP 123/59; PULSE 57; RESP 16; TEMP 36.1; O2SAT 97
[2023-09-15 01:38] LABS: Appearance Urine Clear; Color Urine Yellow; Glucose Urine UA Negative (Negative); Leukocyte Esterase Urine Small (1+) (Negative); Nitrite Urine Negative (Negative); PH 5.5 (5.0-9.0); Specific Gravity - Urine 1.015 (1.005-1.025); UMIC TRIGGER UACC YES; Urine Blood Negative (Negative); Urine Ketones Negative (Negative); Urine Protein Negative (Neg-Trace)
[2023-09-15 01:43] LABS: Bacteria Urine None Seen (None Seen); Hyaline Casts Urine 0-2 /LPF (0-2); RBC Urine 0-2 /HPF (0-2); Squamous Epithelial Cell Urine 0-2 /HPF (0-2); UACC Culture Trigger YES
[2023-09-15 02:17] VITALS: BP 121/60; PULSE 55; RESP 16; TEMP 36.6; O2SAT 97
[2023-09-15 02:18] VITALS: BP 121/60; PULSE 55; RESP 16; TEMP 36.6; O2SAT 97
== END 2023-09-15 02:18 | disposition home or self-care (01) ==
PROVIDERS: Physician Assistant Medical; Emergency Provider Internal Medicine; PCP Internal Medicine
DX: N39.0 Urinary tract infection, site not specified (principal); R53.1 Weakness; R42 Dizziness and giddiness; I10 Essential (primary) hypertension; E78.5 Hyperlipidemia, unspecified; J45.909 Unspecified asthma, uncomplicated; Z79.02 Long term (current) use of antithrombotics/antiplatelets; Z79.899 Other long term (current) drug therapy; Z85.3 Personal history of malignant neoplasm of breast; Z03.818 Encounter for observation for suspected exposure to other biological agents ruled out
CPT/HCPCS: 0241U; 71046; 80048; 80076; 81001; 83735; 84484; 85025; 87086; 93005; 99283; 99284

== ENCOUNTER → 2023-09-14 13:19 | Outpatient (BNV) | payer OTHER, SELFPAY | PROVIDERS: PCP Internal Medicine; Visit Provider Internal Medicine Cardiovascular Disease | DX: R00.1 Bradycardia, unspecified (principal) | CPT/HCPCS: 93010 ==

== ENCOUNTER 2023-10-13 12:30 | Outpatient (REF) | payer OTHER, SELFPAY ==
--- NOTE | ~2023-10-13 | MM_ITS ---
EXAMINATION: MM SCREENING DIGITAL BREAST TOMOSYNTHESIS, BILATERAL CLINICAL INFORMATION: Screening. Asymptomatic. The patient has history of conservatively treated left DCIS diagnosed in 2011. COMPARISON: Mammography: This study is compared with prior exams dating back to 2018. TECHNIQUE: Digital breast tomosynthesis is performed in both the craniocaudal and mediolateral oblique views along with computer-aided detection (CAD). Synthesized 2D images are generated from the tomosynthesis. FINDINGS: There are scattered areas of fibroglandular density (ACR BI-RADS breast composition Category b). There are no significant masses, abnormal calcifications, or other abnormalities. There are postsurgical changes in the 12:00 region of the left breast. There is a biopsy tissue marker in the central portion of the left breast. MM/MM tomosynthesis screening BI IMPRESSION: No mammographic evidence of malignancy. ASSESSMENT: BI-RADS BI-RADS 2 - Benign Findings RECOMMENDATION: Routine annual mammography screening. 1 year F/U This examination should not preclude the clinical evaluation of a suspicious palpable abnormality. This patient's information was entered into a reminder system with a target due date for their next mammogram.
== END 2023-10-13 12:31 | disposition home or self-care (01) ==
LOC: HO.MAMMO 12:30
PROVIDERS: Visit Provider Internal Medicine
DX: Z12.31 Encounter for screening mammogram for malignant neoplasm of breast (principal)
CPT/HCPCS: 77063; 77067

== ENCOUNTER → 2023-10-13 12:30 | Outpatient (BNV) | payer OTHER, SELFPAY | PROVIDERS: Visit Provider Radiology Diagnostic Radiology | DX: Z12.31 Encounter for screening mammogram for malignant neoplasm of breast (principal) | CPT/HCPCS: 77063; 77067 ==

== ENCOUNTER 2023-10-20 13:32 | Outpatient (REF) | payer OTHER, SELFPAY ==
--- NOTE | ~2023-10-20 | CT_ITS ---
EXAMINATION: CT CHEST WITHOUT CONTRAST CLINICAL INFORMATION: Follow-up nodules COMPARISON: 11/18/2022, 03/16/2022 TECHNIQUE: Multidetector volumetric CT imaging of the chest was done. Axial MIP volume rendering provided. Sagittal and coronal reformatted images were obtained. This CT examination was performed using dose optimization techniques as appropriate, variously including the following: *Automated exposure control *Adjustment of mA and/or kV according to patient size (this includes techniques or standardized protocols for targeted exams where dose is matched to indication/reason for exam; i.e. extremities or head) *Use of iterative reconstruction technique DLP: 160 mGy-cm FINDINGS: LUNGS: Left lower lobe endobronchial 3 mm nodule is unchanged (9:178). Right upper lobe 4 mm nodule (9:09), unchanged. Right upper lobe 4 mm nodule, endobronchial, new from prior study likely reflects mucoid impaction. PLEURA: No pleural effusion. MEDIASTINUM: No cardiomegaly. Aorta and pulmonary artery are normal in caliber. No mediastinal adenopathy. Lack of intravenous contrast limits evaluation for hilar lymphadenopathy. No bulky hilar lymphadenopathy appreciated. CORONARY ARTERY CALCIFICATION: Coronary artery calcification is present. CHEST WALL/AXILLA: No axillary or internal mammary lymphadenopathy. UPPER ABDOMEN: Unremarkable. OSSEOUS STRUCTURES: Unremarkable. CT/CT chest wo IV con IMPRESSION: * Bilateral pulmonary nodules measuring up to 4 mm are unchanged. * Right upper lobe 4 mm nodule, new from prior study likely reflects mucoid impaction. According to the UPDATED 2017 Fleischner Society recommendations, the advised followup imaging for solid nodules < 6 mm is: LOW RISK PATIENT: No routine follow up. HIGH RISK PATIENT: Optional CT at 12 months. Electronically signed by: Anabel Galarza MD 11/27/2023 07:49 PM EDT
== END 2023-10-20 13:33 | disposition home or self-care (01) ==
LOC: HO.CT 13:32
PROVIDERS: Visit Provider Hospitalist
DX: R91.8 Other nonspecific abnormal finding of lung field (principal); R06.09 Other forms of dyspnea
CPT/HCPCS: 71250

== ENCOUNTER 2023-11-23 12:46 | Outpatient (AMB) | payer OTHER, SELFPAY ==
[2023-11-23 12:48] VITALS: BP 117/67; PULSE 62; BMI 28.6
--- NOTE | 2023-11-23 12:48 | A.OFFVIS_ITS ---
Vital Signs 11/23/23 12:48 Height 4 ft 11 in Weight 141 lb 8.588 oz BMI 28.6 BP 117/67 Blood Pressure Location Rt brachial Position Sitting Pulse 62 Intake Visit Reasons: 6 month follow up Intake Note: Eden presents to in office 6 months follow up of CIC and GERD. CC: Patient reports doing well and denies having any new GI symptoms today. Midwife Practitioner Required: No Accompanied by: Self / Same As Patient Allergies Tetanus Vaccines and Toxoid [TETANUS VACCINES AND TOXOID] Allergy (Mild, Verified 11/23/23 13:09) SWELLING, RASH albuterol [ALBUTEROL] Allergy (Unknown, Verified 11/23/23 13:09) HIVES verapamil [VERAPAMIL] Allergy (Unknown, Verified 11/23/23 13:09) UNKNOWN aspirin Adverse Reaction (Severe, Verified 11/23/23 13:09) Abdominal Pain From Tuberculin PPD Leigh Test Allergy (Unknown, Uncoded 09/14/23 13:16) ARM SWELLING TB test Allergy (Unknown, Uncoded 09/14/23 13:16) large local reaction PFSH Medical History Pulmonary nodules Pneumonitis Costochondritis COVID-19 Gastritis Hyperlipidemia Supraventricular tachycardia Osteopenia Hx of migraine headaches Hx of sinusitis HTN (hypertension) Bronchial asthma Surgical History History of esophagogastroduodenoscopy (EGD) Hx of colonoscopy Status post tubal ligation Family History Mother Heart problem Angina pectoris Daughter Breast cancer Social History Household Members: None Housing: Apartment Are you a primary animal care technician to a significant other at home: No Do you presently have visiting nurse or other home services: Yes Alcohol intake: current Alcohol intake frequency: does not drink Patient Tobacco Use Status: Never used Tobacco service: No Current occupational status: retired Current occupation: rt handed Female Reproductive History Menstrual Age of Menarche: 13 Coding
--- NOTE | 2023-11-23 12:48 | MHC.OFFVIS ---
Vital Signs 11/23/23 12:48 Height 4 ft 11 in Weight 141 lb 8.588 oz BMI 28.6 BP 117/67 Blood Pressure Location Rt brachial Position Sitting Pulse 62 Intake Visit Reasons: 6 month follow up Allergies Tetanus Vaccines and Toxoid [TETANUS VACCINES AND TOXOID] Allergy (Mild, Verified 11/23/23 13:09) SWELLING, RASH albuterol [ALBUTEROL] Allergy (Unknown, Verified 11/23/23 13:09) HIVES verapamil [VERAPAMIL] Allergy (Unknown, Verified 11/23/23 13:09) UNKNOWN aspirin Adverse Reaction (Severe, Verified 11/23/23 13:09) Abdominal Pain From Tuberculin PPD Leigh Test Allergy (Unknown, Uncoded 09/14/23 13:16) ARM SWELLING TB test Allergy (Unknown, Uncoded 09/14/23 13:16) large local reaction HPI HPI 6 month follow up: Details: Assessment & Plan (1) GERD (gastroesophageal reflux disease): Code(s): K21.9 - Gastro-esophageal reflux disease without esophagitis (2) Chronic idiopathic constipation: Code(s): K59.04 - Chronic idiopathic constipation (3) Abdominal bloating: Code(s): R14.0 - Abdominal distension (gaseous) (4) Colon cancer screening: Comment: 2022= negative Cologuard test repeat in 3 years Code(s): Z12.11 - Encounter for screening for malignant neoplasm of colon Plan [place]ese #Charley Live She had some episodes of CIC, but she also ran out of her Trulance despite her also saying, my nurse told me I eat too many plantains. Now that her medication has been restored she is moving her bowels well. She also had an increase of HB during her CIC time, but this is now well controlled. Her GI regimen consists of Trulance, lansoprazole, colace and fiber. She was also out of her fiber for a time and she bought an OTC fiber powder with good effect. She continues to decline colonoscopy. However her Cologuard test was negative so we can repeat this in 3 years. ROV 6 mos. Medications: Refilled lansoprazole 30 mg PO BID 60 caps 6RF K21.9 - Gastro-esophageal reflux disease without esophagitis plecanatide (Trulance) 3 mg PO DAILY 30 tabs 6RF K59.04 - Chronic idiopathic constipation methylcellulose (laxative) (Citrucel) 1,000 mg (2 x 500 mg) PO DAILY 30 days 60 tabs 6RF K58.2 - Mixed irritable bowel syndrome docusate sodium 100 mg PO BID 180 caps 1RF K58.2 - Mixed irritable bowel syndrome TODAYS VISIT Taiwanese #[id number] Her GI regimen consists of Trulance, lansoprazole, colace and fiber. She was also out of her fiber for a time and she bought an OTC fiber powder with good effect. Return office visit in 6 months [facility] Medical History Pulmonary nodules Pneumonitis Costochondritis COVID-19 Gastritis Hyperlipidemia Supraventricular tachycardia Osteopenia Hx of migraine headaches Hx of sinusitis HTN (hypertension) Bronchial asthma Surgical History History of esophagogastroduodenoscopy (EGD) Hx of colonoscopy Status post tubal ligation Family History Mother Heart problem Angina pectoris Daughter Breast cancer Social History Household Members: None Housing: Apartment Are you a primary intensive care ambulance paramedic to a significant other at home: No Do you presently have visiting nurse or other home services: Yes Alcohol intake: current Alcohol intake frequency: does not drink Patient Tobacco Use Status: Never used Tobacco service: No Current occupational status: retired Current occupation: rt handed Female Reproductive History Menstrual Age of Menarche: 13 Review of Systems Const Denies fatigue, Denies fever(s), Denies night sweats, Denies poor appetite and Denies weight loss Eyes Details: glasses Reports requires corrective lenses ENT Reports Normal hearing present, Denies dental pain, Denies dysphagia, Denies hearing loss, Denies mouth pain, Denies odynophagia, Denies throat swelling, Denies tongue swelling and Reports other (Dentition adequate) Card Reports no additional complaints Resp Reports no additional complaints GI Details: Denies abdominal pain, Denies melena, Denies bloating, Denies hematochezia, Reports constipation, Denies GI cramping, Denies dysphagia, Denies excessive flatus, Denies early satiety, Reports heartburn, Denies diarrhea, Denies nausea, Denies odynophagia, Denies vomiting and Denies hematemesis Skin/Breast Denies pruritus, Denies lesions, Denies rash and Denies jaundice Neuro Reports Normal hearing present and Denies Abnormal speech present Endo Denies fatigue Aller/Immun Denies throat swelling and Denies tongue swelling Physical Exam Vital Signs: Last Vital Signs Pulse 62 11/23/23 12:48 BP 117/67 11/23/23 12:48 BMI result Body Mass Index 28.6 Const General: cooperative, no acute distress, well developed and well groomed Nutritional Appearance: well nourished and overweight Orientation/consciousness: oriented to person, oriented to place and oriented to time Limitations: language barrier HEENT Head: Yes normocephalic and Yes atraumatic Eyes General: appearance normal, both eyes and all related structures Pupils: Equal, round and reactive pupils present Neck Neck: Yes normal visual inspection and Yes no lymphadenopathy Thyroid: Thyroid normal Resp Effort & Inspection: normal respiratory effort and able to speak in complete sentences Auscultation: clear to auscultation bilaterally Cardio Rate: regular rate Rhythm: regular rhythm Heart sounds: Normal, physiologic split S2 sound present Peripheral pulses: radial pulses present and posterior tibial pulses present GI Inspection: No distended, No Abdominal panniculus present and Yes obesity Palpation (GI): Soft to palpation, nontender, no guarding, not rigid and No hepatosplenomegaly present Percussion: Yes normal to percussion Auscultation: normal bowel sounds Rectal Exam - Female: deferred Skin General skin exam: no rashes or lesions noted, turgor normal, skin not dry, no jaundice, No spider nevi and no striae Rashes: no rashes Nails: normal Neuro General: oriented to person, oriented to place and oriented to time Cranial nerves: Yes Equal, round and reactive pupils present and Yes Normal hearing present Speech: No Abnormal speech present Extrem General: Yes normal to inspection, No clubbing, No cyanosis and No edema Psych Appearance: grossly normal and well kempt Mental Status: mental status grossly normal Speech and movement: Normal speech and movement present Affect: normal affect Attitude: cooperative Thought process: Normal thought process present and not confabulating Thought content: Normal thought content present Insight: Limited insight present (Psych) Judgement: Limited judgement present (Psych) Assessment & Plan Assessment & Plan (1) GERD (gastroesophageal reflux disease): Code(s): K21.9 - Gastro-esophageal reflux disease without esophagitis Category: Medical (2) Chronic idiopathic constipation: Code(s): K59.04 - Chronic idiopathic constipation Category: Medical Plan Taiwanese #[id number] Her GI regimen consists of Trulance, lansoprazole, colace and fiber. She was also out of her fiber for a time and she bought an OTC fiber powder with good effect. Return office visit in 6 months Medications: Refilled docusate sodium 100 mg PO BID 180 caps 1RF K58.2 - Mixed irritable bowel syndrome methylcellulose (laxative) (Citrucel) 1,000 mg (2 x 500 mg) PO DAILY 30 days 60 tabs 6RF K58.2 - Mixed irritable bowel syndrome lansoprazole 30 mg PO BID 60 caps 6RF K21.9 - Gastro-esophageal reflux disease without esophagitis plecanatide (Trulance) 3 mg PO DAILY 30 tabs 6RF K59.04 - Chronic idiopathic constipation Coding Level of Care Code Est Pt Level 3 (54834) Diagnoses GERD (gastroesophageal reflux disease) K21.9 Chronic idiopathic constipation K59.04
== END 2023-11-23 13:23 | disposition home or self-care (01) ==
PROVIDERS: PCP Internal Medicine; Visit Provider Nurse Practitioner
DX: K21.9 Gastro-esophageal reflux disease without esophagitis (principal); K59.04 Chronic idiopathic constipation
CPT/HCPCS: 99213

== ENCOUNTER → 2023-11-23 12:46 | Outpatient (BNVA) | payer OTHER, SELFPAY | PROVIDERS: PCP Internal Medicine; Visit Provider Nurse Practitioner | DX: K21.9 Gastro-esophageal reflux disease without esophagitis (principal); K58.2 Mixed irritable bowel syndrome; K59.04 Chronic idiopathic constipation | CPT/HCPCS: 99212 ==

== ENCOUNTER 2023-12-05 14:15 | Outpatient (AMB) | payer OTHER, SELFPAY ==
[2023-12-05 14:25] VITALS: BP 124/60; PULSE 67; O2SAT 98; BMI 28.5
--- NOTE | 2023-12-05 14:25 | A.OFFVIS_ITS ---
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: No Allergies Tetanus Vaccines and Toxoid [TETANUS VACCINES AND TOXOID] Allergy (Mild, Verified 12/05/23 14:28) SWELLING, RASH albuterol [ALBUTEROL] Allergy (Unknown, Verified 12/05/23 14:28) HIVES verapamil [VERAPAMIL] Allergy (Unknown, Verified 12/05/23 14:28) UNKNOWN aspirin Adverse Reaction (Severe, Verified 12/05/23 14:28) Abdominal Pain From Tuberculin PPD Leigh Test Allergy (Unknown, Uncoded 12/05/23 14:) ARM SWELLING TB test Allergy (Unknown, Uncoded 12/05/23 14:) large local reaction HPI Comments Details: The patient is a 78 year woman with a history of asthma who apparently was in her usual state health until sometime in February when she was in the mall and she fell down the escalator is a. She had significant amount of discomfort in injuries due to the event. She was taken to the hospital which she did have a CT of her major structures. She was noted to have evidence pneumonitis in the upper lung zones primarily on the right and also some small pulmonary nodules. The patient also has been complaining of worsening cough shortness of breath. And she still recovering from her significant injury. Will go ahead and request blood work in addition to that be reasonable just to treated with some prednisone to see if we can not decrease the inflammatory changes. in the meantime she is going to continue with respiratory therapy. 08/16/2022 the patient is here for pulmonary follow-up visit. Overall she is doing okay. A few weeks ago she did have a fall in the bathroom hurt her right chest area. She did come into the hospital and she did have a rib series wit hout any evidence of any fractures. She also start the prednisone because she did not like the way it made her feel. She did take it for a 1-2 weeks. I did review her chest x-ray that she had recently that shows better aeration overall. I do not appreciate any crackles on examination to suggest pneumonitis either. I do believe that she is doing better. She will need a repeat CT scan at some point. The patient also has continue to use the Flovent daily. She had 1 episode which she was having significant shortness of breath making it hard for her to breathe. She did use her Xopenex with good effect. She also has a history of glaucoma so therefore use of muscarinic antagonist are relatively contraindicated. Therefore, I did recommend that she can use Xopenex once or twice a day and also as needed in between. Hopefully this along with her Flovent will give her good asthma control without unnecessary adverse effects. 11/29/2022 the patient is here for pulmonary follow-up visit. Overall she is doing well from a respiratory status. Over the summer she did have an episode of shortness of breath but now is back to baseline. She continues on the Flovent. She also has a rescue inhaler that she does not use more than twice a week. The patient has had issues with her gait. She has had some falls. Still recovering from some injuries. The patient does use a cane. She also has a walker at home. In the meantime she also had a CT scan of the chest on 11/18/2022 demonstrating stable pulmonary nodules although she has 2 new nodules measuring 3 and 5 mm in size. Both on the right side. The patient also still has some areas of ground-glass opacities have not changed. Based on the new nodules she will need another CT scan in a year's time. If the patient has any worsening symptoms prior to the next visit she will call in order to further optimize respiratory therapy. 12/05/2023 the patient is here for a pulmonary follow-up visit. Overall the patient has been doing well from a respiratory status. the patient has not had any exacerbations from her breathing. She does have a rescue inhaler but she typically does not use it often typically less than 2 times a week. She did undergo a CT scan of the chest which we personally reviewed. The patient does have stable pulmonary nodules although she does have a new 4 mm pulmonary nodule also noted. The nodules do not look concerning. Although based on the fact that there is a new nodule she should have a repeat CT scan in a year's time. In the meantime she will continue with current respiratory therapy. If any issues arise she will call for an earlier assessment. Otherwise will follow-up after the CAT scan. [facility] Medical History Pulmonary nodules Pneumonitis Costochondritis COVID-19 Gastritis Hyperlipidemia Supraventricular tachycardia Osteopenia Hx of migraine headaches Hx of sinusitis HTN (hypertension) Bronchial asthma Surgical History History of esophagogastroduodenoscopy (EGD) Hx of colonoscopy Status post tubal ligation Family History Mother Heart problem Angina pectoris Daughter Breast cancer Social History Household Members: None Housing: Apartment Are you a primary medicare sales representative to a significant other at home: No Do you presently have visiting nurse or other home services: Yes Alcohol intake: current Alcohol intake frequency: does not drink Patient Tobacco Use Status: Never used Tobacco service: No Current occupational status: retired Current occupation: rt handed Female Reproductive History Menstrual Age of Menarche: 13 Review of Systems Const Denies chills, Denies fatigue, Denies fever(s), Denies frequent falls, Denies weakness, Denies weight gain and Denies weight loss ENT Reports Normal hearing present and Denies dizziness Card Denies chest pain, Denies leg edema, Denies lightheadedness, Denies palpitations, Denies dyspnea, Denies dyspnea on exertion, Denies orthopnea and Denies other (loss of consciousness) Resp Reports cough, Denies dyspnea, Denies dyspnea on exertion and Reports wheezing GI Denies hematochezia and Denies change in stool character Musc Denies abnormal gait, Reports myalgias, Reports arthralgias and Reports joint swelling Neuro Reports Normal hearing present, Denies Abnormal speech present, Denies abnormal gait, Denies dizziness, Denies frequent falls and Denies weakness Endo Denies fatigue and Denies palpitations Aller/Immun Reports wheezing Physical Exam Vital Signs: Last Vital Signs Pulse 67 12/05/23 14:25 BP 124/60 12/05/23 14:25 Pulse Ox 98 12/05/23 14:25 Oxygen Delivery Method Room Air 12/05/23 14:25 BMI result Body Mass Index 28.5 Const General: cooperative, no acute distress, well developed and well groomed HEENT Head: Yes normocephalic Eyes General: appearance normal, both eyes and all related structures Neck Neck: Yes normal visual inspection and Yes no lymphadenopathy Chest Chest palpation & inspection: normal inspection of the chest Resp Effort & Inspection: normal respiratory effort and able to speak in complete sentences Auscultation: clear to auscultation bilaterally, no crackles, no rales, no rhonchi and no wheezes Cardio Rate: regular rate Rhythm: regular rhythm Heart sounds: Normal, physiologic split S2 sound present GI Palpation (GI): Soft to palpation Auscultation: normal bowel sounds Skin General skin exam: no rashes or lesions noted Rashes: no rashes Nails: normal Neuro Cranial nerves: Yes Normal hearing present Speech: No Abnormal speech present Extrem General: Yes normal to inspection, No clubbing, No cyanosis and No edema Psych Appearance: grossly normal and well kempt Assessment & Plan Assessment & Plan (1) Pneumonitis: Comment: unchanged, likely some degree of scarring/injury Code(s): J18.9 - Pneumonia, unspecified organism Category: Medical (2) Pulmonary nodules: Code(s): R91.8 - Other nonspecific abnormal finding of lung field Category: Medical (3) Bronchial asthma: Code(s): J45.909 - Unspecified asthma, uncomplicated Category: Medical Qualifiers: Asthma complication type: uncomplicated Asthma persistence: persistent Asthma severity: moderate Qualified Code(s): J45.40 - Moderate persistent asthma, uncomplicated Plan No LAMA due to history of glaucoma Xopenex twice a day and as needed CT chest in 12 months F/U 12 months Orders: Orders CT chest wo IV con Today R91.8 - Other nonspecific abnormal finding of lung field Coding Level of Care Code Est Pt Level 4 (42790) Diagnoses Pneumonitis J18.9 Pulmonary nodules R91.8 Moderate persistent asthma without complication J45.40 Asthma complication type: uncomplicated Asthma persistence: persistent Asthma severity: moderate Time Spent (min) 17
== END 2023-12-05 14:53 | disposition home or self-care (01) ==
PROVIDERS: PCP Internal Medicine; Visit Provider Hospitalist
DX: J18.9 Pneumonia, unspecified organism (principal); R91.8 Other nonspecific abnormal finding of lung field; J45.40 Moderate persistent asthma, uncomplicated
CPT/HCPCS: 99214

== ENCOUNTER → 2023-12-05 14:15 | Outpatient (BNVA) | payer OTHER, SELFPAY | PROVIDERS: PCP Internal Medicine; Visit Provider Hospitalist | DX: J18.9 Pneumonia, unspecified organism (principal); J45.40 Moderate persistent asthma, uncomplicated; R91.8 Other nonspecific abnormal finding of lung field | CPT/HCPCS: 99212 ==

== ENCOUNTER 2024-03-14 12:45 | Outpatient (AMB) | payer OTHER, SELFPAY ==
--- NOTE | 2024-03-14 12:49 | MHC.OFFVIS ---
Vital Signs 03/14/24 12:50 Height 4 ft 11 in Weight 141 lb 1.533 oz BMI 28.5 BP 110/50 L Blood Pressure Location Rt brachial Position Sitting Pulse 65 Pulse Source Monitor Intake Visit Reasons: 2 yrs followup w/ekg dx: htn Superintendent Custodian Janitor Required: Yes Superintendent Custodian Janitor Name: SINCERE [id number] Allergies Tetanus Vaccines and Toxoid [TETANUS VACCINES AND TOXOID] Allergy (Mild, Verified 12/05/23 14:28) SWELLING, RASH albuterol [ALBUTEROL] Allergy (Unknown, Verified 12/05/23 14:28) HIVES verapamil [VERAPAMIL] Allergy (Unknown, Verified 12/05/23 14:28) UNKNOWN aspirin Adverse Reaction (Severe, Verified 12/05/23 14:28) Abdominal Pain From Tuberculin PPD Leigh Test Allergy (Unknown, Uncoded 12/05/23 14:28) ARM SWELLING TB test Allergy (Unknown, Uncoded 12/05/23 14:28) large local reaction Medication List - Last Reconciled 03/14/24 by Tavon Garcia MD acetaminophen ER (Mapap Arthritis Pain) 1 tab PO Q8H PRN acidophilus-pectin, citrus 25 million cell -100 mg 1 tab PO DAILY calcium polycarbophil (Fiber-Lax) mg PO diltiazem HCl CD 120 mg PO QAM docusate sodium 100 mg PO BID ergocalciferol (vitamin D2) 1 cap PO ASHER fexofenadine (Allergy Relief (fexofenadine)) 180 mg PO DAILY fluticasone propionate 220 mcg/actuation (Flovent HFA) 1 puff inhalation BID hydrochlorothiazide 25 mg PO DAILY levalbuterol tartrate 45 mcg/actuation 1 inh inhalation DAILY lisinopril 10 mg PO QAM methylcellulose (laxative) (Citrucel) 1,000 mg (2 x 500 mg) PO DAILY 30 days metoprolol succinate ER 25 mg PO QAM plecanatide (Trulance) 3 mg PO DAILY HPI Comments Details: Eden comes for a by annual visit. History was obtained with help of staff interpreter. Patient complains of occasional palpitation. She is a very vague historian. She said she had couple of days when she had frequent episodes of palpitation however over the last few weeks her palpitations have subsided. On further questioning with the symptoms of palpitation have increased in frequency, she said no although this is difficult to a certain from her. She also complains of intermittent episodes of retrosternal chest pain which she describes as pressure, lasting for 3-5 minutes. This has increase in frequency. The symptoms are not necessarily exertional in nature although this is also difficult to a certain. She says she is confused about this chest pain with a related to gastritis or acid reflux disease. She has not had any other complains of heart failure. [facility] Medical History Pulmonary nodules Pneumonitis Costochondritis COVID-19 Gastritis Hyperlipidemia Supraventricular tachycardia Osteopenia Hx of migraine headaches Hx of sinusitis HTN (hypertension) Bronchial asthma Surgical History History of esophagogastroduodenoscopy (EGD) Hx of colonoscopy Status post tubal ligation Family History Mother Heart problem Angina pectoris Daughter Breast cancer Social History Household Members: None Housing: Apartment Are you a primary child care aide to a significant other at home: No Do you presently have visiting nurse or other home services: Yes Alcohol intake: current Alcohol intake frequency: does not drink Patient Tobacco Use Status: Never used Tobacco service: No Current occupational status: retired Current occupation: rt handed Female Reproductive History Menstrual Age of Menarche: 13 Review of Systems Const Denies weakness ENT Denies dizziness Card Reports chest pain, Denies chest pain with activity, Denies syncope, Denies rapid heart rate, Denies pedal edema, Denies edema, Denies leg edema, Denies lightheadedness, Denies palpitations, Denies dyspnea, Denies dyspnea on exertion and Denies orthopnea Resp Denies cough, Denies dyspnea and Denies dyspnea on exertion GI Denies hematochezia and Denies change in stool character Musc Denies abnormal gait, Denies muscle cramps, Denies muscle weakness, Denies numbness, Denies radiating pain into limb and Denies tingling Neuro Denies abnormal gait, Denies dizziness, Denies syncope, Denies numbness, Denies tingling and Denies weakness Endo Denies palpitations Physical Exam Vital Signs: Last Vital Signs Pulse 65 03/14/24 12:50 BP 110/50 L 03/14/24 12:50 BMI result Body Mass Index 28.5 Const General: cooperative, comfortable, no acute distress, alert and awake Nutritional Appearance: obese Orientation/consciousness: patient oriented x3 Limitations: ambulation with cane Neck Neck: Yes trachea midline, Yes supple and Yes no JVD Resp Effort & Inspection: normal respiratory effort Auscultation: clear to auscultation bilaterally Cardio Jugular venous distension: no JVD Palpation: normal PMI Rate: regular rate Rhythm: regular rhythm Heart sounds: S1 normal heart sound present and S2 normal heart sound present Skin General skin exam: no rashes or lesions noted Neuro General: patient oriented x3 and no focal motor deficits Extrem General: Yes no clubbing, cyanosis or edema Psych Appearance: grossly normal Affect: Anxious affect present Office Procedures EKG Details: EKG shows normal sinus rhythm with diffuse flattening of T-waves across all precordial leads with inversion in lead 3 [id number], Complete Assessment & Plan Assessment & Plan (1) Atypical chest pain: Code(s): R07.89 - Other chest pain Plan: Intermittent episodes of retrosternal chest discomfort in this elderly woman, very vague historian difficult to interpret her symptoms. She does have new EKG changes which are nonspecific. She was limited exercise capacity. Would suggest her to undergo vasodilating myocardial perfusion imaging to evaluate for myocardial ischemia given her multiple risk factors. Also suggest an echocardiogram to evaluate LV systolic and diastolic function. These tests will be scheduled in near future. Further treatment based on finding of test results. If negative pursue noncardiac causes of chest pain. (2) Supraventricular tachycardia: Code(s): I47.1 - Supraventricular tachycardia Category: Medical Plan: Prior history of supraventricular tachycardia without any evidence of increased symptoms related to it. Continue Cardizem therapy for now. Avoidance of stimulants was discussed. Vagal maneuvers were discussed. No alternative therapy suggested. (3) HTN (hypertension): Code(s): I10 - Essential (primary) hypertension Category: Medical Plan: Hypertension which is currently well optimized on current therapy. Importance of good blood pressure control was discussed. Target goal blood pressure less than 130/84. Low-salt diet was discussed. Stress mitigation strategies were discussed. Will follow up in the clinic in 1 year's time, sooner p.r.n.. Thank you for allowing me to partake in her care Orders: Orders CA echo transthoracic complete Today R07.89 - Other chest pain CA lexiscan stress w elva Today R07.89 - Other chest pain Coding Level of Care Code Est Pt Level 4 (78082) Complex EM visit Add On G2211 Diagnoses Atypical chest pain R07.89 Supraventricular tachycardia I47.1 HTN (hypertension) I10 CPT Codes EKG - CPT: 02061-[id number], Complete ([id number])
[2024-03-14 12:50] VITALS: BP 110/50; PULSE 65; BMI 28.5
== END 2024-03-14 13:25 | disposition home or self-care (01) ==
PROVIDERS: PCP Internal Medicine; Visit Provider Internal Medicine Cardiovascular Disease
DX: R07.89 Other chest pain (principal); I47.10 Supraventricular tachycardia, unspecified; I10 Essential (primary) hypertension
CPT/HCPCS: 93010; 99214; G2211

== ENCOUNTER → 2024-03-14 12:45 | Outpatient (BNVA) | payer OTHER, SELFPAY | PROVIDERS: PCP Internal Medicine; Visit Provider Internal Medicine Cardiovascular Disease | DX: I10 Essential (primary) hypertension (principal); I47.10 Supraventricular tachycardia, unspecified; R00.2 Palpitations; R07.89 Other chest pain | CPT/HCPCS: 93005; 99212 ==

== ENCOUNTER 2024-03-30 15:44 | Emergency (ER) | payer OTHER, SELFPAY ==
[2024-03-30 15:54] VITALS: BP 151/70; PULSE 68; RESP 19; TEMP 36.6; O2SAT 96; BMI 29.9
--- NOTE | 2024-03-30 16:12 | ED.GENADULT ---
HPI - General Adult General Chief complaint: General Medical Stated complaint: medication refill Related Data Home Medications ?Medication ?Instructions ?Recorded ?Confirmed acetaminophen 650 mg 1 tab PO Q8H PRN Pain 04/03/20 03/14/24 tablet,extended release (Mapap Arthritis Pain) hydrochlorothiazide 25 mg tablet 25 mg PO DAILY 12/07/20 03/14/24 fexofenadine 180 mg tablet 180 mg PO DAILY 02/09/22 03/14/24 (Allergy Relief (fexofenadine)) ergocalciferol (vitamin D2) 1,250 1 cap PO ASHER 03/16/22 03/14/24 mcg (50,000 unit) capsule fluticasone propionate 220 1 puff inhalation BID 03/16/22 03/14/24 mcg/actuation HFA aerosol inhaler (Flovent HFA) levalbuterol tartrate 45 1 inh inhalation DAILY 07/07/22 03/14/24 mcg/actuation aerosol inhaler calcium polycarbophil 625 mg mg PO 11/23/23 03/14/24 tablet (Fiber-Lax) Previous Rx's ?Medication ?Instructions ?Recorded acidophilus 25 million 1 tab PO DAILY #30 tabs 06/29/21 cell-pectin, citrus 100 mg tablet lisinopril 10 mg tablet 10 mg PO QAM #90 tabs 05/16/23 docusate sodium 100 mg capsule 100 mg PO BID #180 caps 11/23/23 methylcellulose (laxative) 500 mg 1,000 mg (2 x 500 mg) PO DAILY 30 11/23/23 tablet (Citrucel) days #60 tabs plecanatide 3 mg tablet (Trulance) 3 mg PO DAILY #30 tabs 11/23/23 metoprolol succinate 25 mg 25 mg PO QAM #90 tabs 02/06/24 tablet,extended release 24 hr diltiazem HCl 120 mg 120 mg PO QAM #90 caps 03/05/24 capsule,extended release 24 hr Allergies Allergy/AdvReac Type Severity Reaction Status Date / Time Tetanus Vaccines and Toxoid Allergy Mild SWELLING, Verified 03/30/24 16:01 [TETANUS VACCINES AND TOXOID] RASH albuterol [ALBUTEROL] Allergy Unknown HIVES Verified 03/30/24 16:01 verapamil [VERAPAMIL] Allergy Unknown UNKNOWN Verified 03/30/24 16:01 aspirin AdvReac Severe Abdominal Verified 03/30/24 16:01 Pain From Tuberculin PPD Leigh Test Allergy Unknown ARM Uncoded 03/30/24 16:01 SWELLING TB test Allergy Unknown large Uncoded 03/30/24 16:01 local reaction PMFSH Past Medical History Medical History Pulmonary nodules Pneumonitis Costochondritis COVID-19 Gastritis Hyperlipidemia Supraventricular tachycardia Osteopenia Hx of migraine headaches Hx of sinusitis HTN (hypertension) Bronchial asthma Surgical History History of esophagogastroduodenoscopy (EGD) Hx of colonoscopy Status post tubal ligation Family History Family History Mother Heart problem Angina pectoris Daughter Breast cancer Social History Social History Household Members: None Housing: Apartment Are you a primary school child care attendant to a significant other at home: No Do you presently have visiting nurse or other home services: Yes Alcohol intake: current Alcohol intake frequency: does not drink Patient Tobacco Use Status: Never used Tobacco Advance Directives: No Advance Directives Information Provided: No Do you have a plan to hurt others: No Plan service: No Current occupational status: retired Current occupation: rt handed Physical Exam ED Vital Signs: Vital Signs - 24 hr 03/30/24 15:54 Temperature 98 F Pulse Rate 68 Respiratory Rate 19 Blood Pressure 151/70 H Pulse Oximetry 96 Oxygen Delivery Method Room Air BMI result Body Mass Index 29.9 Course Course Course Narrative: This is a Rapid Medical Examination (RME) performed by Jose Ramon John PA-C in triage. Full HPI, ROS, assessment and treatment plan per primary provider in the Main ED. 79 yo female here requesting medication refills. she states she needs refills of her heart and BP medications. she has a list of her medications with her however cannot state which ones she needs refills of. states she ran out of these yesterday. was unable to get to the pharmacy on time and the pharmacy is closed on the weekend. she states her prescriptions are ready at the pharmacy to be picked up on monday. Plan: med review [id number] -- patient tells me she needs refills of her heart and blood pressure medications. Appears confused on which medications she needs refilled, asks me which medications are for blood pressure and heart when she was handing the the list. attempted to call [facility] to confirm which meds she will be picking up on monday however they are closed. I did review her home med list online - it appears she received 90 day refills for her BP meds on 02/14/24 however tells me she has since run out of these medications. i do see new scripts for atorvastatin and diltiazem for 03/21/24. list requires further review as patient should still have 2 months worth of medications at home. Reevaluation(s) Reevaluation #1: Patient left the emergency department before myself or any of the other clinicians could review or explain physical exam findings, test results, need or lack there of for additional testing, treatment options, or a treatment plan. Discharge Plan Discharge Clinical Impression: Medication refill Patient Disposition: Left W/O Completing Treatment Prescriptions: No Action acidophilus-pectin, citrus 25 million cell -100 mg tablet 1 tab PO DAILY Qty: 30 6RF lisinopril 10 mg tablet 10 mg PO QAM Qty: 90 3RF metoprolol succinate 25 mg tablet extended release 24 hr 25 mg PO QAM Qty: 90 3RF Rx Instructions: Due for 2 year follow up appt. Please call office to get scheduled by year end 2023. diltiazem HCl 120 mg capsule,extended release 24hr 120 mg PO QAM Qty: 90 3RF acetaminophen [Mapap Arthritis Pain] 650 mg tablet extended release 1 tab PO Q8H PRN (Reason: Pain) hydrochlorothiazide 25 mg tablet 25 mg PO DAILY fluticasone propionate [Flovent HFA] 220 mcg/actuation HFA aerosol inhaler 1 puff INHALATION BID ergocalciferol (vitamin D2) 1,250 mcg (50,000 unit) capsule 1 cap PO ASHER fexofenadine [Allergy Relief (fexofenadine)] 180 mg tablet 180 mg PO DAILY levalbuterol tartrate 45 mcg/actuation HFA aerosol inhaler 1 inh inhalation DAILY calcium polycarbophil [Fiber-Lax] 625 mg tablet PO docusate sodium 100 mg capsule 100 mg PO BID Qty: 180 1RF Citrucel 500 mg tablet 1,000 mg PO DAILY 30 Days Qty: 60 6RF Trulance 3 mg tablet 3 mg PO DAILY Qty: 30 6RF Discharge Date/Time: 03/30/24 21:48
--- NOTE | 2024-03-30 21:47 | PC.NURSE ---
Patient called x 3 for room, no answer x 3, determined to have left w/o completing treatment, credit charge authorizer Jasmin made aware.
== END 2024-03-30 21:48 | disposition left against medical advice (07) ==
PROVIDERS: Emergency Provider Emergency Medicine; PCP Internal Medicine
DX: Z76.0 Encounter for issue of repeat prescription (principal); I10 Essential (primary) hypertension
CPT/HCPCS: 99281

== ENCOUNTER → 2024-04-09 13:12 | Outpatient (REF) | payer OTHER, SELFPAY ==
--- NOTE | 2024-04-09 13:15 | CA_ITS ---
Transthoracic Echocardiogram Patient (Last, First, Middle): Eden Mckinney, Gender: Female Date of : 1945 Age: 79 Procedure Date: 04/09/2024 Procedure Type: Transthoracic Echocardiogram Location: OP Height: 149.86 cm Weight: 63.96 kg BSA: 1.59 m2 Heart Rate: bpm BP: 110 / 50 mmHg Credit Professional: GEORGE Referring MD: Tavon Garcia MD Concession Cashier: Tavon Garcia MD Symptoms: R07.89 - Other chest pain Study Quality: Adequate ECG Rhythm: Sinus Conclusions: - 1. Normal LV ejection fraction of 65-70% with grade 1 diastolic dysfunction 2. Normal cardiac valvular Dopplers 3. Normal RV systolic pressure 4. No gross pericardial effusion Findings Left Ventricle Normal left ventricular size, thickness, and systolic function. The visually estimated ejection fraction is between 65-70%. Spectral Doppler is indicative of an impaired relaxation filling pattern. E/E prime ratio is <8, consistent with normal filling pressures. Evidence suggests grade I (mild) diastolic dysfunction. Right Ventricle Normal right ventricular cavity size and systolic function. Atria The left atrium is normal in size. There is no evidence of interatrial shunt. The right atrium is normal in size. Aortic Valve Normal aortic valve structure and function. There is no aortic valve stenosis. There is no aortic valve regurgitation. Mitral Valve Normal mitral valve structure and function. There is trace mitral valve regurgitation. There is no mitral valve stenosis. Pulmonic Valve The pulmonic valve is likely normal. There is trace pulmonic valve regurgitation. Tricuspid Valve Normal tricuspid valve structure. There is trace tricuspid valve regurgitation. The right ventricular systolic pressure is normal. The right ventricular systolic pressure is 24 mmHg. Normal right atrial pressure. There is no evidence of pulmonary hypertension. Great Vessels All visible segments of the aorta are normal in size. The pulmonary artery was not well visualized. There is no dilatation of the ascending aorta measuring 3.40 cm. Venous The inferior vena cava is normal in size and collapses greater than 50% with inspiration. Pericardium/Pleural There is no evidence of pericardial effusion. Prior Study Comparison No significant change compared to prior study dated: 10/24/2017. Measurements 2D Linear Measurements IVSd: 1.31 0.6-0.9/0.6-1.0 cm LVIDd: 3.84 3.9-5.3/4.2-5.9 cm LVIDd Index: 2.42 2.4-3.2/2.2-3.1 cm/m2 LVIDs: 2.40 2.0-3.6 cm LVPWd: 1.01 0.7-1.1 cm LA Diam: 2.80 2.7-3.8/3.0-4.0 cm LAIDs Index: 1.76 1.5-2.3 cm/m2 LV Mass: 184.21 67-162/88-224 g LV Mass Index: 115.85 43-95/49-115 g/m2 LVOT Diam: 2.00 3.0+(-)1.3 cm 2D Systolic Function EF 4C: 71.50 >55% EF 2C: 60.50 >55% EF BiP: 68.40 >55% Mitral Valve MV Pk E: 0.53 MV PK A: 0.71 MV Decel Time: 275.00 E/A: 0.70 E'Lateral: 5.87 E'Medial: 4.24 E/E' Med: 12.40 E/E' Lat: 9.00 PHT: 81.00 MVA PHT: 2.72 Decel Troup: 1.91 Aortic Valve AoV Pk Lai: 1.29 AoV Mn Lai: 0.82 AoV VTI: 0.31 AoV Pk Grad: 7.00 Aov Mn Grad: 3.00 YUDELKA Cont.VTI: 2.73 LVOT LVOT Pk Lai: 1.11 LVOT Mn Lai: 0.74 LVOT VTI: 0.27 LVOT Pk Grad: 5.00 LVOT Mn Grad: 2.00 LVOT Diam: 2.00 LVOT Area: 3.14 Diastolic Function MV Pk E: 0.53 MV Pk A: 0.71 E/A: 0.70 E'Medial: 4.24 E/E' Med: 12.40 E' Laterial: 5.87 E/E' Lat: 9.00 Right Ventricle TAPSE (mm): 24.70 TVS' Lai: 15.00 Tricuspid Valve TR Pk Lai: 2.27 TR Pk Grad: 21.00 RA Press: 3.00 RVSP: 24.00 Great Vessels Aorta Sinus of Valsalva: 3.32 2.0-3.[address] Ridge: 2.35 1.7-3.4 cm Ao Asc: 3.40 2.1-3.4 cm Ao Arch: 2.90 Updated in Other Vendor System with Status of Final Tavon Garcia MD electronically signed on 04/10/2024 12:54:37 PM with status of Final
--- OUTSIDE RECORDS SUMMARY | 2024-04-09 14:57 | XMS_ITS | Clinical Summary ---
Author Organization [employer] Address [address] [place] [address] [address] [place] [address] Care Team Providers Care Community Recreation Coordinator Name Role Phone Nicole Bauer MD Primary Care Provider + Allergies Active Allergy Reactions Criticality Noted Date Comments Albuterol 05/03/2018 Pneumococcal Polysaccharide Vaccine Swelling 08/02/2016 Tuberculin Purified Protein Derivative 03/22/2022 large reaction Tuberculin Tests 08/01/2016 Verapamil 12/06/2009 Other reaction(s): TACHYCARDIA Medications Blood Pressure Monitoring (Omron 3 Series BP Monitor) device USE TO CHECK BLOOD PRESSURE 2 Active Cartia XT 120 MG 24 hr capsule TAKE 1 CAPSULE BY MOUTH EVERY MORNING 2 Active docusate sodium (Colace) 100 MG capsule TAKE 1 CAPSULE BY MOUTH TWICE DAILY 2 Active lansoprazole (Prevacid) [address] capsule TAKE 1 CAPSULE BY MOUTH TWICE DAILY IN THE MORNING AND IN THE EVENING 2 Active SM Fiber Laxative 500 MG tablet TAKE 2 TABLETS BY MOUTH ONCE DAILY 2 Active metoprolol succinate XL (Toprol-XL) 25 MG 24 hr tablet TAKE 1 TABLET BY MOUTH EVERY MORNING 2 Active Trulance tablet tablet TAKE 1 TABLET BY MOUTH EVERY DAY 2 Active Acetaminophen Extra Strength 500 MG tabletIndication s:Lumbar degenerative disc disease,Chronic pain of both shoulders TAKE 1 TABLET BY MOUTH EVERY 6 HOURS NEEDED FOR PAIN OR FEVER 30 tablet 1 4 Active atorvastatin (Lipitor) 20 MG tablet TAKE 1 TABLET BY MOUTH EVERY MORNING 90 tablet 3 4 Active levalbuterol (Xopenex) 0.63 MG/3ML nebulizer solution Take 1 ampule by nebulization every 6 (six) hours if needed for wheezing. 72 mL 11 4 025 Active Nebulizer misc Use as directed 1 each 4 Active Fiber-Lax 625 MG tablet Take 2 tablets by mouth Once per day. 4 Active lisinopril 10 MG tablet Take 10 mg by mouth in the morning. 4 Active hydroCHLOROthiaz malachi (HYDRODiuril) 25 MG tablet TAKE 1 TABLET BY MOUTH EVERY MORNING 90 tablet 3 4 Active Diclofenac Sodium 1 % gelIndications:L umbar degenerative disc disease Apply topically to affected area twice a day as needed for pain 150 g 4 Active betamethasone valerate (Valisone) 0.1 % cream Apply topically if needed in the morning and at bedtime (dryness). 45 g 2 4 Active gabapentin (Neurontin) 100 MG capsuleIndicatio ns:Itchy scalp TAKE 1 CAPSULE BY MOUTH AT BEDTIME 30 capsule 2 4 Active fexofenadine (Suzanne) 180 MG tabletIndication s:Allergy, sequela TAKE 1 TABLET BY MOUTH EVERY MORNING 90 tablet 4 Active cyanocobalamin (Vitamin B-12) 1000 MCG tablet Take 1,000 mcg by mouth Once per day. Active Ascorbic Acid (vitamin C) 250 MG tablet Take 250 mg by mouth Once per day. Active Arnuity Ellipta 200 MCG/ACT inhalerIndicatio ns:Moderate persistent asthma without complication INHALE 1 PUFF BY MOUTH EVERY MORNING 30 each 3 4 Active Active Problems Problem Noted Date Diagnosed Date Bilateral primary osteoarthritis of hip 11/02/19 24 Assessment & Plan (11/02/2023 2:51 PM EDT): Use Diclofenac gel + Tylenol prn. Heat to affected area and refer to PT. Other fatigue 09/08/2023 Assessment & Plan (09/08/2023 12:58 PM EDT): Treat bacteriuria, due to urinary incontinence, she could be having recurrent UTOIs. Advised to take hydrochlorothiazide early in the AM, to avoid going to the bathroom at night. She will hold statin for 1mo until she sees me, fu with me in 4m Use albuterol q6h prn Urinary frequency 09/08/2023 Assessment & Plan (09/10/2023 5:51 PM EDT): It seems to be UTI, will rx bactrim ds and fu Lung nodule seen on imaging study 06/19/2023 Assessment & Plan (11/02/2023 2:50 PM EDT): Less than 1 cm, report of most recent CT scan of lungs is not available yet. Pt has appointment with Pulmonology next month. Assessment & Plan (06/19/2023 1:46 PM EDT): - CT scan was supposed to be done by May 2023 (every 6 months), ordered by Pedro Pablo Kim. Upon calling scheduling, I was informed CT is not until November 2023. -Will call dr. 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 Order left sided dx mammo with US and fu with results Use tylenol or diclofenac gel prn Leg weakness, bilateral 01/09/2023 Assessment & Plan (01/09/2023 2:25 PM EDT): Seen recently for this reason, no change in sxs. Patient to call PT to schedule appt Delayed healing of traumatic wound 12/13/2022 Assessment & Plan (12/13/2022 4:54 PM EDT): On right ear lobe Refer to derm Contusion of rib on right side 08/04/2022 Assessment & Plan (08/04/2022 12:25 PM EDT): recommended to use diclofenac gel BID PRN pain + Tylenol I gave her prescription for incentive spirometer I gave her a peak flow meter to use albuterol inhaler if peak flow is below 250 Lumbar degenerative disc disease 08/04/2022 Assessment & Plan (09/10/2023 5:49 PM EDT): Refer to PT again Tinea 08/04/2022 Assessment & Plan (08/04/2022 12:26 PM EDT): prescription for Lotrisone cream BID At high risk for injury related to fall 04/11/19 Assessment & Plan (04/11/2022 2:49 PM EST): Pt with repeated falls due to multiple sites of OA. -Needs ambulatory assistance. -Continue home care assistance for most ADLS (see POSTAL WORKER description). Cervical paraspinal muscle spasm 04/11/2022 Assessment & Plan (04/11/2022 3:01 PM EST): Use Tylenol and diclofenac gel PRN. -Continue PT. Abnormal finding on lung imaging 04/11/2022 Assessment & Plan (04/11/2022 3:02 PM EST): CT scan on 03/16/22 showed small lung nodules and chronic lung changes, most likely exacerbated after COVID, r/o other chronic conditions/pneumonitis -FU with pulmologist . Adult onset stuttering 03/22/2022 Irritable bowel syndrome with constipation 03/22 Chronic low back pain 03/22/2022 COVID-19 03/22/2022 Dysarthria 03/22/2022 Flexural atopic dermatitis 03/22/2022 Headache 03/22/2022 Intermittent stridor 03/22/2022 Moderate persistent asthma without complication 03/22/2022 Assessment & Plan (06/19/2023 1:39 PM EDT): Followed by pulmonology. Restart Flovent BID Will order Xopenex solution to use with nebulizer. The patient was prescribed a nebulizer from the DME vendor [employer]. Instructions on how to use the nebulizer were provided. LABA is to be use with caution if any due to HX of tachycardia. Maybe be a candidate for immune therapy Assessment & Plan (03/10/2023 1:04 PM EST): Followed by pulmonology. Continue Flovent TID LAVA is to be use with caution if any due to HX of tachycardia. Maybe be a candidate for immune therapy Assessment & Plan (12/13/2022 12:41 PM EDT): increase Flovent BID + xopenex Q6H Rapid COVID + PNA were negative, send PCR test PNA IZ given today, pt to repeat COVID test in 5 days Assessment & Plan (08/04/2022 12:26 PM EDT): continue albuterol Prn and FU with tool filer Assessment & Plan (06/13/2022 6:06 PM EDT): counseled to use Xopenex q6 x4 days and then q6 hours as needed continue Flovent BID as prescribed FU with me in 2 months. Dyspnea on exertion 03/22/2022 Assessment & Plan (09/19/2023 9:47 PM EDT): Pt dates her worsening SOB/GOMEZ to long recovery from COVID Mar-June 2023 - O2 sats 99%, pulse 67, afebrile today - lungs CTAB - will order CT chest for potential scarring or other post-inflammatory process after COVID - followup as scheduled with pulmonology in Nov 2023 Assessment & Plan (06/13/2022 6:04 PM EDT): Pt seems to have pneumonitis continue flovent BID FU with pulmonlogist Osteopenia 03/22/2022 Palpitations 03/22/2022 Pain in throat 03/22/2022 Primary osteoarthritis of both knees 03/22/2022 Assessment & Plan (12/13/2022 12:42 PM EDT): Ambulation with a cane, discussed the risk of falls refer to PT Recurrent acute sinusitis 03/22/2022 Streptococcal sore throat 03/22/2022 Tendinitis of shoulder 03/22/2022 Assessment & Plan (11/02/2023 2:50 PM EDT): Use Diclofenac gel + Tylenol prn. Heat to affected area and referral to PT. Assessment & Plan (11/02/2023 12:37 PM EDT): >>ASSESSMENT AND PLAN FOR ACUTE PAIN OF LEFT SHOULDER WRITTEN ON 04/11/2022 2:49 PM BY LORRAINE BLANCO Underlying OA + recent trauma after a fall. -Continue tylenol PRN and PT prn. -Continue coming to acupuncture clinic. -Continue home care assistance. -FU in 3 months. 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 See left mastalgia above Eczema 12/06/2017 Indigestion 12/06/2017 Benign hypertension 08/08/2017 Chronic constipation 08/08/2017 Dermatitis 08/08/2017 Assessment & Plan (09/08/2023 1:02 PM EDT): On her back Use TAC with moisturizer FU prn Glaucoma 08/08/2017 Hyperlipidemia 08/08/2017 Seasonal allergies 08/08/2017 Migraine 08/01/2016 Resolved Problems Problem Noted Date Diagnosed Date Resolved Date Moderate persistent asthma with exacerbation 3 11/02/2023 Assessment & Plan (03/10/2023 1:04 PM EST): Most likely residual on a specific URI Counseled to come in [place] if she develops URI Sx, so she can be diagnosed and better treated Continue Xopenex q6hr PRN SOB + flovent TID Start medrol dospak and FU w/ me in 3 m or earlier prn FU w/ pulmonolgy in a month Influenza B 12/16/2022 11/02/2023 Pneumonitis 12/13/2022 11/02/2023 Assessment & Plan (12/13/2022 12:39 PM EDT): R/u ILD FU with pulmonology Reminded to use Flovent BID once per day Cough in adult 12/13/2022 11/02/2023 Concussion without loss of consciousness 03/28/2022 03/28/2022 Orthopnea 03/22/2022 11/02/2023 Mild intermittent asthma 08/08/2017 Assessment & Plan (04/11/2022 3:04 PM EST): No recent exacerbation. Doing well with Flovent 220 BID. -Refer to pulmonology. -FU if abnormal CT scan. Encounters Date Type Department Care Team Description 03/08/2024 Refill [facility] [address] [place] [address] Nicole Bauer MD Moderate persistent asthma without complication 03/05/2024 Telephone [facility] [address] [place] [address] Jackie Chavez MA Chart prep 02/27/2024 Patient Outreach [facility] [address] [place] [address] Nicole Bauer MD Pre-visit Planning ([facility] screening completed on 06/19/2023) 01/15/2024 Refill [facility] [address] [place] [address] Nicole Bauer MD Allergy, sequela from Last 3 Months Immunizations Name Administration Dates Next Due Influenza High-dose Quadriva lent Preservative Free 12/13/2022,12/09/2021,12/11/2020 Influenza Injectable Quadriv alant Preservative Free IIV4 MDCK 01/23/2020 Influenza injectable quadriv alent IIV4 with preservative 02/21/2017,01/08/2016,12/16/2014 Influenza, High Dose Seasona l, Preservative Free 02/22/2019,12/06/2017 Influenza, IIV3, injectable 03/04/2014, 1,04/01/2009 Influenza, Split (incl. carmelo fied surface antigen) 12/12/2012,01/31/2012 Pfizer Covid-19 Vaccine 12+ harry-sucrose (Radford Cap) 06/18/2021,05/27/2021 Pneumococcal Conjugate PCV 13 11/12/2014 Pneumococcal Polysaccharide PPSV23 08/01/2016,,07/08/2005 RSV Bivalent 06/27/2023 TD (adult), 2 Lf tetanus tox oid, preservative free, adsorbed 06/18/2005,07/15/1996 Tdap 07/10/2015 Zoster, live 07/01/2014 Social History Tobacco Use Types Packs/Day Years Used Date Smoking Tobacco: Never Passive Smoke Exposure: Never Smokeless Tobacco: Never Tobacco Cessation:Counseling Given: Not Answered Alcohol Use Standard Drinks/Week Comments Never 0 (1 standard drink = 0.6 oz pur e alcohol) Alcohol Answer Date Recorded Frequency of Alcohol Consumption Not on file 06/19/2023 Average Number of Drinks Not on file 024 Frequency of Binge Drinking Not on file 03/2023 Score 0 06/19/2023 Depression Answer Date Recorded Patient Health Questionnaire-9 Score 0 06/19/2023 Patient Health Questionnaire-9 Score 0 06/19/2023 Last PHQ-9: Questionnaire Data Not on file 0 06/19/2023 Housing Stability Answer Date Recorded What is your housing situation today? I have noni jacome 06/19/[address] you li ve. Do you have problems with any of the following? None of the above 06/19/2023 Food Insecurity Answer Date Recorded Within the past 12 months, y ou worried that your food would run out before you got money to buy more: Never True 06/19/2023 Within the past 12 months,th e food you bought just didn't last and you didn't have enough money to get more: Never True 03/2023 Transportation Answer Date Recorded In the past 12 months, has l ack of transportation kept you from medical appts, meetings, work or from getting things needed for daily living? No 06/19/2023 Utilities Answer Date Recorded In the past 12 months, has t he electric, gas, oil or water company threatened to shut off services in your home? No 06/19/2023 Depression Answer Date Recorded Patient Health Questionnaire-2 Score 0 06/19/2023 Comments No Sex and Gender Information Value Date Recorded Sex Assigned at Female 01/17/2022 10:14 AM EDT Legal Sex Female 10:14 AM EDT Gender Identity Female 01/17/2022 10:14 AM EDT Sexual Orientation Choose not to disclose 2021 10:14 AM EDT Last Filed Vital Signs Vital Sign Reading Time Taken Comments Blood Pressure 110/70 01/19/2024 5:52 PM EDT Pulse 62 11/02/2023 12:13 PM EDT Temperature 36.6 ??C (97.9 ??F) 11/02/2023 12:13 PM E DT Respiratory Rate 20 09/19/2023 11:44 AM EDT Oxygen Saturation 97% 11/02/2023 12:13 PM EDT Inhaled Oxygen Concentration - - Weight 65 kg (143 lb 4 oz) 11/02/2023 12:13 PM E DT Height 142.2 cm (4' 8 ) 11/02/2023 12:13 PM EDT Body Mass Index 32.12 11/02/2023 12:13 PM EDT Plan of Treatment Upcoming Encounters Date Type Department Care Team (Late st Contact Info) Description 04/26/2024 11:45 AM EST Office Visit [facility] [address] [place] [address] Nicole Bauer MD [address] [place] [address] Health Maintenance Due Date Last Done Comments Zoster Vaccines (2 of 3) 08/26/2014 07/01/2014 COVID-19 Vaccine ( season) 2023 06/18/2021, 05/27/2021 Alcohol/Substance Use Screening 06/18/2024 06/19/2023 Depression Screening 06/18/2024 06/19/2023, 06/19/19 SDOH Screening 06/18/2024 06/19/2023 Mammogram 10/12/2024 10/13/2023, 01/18, 02/01/2023, Additional history exists Tobacco Screening 11/01/2024 11/02/2023 DTaP/Tdap/Td Vaccines (2 - Td or Tdap) 07/09/2025 07/10/2015, 06/18/2005, 07/15/1996 Lipid Panel 11/02/2027 11/01/2022, 01/23/2020 Pneumococcal Vaccine: 65+ Years Completed 08/01/2016, 02/25/2016, 11/12/2014, Additional history exists RSV Patients and Patients Aged 60 years or older Completed 06/27/2023 Hepatitis C Screening Completed 09/04/2023 Influenza Vaccine Completed 01/19/2024, , 12/09/2021, Additional history exists HIB Vaccines Aged Out No longer eligi ble based on patient's age to complete this topic HPV Vaccines Aged Out No longer eligi ble based on patient's age to complete this topic Hepatitis A Vaccines Aged Out No long er eligible based on patient's age to complete this topic Hepatitis B Vaccines Aged Out No long er eligible based on patient's age to complete this topic IPV Vaccines Aged Out No longer eligi ble based on patient's age to complete this topic Meningococcal Vaccine Aged Out No joseph amy eligible based on patient's age to complete this topic RSV under 20 months Aged Out No longe r eligible based on patient's age to complete this topic Rotavirus Vaccines Aged Out No longer eligible based on patient's age to complete this topic Procedures Procedure Name Priority Date/Time Associated Diagnosis Comments BI MAMMOGRAM SCREENING TOMOSYNTHESIS BILATERAL Routine 10/13/2023 12:55 PM EDT HEPATITIS C AB W/REFL TO HCV RNA, QN, PCR Routine 09/04/2023 2:55 PM EDT Chronic fatigue LIPID PANEL WITH REFLEX TO DIRECT LDL Routine 11/01/2022 11:32 AM EDT Benign hypertension from Last 3 Months or Most Recently Relevant to Health Maintenance Results * BI Mammogram Screening Tomosynthesis Bilateral (10/13/2023 12:55 PM EDT) Anatomical Region Laterality Modality Breast Bilateral Mammography 10/13/2023 12:5 5 PM EDT Narrative 10/13/2023 2:18 PM EDT ? [facility] ? [address] ?[place] [address] ? Mammography Report ? Signed ? Patient: Mckinney,Eden ?MR#: [id number] ? : 1945 ?Acct:[id number] ? Age/Sex: 78 / F ?ADM Date: 10/13/23 ? Loc: HO.MAMMO ? Attending Dr: Nicole Bauer MD ? Ordering Physician: Nicole Bauer MD ?Results: 2Be ?? nign Findings ? Date of Service: 10/13/23 ?Follow Up: 1 Year From Orig ?? inal Mammogram ? Procedure(s): MM tomosynthesis screening BI ?? Accession Number(s): [id number] ? cc: Nicole Bauer MD ? EXAMINATION: ?? MM SCREENING DIGITAL BREAST TOMOSYNTHESIS, BILATERAL ? CLINICAL INFORMATION: ? Screening. Asymptomatic. ? The patient has history of conservatively treated left DCIS diagnosed ?? in 2011. ? COMPARISON: ?? Mammography: This study is compared with prior exams dating back to ?? 2018. ? TECHNIQUE: ?? Digital breast tomosynthesis is performed in both the craniocaudal and ?? mediolateral oblique views along with computer-aided detection (CAD). ?? Synthesized 2D images are generated from the tomosynthesis. ? FINDINGS: ?? There are scattered areas of fibroglandular density (ACR BI-RADS breast ?? composition Category b). ? There are no significant masses, abnormal calcifications, or other ?? abnormalities. ?? There are postsurgical changes in the 12:00 region of the left breast. ?? There is a biopsy tissue marker in the central portion of the left ?? breast. ? MM/MM tomosynthesis screening BI ?? IMPRESSION: ?? No mammographic evidence of malignancy. ? ASSESSMENT: ? BI-RADS BI-RADS 2 - Benign Findings ? RECOMMENDATION: ?? Routine annual mammography screening. ? 1 year F/U ? This examination should not preclude the clinical evaluation of a ?? suspicious palpable abnormality. ? This patient's information was entered into a reminder system with a ?? target due date for their next mammogram. ? Dictated By: ?Erika Carreon MD ? Signed By: ?<Electronically signed by Erika Carreon MD in OV> ? 10/13/23 1414 ? DD/ 1255 ? TD/TT: ? Harvest Crew Supervisor: ? Procedure Note Elizabeth, Image - 10/13/2023 [facility] [address] [place] [address] Mammography Report Signed Patient: Eden MckinneyMR#: [id number] : 5Acct:[id number] Age/Sex: 78 / FADM Date: 10/13/23 Loc: HO.MAMMO Attending Dr: Nicole Bauer MD Ordering Physician: Nicole Bauer MDResults: 2Be nign Findings Date of Service: 10/13/23Follow Up: 1 Year From Orig inal Mammogram Procedure(s): MM tomosynthesis screening BI Accession Number(s): [id number] cc: Nicole Bauer MD EXAMINATION: MM SCREENING DIGITAL BREAST TOMOSYNTHESIS, BILATERAL CLINICAL INFORMATION: Screening. Asymptomatic. The patient has history of conservatively treated left DCIS diagnosed in 2010. COMPARISON: Mammography: This study is compared with prior exams dating back to 2018. TECHNIQUE: Digital breast tomosynthesis is performed in both the craniocaudal and mediolateral oblique views along with computer-aided detection (CAD). Synthesized 2D images are generated from the tomosynthesis. FINDINGS: There are scattered areas of fibroglandular density (ACR BI-RADS breast composition Category b). There are no significant masses, abnormal calcifications, or other abnormalities. There are postsurgical changes in the 12:00 region of the left breast. There is a biopsy tissue marker in the central portion of the left breast. MM/MM tomosynthesis screening BI IMPRESSION: No mammographic evidence of malignancy. ASSESSMENT: BI-RADS BI-RADS 2 - Benign Findings RECOMMENDATION: Routine annual mammography screening. 1 year F/U This examination should not preclude the clinical evaluation of a suspicious palpable abnormality. This patient's information was entered into a reminder system with a target due date for their next mammogram. Dictated By: Erika Carreon MD Signed By: <Electronically signed by Erika Carreon MD in OV> 10/13/23 1414 DD/ 1255 TD/TT: Harvest Crew Supervisor: us Nicole Baure MD IMG BI PROCEDURES Final Result * Hepatitis C Antibody with Reflex to HCV, RNA, Quantitative, Real-Time PCR (09/04/2023 2:55 PM EDT) Hepatitis C Antibody Nonreactive Nonreactive [facility] Comment:Antibodies to HCV no t detected; does not exclude early acuteHCV infection. Blood Venous blood specimen / Unknown 09/04/2023 2:55 PM EDT 09/04/2023 3:56 PM EDT us Jorge A Quinteros MD LAB BLOOD ORDERABLES Final Result [facility] [address] [place] [phone] * Lipid Panel with Reflex to Direct LDL (11/01/2022 11:32 AM EDT) Triglycerides 117 mg/dL [facility] Comment:Desirable Triglyceri de: less than 150 mg/dLBorderline High Triglyceride 150-199 mg/dLHigh Triglyceride: 200-499 mg/dLVery High Triglyceride: greater than or equal to 5OO mg/dL Cholesterol 155 mg/dL [facility] Comment:Desirable Cholestero l: less than 200 mg/dLBorderline High Cholesterol: 200-239 mg/dLHigh Cholesterol: greater than 239 mg/dL LDL Cholesterol Calculated 92 mg/dl [facility] Comment:Desirable LDL: less than 100 mg/dLNear Optimal/Above Optimal LDL: 110- 129 mg/dLBorderline High LDL: 130-159 mg/dLHigh LDL: 160-189 mg/dLVery High LDL: greater than or equal to 190 mg/dL HDL Cholesterol 40 mg/dL [facility] Comment:Desirable HDL: great er than 40 mg/dL Note: This HDL assay may give artificially low results in patients with liver disease. Blood 11/01/2022 11:3 2 AM EDT 11/01/2022 1:31 PM EDT us Nicole Bauer MD LAB BLOOD ORDERABLES Fin al Result [facility] [address] [place] [address] [phone] from Last 3 Months or Most Recently Relevant to Health Maintenance Insurance [facility] Care Teams Community Recreation Coordinator Relationship Specialty Start Date End Date Nicole Bauer MD [address] [place] [phone] PCP - General Family Medicine 11/03/17
--- OUTSIDE RECORDS SUMMARY | 2024-04-09 14:57 | XMS_ITS | Encounter Summary ---
Author Organization [employer] Address [address] 7t [place] [address] Care Team Providers Care Camera Operator Name Role Phone Nicole Bauer MD Primary Care Provider + Reason for Visit * Reason Comments Med Refill Encounter Details Date Type Department Care Team ([facility] st Contact Info) Description 04/14/2023 Refill [facility] [address] [place], [place] [phone] Carly Garner MD 230 [place] [address] Itchy scalp Social History Tobacco Use Types Packs/Day Years Used Date Smoking Tobacco: Never Passive Smoke Exposure: Never Smokeless Tobacco: Never Alcohol Use Standard Drinks/Week Comments Never 0 (1 standard drink = 0.6 oz pur e alcohol) Housing Stability Answer Date Recorded What is your housing situation today? I have nonimay jacome 01/06/[address] you li ve. Do you have problems with any of the following? None of the above 01/06/2023 Food Insecurity Answer Date Recorded Within the past 12 months, y ou worried that your food would run out before you got money to buy more: Never True 01/06/2023 Within the past 12 months,th e food you bought just didn't last and you didn't have enough money to get more: Never True Transportation Answer Date Recorded In the past 12 months, has l ack of transportation kept you from medical appts, meetings, work or from getting things needed for daily living? Yes, it has kept me from medical appointments or getting medications. 12/27/2022 Utilities Answer Date Recorded In the past 12 months, has t he electric, gas, oil or water company threatened to shut off services in your home? No 01/06/2023 Depression Answer Date Recorded Patient Health Questionnaire-2 Score 0 06/13/2022 Comments Unknown Sex and Gender Information Value Date Recorded Sex Assigned at Female 01/17/2022 10:14 AM EDT Legal Sex Female 10:14 AM EDT Gender Identity Female 01/17/2022 10:14 AM EDT Sexual Orientation Choose not to disclose 2021 10:14 AM EDT documented as of this encounter Plan of Treatment Upcoming Encounters Date Type Department Care Team (Late st Contact Info) Description 04/26/2024 11:45 AM EST Office Visit [facility] [address] [place] [address] [phone] Nicole Bauer MD [address] [place] [phone] documented as of this encounter Visit Diagnoses Diagnosis Itchy scalp Unspecified pruritic disorder documented in this encounter Care Teams Camera Operator Relationship Specialty Start Date End Date Nicole Bauer MD [address] [place] [address] [phone] PCP - General Family Medicine 11/03/17 documented as of this encounter
--- OUTSIDE RECORDS SUMMARY | 2024-04-09 14:58 | XMS_ITS | Encounter Summary ---
Author Organization [facility] Address [address] [facility] 7t [place] [address] Care Team Providers Care Motor And Generator Brush Cutter Name Role Phone Nicole Bauer MD Primary Care Provider + Reason for Visit * Reason Comments Med Refill Encounter Details Date Type Department Care Team ([facility] Contact Info) Description 05/26/2022 Refill [facility] [address] [place] [phone] Jesus Dixon MD [address] [place] [address] [phone] Social History Tobacco Use Types Packs/Day Years Used Date Smoking Tobacco: Never Smokeless Tobacco: Never Alcohol Use Standard Drinks/Week Comments Never 0 (1 standard drink = 0.6 oz pur e alcohol) Comments Unknown Sex and Gender Information Value Date Recorded Sex Assigned at Female 01/17/2022 10:14 AM EDT Legal Sex Female 10:14 AM EDT Gender Identity Female 01/17/2022 10:14 AM EDT Sexual Orientation Choose not to disclose 2021 10:14 AM EDT COVID-19 Exposure Response Date Recorded In the last 10 days, have yo u been in contact with someone who was confirmed or suspected to have Coronavirus/COVID-19? No / Unsure 05/19/2022 12:44 PM EST documented as of this encounter Plan of Treatment Upcoming Encounters Date Type Department Care Team ([facility] Contact Info) Description 04/26/2024 11:45 AM EST Office Visit [facility] [address] [place] [phone] Nicole Bauer MD [address] [place] [address] documented as of this encounter Visit Diagnoses Not on filedocumented in this encounter Care Teams Motor And Generator Brush Cutter Relationship Specialty Start Date End Date Nicole Bauer MD 230 [place] [address] PCP - General Family Medicine 11/03/17 documented as of this encounter
--- OUTSIDE RECORDS SUMMARY | 2024-04-09 14:58 | XMS_ITS | Encounter Summary ---
Author Organization [employer] Address [address] 7t [place] [address] Care Team Providers Care Quality Assurance Coach Name Role Phone Nicole Bauer MD Primary Care Provider + Encounter Details Date Type Department Care Team (Late st Contact Info) Description 03/03/2023 Orders Only [facility] 230 [place] [address] Jayna Chang MD [address] [place] [address] Social History Tobacco Use Types Packs/Day Years [...] Description 04/26/2024 11:45 AM EST Office Visit [facility] [address] [place] [phone] Nicole Bauer MD [address] [place] [phone] documented as of this encounter Visit Diagnoses Not on filedocumented in this encounter Care Teams Quality Assurance Coach Relationship Specialty Start Date End Date Nicole Bauer MD [address] [place] [phone] PCP - General Family Medicine 11/03/17 documented as of this encounter
== END ==
LOC: HO.CARD 13:12
PROVIDERS: PCP Internal Medicine; Visit Provider Internal Medicine Cardiovascular Disease
DX: R07.89 Other chest pain (principal)
CPT/HCPCS: 93306

== ENCOUNTER → 2024-04-09 13:15 | Outpatient (BNV) | payer OTHER, SELFPAY | PROVIDERS: PCP Internal Medicine; Visit Provider Internal Medicine Cardiovascular Disease | DX: I51.89 Other ill-defined heart diseases (principal) | CPT/HCPCS: 93306 ==

== ENCOUNTER 2024-04-17 17:50 | Outpatient (REF) | payer OTHER, SELFPAY ==
--- OUTSIDE RECORDS SUMMARY | 2024-04-17 17:59 | XMS_ITS | Encounter Summary ---
Author Organization [employer] Address [address] [facility] 7t [place] [address] Care Team Providers Care Cremator Name Role Phone Nicole Bauer MD Primary Care Provider + Reason for Visit * Reason Onset Date Comments Nurse Triage 04/17/2024 Encounter Details Date Type Department Care Team ([facility] st Contact Info) Description 04/17/2024 Telephone [facility] 230 [place] [address] Nicole Bauer MD 230 [place] [address] Nurse Triage (/) Social History Tobacco Use Types Packs/Day Years [...] AM EDT documented as of this encounter Miscellaneous Notes * Telephone Encounter - Mary Grace Herrera LPN - 04/17/2024 12:37 PM EST Triage call returned with BLS # [id number] Millie. Patient reports painful urination. No fever reported no blood or pus in urine. Feels asthma symptoms for several days and is not feeling well. Has pressure in her breast that she relates to her Asthma. Patient has not used nebulizer treatments has used inhaler only. Encouraged use of neb treatmentsfor symptoms and patient does have med calvin. Available at time of call. Patient reports that she haspain in right arm with movement and has had breast cancer and is not sure if that is cause of pain.Has no acute shortness of breath is speaking in full sentences. Patient offered home evaluation with [facility] but declined as she is nervous with someone in her home when she is alone. Patient has [employer] in home now till this afternoon. Patient advised of [facility] hours for today and will proceed to [facility] forcare now. Triage nurse informed the patient may have a wait of 1-2 hours because Walk In Clinic mayhave delays from patient's walking in with urgent medical needs. Multiple (2) protocols were used on this call. Disposition for Call: See in Office or Video Visit Today Protocol Used: Asthma Attack (Adult) Protocol-Based Disposition: See in Office or Video Visit Today Video visit not offered Positive Triage Question: * Patient wants to be seen * All higher-acuity triage questions were negative Care Advice Discussed: * Avoid Asthma Triggers * Reasons To Call Back - An asthma attack is not better after 2 or 3 quick-relief treatments (such as albuterol by inhaleror nebulizer) 20 minutes apart. - Quick-relief asthma medicine (such as albuterol by inhaler or nebulizer) is needed more often than every 4 hours - Mild asthma symptoms not better after 24 hours - Mild wheezing or other asthma symptoms come and go for more than 3 days - You become worse Protocol Used: Urinary Symptoms (Adult) Protocol-Based Disposition: See in Office or Video Visit Today or Tomorrow Video visit not offered Positive Triage Question: * Patient wants to be seen * All higher-acuity triage questions were negative Care Advice Discussed: * Reasons To Call Back - Fever occurs - Pain or burning with urination - Unable to urinate and bladder feels full - You become worse * Telephone Encounter - Yvonne Javed - 04/17/2024 12:32 PM EST Symptom: Urine Symptoms Outcome: Schedule an urgent appointment (within 4 hours) or talk to a nurse or provider soon Reason: Pain when passing urine (peeing) The caller accepted this outcome. [phone] (lao) documented in this encounter Plan of Treatment Upcoming Encounters Date Type Department Care Team (Late st Contact Info) Description 04/26/2024 11:45 AM EST Office Visit [facility] [address] [place], [place] [phone] Nicole Bauer MD 230 [place], [place] [phone] documented as of this encounter Visit Diagnoses Not on filedocumented in this encounter Additional Health Concerns Assessment Noted Time PHQ-9 Depression Total Score: 0 06/19/19 24 1:08 PM EDT documented as of this encounter Care Teams Cremator Relationship Specialty Start Date End Date Nicole Bauer MD [address] [place] [phone] PCP - General Family Medicine 11/03/17 documented as of this encounter
--- OUTSIDE RECORDS SUMMARY | 2024-04-17 17:59 | XMS_ITS | Clinical Summary ---
Author Organization [employer] Address [address] [place] [address] 7t [place] [address] Care Team Providers Care Ticket Taker Name Role Phone Nicole Bauer MD Primary [...] EVERY MORNING 30 each 3 4 Active sulfamethoxazole -trimethoprim (Bactrim DS) 800-160 MG tablet Take 1 tablet by mouth 2 times daily for 5 days. 10 tablet 5 025 Active Active Problems Problem Noted Date Diagnosed [...] home care assistance for most ADLS (see [facility] description). Cervical paraspinal muscle spasm 04/11/2022 Assessment [...] EDT): continue albuterol Prn and FU with scenic artist Assessment & Plan (06/13/2022 6:06 PM EDT): [...] Encounters Date Type Department Care Team Description 04/17/2024 3:20 PM EST Office Visit [facility] [address] [place] [phone] Dysuria (Primary Dx); Mild intermittent asthma with acute exacerbation 04/17/2024 Telephone [facility] [address] [place] [phone] Nicole Bauer MD Nurse Triage (/) 04/13/2024 Refill [facility] [address] [place] [address] Nicole Bauer MD Itchy scalp 03/08/2024 Refill [facility] [address] [place] [address] Nicole Bauer MD Moderate persistent asthma without complication 03/05/2024 Telephone [facility] [address] [place] [phone] Jackie Chavez MA Chart prep 02/27/2024 Patient Outreach [facility] [address] [place] [phone] Nicole Bauer MD Pre-visit Planning ([facility] screening completed on 06/19/2023) from Last 3 Months Immunizations Name Administration [...] Frequency of Binge Drinking Not on file 0403/2023 Score 0 06/19/2023 Depression Answer Date Recorded Patient Health Questionnaire-9 Score 0 06/19/2023 Patient Health Questionnaire-9 Score 0 06/19/2023 Last PHQ-9: Questionnaire Data Not on file 0 06/19/2023 Housing Stability Answer Date Recorded What is your housing situation today? I have noni naa 06/19/[address] you li [...] Sign Reading Time Taken Comments Blood Pressure 141/79 04/17/2024 3:12 PM EST Pulse 60 04/17/2024 3:12 PM EST Temperature 36.7 ??C (98.1 ??F) 04/17/2024 3:12 PM ES T Respiratory Rate 18 04/17/2024 3:12 PM EST Oxygen Saturation 98% 04/17/2024 3:12 PM EST Inhaled Oxygen Concentration - - Weight 65 kg (143 lb 3.2 oz) 04/17/2024 3:12 PM EST Height 142.2 cm (4' 8 ) 11/02/2023 12:13 PM EDT Body Mass Index 32.1 11/02/2023 12:13 PM EDT Plan of Treatment Upcoming Encounters Date Type Department Care Team (Late st Contact Info) Description 04/26/2024 11:45 AM EST Office Visit [facility] 230 [place] [address] Nicole Bauer MD 230 [place], [place] [phone] Health Maintenance Due Date Last Done Comments Zoster Vaccines (2 of 3) 08/26/2014 07/01/2014 COVID-19 Vaccine (3 - season) 2023 06/18/2021, 05/27/2021 Alcohol/Substance Use Screening 06/18/2024 06/19/2023 Depression Screening 06/18/2024 06/19/2023, 06/19/19 SDOH Screening 06/18/2024 06/19/2023 Mammogram 10/12/2024 10/13/2023, 01/18, 02/01/2023, Additional history exists Tobacco Screening 04/17/2025 04/17/2024 DTaP/Tdap/Td Vaccines (2 - Td or Tdap) 07/09/2025 07/10/2015, 06/18/2005, 07/15/1996 Lipid Panel 11/02/2027 11/01/2022, 01/23/2020 Pneumococcal Vaccine: 50+ Years Completed 08/01/2016, 02/25/2016, 11/12/2014, Additional history [...] Procedure Name Priority Date/Time Associated Diagnosis Comments POCT URINALYSIS DIPSTICK Routine 04/17/2024 3:59 PM EST Dysuria BI MAMMOGRAM SCREENING TOMOSYNTHESIS BILATERAL Routine 10/13/2023 12:55 PM EDT HEPATITIS C AB W/REFL TO HCV RNA, QN, PCR Routine 09/04/2023 2:55 PM EDT Chronic fatigue LIPID PANEL WITH REFLEX TO DIRECT LDL Routine 11/01/2022 11:32 AM EDT Benign hypertension from Last 3 Months or Most Recently Relevant to Health Maintenance Results * POCT urinalysis dipstick manually resulted (04/17/2024 3:59 PM EST) Color, UA Yellow Clarity, UA Clear Glucose, UA Negative Bilirubin, UA Negative Ketones, UA Negative Spec Grav, UA 1.010 Blood, UA Negative Negative, None Detected pH, UA 6.0 Protein, UA Negative Urobilinogen, UA 0.2 Leukocytes, UA Negative Negative, Rare, Trace Nitrite, UA Negative Negative, None Detected Urine 04/17/2024 3:59 PM EST us Jesus Dixon MD POINT OF CARE TEST ENTER/EDIT OR DERABLES Final Result * BI Mammogram Screening Tomosynthesis Bilateral (10/13/2023 12:55 PM EDT) Anatomical Region Laterality Modality Breast Bilateral Mammography 10/13/2023 12:5 5 PM EDT Narrative 10/13/2023 2:18 PM EDT ? [facility] [place] ? [address] ?[place] [address] ? Mammography Report ? Signed ? Patient: Mckinney,Eden ?MR#: [id number] ? : 1945 ?Acct:[id number] ? Age/Sex: 78 / F ?ADM Date: 07/26/24 ? Loc: HO.MAMMO ? Attending : Nicole Bauer MD ? Ordering Physician: Nicole Bauer MD ?Results: 2Be ?? nign Findings ? Date of Service: 10/13/23 ?Follow Up: 1 Year From Orig ?? inal Mammogram ? Procedure(s): MM tomosynthesis screening BI ?? Accession Number(s): [id number] ? cc: Nicole Bauer MD ? EXAMINATION: ?? MM SCREENING DIGITAL BREAST TOMOSYNTHESIS, BILATERAL ? CLINICAL INFORMATION: ? Screening. Asymptomatic. ? 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 ? COMPARISON: ?? Mammography: This study is [...] 1414 ? DD/ 1255 ? TD/TT: ? Paper Cup Handle Machine Operator: ? Procedure Note Dontaoter, Image - 10/13/2023 [facility] [address] [place] [address] [place] [address] Mammography Report Signed Patient: Eden MckinneyMR#: [id number] : 5Acct:[id number] Age/Sex: 78 / FADM Date: 10/13/23 Loc: HO.MAMMO Attending Dr: Nicole Bauer MD Ordering Physician: Nicole Bauer MDResults: 2Be nign Findings Date of Service: 10/13/23Follow Up: 1 Year From Orig [facility] Mammogram Procedure(s): MM tomosynthesis screening BI Accession Number(s): [id number] cc: Nicole Bauer MD EXAMINATION: MM SCREENING DIGITAL BREAST TOMOSYNTHESIS, BILATERAL CLINICAL INFORMATION: Screening. Asymptomatic. The patient has history of conservatively treated left DCIS diagnosed in 2011. COMPARISON: Mammography: This study is compared with [...] in OV> 10/13/23 1414 DD/ 1255 TD/TT: Paper Cup Handle Machine Operator: us Nicole Bauer MD IMG BI PROCEDURES Final Result * Hepatitis C Antibody with Reflex to HCV, RNA, Quantitative, Real-Time PCR (09/04/2023 2:55 PM EDT) Hepatitis C Antibody Nonreactive Nonreactive [facility] Comment:Antibodies to HCV no t detected; does not exclude early acuteHCV infection. Blood Venous blood specimen / Unknown 09/04/2023 2:55 PM EDT 09/04/2023 3:56 PM EDT us Jorge A Quinteros MD LAB BLOOD ORDERABLES Final Result [facility] [address] [place] [phone] * Lipid Panel with Reflex to Direct LDL (11/01/2022 11:32 AM EDT) Triglycerides 117 mg/dL [facility] Comment:Desirable Triglyceri de: less than 150 mg/dLBorderline High Triglyceride 150-199 mg/dLHigh Triglyceride: 200-499 mg/dLVery High Triglyceride: greater than or equal to 5OO mg/dL Cholesterol 155 mg/dL [facility] Comment:Desirable Cholestero l: less than 200 mg/dLBorderline High Cholesterol: 200-239 mg/dLHigh Cholesterol: greater than 239 mg/dL LDL Cholesterol Calculated 92 mg/dl [facility] Comment:Desirable LDL: less than 100 mg/dLNear Optimal/Above Optimal LDL: 110- 129 mg/dLBorderline High LDL: 130-159 mg/dLHigh LDL: 160-189 mg/dLVery High LDL: greater than or equal to 190 mg/dL HDL Cholesterol 40 mg/dL [facility] Comment:Desirable HDL: great er than 40 mg/dL Note: This HDL assay may give artificially low results in patients with liver disease. Blood 11/01/2022 11:3 2 AM EDT 11/01/2022 1:31 PM EDT Nicole Bauer MD LAB BLOOD ORDERABLES Fin al Result [facility] [address] [place] [address] [phone] from Last 3 Months or Most Recently Relevant to Health Maintenance Insurance [facility] Care Teams Ticket Taker Relationship Specialty Start Date End Date Nicole Bauer MD [address] [place] [phone] PCP - General Family Medicine 11/03/17
--- OUTSIDE RECORDS SUMMARY | 2024-04-17 17:59 | XMS_ITS | Encounter Summary ---
Author Organization [employer] Address [address] [facility] 7t [place] [address] Care Team Providers Care Sand Filler Name Role Phone Nicole Bauer MD Primary Care Provider + Reason for Visit * Reason Comments Med Refill Encounter Details Date Type Department Care Team ([facility] st Contact Info) Description 04/13/2024 Refill [facility] [address] [place], [place] [phone] Nicole Bauer MD [address] [place], [place] [phone] Itchy scalp Social History Tobacco Use Types [...] Description 04/26/2024 11:45 AM EST Office Visit [facility] [address] [place] [phone] Nicole Bauer MD [address] [place] [address] documented as of this encounter Visit Diagnoses Diagnosis Itchy scalp Unspecified pruritic disorder documented in this encounter Additional Health Concerns Assessment Noted Time PHQ-9 Depression Total Score: 0 06/19/19 24 1:08 PM EDT documented as of this encounter Care Teams Sand Filler Relationship Specialty Start Date End Date Nicole Bauer MD [address] [place] [phone] PCP - General Family Medicine 11/03/17 documented as of this encounter
--- OUTSIDE RECORDS SUMMARY | 2024-04-17 17:59 | XMS_ITS | Encounter Summary ---
Author Organization [employer] Address [address] 7t [place] [address] Care Team Providers Care Test Director Name Role Phone Nicole Bauer MD Primary Care Provider + Encounter Details Date Type Department Care Team (Late st Contact Info) Description 04/17/2024 3:20 PM EST Office Visit [facility] [address] [place] [address] Dysuria (Primary Dx); Mild intermittent asthma with acute exacerbation Social History Tobacco Use Types Packs/Day Years [...] housing situation today? I have nonimay jacome 06/19/[address] you [...] AM EDT documented as of this encounter Last Filed Vital Signs Vital Sign Reading [...] 3.2 oz) 04/17/2024 3:12 PM EST Height - - Body Mass Index 32.1 11/02/2023 12:13 PM EDT documented in this encounter Plan of Treatment Upcoming Encounters Date Type Department Care Team (Late st Contact Info) Description 04/26/2024 11:45 AM EST Office Visit [facility] 230 [place] [address] Nicole Bauer MD [address] [place] [address] Scheduled Orders Name Type Priority Associated Diagnoses Orde r Schedule Culture, Urine, Routine Microbiology Routine Dysuria Ordered: 04/17/2024 documented as of this encounter Procedures Procedure Name Priority Date/Time Associated Diagnosis Comments POCT URINALYSIS DIPSTICK Routine 04/17/2024 3:59 PM EST Dysuria documented in this encounter Results * POCT urinalysis dipstick manually resulted (04/17/2024 3:59 PM EST) Color, UA Yellow Clarity, UA Clear Glucose, UA Negative Bilirubin, UA Negative Ketones, UA Negative Spec Grav, UA 1.010 Blood, UA Negative Negative, None Detected pH, UA 6.0 Protein, UA Negative Urobilinogen, UA 0.2 Leukocytes, UA Negative Negative, Rare, Trace Nitrite, UA Negative Negative, None Detected Urine 04/17/2024 3:59 PM EST Jesus Dixon MD POINT OF CARE TEST ENTER/EDIT OR DERABLES Final Result documented in this encounter Visit Diagnoses Diagnosis Dysuria- Primary Mild intermittent asthma with acute exacerbation documented in this encounter Additional Health Concerns Assessment Noted Time PHQ-9 Depression Total Score: 0 06/19/19 24 1:08 PM EDT documented as of this encounter Care Teams Test Director Relationship Specialty Start Date End Date Nicole Bauer MD [address] [place] [phone] PCP - General Family Medicine 11/03/17 documented as of this encounter
--- OUTSIDE RECORDS SUMMARY | 2024-04-17 17:59 | XMS_ITS | Encounter Summary ---
Author Organization [employer] Address [address] 7t [place] [address] Care Team Providers Care Hand Buffer Name Role Phone Nicole Bauer MD Primary Care Provider + Encounter Details Date Type Department Care Team (Late st Contact Info) Description 03/03/2023 Orders Only [facility] [address] [place] [address] Jayna Chang MD [address] [place] [address] Social History Tobacco Use Types Packs/Day Years [...] Description 04/26/2024 11:45 AM EST Office Visit [facility] [address] [place] [phone] Nicole Bauer MD [address] [place] [phone] documented as of this encounter Visit Diagnoses Not on filedocumented in this encounter Care Teams Hand Buffer Relationship Specialty Start Date End Date Nicole Bauer MD [address] [place] [phone] PCP - General Family Medicine 11/03/17 documented as of this encounter
--- OUTSIDE RECORDS SUMMARY | 2024-04-17 17:59 | XMS_ITS | Encounter Summary ---
Author Organization [facility] Address [address] [facility] 7t [place] [address] Care Team Providers Care Vat House Supervisor Name Role Phone Nicole Bauer MD Primary Care Provider + Reason for Visit * Reason Comments Med Refill Encounter Details Date Type Department Care Team ([facility] Contact Info) Description 05/26/2022 Refill [facility] [address] [place] [phone] Jesus Dixon MD [address] [place] [address] [phone] Social History Tobacco Use Types Packs/Day Years [...] Upcoming Encounters Date Type Department Care Team ([facility] Contact Info) Description 04/26/2024 11:45 AM EST Office Visit [facility] [address] [place] [phone] Nicole Bauer MD [address] [place] [phone] documented as of this encounter Visit Diagnoses Not on filedocumented in this encounter Care Teams Vat House Supervisor Relationship Specialty Start Date End Date Nicole Bauer MD 230 [place] [phone] PCP - General Family Medicine 11/03/17 documented as of this encounter
--- OUTSIDE RECORDS SUMMARY | 2024-04-17 17:59 | XMS_ITS | Encounter Summary ---
Author Organization [employer] Address [address] [facility] [address] [place] [address] Care Team Providers Care Public Events Facilities Rental Manager Name Role Phone Nicole Bauer MD Primary Care Provider + Reason for Visit * Reason Comments Med Refill Encounter Details Date Type Department Care Team ([facility] st Contact Info) Description 04/14/2023 Refill [facility] [address] [place], [place] [phone] Carly Garner MD [address] [place] [address] Itchy scalp Social History Tobacco Use Types [...] Description 04/26/2024 11:45 AM EST Office Visit [facility] [address] [place] [address] [phone] Nicole Bauer MD [address] [place] [phone] documented as of this encounter Visit Diagnoses Diagnosis Itchy scalp Unspecified pruritic disorder documented in this encounter Care Teams Public Events Facilities Rental Manager Relationship Specialty Start Date End Date Nicole Bauer MD [address] [place] [address] [phone] PCP - General Family Medicine 11/03/17 documented as of this encounter
== END 2024-04-17 17:51 | disposition home or self-care (01) ==
LOC: HO.HHCLNP 17:50
PROVIDERS: Visit Provider Emergency Medicine
DX: R30.0 Dysuria (principal)
CPT/HCPCS: 87086

== ENCOUNTER → 2024-05-21 12:59 | Outpatient (BNVA) | payer OTHER, SELFPAY | PROVIDERS: PCP Internal Medicine; Visit Provider Nurse Practitioner ==

== ENCOUNTER 2024-07-24 13:32 | Outpatient (AMB) | payer OTHER, SELFPAY ==
--- NOTE | 2024-07-24 13:34 | MHC.OFFVIS ---
Vital Signs 07/24/24 13:35 Height 4 ft 10 in Weight 144 lb 9.972 oz BMI 30.2 BP 146/67 H Blood Pressure Location Rt brachial Position Sitting Pulse 64 Pulse Source Pulse Oximeter Pulse Oximetry (%) 96 Oxygen Delivery Method Room Air Intake Visit Reasons: Follow up 8 months Intake Note: Pt presents to the office today for an 8 month follow up. Tape Fastener Machine Operator Required: Yes Tape Fastener Machine Operator Language: Broadcast Program Director Name: Morales [email or web address] ([id number]) Allergies Tetanus Vaccines and Toxoid [TETANUS VACCINES AND TOXOID] Allergy (Mild, Verified 07/24/24 13:34) SWELLING, RASH albuterol [ALBUTEROL] Allergy (Unknown, Verified 07/24/24 13:34) HIVES verapamil [VERAPAMIL] Allergy (Unknown, Verified 07/24/24 13:34) UNKNOWN aspirin Adverse Reaction (Severe, Verified 07/24/24 13:34) Abdominal Pain From Tuberculin PPD Leigh Test Allergy (Unknown, Uncoded 07/24/24 13:34) ARM SWELLING TB test Allergy (Unknown, Uncoded 07/24/24 13:34) large local reaction HPI HPI Follow up 8 months: Details: Assessment & Plan (1) GERD (gastroesophageal reflux disease): Code(s): K21.9 - Gastro-esophageal reflux disease without esophagitis Category: Medical (2) Chronic idiopathic constipation: Code(s): K59.04 - Chronic idiopathic constipation Category: Medical Plan Z[place]ian #[id number] Her GI regimen consists of Trulance, lansoprazole, colace and fiber. She was also out of her fiber for a time and she bought an OTC fiber powder with good effect. Return office visit in 6 months Medications: Refilled docusate sodium 100 mg PO BID 180 caps 1RF K58.2 - Mixed irritable bowel syndrome methylcellulose (laxative) (Citrucel) 1,000 mg (2 x 500 mg) PO DAILY 30 days 60 tabs 6RF K58.2 - Mixed irritable bowel syndrome lansoprazole 30 mg PO BID 60 caps 6RF K21.9 - Gastro-esophageal reflux disease without esophagitis plecanatide (Trulance) 3 mg PO DAILY 30 tabs 6RF K59.04 - Chronic idiopathic constipation TODAY'S VISIT [place]ian #[id number] Her GI regimen consists of Trulance, lansoprazole, colace and fiber. She was also out of her fiber for a time and she bought an OTC fiber powder with good effect. she continues to be satisfied with the current regimen. Return office visit in 6 months [facility] Medical History Pulmonary nodules Pneumonitis Costochondritis COVID-19 Gastritis Hyperlipidemia Supraventricular tachycardia Osteopenia Hx of migraine headaches Hx of sinusitis HTN (hypertension) Bronchial asthma Surgical History History of esophagogastroduodenoscopy (EGD) Hx of colonoscopy Status post tubal ligation Family History Mother Heart problem Angina pectoris Daughter Breast cancer Social History Household Members: None Housing: Apartment Are you a primary skin care instructor to a significant other at home: No Do you presently have visiting nurse or other home services: Yes Alcohol intake: current Alcohol intake frequency: does not drink Patient Tobacco Use Status: Never used Tobacco service: No Current occupational status: retired Current occupation: rt handed Female Reproductive History Menstrual Age of Menarche: 13 Review of Systems Const Denies fatigue, Denies fever(s), Denies night sweats, Denies poor appetite and Denies weight loss ENT Reports Normal hearing present, Denies dental pain, Denies dysphagia, Denies hearing loss, Denies mouth pain, Denies odynophagia, Denies throat swelling, Denies tongue swelling and Reports other (Dentition adequate) Card Reports no additional complaints Resp Reports no additional complaints GI Details: Denies abdominal pain, Denies melena, Denies bloating, Denies hematochezia, Reports constipation, Denies GI cramping, Denies dysphagia, Denies excessive flatus, Denies early satiety, Reports heartburn, Denies diarrhea, Reports loose stools, Denies nausea, Denies odynophagia, Denies vomiting and Denies hematemesis Skin/Breast Denies pruritus, Denies lesions, Denies rash and Denies jaundice Neuro Reports Normal hearing present and Denies Abnormal speech present Endo Denies fatigue Aller/Immun Denies throat swelling and Denies tongue swelling Physical Exam Vital Signs: Last Vital Signs Pulse 64 07/24/24 13:35 BP 146/67 H 07/24/24 13:35 Pulse Ox 96 07/24/24 13:35 Oxygen Delivery Method Room Air 07/24/24 13:35 BMI result Body Mass Index 30.2 Const General: cooperative, no acute distress, well developed and well groomed Nutritional Appearance: well nourished and obese Orientation/consciousness: oriented to person, oriented to place and oriented to time Limitations: language barrier HEENT Head: Yes normocephalic and Yes atraumatic Eyes General: appearance normal, both eyes and all related structures Pupils: Equal, round and reactive pupils present Neck Neck: Yes normal visual inspection and Yes no lymphadenopathy Thyroid: Thyroid normal Resp Effort & Inspection: normal respiratory effort and able to speak in complete sentences Auscultation: clear to auscultation bilaterally Cardio Rate: regular rate Rhythm: regular rhythm Heart sounds: Normal, physiologic split S2 sound present Peripheral pulses: radial pulses present and posterior tibial pulses present GI Inspection: No distended, No Abdominal panniculus present and Yes obesity Palpation (GI): Soft to palpation, nontender, no guarding, not rigid and No hepatosplenomegaly present Percussion: Yes normal to percussion Auscultation: normal bowel sounds Rectal Exam - Female: deferred Skin General skin exam: no rashes or lesions noted, turgor normal, skin not dry, no jaundice, No spider nevi and no striae Rashes: no rashes Nails: normal Neuro General: oriented to person, oriented to place and oriented to time Cranial nerves: Yes Equal, round and reactive pupils present and Yes Normal hearing present Speech: No Abnormal speech present Extrem General: Yes normal to inspection, No clubbing, No cyanosis and No edema Psych Appearance: grossly normal and well kempt Mental Status: mental status grossly normal Speech and movement: Normal speech and movement present Affect: normal affect Attitude: cooperative Thought process: Normal thought process present and not confabulating Thought content: Normal thought content present Insight: Good insight present (Psych) Judgement: Good judgement present (Psych) Assessment & Plan Assessment & Plan (1) GERD (gastroesophageal reflux disease): Code(s): K21.9 - Gastro-esophageal reflux disease without esophagitis Category: Medical (2) Irritable bowel syndrome with both constipation and diarrhea: Code(s): K58.2 - Mixed irritable bowel syndrome Category: Medical Plan [place]ian #[id number] Her GI regimen consists of Trulance, lansoprazole, colace and fiber. She was also out of her fiber for a time and she bought an OTC fiber powder with good effect. she continues to be satisfied with the current regimen. Return office visit in 6 months Medications: New lansoprazole 30 mg PO BID 180 caps 1RF 90 days K21.9 - Gastro-esophageal reflux disease without esophagitis Refilled docusate sodium 100 mg PO BID 180 caps 1RF K58.2 - Mixed irritable bowel syndrome plecanatide (Trulance) 3 mg PO DAILY 30 tabs 6RF K59.04 - Chronic idiopathic constipation methylcellulose (laxative) (Citrucel) 1,000 mg (2 x 500 mg) PO DAILY 60 tabs 6RF 30 days K58.2 - Mixed irritable bowel syndrome Coding Level of Care Code Est Pt Level 3 (23617) Diagnoses GERD (gastroesophageal reflux disease) K21.9 Irritable bowel syndrome with both constipation and diarrhea K58.2
[2024-07-24 13:35] VITALS: BP 146/67; PULSE 64; O2SAT 96; BMI 30.2
--- OUTSIDE RECORDS SUMMARY | 2024-07-24 14:51 | XMS_ITS | Encounter Summary ---
Author Organization [employer] Address [address] [facility] 7t [place] [address] Care Team Providers Care Client Relationship Executive Name Role Phone Nicole Bauer MD Primary Care Provider + Reason for Visit * Reason Comments Med Refill Encounter Details Date Type Department Care Team ([facility] Contact Info) Description 05/26/2022 Refill [facility] [address] [place] [address] [phone] Jesus Dixon MD [address] [place], [place] [phone] Social History Tobacco Use Types Packs/Day Years [...] Upcoming Encounters Date Type Department Care Team ([facility] Contact Info) Description 09/27/2024 11:45 AM EDT Office Visit [facility] [address] [place] [address] [phone] Nicole Bauer MD [address] [place] [address] documented as of this encounter Visit Diagnoses Not on filedocumented in this encounter Care Teams Client Relationship Executive Relationship Specialty Start Date End Date Nicole Bauer MD [address] [place] [address] PCP - General Family Medicine 11/03/17 documented as of this encounter
--- OUTSIDE RECORDS SUMMARY | 2024-07-24 14:51 | XMS_ITS | Encounter Summary ---
Author Organization [employer] Address [address] [facility] 7t [place] [address] Care Team Providers Care Gum Machine Operator Name Role Phone Nicole Bauer MD Primary Care Provider + Reason for Visit * Reason Comments Med Refill Encounter Details Date Type Department Care Team ([facility] st Contact Info) Description 04/13/2024 Refill [facility] [address] [place], [place] [phone] Nicole Bauer MD [address] [place], [place] [phone] Itchy scalp Social History Tobacco Use Types [...] Care Team (Late st Contact Info) Description 09/27/2024 11:45 AM EDT Office Visit [facility] [address] [place] [address] Nicole Bauer MD [address] [place] [phone] documented as of this encounter Visit Diagnoses Diagnosis Itchy scalp Unspecified pruritic disorder documented in this encounter Additional Health Concerns Assessment Noted Time PHQ-9 Depression Total Score: 0 06/19/19 24 1:08 PM EDT documented as of this encounter Care Teams Gum Machine Operator Relationship Specialty Start Date End Date Nicole Bauer MD [address] [place] [address] PCP - General Family Medicine 11/03/17 documented as of this encounter
--- OUTSIDE RECORDS SUMMARY | 2024-07-24 14:51 | XMS_ITS | Encounter Summary ---
Author Organization [employer] Address [address] [facility] [address] [place] [address] Care Team Providers Care Medical Care Administrator Name Role Phone Nicole Bauer MD Primary Care Provider + Encounter Details Date Type Department Care Team (Late st Contact Info) Description 03/03/2023 Orders Only [facility] [address] [place], [place] [phone] Jayna Chang MD [address] [place], [place] [phone] Social History Tobacco Use Types Packs/Day Years Used Date Smoking Tobacco: Never Smokeless Tobacco: Never Alcohol Use Standard Drinks/Week Comments Never 0 (1 standard drink = 0.6 oz pur e alcohol) Housing Stability Answer Date Recorded What is your housing situation today? I have noni jacome 01/06/[address] you [...] Description 09/27/2024 11:45 AM EDT Office Visit [facility] [address] [place] [address] Nicole Bauer MD [address] [place] [phone] documented as of this encounter Visit Diagnoses Not on filedocumented in this encounter Care Teams Medical Care Administrator Relationship Specialty Start Date End Date Nicole Bauer MD [address] [place] [phone] PCP - General Family Medicine 11/03/17 documented as of this encounter
--- OUTSIDE RECORDS SUMMARY | 2024-07-24 14:51 | XMS_ITS | Encounter Summary ---
Author Organization [employer] Address [address] [place] [address] Care Team Providers Care Heater Mechanic Name Role Phone Nicole Bauer MD Primary Care Provider + Reason for Visit * Reason Comments Med Refill Encounter Details Date Type Department Care Team ([facility] st Contact Info) Description 04/14/[address] [facility] [address] [place], [place] [phone] Carly Garner MD [address] [place], [place] [phone] Itchy scalp Social History Tobacco Use Types Packs/Day Years Used Date Smoking Tobacco: Never Passive Smoke Exposure: Never Smokeless Tobacco: Never Alcohol Use Standard Drinks/Week Comments Never 0 (1 standard drink = 0.6 oz pur e alcohol) Housing Stability Answer Date Recorded What is your housing situation today? I have noni naa 01/06/[address] you li [...] Description 09/27/2024 11:45 AM EDT Office Visit [facility] [address] [place] [address] [phone] Nicole Bauer MD [address] [place] [phone] documented as of this encounter Visit Diagnoses Diagnosis Itchy scalp Unspecified pruritic disorder documented in this encounter Care Teams Heater Mechanic Relationship Specialty Start Date End Date Nicole Bauer MD [address] [place] [address] [phone] PCP - General Family Medicine 11/03/17 documented as of this encounter
--- OUTSIDE RECORDS SUMMARY | 2024-07-24 14:51 | XMS_ITS | Encounter Summary ---
Author Organization [employer] Address [address] [facility] 7t [place] [address] Care Team Providers Care Product Development Worker Name Role Phone Nicole Bauer MD Primary Care Provider + Reason for Visit * Reason Onset Date Comments Medication Question 07/18/2024 Encounter Details Date Type Department Care Team ([facility] Contact Info) Description 07/18/2024 Telephone [facility] [address] [place], [place] [phone] Nicole Bauer MD [address] [place], [place] [phone] Medication Question Social History Tobacco Use Types Packs/Day Years [...] encounter Miscellaneous Notes * Telephone Encounter - Christoph Sarah RN - 07/19/2024 11:09 AM EDT TC placed to Poison Control (Anthony) [phone] regarding below message. RN spoke with Anthony with Poison control about patient taking 2 doses of Losartan 50 mg yesterday at 12 pm. RN informed Anthony that patient was status checked and is doing okay. Patient denies any complaints at this time.Anthony recommended that PCP be notified for any medication changes. RN verbalized understanding. RN will F/U PRN. * Telephone Encounter - Christoph Sarah RN - 07/19/2024 10:45 AM EDT Incoming call from [place] [id number] regarding below message. Patient informed RN that yesterday 07/18/24 @ 12 pm she took 2 doses of Losartan 50 mg. Patient reported to RN it was a mistake and that never happened before. RN status checked patient. Patient denies any symptoms of hypotension. Last B/P was 127/77 per patient. RN educated patient that if she experiences any dizziness, diaphoresis, near syncope or headaches to go to the [facility] or the ED for further evaluation. RN informed patient that Poison Control will be contacted. Pt verbalized understanding. PT to F/U PRN. * Telephone Encounter - Reynaldo Goldberg - 07/19/2024 10:32 AM EDT Tc from pt returning call to red team nurses. Pt was transferred. * Telephone Encounter - Christoph Sarah RN - 07/19/2024 9:02 AM EDT TC placed to patient [phone] regarding below message. RN left VM for patient to Red tem nurses. RN will re-attempt in PM. TC placed to patient daughter (Cassie) [phone] not on HIPAA regarding below message. RN inquired if the patient was present with her she said no . RN advised patient daughter for patient to Red team nurses. Daughter verbalized understanding. RN to F/U with patient. * Telephone Encounter - Nick Gomez - 07/18/2024 4:39 PM EDT TC from pt reports took two doses of Losartan 50 mg . Pt non symptomatic at the moment and was provided with poison control number. Poison control # [phone] documented in this encounter Plan of Treatment Upcoming Encounters Date Type Department Care Team (Late st Contact Info) Description 09/27/2024 11:45 AM EDT Office Visit [facility] [address] [place] [address] Nicole Bauer MD [address] [place], [place] [phone] documented as of this encounter Visit Diagnoses Not on filedocumented in this encounter Additional Health Concerns Assessment Noted Time PHQ-9 Depression Total Score: 0 06/19/19 24 1:08 PM EDT documented as of this encounter Care Teams Product Development Worker Relationship Specialty Start Date End Date Nicole Bauer MD [address] [place] [address] PCP - General Family Medicine 11/03/17 documented as of this encounter
--- OUTSIDE RECORDS SUMMARY | 2024-07-24 14:51 | XMS_ITS | Encounter Summary ---
Author Organization [employer] Address [address] [facility] [address]t [place] [address] Care Team Providers Care Size Roller Operator Name Role Phone Nicole Bauer MD Primary Care Provider + Reason for Visit * Reason Comments Med Refill Encounter Details Date Type Department Care Team ([facility] st Contact Info) Description 07/06/2024 Refill [facility] [address] [place], [place] [phone] Nicole Bauer MD [address] [place], [place] [phone] Itchy scalp Social History Tobacco Use Types [...] Description 09/27/2024 11:45 AM EDT Office Visit [facility] [address] [place] [address] Nicole Bauer MD [address] [place] [address] documented as of this encounter Visit Diagnoses Diagnosis Itchy scalp Unspecified pruritic disorder documented in this encounter Additional Health Concerns Assessment Noted Time PHQ-9 Depression Total Score: 0 06/19/19 24 1:08 PM EDT documented as of this encounter Care Teams Size Roller Operator Relationship Specialty Start Date End Date Nicole Bauer MD [address] [place] [address] PCP - General Family Medicine 11/03/17 documented as of this encounter
--- OUTSIDE RECORDS SUMMARY | 2024-07-24 14:51 | XMS_ITS | Clinical Summary ---
Author Organization [employer] Address [address] [facility] [address] [place] [address] Care Team Providers Care Shared Services Representative Name Role Phone Nicole Bauer MD Primary Care Provider + Allergies Active Allergy Reactions Criticality Noted Date Comments Albuterol 05/03/2018 Pneumococcal Polysaccharide Vaccine Swelling 08/02/2016 Tuberculin Purified Protein Derivative 03/22/2022 large reaction Tuberculin Tests 08/01/2016 Verapamil 12/06/2009 Other reaction(s): TACHYCARDIA Medications Blood Pressure Monitoring (Omron 3 Series BP Monitor) device USE TO CHECK BLOOD PRESSURE Active Cartia XT 120 MG 24 hr capsule TAKE 1 CAPSULE BY MOUTH EVERY MORNING Active docusate sodium (Colace) 100 MG capsule TAKE 1 CAPSULE BY MOUTH TWICE DAILY Active lansoprazole (Prevacid) [address] capsule TAKE 1 CAPSULE BY MOUTH TWICE DAILY IN THE MORNING AND IN THE EVENING Active SM Fiber Laxative 500 MG tablet TAKE 2 TABLETS BY MOUTH ONCE DAILY Active metoprolol succinate XL (Toprol-XL) 25 MG 24 hr tablet TAKE 1 TABLET BY MOUTH EVERY MORNING Active Trulance tablet tablet TAKE 1 TABLET BY MOUTH EVERY DAY Active Acetaminophen Extra Strength 500 MG tabletIndicatio ns:Lumbar degenerative disc disease,Chronic pain of both shoulders TAKE 1 TABLET BY MOUTH EVERY 6 HOURS NEEDED FOR PAIN OR FEVER 30 tablet 1 Active Nebulizer misc Use as directed 1 each Active Fiber-Lax 625 MG tablet Take 2 tablets by mouth Once per day. Active hydroCHLOROthia zide (HYDRODiuril) 25 MG tablet TAKE 1 TABLET BY MOUTH EVERY MORNING 90 tablet 3 Active betamethasone valerate (Valisone) 0.1 % cream Apply topically if needed in the morning and at bedtime (dryness). 45 g 2 Active cyanocobalamin (Vitamin B-12) 1000 MCG tablet Take 1,000 mcg by mouth Once per day. Active Ascorbic Acid (vitamin C) 250 MG tablet Take 250 mg by mouth Once per day. Active fexofenadine (Suzanne) 180 MG tabletIndicatio ns:Allergy, sequela TAKE 1 TABLET BY MOUTH EVERYDAY AT NOON 90 tablet 2 Active losartan (Cozaar) 50 MG tablet Take 1 tablet (50 mg) by mouth Once per day. 30 tablet 11 025 2025 Active atorvastatin (Lipitor) 20 MG tablet TAKE 1 TABLET BY MOUTH AT BEDTIME 90 tablet 3 Active DULoxetine (Cymbalta) [address] capsule Take 1 capsule (30 mg) by mouth Once per day. Do not crush or chew. 30 capsule 025 2025 Active levalbuterol (Xopenex) 0.63 MG/3ML nebulizer solutionIndicat ions:Moderate persistent asthma without complication Take 1 ampule by nebulization every 6 (six) hours if needed for wheezing. 72 mL 025 2025 Active Diclofenac Sodium 1 % gelIndications: Lumbar degenerative disc disease Apply topically to affected area twice a day as needed for pain 150 g Active fluticasone (Flovent) 220 MCG/ACT inhaler Inhale 1 puff in the morning and at bedtime. Rinse mouth with water after use to reduce aftertaste and incidence of candidiasis. Do not swallow. 12 g 025 2025 Active gabapentin (Neurontin) 100 MG capsuleIndicati ons:Itchy scalp TAKE 1 CAPSULE BY MOUTH AT BEDTIME 30 capsule 2 Active levalbuterol (Xopenex) 0.63 MG/3ML nebulizer solution Take 1 ampule by nebulization every 6 (six) hours if needed for wheezing. 72 mL 11 024 2024 Discontinued(R eorder (will not trigger notification to Pharmacy)) Diclofenac Sodium 1 % gelIndications: Lumbar degenerative disc disease Apply topically to affected area twice a day as needed for pain 150 g 2024 Discontinued(R eorder (will not trigger notification to Pharmacy)) Arnuity Ellipta 200 MCG/ACT inhalerIndicati ons:Moderate persistent asthma without complication INHALE 1 PUFF BY MOUTH EVERY MORNING 30 each 3 024 2024 Discontinued(N on-compliance) gabapentin (Neurontin) 100 MG capsuleIndicati ons:Itchy scalp TAKE 1 CAPSULE BY MOUTH AT BEDTIME 30 capsule 2 025 2024 Discontinued Active Problems Problem Noted Date Diagnosed Date Mixed stress and urge urinary incontinence 06/27 Dysuria 04/26/2024 Assessment & Plan (04/26/2024 2:19 PM EST): UA within normal limits. Advised to drink cranberry juice. Take Pyridium PRN Re consult PRN. Bilateral primary osteoarthritis of hip 11/02/19 Assessment & Plan (11/02/2023 2:51 PM EDT): [...] on imaging study 06/19/2023 Assessment & Plan (04/26/2024 2:14 PM EST): Bilateral lung nodules are stable, new lung nodule 4mm. FU with Pulmonology. Assessment & Plan (11/02/2023 2:50 PM EDT): [...] home care assistance for most ADLS (see [employer] description). Cervical paraspinal muscle spasm 04/11/2022 [...] asthma without complication 03/22/2022 Assessment & Plan (04/26/2024 2:17 PM EST): Uncontrolled, she is taking Arnuity max dose, advised to FU with Pulmonology. Continue Xopenex PRN. Declined COVID booster at this time. Assessment & Plan (06/19/2023 1:39 PM EDT): [...] EDT): continue albuterol Prn and FU with talent acquisition consultant Assessment & Plan (06/13/2022 6:06 PM EDT): [...] Eczema 12/06/2017 Indigestion 12/06/2017 Benign hypertension 08/08/2017 Assessment & Plan (04/26/2024 2:18 PM EST): Controlled, unclear if she doesn't tolerate Lisinopril (cough). DC Lisinopril and start Losartan. FU in 4 weeks. Chronic constipation 08/08/2017 Dermatitis 08/08/2017 Assessment & [...] Encounters Date Type Department Care Team Description 07/18/2024 Telephone [facility] [address] [place] [address] Nicole Bauer MD Medication Question 07/15/2024 Refill [facility] [address] [place] [address] Nicole Bauer MD Itchy scalp 07/06/2024 Refill [facility] [address] [place] [address] Nicole Bauer MD Itchy scalp 06/27/2024 12:00 PM EDT Office Visit [facility] [address] [place] [address] Nicole Bauer MD Benign hypertension (Primary Dx); Moderate persistent asthma without complication; Mixed stress and urge urinary incontinence; Lumbar degenerative disc disease 06/27/2024 Travel 06/26/2024 Telephone [facility] [address] [place] [address] Nicole Bauer MD Chart prep 06/12/2024 Refill [facility] [address] [facility] [place] [address] Nicole Bauer MD 05/07/2024 Telephone [facility] [place] [address] Nicole Bauer MD Call Back Request 04/26/2024 11:45 AM EST Office Visit [facility] [address] [facility] [place] [address] Nicole Bauer MD Lung nodule seen on imaging study (Primary Dx); Moderate persistent asthma without complication; Benign hypertension; Dysuria 04/26/2024 Travel from Last 3 Months Immunizations Name Administration [...] Frequency of Binge Drinking Not on file 040 03/2023 Score 0 06/19/2023 Depression Answer Date [...] Sign Reading Time Taken Comments Blood Pressure 140/66 06/27/2024 12:06 PM EDT Pulse 67 06/27/2024 12:06 PM EDT Temperature 36.4 ??C (97.6 ??F) 06/27/2024 12:06 PM E DT Respiratory Rate 12 06/27/2024 12:06 PM EDT Oxygen Saturation 99% 06/27/2024 12:06 PM EDT Inhaled Oxygen Concentration - - Weight 64.2 kg (141 lb 8 oz) 06/27/2024 12:06 PM EDT Height 142.2 cm (4' 8 ) 06/27/2024 12:06 PM EDT Body Mass Index 31.72 06/27/2024 12:06 PM EDT Plan of Treatment Upcoming Encounters Date Type Department Care Team (Late st Contact Info) Description 09/27/2024 11:45 AM EDT Office Visit [facility] [address] [place] [address] Nicole Bauer MD [address] [place], [place] [phone] Health Maintenance Due Date Last Done Comments Alcohol/Substance Use Screening 1957 COVID-19 Vaccine (2023- season) 2023 06/18/2021, 05/27/2021 Depression Screening 06/18/2024 06/19/2023, 06/19/19 24 SDOH Screening 06/18/2024 06/19/2023 Zoster Vaccines (3 of 3) 07/18/2024 05/23/2024, 06/18 Mammogram 10/12/2024 10/13/2023, 01/18, 02/01/2023, Additional history exists Tobacco Screening 06/27/2025 06/27/2024 DTaP/Tdap/Td Vaccines (2 - Td or Tdap) [...] Associated Diagnosis Comments POCT URINALYSIS DIPSTICK Routine 04/26/2024 12:35 PM EST Dysuria BI MAMMOGRAM SCREENING TOMOSYNTHESIS BILATERAL Routine 10/13/2023 12:55 PM EDT HEPATITIS C AB W/REFL TO HCV RNA, QN, PCR Routine 09/04/2023 2:55 PM EDT Chronic fatigue LIPID PANEL WITH REFLEX TO DIRECT LDL Routine 11/01/2022 11:32 AM EDT Benign hypertension from Last 3 Months or Most Recently Relevant to Health Maintenance Results * POCT Urinalysis (04/26/2024 12:35 PM EST) Color, UA Yellow Clarity, UA Clear Glucose, UA Negative Bilirubin, UA Negative Ketones, UA Negative Spec Grav, UA 1.020 Blood, UA Negative Negative, None Detected pH, UA 5.0 Protein, UA Negative Urobilinogen, UA 0.2 Leukocytes, UA Negative Negative, Rare, Trace Nitrite, UA Negative Negative, None Detected Appearance, UA clear QC Media Lot # [id number] Lot# Expiration Date Urine 04/26/2024 12:3 5 PM EST Nicole Bauer MD POINT OF CARE TEST ENTER /EDIT ORDERABLES Final Result * BI Mammogram Screening Tomosynthesis Bilateral (10/13/2023 12:55 PM EDT) Anatomical Region Laterality Modality Breast Bilateral Mammography 10/13/2023 12:5 5 PM EDT Narrative 10/13/2023 2:18 PM EDT ? [facility] ? [address] ?[place] [address] ? Mammography Report ? Signed ? Patient: Mckinney,Eden ?MR#: [id number] ? : 1945 ?Acct:[id number] ? Age/Sex: 78 / F ?ADM Date: 10/13/23 ? Loc: HO.MAMMO ? Attending Dr: Nicole Bauer MD ? Ordering Physician: Nicole Bauer MD ?Results: 2Be ?? nign Findings ? Date of Service: 10/13/23 ?Follow Up: 1 Year From Orig ?? inal Mammogram ? Procedure(s): MM tomosynthesis screening BI ?? Accession Number(s): [id number] ? cc: Nicole Bauer MD ? EXAMINATION: [...] 1414 ? DD/ 1255 ? TD/TT: ? Scientific Laboratory Supervisor: ? Procedure Note Donjonleilanikellyter, Image - 10/13/2023 [facility] [address] [place] [address] Mammography Report Signed Patient: tIzel Mckinney#: [id number] : 5Acct:[id number] Age/Sex: 78 / FADM Date: 10/13/23 Loc: HO.MAMMO Attending Dr: Nicole Bauer MD Ordering Physician: Nicole Bauer MDResults: 2Be nign Findings Date of Service: 10/13/23Follow Up: 1 Year From Orig inal Mammogram Procedure(s): MM tomosynthesis screening BI Accession Number(s): [id number] cc: Nicole Bauer MD EXAMINATION: MM SCREENING [...] in OV> 10/13/23 1414 DD/ 1255 TD/TT: Scientific Laboratory Supervisor: us Nicole Bauer MD IMG BI PROCEDURES Final Result * Hepatitis C Antibody with Reflex to HCV, RNA, Quantitative, Real-Time PCR (09/04/2023 2:55 PM EDT) Hepatitis C Antibody Nonreactive Nonreactive [facility] Comment:Antibodies to HCV no t detected; does not exclude early acuteHCV infection. Blood Venous blood specimen / Unknown 09/04/2023 2:55 PM EDT 09/04/2023 3:56 PM EDT us Jorge A Quinteros MD LAB BLOOD ORDERABLES Final Result [facility] [address] [place] [phone] * Lipid Panel with Reflex to Direct LDL (11/01/2022 11:32 AM EDT) Triglycerides 117 mg/dL [facility] Comment:Desirable Triglyceri de: less than 150 mg/dLBorderline High Triglyceride 150-199 mg/dLHigh Triglyceride: 200-499 mg/dLVery High Triglyceride: greater than or equal to 5OO mg/dL Cholesterol 155 mg/dL [facility] Comment:Desirable Cholestero l: less than 200 mg/dLBorderline High Cholesterol: 200-239 mg/dLHigh Cholesterol: greater than 239 mg/dL LDL Cholesterol Calculated 92 mg/dl [facility] Comment:Desirable LDL: less than 100 mg/dLNear Optimal/Above Optimal LDL: 110- 129 mg/dLBorderline High LDL: 130-159 mg/dLHigh LDL: 160-189 mg/dLVery High LDL: greater than or equal to 190 mg/dL HDL Cholesterol 40 mg/dL [facility] Comment:Desirable HDL: great er than 40 mg/dL Note: This HDL assay may give artificially low results in patients with liver disease. Blood 11/01/2022 11:3 2 AM EDT 11/01/2022 1:31 PM EDT us Nicole Bauer MD LAB BLOOD ORDERABLES Fin al Result [facility] [address] [place] [address] [phone] from Last 3 Months or Most Recently Relevant to Health Maintenance Insurance [id number] [employer] OPTIONS (O D-SNP) JESSA JIMENEZ [id number] [facility] [employer] OPTIONS (O D-SNP) JESSA JIMENEZ [id number] Care Teams Shared Services Representative Relationship Specialty Start Date End Date Nicole Bauer MD [address] [place] [phone] PCP - General Family Medicine 11/03/17
== END 2024-07-24 13:54 | disposition home or self-care (01) ==
LOC: HO.HGI 13:32
PROVIDERS: PCP Internal Medicine; Visit Provider Nurse Practitioner
DX: K21.9 Gastro-esophageal reflux disease without esophagitis (principal); K58.2 Mixed irritable bowel syndrome
CPT/HCPCS: 99213

== ENCOUNTER → 2024-07-24 13:32 | Outpatient (BNVA) | payer OTHER, SELFPAY | PROVIDERS: PCP Internal Medicine; Visit Provider Nurse Practitioner | DX: K21.9 Gastro-esophageal reflux disease without esophagitis (principal); K58.2 Mixed irritable bowel syndrome; K59.04 Chronic idiopathic constipation | CPT/HCPCS: 99212 ==

== ENCOUNTER → 2024-08-06 11:02 | Outpatient (REF) | payer OTHER, SELFPAY ==
--- NOTE | 2024-08-06 11:06 | CA_ITS ---
Acquisition Time: 2024-08-06 11:28:35 Total Exercise Time: 00:12:31 Test Indications: CHEST PAIN PALPS Medications: HCTZ Protocol: DOBUTAMINE Max HR: 131 BPM 92% of Pred: 141 BPM Max BP: 148/68 mmHG Max Work Load: 1.0 METS . Referred By: Tavon Garcia Electronically Signed By: Carlos Burnett
--- OUTSIDE RECORDS SUMMARY | 2024-08-06 12:21 | XMS_ITS | Clinical Summary ---
Author Organization [employer] Address [address] [place] [address] 7t [place] [address] Care Team Providers Care Bioengineer Name Role Phone Nicole Bauer MD Primary Care Provider + Allergies Active Allergy Reactions Criticality Noted Date Comments Albuterol 05/03/2018 Pneumococcal Polysaccharide Vaccine Swelling 08/02/2016 Tuberculin Purified Protein Derivative 03/22/2022 large reaction Tuberculin Tests 08/01/2016 Verapamil 12/06/2009 Other reaction(s): TACHYCARDIA Medications Blood Pressure Monitoring (Omron 3 Series BP Monitor) device USE TO CHECK BLOOD PRESSURE 11/11/19 22 Active Cartia XT 120 MG 24 hr capsule TAKE 1 CAPSULE BY MOUTH EVERY MORNING 02/24/20 22 Active docusate sodium (Colace) 100 MG capsule TAKE 1 CAPSULE BY MOUTH TWICE DAILY 02/10/20 22 Active lansoprazole (Prevacid) [address] capsule TAKE 1 CAPSULE BY MOUTH TWICE DAILY IN THE MORNING AND IN THE EVENING 02/24/20 22 Active SM Fiber Laxative 500 MG tablet TAKE 2 TABLETS BY MOUTH ONCE DAILY 02/10/20 22 Active metoprolol succinate XL (Toprol-XL) 25 MG 24 hr tablet TAKE 1 TABLET BY MOUTH EVERY MORNING 02/24/20 22 Active Trulance tablet tablet TAKE 1 TABLET BY MOUTH EVERY DAY 02/24/20 22 Active Acetaminophen Extra Strength 500 MG tabletIndicatio ns:Lumbar degenerative disc disease,Chronic pain of both shoulders TAKE 1 TABLET BY MOUTH EVERY 6 HOURS NEEDED FOR PAIN OR FEVER 30 tablet 1 05/17/19 24 Active Nebulizer misc Use as directed 1 each 06/19/19 24 Active Fiber-Lax 625 MG tablet Take 2 tablets by mouth Once per day. 06/19/19 24 Active hydroCHLOROthia zide (HYDRODiuril) 25 MG tablet TAKE 1 TABLET BY MOUTH EVERY MORNING 90 tablet 3 10/31/19 24 Active betamethasone valerate (Valisone) 0.1 % cream Apply topically if needed in the morning and at bedtime (dryness). 45 g 2 11/02/19 24 Active cyanocobalamin (Vitamin B-12) 1000 MCG tablet Take 1,000 mcg by mouth Once per day. Active Ascorbic Acid (vitamin C) 250 MG tablet Take 250 mg by mouth Once per day. Active fexofenadine (Suzanne) 180 MG tabletIndicatio ns:Allergy, sequela TAKE 1 TABLET BY MOUTH EVERYDAY AT NOON 90 tablet 2 04/23/19 25 Active losartan (Cozaar) 50 MG tablet Take 1 tablet (50 mg) by mouth Once per day. 30 tablet 11 04/26/19 25 2025 Active atorvastatin (Lipitor) 20 MG tablet TAKE 1 TABLET BY MOUTH AT BEDTIME 90 tablet 3 06/13/19 25 Active DULoxetine (Cymbalta) [address] capsule Take 1 capsule (30 mg) by mouth Once per day. Do not crush or chew. 30 capsule 06/28/19 25 2025 Active levalbuterol (Xopenex) 0.63 MG/3ML nebulizer solutionIndicat ions:Moderate persistent asthma without complication Take 1 ampule by nebulization every 6 (six) hours if needed for wheezing. 72 mL 06/28/19 25 2025 Active Diclofenac Sodium 1 % gelIndications: Lumbar degenerative disc disease Apply topically to affected area twice a day as needed for pain 150 g 06/28/19 25 Active fluticasone (Flovent) 220 MCG/ACT inhaler Inhale 1 puff in the morning and at bedtime. Rinse mouth with water after use to reduce aftertaste and incidence of candidiasis. Do not swallow. 12 g 11 06/28/19 25 2025 Active gabapentin (Neurontin) 100 MG capsuleIndicati ons:Itchy scalp TAKE 1 CAPSULE BY MOUTH AT BEDTIME 30 capsule 2 07/16/19 25 Active gabapentin (Neurontin) 100 MG capsuleIndicati ons:Itchy scalp TAKE 1 CAPSULE BY MOUTH AT BEDTIME 30 capsule 2 04/23/19 25 2024 Discontinued Active Problems Problem Noted Date [...] home care assistance for most ADLS (see [employer] description). Cervical paraspinal muscle spasm 04/11/2022 Assessment [...] EDT): continue albuterol Prn and FU with motel operator Assessment & Plan (06/13/2022 6:06 PM EDT): [...] Resolved Date Moderate persistent asthma with exacerbation 11/02/2023 Assessment & Plan (03/10/2023 1:04 PM [...] Type Department Care Team Description 07/18/2024 Telephone [facility] [address] [place] [address] Nicole Bauer MD Medication Question 07/15/2024 Refill [facility] [address] [place] [address] Nicole Bauer MD Itchy scalp 07/06/2024 Refill [facility] [address] [place] [address] Nicole Bauer MD Itchy scalp 06/27/2024 12:00 PM EDT Office Visit [facility] [address] [place] [address] Nicole Bauer MD Benign hypertension (Primary Dx); Moderate persistent asthma without complication; Mixed stress and urge urinary incontinence; Lumbar degenerative disc disease 06/27/2024 Travel 06/26/2024 Telephone [facility] [address] [place] [address] Nicole Bauer MD Chart prep 06/12/2024 Refill [facility] [address] [place] [address] Nicole Bauer MD from Last 3 Months Immunizations Immunization Administration Dates Next Due Influenza High-dose Quadriva [...] 09/27/2024 11:45 AM EDT Office Visit [facility] [address] [place] [address] Nicole Bauer MD [address] [place] [address] Health Maintenance Due Date Last Done Comments Alcohol/Substance Use Screening 1957 COVID-19 Vaccine ( season) 2023 06/18/2021, 05/27/2021 Depression Screening 06/18/2024 [...] patient's age to complete this topic Meningococcal B Vaccine Aged Out No l onger eligible based on patient's age to complete [...] EDT Narrative 10/13/2023 2:18 PM EDT ? [facility] ? [address] ?[place] [address] ? Mammography Report ? Signed ? Patient: Mckinney,Eden ?MR#: [id number] ? : 1945 ?Acct:[id number] ? Age/Sex: 78 / F ?ADM Date: 10/13/23 ? Loc: HO.MAMMO ? Attending Dr: Nicole Bauer MD ? Ordering Physician: Nicole Bauer MD ?Results: 2Be ?? nign Findings ? Date of Service: 10/13/23 ?Follow Up: 1 Year From Orig ?? inal Mammogram ? Procedure(s): MM tomosynthesis screening BI ?? Accession Number(s): [id number] ? cc: Nicole Bauer MD ? EXAMINATION: [...] 1414 ? DD/ 1255 ? TD/TT: ? Ethics Manager: ? Procedure Note Elizabeth, Image - 10/13/2023 [facility] [address] [place] [address] Mammography Report Signed Patient: Eden MckinneyMR#: [id number] : 5Acct:[id number] Age/Sex: 78 / FADM Date: 10/13/23 Loc: HO.MAMMO Attending Dr: Nicole Bauer MD Ordering Physician: Nicole Bauer MDResults: 2Be nign Findings Date of Service: 10/13/23Follow Up: 1 Year From Orig inal Mammogram Procedure(s): MM tomosynthesis screening BI Accession Number(s): [id number] cc: Nicole Bauer MD EXAMINATION: MM SCREENING [...] in OV> 10/13/23 1414 DD/ 1255 TD/TT: Ethics Manager: us Nicole Bauer MD IMG BI PROCEDURES Final Result * Hepatitis C Antibody with Reflex to HCV, RNA, Quantitative, Real-Time PCR (09/04/2023 2:55 PM EDT) Hepatitis C Antibody Nonreactive Nonreactive [facility] Comment:Antibodies to HCV no t detected; does not exclude early acuteHCV infection. Blood Venous blood specimen / Unknown 09/04/2023 2:55 PM EDT 09/04/2023 3:56 PM EDT us Jorge A Quinteros MD LAB BLOOD ORDERABLES Final Result [facility] [address] [place] [phone] * Lipid Panel with Reflex to Direct LDL (11/01/2022 11:32 AM EDT) Triglycerides 117 mg/dL [facility] Comment:Desirable Triglyceri de: less than 150 mg/dLBorderline High Triglyceride 150-199 mg/dLHigh Triglyceride: 200-499 mg/dLVery High Triglyceride: greater than or equal to 5OO mg/dL Cholesterol 155 mg/dL [facility] Comment:Desirable Cholestero l: less than 200 mg/dLBorderline High Cholesterol: 200-239 mg/dLHigh Cholesterol: greater than 239 mg/dL LDL Cholesterol Calculated 92 mg/dl [facility] Comment:Desirable LDL: less than 100 mg/dLNear Optimal/Above Optimal LDL: 110- 129 mg/dLBorderline High LDL: 130-159 mg/dLHigh LDL: 160-189 mg/dLVery High LDL: greater than or equal to 190 mg/dL HDL Cholesterol 40 mg/dL [facility] Comment:Desirable HDL: great er than 40 mg/dL Note: This HDL assay may give artificially low results in patients with liver disease. Blood 11/01/2022 11:3 2 AM EDT 11/01/2022 1:31 PM EDT us Nicole Bauer MD LAB BLOOD ORDERABLES Fin al Result [facility] [address] [place] [address] [phone] from Last 3 Months or Most Recently Relevant to Health Maintenance Insurance [employer] OPTIONS (HMO D-SNP) [facility] [employer] OPTIONS (HMO D-SNP) Care Teams Bioengineer Relationship Specialty Start Date End Date Nicole Bauer MD [address] [place] [phone] PCP - General Family Medicine 11/03/17
--- OUTSIDE RECORDS SUMMARY | 2024-08-06 12:21 | XMS_ITS | Encounter Summary ---
Author Organization [employer] Address [address] [facility] [facility] [address] [facility] [address]t [place] [address] Care Team Providers Care Automatic Coil Machine Operator Name Role Phone Nicole Bauer MD Primary Care Provider + Encounter Details Date Type Department Care Team (Late st Contact Info) Description 03/03/2023 Orders Only [facility] [address] [place], [place] [phone] Jayna Chang MD [address] [place], [place] [phone] Social History Tobacco Use Types Packs/Day Years [...] Description 09/27/2024 11:45 AM EDT Office Visit [facility] [address] [place] [address] Nicole Bauer MD [address] [place] [phone] documented as of this encounter Visit Diagnoses Not on filedocumented in this encounter Care Teams Automatic Coil Machine Operator Relationship Specialty Start Date End Date Nicole Bauer MD [address] [place] [phone] PCP - General Family Medicine 11/03/17 documented as of this encounter
--- OUTSIDE RECORDS SUMMARY | 2024-08-06 12:21 | XMS_ITS | Encounter Summary ---
Author Organization [employer] Address [address] [facility] 7t [place] [address] Care Team Providers Care Gear Repair Supervisor Name Role Phone Nicole Bauer MD Primary Care Provider + Reason for Visit * Reason Comments Med Refill Encounter Details Date Type Department Care Team ([facility] Contact Info) Description 05/26/2022 Refill [facility] [address] [place] [address] [phone] Jesus Dixon MD [address] [place], [place] [phone] Social History Tobacco Use Types Packs/Day Years [...] Upcoming Encounters Date Type Department Care Team ([facility] Contact Info) Description 09/27/2024 11:45 AM EDT Office Visit [facility] [address] [place] [address] [phone] Nicole Bauer MD [address] [place] [address] documented as of this encounter Visit Diagnoses Not on filedocumented in this encounter Care Teams Gear Repair Supervisor Relationship Specialty Start Date End Date Nicole Bauer MD [address] [place] [address] PCP - General Family Medicine 11/03/17 documented as of this encounter
--- OUTSIDE RECORDS SUMMARY | 2024-08-06 12:21 | XMS_ITS | Encounter Summary ---
Author Organization [employer] Address [address] [facility] 7t [place] [address] Care Team Providers Care Patient Manager Name Role Phone Nicole Bauer MD Primary Care Provider + Reason for Visit * Reason Comments Med Refill Encounter Details Date Type Department Care Team ([facility] st Contact Info) Description 07/06/2024 Refill [facility] MED[facility]INE [address] [place], [place] [phone] Nicole Bauer MD [address] [place], [place] [phone] Itchy scalp Social History Tobacco Use Types [...] Office Visit [facility] [address] [place] [address] Nicole Bauer MD [address] [place] [address] documented as of this encounter Visit Diagnoses Diagnosis Itchy scalp Unspecified pruritic disorder documented in this encounter Additional Health Concerns Assessment Noted Time PHQ-9 Depression Total Score: 0 06/19/19 24 1:08 PM EDT documented as of this encounter Care Teams Patient Manager Relationship Specialty Start Date End Date Nicole Bauer MD [address] [place] [address] PCP - General Family Medicine 11/03/17 documented as of this encounter
--- OUTSIDE RECORDS SUMMARY | 2024-08-06 12:21 | XMS_ITS | Encounter Summary ---
Author Organization [employer] Address [address] [facility] [address] 7[address] [place] [address] Care Team Providers Care Airport Operations Specialist Name Role Phone Nicole Bauer MD Primary Care Provider + Reason for Visit * Reason Comments Med Refill Encounter Details Date Type Department Care Team ([facility] st Contact Info) Description 04/14/2023 Refill [facility] MEDICINE [address] [place], [place] [phone] Carly Garner MD [address] [place], [place] [phone] Itchy scalp Social History Tobacco Use Types Packs/Day Years Used Date Smoking Tobacco: Never Passive Smoke Exposure: Never Smokeless Tobacco: Never Alcohol Use Standard Drinks/Week Comments Never 0 (1 standard drink = 0.6 oz pur e alcohol) Housing Stability Answer Date Recorded What is your housing situation today? I have noni sing 01/06/[address] you li [...] Description 09/27/2024 11:45 AM EDT Office Visit [facility] MEDICINE [address] [place] [address] [phone] Nicole Bauer MD [address] [place] [phone] documented as of this encounter Visit Diagnoses Diagnosis Itchy scalp Unspecified pruritic disorder documented in this encounter Care Teams Airport Operations Specialist Relationship Specialty Start Date End Date Nicole Bauer MD [address] [place] [address] [phone] PCP - General Family Medicine 11/03/17 documented as of this encounter
--- OUTSIDE RECORDS SUMMARY | 2024-08-06 12:21 | XMS_ITS | Encounter Summary ---
Author Organization [employer] Address [address] [facility] 7t [place] [address] Care Team Providers Care Cell Geneticist Name Role Phone Nicole Bauer MD Primary Care Provider + Reason for Visit * Reason Comments Med Refill Encounter Details Date Type Department Care Team ([facility] st Contact Info) Description 04/13/2024 Refill [facility] MEDICINE [address] [place], [place] [phone] Nicole Bauer MD [address] [place], [place] [phone] Itchy scalp Social History Tobacco Use Types [...] Description 09/27/2024 11:45 AM EDT Office Visit [facility] MEDICINE [address] [place] [address] Nicole Bauer MD [address] [place] [address] documented as of this encounter Visit Diagnoses Diagnosis Itchy scalp Unspecified pruritic disorder documented in this encounter Additional Health Concerns Assessment Noted Time PHQ-9 Depression Total Score: 0 06/19/19 24 1:08 PM EDT documented as of this encounter Care Teams Cell Geneticist Relationship Specialty Start Date End Date Nicole Bauer MD [address] [place] [address] PCP - General Family Medicine 11/03/17 documented as of this encounter
== END ==
LOC: HO.CARD 11:02
PROVIDERS: PCP Internal Medicine; Visit Provider Internal Medicine Cardiovascular Disease
DX: R07.9 Chest pain, unspecified (principal); J45.40 Moderate persistent asthma, uncomplicated; R00.2 Palpitations
CPT/HCPCS: 93351; J1250; Q9957

== ENCOUNTER → 2024-08-06 11:06 | Outpatient (BNV) | payer OTHER, SELFPAY | PROVIDERS: PCP Internal Medicine | DX: R07.9 Chest pain, unspecified (principal); R94.31 Abnormal electrocardiogram [ECG] [EKG]; I49.3 Ventricular premature depolarization | CPT/HCPCS: 93016; 93018; 93350; 93352 ==

== ENCOUNTER 2024-08-22 14:49 | Outpatient (AMB) | payer OTHER, SELFPAY ==
--- NOTE | 2024-08-22 15:19 | MHC.OFFVIS ---
Vital Signs 08/22/24 15:32 Height 4 ft 10 in Weight 145 lb BMI 30.3 BP 144/67 H Blood Pressure Location Lt brachial Position Sitting Pulse 55 Intake Visit Reasons: yearly breast exam Intake Note: Patient is seen in office for yearly breast exam. Pt c/o: states she fell 3 times last year, last fall was in 02/2024 and since has been experiencing some pain in the back and left breast near the axilla, unsure if its breast or related to the fall, at night time uses a pillow under the arm in the left side for support for the back and mention this could also be the cause of her pain, denies any other concerns mm: 10/13/23 (Due Soon) Conference Planning Manager Required: Yes Conference Planning Manager Language: Microbiology Technician Services: Conference Planning Manager Present Conference Planning Manager Name: Dana SAENZ Information Interpreted: non-clinical & clinical Group Work Program Director: Group Work Program Director Present Accompanied by: Self / Same As Patient Allergies Tetanus Vaccines and Toxoid [TETANUS VACCINES AND TOXOID] Allergy (Mild, Verified 08/22/24 15:20) SWELLING, RASH albuterol [ALBUTEROL] Allergy (Unknown, Verified 08/22/24 15:20) HIVES verapamil [VERAPAMIL] Allergy (Unknown, Verified 08/22/24 15:20) UNKNOWN aspirin Adverse Reaction (Severe, Verified 08/22/24 15:20) Abdominal Pain From Tuberculin PPD Leigh Test Allergy (Unknown, Uncoded 08/22/24 15:20) ARM SWELLING TB test Allergy (Unknown, Uncoded 08/22/24 15:20) large local reaction HPI Comments Details: 79-year-old female patient previous patient of Dr. Radford returning for follow-up breast examination. 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 Following radiation therapy she was started on tamoxifen x 5 years and followed by Dr. Bowman. She denies any new breast symptoms on either side. She does have some intermittent pain in the left breast near the incisions. Pain is intermittent seems to increase with activity. She denies any palpable mass, skin changes, nipple discharge, or other associated breast changes. Her most recent mammogram and ultrasound dated 10/13/2023 revealed no mammographic evidence of malignancy and no sonographic evidence of malignancy (BI-RADS 2). Follow-up study in 1 year is recommended. She reports falling several times last year and has some back and rib pain. [facility] Medical History Pulmonary nodules Pneumonitis Costochondritis COVID-19 Gastritis Hyperlipidemia Supraventricular tachycardia Osteopenia Hx of migraine headaches Hx of sinusitis HTN (hypertension) Bronchial asthma Surgical History History of esophagogastroduodenoscopy (EGD) Hx of colonoscopy Status post tubal ligation Family History Mother Heart problem Angina pectoris Daughter Breast cancer Social History Household Members: None Housing: Apartment Are you a primary healthcare administration internship to a significant other at home: No Do you presently have visiting nurse or other home services: Yes Alcohol intake: current Alcohol intake frequency: does not drink Patient Tobacco Use Status: Never used Tobacco service: No Current occupational status: retired Current occupation: rt handed Female Reproductive History Menstrual Age of Menarche: 13 Review of Systems Const Denies chills, Denies fever(s), Denies headache(s) and Denies poor appetite ENT Denies dizziness and Denies headache(s) Card Denies chest pain, Denies rapid heart rate, Denies palpitations and Denies slow heart rate Resp Denies chest congestion, Denies cough, Denies pain on inspiration and Denies wheezing GI Denies abdominal pain, Denies bloating, Denies change in stool character, Denies constipation, Denies diarrhea, Denies nausea, Denies vomiting and Denies hematemesis Musc Denies back pain, Denies arthralgias, Denies joint swelling and Denies numbness Skin/Breast Denies change in pigmentation, Denies erythema and Denies rash Neuro Denies dizziness, Denies headache(s) and Denies numbness Psych Denies anxiety and Denies depression Endo Denies palpitations Armando/Lymph Denies easy bleeding, Denies easy bruising and Denies lymphadenopathy Aller/Immun Denies wheezing Physical Exam Const General: cooperative, comfortable and well developed Nutritional Appearance: well nourished Orientation/consciousness: patient oriented x3 Eyes Sclerae: sclerae normal EOM: EOMs intact bilaterally Neck Neck: Yes normal visual inspection, Yes no lymphadenopathy and Yes trachea midline Chest Other: Left breast with well-healed incision in the upper outer quadrant without redness, discharge, palpable mass, or enlarged lymph nodes. There is tenderness to palpation mainly in the upper outer quadrant. Right breast reveals no skin change, nipple discharge, palpable mass, enlarged lymph node or tenderness. Chest/axillae images: 1. Incision upper portion of the left breast Resp Effort & Inspection: normal respiratory effort, no cough, no respiratory distress and no stridor Cardio Jugular venous distension: no JVD GI Inspection: Yes normal to inspection Skin General skin exam: no rashes or lesions noted and dry skin Rashes: no rashes Neuro Other: Mobility Assessment: 1. 3 meter assessment time (seconds) 7 2. 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 Examination today reveals no suspicious findings in either side with a well-healed incision in the left breast. There continues to be tenderness in the upper outer quadrant of the left breast. No suspicious findings are noted in either breast. She will be due for an annual mammogram next month. An order has been placed for this study. I recommended follow-up clinical breast examination in 1 year. She is welcome to call sooner for any new concerns. Orders: Orders MM screening mammo BI 10/14/24 D05.12 - Intraductal carcinoma in situ of left breast Coding Level of Care Code Est Pt Level 3 (73323) Complex EM visit Add On G2211 Diagnoses Ductal carcinoma in situ (DCIS) of left breast D05.12
[2024-08-22 15:32] VITALS: BP 144/67; PULSE 55; BMI 30.3
--- OUTSIDE RECORDS SUMMARY | 2024-08-22 17:29 | XMS_ITS | Encounter Summary ---
Author Organization [employer] Address [address] [facility] 7t [place] [address] Care Team Providers Care Commercial Drafter Name Role Phone Nicole Bauer MD Primary Care Provider + Reason for Visit * Reason Comments Med Refill Encounter Details Date Type Department Care Team ([facility] Contact Info) Description 05/26/2022 Refill [facility] [address] [place] [address] [phone] Jesus Dixon MD [address] [place], [place] [phone] Social History Tobacco Use Types Packs/Day Years [...] Upcoming Encounters Date Type Department Care Team ([facility] Contact Info) Description 09/27/2024 11:45 AM EDT Office Visit [facility] MED[facility] [address] [place] [address] [phone] Nicole Bauer MD [address] [place] [address] documented as of this encounter Visit Diagnoses Not on filedocumented in this encounter Care Teams Commercial Drafter Relationship Specialty Start Date End Date Nicole Bauer MD [address] [place] [address] PCP - General Family Medicine 11/03/17 documented as of this encounter
== END 2024-08-22 15:43 | disposition home or self-care (01) ==
LOC: HO.HGS 14:50
PROVIDERS: PCP Internal Medicine; Visit Provider Surgery
DX: D05.12 Intraductal carcinoma in situ of left breast (principal)
CPT/HCPCS: 99213; G2211

== ENCOUNTER → 2024-08-22 14:49 | Outpatient (BNVA) | payer OTHER, SELFPAY | PROVIDERS: PCP Internal Medicine; Visit Provider Surgery | DX: N64.4 Mastodynia (principal); Z86.000 Personal history of in-situ neoplasm of breast | CPT/HCPCS: 99212 ==

== ENCOUNTER 2024-10-16 15:49 | Outpatient (REF) | payer OTHER, SELFPAY ==
--- NOTE | ~2024-10-16 | XR_ITS ---
EXAMINATION: XR CHEST CLINICAL INFORMATION: Fever, cough T SOB COMPARISON: CT October 20, 2023 and x-ray September 14, 2023 TECHNIQUE: 2 views of the chest were obtained. FINDINGS: Again seen are focal chronic coarse interstitial markings in the right upper lung zone Lungs are clear otherwise. There is no pleural effusion. Heart size is normal. Mediastinum is within normal limits. XR/XR chest 2V IMPRESSION: No acute disease. Electronically signed by: Alejandro Diaz MD 10/16/2024 04:34 PM EDT
--- OUTSIDE RECORDS SUMMARY | 2024-10-16 16:21 | XMS_ITS | Encounter Summary ---
Author Organization [employer] Address [address] [facility] 7t [place] [address] Care Team Providers Care Joint Cleaning Machine Operator Name Role Phone Nicole Bauer MD Primary Care Provider + Reason for Visit * Reason Comments Med Refill Encounter Details Date Type Department Care Team ([facility] st Contact Info) Description 05/26/2022 Refill [facility] [address] [place] [address] [phone] Jesus Dixon MD [address] [place] [address] [phone] Social History Tobacco Use Types Packs/Day Years [...] as of this encounter Plan of Treatment Not on file documented as of this encounter Visit Diagnoses Not on filedocumented in this encounter Care Teams Joint Cleaning Machine Operator Relationship Specialty Start Date End Date Nicole Bauer MD [address] [place] [address] [phone] PCP - General Family Medicine 11/03/17 documented as of this encounter
--- OUTSIDE RECORDS SUMMARY | 2024-10-16 16:21 | XMS_ITS | Patient Health Record ---
Author Organization [facility] Address [address] [place] [address] Care Team Providers Care Gas Regulator Repairer Name Role Phone Nicole Bauer MD Primary Care Provider Unavail able Mike Alvarez Unavailable [phone] Chandrakant Horton MD Unavailable Unavailable Allergies Allergen (clinical drug ingredient) Drug/Non Drug Allergy documented on EMR Reaction Allergy Type Onset Date Status verapamil Verapamil HCl Unknown Drug Allergy Act magui Tetanus-Diphtheria Toxoids Td Unknown Drug Allergy Active albuterol Albuterol Unknown Drug Allergy Active PPD (uncoded) Unknown Allergy Active Reason For Referral No Information Medications Medication SIG (Take, Route, Frequency, Duration) Notes Start Date End Date Status Loratadine 10 MG 1 tablet Orally Once a day for 30 day(s) Active Lisinopril 10 MG 1 tablet Orally Once a day for 30 day(s) Active hydroCHLOROthiazide 25 MG 1 tablet in th e morning Orally Once a day for 30 day(s) Active Calcitrate Plus D 315-200 MG-UNIT 1 tablet Orally QOD Active Metoprolol Succinate 25 MG 1 capsule Ora lly Once a day for 30 day(s) Active Dexilant 60 MG 1 capsule Orally Onc e a day for 30 day(s) Active Cartia XT 120 MG 1 capsule Orally Onc e a day for 30 day(s) Active Atorvastatin Calcium 20 MG 1 tablet Oral ly Once a day for 30 day(s) Active Immunizations Vaccine Route Administration Date Status Comme nts Influenza Unknown 12/28/2017 Administered Social History Tobacco Use: Social History Observation Description Date Details (start date - stop date) Never Smoker NA - NA Tobacco Use/Smoking Question Answer Notes Patient is a nonsmoker Alcohol Screen Question Answer Notes Did you have a drink containing alcohol in the p ast year? No Points 0 Interpretation Negative Section Notes: Nonsmoker, no sig. alcohol Problems Problem Type SNOMED Code ICD Code Onset Dates Problem Status W/U Status Risk Notes Problem 819858390 Hx of adenomatous colonic polyps (Z86.010) Active confirmed Problem [id number] Esophageal dysphagia (R13.10) Active confirmed Plan Of Treatment No Information Insurance Providers Payer Name Payer Address Payer Phone Subscriber Number Group Number Insured Name Patient Relationship to Insured Coverage Start Date Coverage End Date [facility] [address] [place] [phone] [id number] CHARMAINEKANDYIA Self - patient is the insured Medical (General) History Medical History History ICD Code Denies [place],DM,CVA,Lung disease,renal dise ase Hypertension Breast cancer Asthma Tubular adenomas removed in 2007 by me a nd [place] [address] Strong GERD-EGD with Dr. Strong in 2013 that revealed a hiatal hernia, but no significant esophagitis nor Eubanks's esophagus Surgical History Surgery Date(Month/Year) Lumpectomy, left breast Tubal ligation
== END 2024-10-16 15:50 | disposition home or self-care (01) ==
LOC: HO.HHCX 15:49
PROVIDERS: Visit Provider Internal Medicine
DX: R05.9 Cough, unspecified (principal); R06.02 Shortness of breath; R50.9 Fever, unspecified
CPT/HCPCS: 71046

== ENCOUNTER → 2024-10-16 15:50 | Outpatient (BNV) | payer OTHER, SELFPAY | PROVIDERS: Visit Provider Radiology Diagnostic Radiology | DX: R05.9 Cough, unspecified (principal) | CPT/HCPCS: 71046 ==

== ENCOUNTER 2024-10-22 14:43 | Outpatient (REF) | payer OTHER, SELFPAY ==
--- NOTE | ~2024-10-22 | XR_ITS ---
EXAMINATION: XR CHEST CLINICAL INFORMATION: cotninued chest tigness. COMPARISON: October 16, 2024 TECHNIQUE: 2 views of the chest were obtained. FINDINGS: Subtle coarse interstitial markings are again seen in the right upper lung zone. Lungs are clear otherwise. Heart size is within normal limits. There is atherosclerotic calcification in the aortic knob. There is no blunting of the costophrenic angles. XR/XR chest 2V IMPRESSION: Stable mild chronic changes in the right upper lung zone. Electronically signed by: Alejandro Diaz MD 10/22/2024 03:07 PM EDT
--- OUTSIDE RECORDS SUMMARY | 2024-10-22 15:16 | XMS_ITS | Patient Health Record ---
Author Organization [facility] Address [address] [place] [address] Care Team Providers Care Veterinary Laboratory Technician Name Role Phone Nicole Bauer MD Primary Care Provider Unavail able Mike Alvarez Unavailable [phone] Chandrakant Horton MD Unavailable Unavailable Allergies Allergen [...] Problem Status W/U Status Risk Notes Problem [id number] Hx of adenomatous colonic polyps (Z86.010) Active confirmed Problem [id number] Esophageal dysphagia (R13.10) Active confirmed Plan Of Treatment No Information Insurance Providers Payer Name Payer Address Payer Phone Subscriber Number Group Number Insured Name Patient Relationship to Insured Coverage Start Date Coverage End Date [facility] [address] [place] [phone] [id number] CHARMAINEKANDYIA Self - patient is the insured Medical (General) History Medical History History ICD Code Denies [place],DM,CVA,Lung disease,renal dise ase Hypertension Breast cancer Asthma Tubular adenomas removed in 2007 by me a nd in [address] Strong GERD-EGD with Dr. Strong in 2013 that revealed a hiatal hernia, but no significant esophagitis nor Eubanks's esophagus Surgical History Surgery Date(Month/Year) Lumpectomy, left breast Tubal ligation
--- OUTSIDE RECORDS SUMMARY | 2024-10-22 15:16 | XMS_ITS | Encounter Summary ---
Author Organization [employer] Address [address] [facility] 7t [place] [address] Care Team Providers Care Tool And Die Assembler Name Role Phone Nicole Bauer MD Primary Care Provider + Reason for Visit * Reason Comments Med Refill Encounter Details Date Type Department Care Team ([facility] st Contact Info) Description 05/26/2022 Refill [facility] [address] [place] [address] [phone] Jesus Dixon MD [address] [place] [address] [phone] Social History Tobacco Use Types Packs/Day Years [...] on filedocumented in this encounter Care Teams Tool And Die Assembler Relationship Specialty Start Date End Date Nicole Bauer MD [address] [place] [address] [phone] PCP - General Family Medicine 11/03/17 documented as of this encounter
[2024-10-22 16:16] LABS: Hematocrit 41.3 % (37.0-47.0); Hemoglobin 14.0 g/dl (12.0-16.0); Mean Corpuscular HGB Conc 33.9 g/dl (31.0-35.0); Mean Corpuscular Hemoglobin 30.6 pg (27.0-33.0); Mean Corpuscular Volume 90.4 fL (80.0-98.0); NRBC Abs Auto 0.000 X10*3/uL (0.0-0.012); NRBC Pct Auto 0.0 /100WBC (0.0-0.2); Platelet Count 243 X10*3/uL (160-400); Red Blood Count 4.57 X10*6/uL (4.20-5.50); White Blood Count 9.5 X10*3/uL (4.8-10.8)
[2024-10-22 16:31] LABS: Anion Gap 10 (12-20); Blood Urea Nitrogen 17 mg/dL (9-16); Calcium 9.5 mg/dL (8.4-10.2); Carbon Dioxide 33 mmol/L (22-29); Chloride 102 mmol/L (96-108); Estimated Glomerular Filt Rate 51; Potassium 3.8 mmol/L (3.3-5.1); Sodium 141 mmol/L (135-145)
== END 2024-10-22 14:44 | disposition home or self-care (01) ==
LOC: HO.HHCX 14:43
PROVIDERS: Visit Provider Family Medicine
DX: R07.89 Other chest pain (principal); R53.1 Weakness
CPT/HCPCS: 36415; 71046; 80048; 85027

== ENCOUNTER → 2024-10-22 14:44 | Outpatient (BNV) | payer OTHER, SELFPAY | PROVIDERS: Visit Provider Radiology Diagnostic Radiology | DX: R07.89 Other chest pain (principal) | CPT/HCPCS: 71046 ==

== ENCOUNTER 2024-10-22 15:05 | Outpatient (REF) | payer OTHER, SELFPAY | END 2024-10-22 15:06 | disposition home or self-care (01) | LOC: HO.HHCL 15:05 | PROVIDERS: PCP Family Medicine; Visit Provider Family Medicine | DX: Z13.89 Encounter for screening for other disorder (principal) ==

== ENCOUNTER 2024-11-07 12:18 | Outpatient (REF) | payer OTHER, SELFPAY | END 2024-11-07 12:19 | disposition home or self-care (01) | LOC: HO.MAMMO 12:18 | PROVIDERS: Visit Provider Surgery | DX: Z12.31 Encounter for screening mammogram for malignant neoplasm of breast (principal) | CPT/HCPCS: 77063; 77067 ==

== ENCOUNTER → 2024-11-07 12:30 | Outpatient (BNV) | payer OTHER, SELFPAY | PROVIDERS: Visit Provider Internal Medicine | DX: Z12.31 Encounter for screening mammogram for malignant neoplasm of breast (principal) | CPT/HCPCS: 77063; 77067 ==

== ENCOUNTER 2024-12-18 13:00 | Outpatient (REF) | payer OTHER, SELFPAY ==
--- NOTE | ~2024-12-18 | CT_ITS ---
EXAMINATION: CT CHEST WITHOUT CONTRAST CLINICAL INFORMATION: Pulmonary nodule. COMPARISON: 10/20/2023, 11/18/2022. TECHNIQUE: Multidetector volumetric CT imaging of the chest was done. Axial MIP volume rendering provided. Sagittal and coronal reformatted images were obtained. This CT examination was performed using dose optimization techniques as appropriate, variously including the following: *Automated exposure control *Adjustment of mA and/or kV according to patient size (this includes techniques or standardized protocols for targeted exams where dose is matched to indication/reason for exam; i.e. extremities or head) *Use of iterative reconstruction technique FINDINGS: NODULES: Stable average diameter 4 mm nodule in the right upper lobe medially (series 6, image 37). This demonstrates a pleural tag and may represent an intrapulmonary lymph node. 4 mm nodule in the lateral posterior right upper lobe (series 6, image 51) is unchanged. 4 mm endobronchial nodule in the superior segment left lower lobe (series 6, image 55) is unchanged. There is no new or enlarging pulmonary nodule. LUNGS: Lungs are well inspired bilaterally. Mild emphysema. There are no consolidations or abnormal interstitial opacities. Mild linear scarring is noted in both lower lobes. Mild linear scarring also present in the lateral right upper lobe, also unchanged. Small airways demonstrate minimal bronchiectasis. There is no bronchial wall thickening. No effusion or pneumothorax. MEDIASTINUM: No abnormal lymph nodes or masses. Thyroid is unremarkable. Central airways are patent. Aorta is nonaneurysmal, with moderate degree of calcification. Main pulmonary artery is normal in size. Heart size is top normal. There is no pericardial effusion. CORONARY ARTERY CALCIFICATION: Moderate. AXILLA/CHEST WALL: No masses or abnormal lymph nodes. UPPER ABDOMEN: Limited imaging of the upper abdominal structures demonstrates no abnormality. OSSEOUS STRUCTURES: No suspicious lytic or blastic bone lesion. Mild degenerative changes in the spine. CT/CT chest wo IV con IMPRESSION: 1. A few scattered 4 mm tiny nodules are stable and unchanged from the prior exams. No new or enlarging pulmonary nodule. 2. Mild COPD. No active lung disease. 3. Ancillary findings as discussed in the body of the report. Electronically signed by: Jaylan Gonzalez MD 12/18/2024 01:45 PM EDT
--- OUTSIDE RECORDS SUMMARY | 2024-12-18 14:18 | XMS_ITS | Encounter Summary ---
Author Organization [employer] Address [address] [facility] 7t [place] [address] Care Team Providers Care Program Support Assistant Name Role Phone Nicole Bauer MD Primary Care Provider + Reason for Visit * Reason Comments Med Refill Encounter Details Date Type Department Care Team ([facility] st Contact Info) Description 04/13/2024 Refill [facility] MEDICINE [address] [place], [place] [phone] Nicole Bauer MD [address] [place], [place] [phone] Itchy scalp Social History Tobacco Use Types [...] documented as of this encounter Care Teams Program Support Assistant Relationship Specialty Start Date End Date Nicole Bauer MD [address] [place] [phone] PCP - General Family Medicine 11/03/17 documented as of this encounter
--- OUTSIDE RECORDS SUMMARY | 2024-12-18 14:18 | XMS_ITS | Clinical Summary ---
Author Organization [employer] Address [address] [place] [address] [address] [place] [address] Care Team Providers Care Box Cutter Name Role Phone Nicole Bauer MD [...] BY MOUTH EVERY DAY 02/24/20 22 Active Nebulizer misc Use as directed 1 each 06/19/19 24 Active Fiber-Lax 625 MG tablet Take 2 tablets by mouth Once per day. 06/19/19 24 Active betamethasone valerate (Valisone) 0.1 % cream Apply topically if needed in the morning and at bedtime (dryness). 45 g 2 11/02/19 24 Active cyanocobalamin (Vitamin B-12) 1000 MCG tablet Take 1,000 mcg by mouth Once per day. Active Ascorbic Acid (vitamin C) 250 MG tablet Take 250 mg by mouth Once per day. Active fexofenadine (Suzanne) 180 MG tabletIndications: Allergy, sequela TAKE 1 TABLET BY MOUTH EVERYDAY AT NOON 90 tablet 2 04/23/19 25 Active losartan (Cozaar) 50 MG tablet Take 1 tablet (50 mg) by mouth Once per day. 30 tablet 11 04/26/19 25 Active atorvastatin (Lipitor) 20 MG tablet TAKE 1 TABLET BY MOUTH AT BEDTIME 90 tablet 3 06/13/19 25 Active DULoxetine (Cymbalta) [address] capsule Take 1 capsule (30 mg) by mouth Once per day. Do not crush or chew. 30 capsule 06/28/19 25 Active fluticasone (Flovent) 220 MCG/ACT inhaler Inhale 1 puff in the morning and at bedtime. Rinse mouth with water after use to reduce aftertaste and incidence of candidiasis. Do not swallow. 12 g 06/28/19 25 026 Active Diclofenac Sodium 1 % gelIndications:Deg eneration of intervertebral disc of lumbar region with discogenic back pain Apply topically to affected area twice a day as needed for pain 150 g 09/28/19 25 Active Emollient (CeraVe Moisturizing) cream Mix with triamcinolone cream and apply daily to affected area 340 mL 09/28/19 25 Active triamcinolone (Kenalog) 0.1 % cream Mix with moisturizing cream and apply daily to affected area 80 g 09/28/19 25 Active gabapentin (Neurontin) 100 MG capsuleIndications :Itchy scalp TAKE 1 CAPSULE BY MOUTH AT BEDTIME 30 capsule 2 10/11/19 25 Active levalbuterol (Xopenex) 0.63 MG/3ML nebulizer solutionIndication s:Moderate persistent asthma without complication Take 1 ampule by nebulization every 6 (six) hours if needed for wheezing. 72 mL 10/17/19 25 026 Active hydroCHLOROthiazid e (HYDRODiuril) 25 MG tablet Take 1 tablet (25 mg) by mouth in the morning. 90 tablet 3 08/22/20 25 Active Acetaminophen Extra Strength 500 MG tabletIndications: Degeneration of intervertebral disc of lumbar region with discogenic back pain,Chronic midline low back pain, unspecified whether sciatica present TAKE 1 TABLET BY MOUTH EVERY 6 HOURS NEEDED FOR PAIN OR FEVER 30 tablet 1 11/14/19 25 Active Active Problems Problem Noted Date Diagnosed Date Mixed stress and urge urinary incontinence 06/27 Assessment & Plan (09/27/2024 1:58 PM EDT): Improved, continue duloxetine and Worple labs as needed Assessment & Plan (09/22/2024 2:49 PM EDT): Encouraged re Norbert's exercises Will start duloxetine as she has associated MDD/anxiety sxs\ FU in 3mo Dysuria 04/26/2024 Assessment & Plan (04/26/2024 2:19 PM EST): UA within normal limits. Advised to drink cranberry juice. Take Pyridium PRN Re consult PRN. Bilateral primary osteoarthritis of hip 11/02/19 24 [...] results Use tylenol or diclofenac gel prn Delayed healing of traumatic wound 12/13/2022 Assessment & Plan (12/13/2022 4:54 PM EDT): On right ear lobe Refer to derm Lumbar degenerative disc disease 08/04/2022 Assessment & Plan (09/27/2024 1:59 PM EDT): Referred to PT to improve hip, lower back and leg strength, fall reduction and gait retraining. Continue Tylenol as needed and diclofenac gel as needed Follow-up in 3 months Assessment & Plan (09/22/2024 2:50 PM EDT): Doing well on Tylenol prn Rx Diclofenac gel to use prn as well in place of tylenol Assessment & Plan (09/10/2023 5:49 PM EDT): Refer to PT again Tinea 08/04/2022 Assessment & Plan (08/04/2022 12:26 PM EDT): prescription for Lotrisone cream BID At high risk for injury related to fall 04/11/19 Assessment & Plan (04/11/2022 2:49 PM EST): Pt with repeated falls due to multiple sites of OA. -Needs ambulatory assistance. -Continue home care assistance for most ADLS (see MS SQL DEVELOPER description). Cervical paraspinal muscle spasm 04/11/2022 Assessment [...] constipation 03/22 Chronic low back pain 03/22/2022 Assessment & Plan (09/27/2024 1:59 PM EDT): Secondary to DJD of the spine Flexural atopic dermatitis 03/22/2022 Intermittent stridor 03/22/2022 Moderate persistent asthma without complication 03/22/2022 Assessment & Plan (09/27/2024 2:00 PM EDT): Doing better on fluticasone twice daily, continue Xopenex as needed and follow- up with plywood and veneer repairer Assessment & Plan (09/22/2024 2:51 PM EDT): Off Arnuity, rx for fluticasone bid sent to pharmacy Continue Xopenex prn, fu with pulmonology Assessment & Plan (04/26/2024 2:17 PM EST): [...] EDT): continue albuterol Prn and FU with plywood and veneer repairer Assessment & Plan (06/13/2022 6:06 PM EDT): [...] FU with pulmonlogist Osteopenia 03/22/2022 Palpitations 03/22/2022 Primary osteoarthritis of both knees 03/22/2022 Assessment & Plan (12/13/2022 12:42 PM EDT): Ambulation with a cane, discussed the risk of falls refer to PT Tendinitis of shoulder 03/22/2022 Assessment & Plan [...] 3 months. 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 See left mastalgia above Eczema 12/06/2017 Benign hypertension 08/08/2017 Assessment & Plan (09/22/2024 2:48 PM EDT): Firly controlled. Compliant w/meds Continue losartan hydrochlorothiazide and metoprolol Counseled re low salt diet/increase moderate physical activity. Check home BP BIW and prn CP/HU/GOMEZ Non smoking patient. FU in 6m Assessment & Plan (04/26/2024 2:18 PM EST): Controlled, unclear if she doesn't tolerate Lisinopril (cough). DC Lisinopril and start Losartan. FU in 4 weeks. Chronic constipation 08/08/2017 Dermatitis 08/08/2017 Assessment & Plan (09/27/2024 2:00 PM EDT): On lower back Refill for triamcinolone cream +CeraVe cream to apply on affected area once per day Assessment & Plan (09/08/2023 1:02 PM EDT): [...] prn FU w/ pulmonolgy in a month Leg weakness, bilateral 01/09/202309/17 Assessment & Plan (01/09/2023 2:25 PM EDT): Seen recently for this reason, no change in sxs. Patient to call PT to schedule appt Influenza B 12/16/2022 11/02/2023 Pneumonitis 12/13/2022 11/02/2023 Assessment & Plan (12/13/2022 12:39 PM EDT): R/u ILD FU with pulmonology Reminded to use Flovent BID once per day Cough in adult 12/13/2022 11/02/2023 Contusion of rib on right side 08/04/2022 09/27/2024 Assessment & Plan (08/04/2022 12:25 PM EDT): recommended to use diclofenac gel BID PRN pain + Tylenol I gave her prescription for incentive spirometer I gave her a peak flow meter to use albuterol inhaler if peak flow is below 250 Concussion without loss of consciousness 03/28/2022 03/28/2022 COVID-19 03/22/2022 09/27/2024 Dysarthria 03/22/2022 09/27/2024 Headache 03/22/2022 09/27/2024 Orthopnea 03/22/2022 11/02/2023 Pain in throat 03/22/2022 09/27/2024 Recurrent acute sinusitis 03/22/2022 Streptococcal sore throat 03/22/2022 Candidiasis 03/26/2018 09/27/2024 Indigestion 12/06/2017 09/27/2024 Mild intermittent asthma 08/08/2017 Assessment & Plan (04/11/2022 3:04 PM EST): No recent exacerbation. Doing well with Flovent 220 BID. -Refer to pulmonology. -FU if abnormal CT scan. Encounters Date Type Department Care Team Description 12/18/2024 Orders Only [facility] External Provider, [facility] 11/09/2024 Refill [facility] [address] [place] [phone] Nicole Bauer MD Degeneration of intervertebral disc of lumbar region with discogenic back pain; Chronic midline low back pain, unspecified whether sciatica present 11/08/2024 Refill [facility] [address] [place] [phone] Nicole Bauer MD 10/22/2024 2:00 PM EDT [facility] [address] [address] Elma Diaz MD Weakness (Primary Dx); Chest tightness 10/22/2024 Results Follow-Up [facility] [address] [address] Elma Diaz MD XR Chest 2 Views 10/16/2024 3:20 PM EDT [facility] [address] [address] Nimisha Brown MD Chest heaviness (Primary Dx); Cough in adult patient; Acute bronchitis, unspecified organism; Moderate persistent asthma without complication 10/16/2024 Telephone [facility] [address] [place] [phone] Nicole Bauer MD ER Follow-up 10/11/[address] [phone] Nicole Bauer MD Nurse Triage 10/09/[address] [phone] Nicole Bauer MD Itchy scalp 09/27/2024 11:45 AM EDT Office Visit [address] [phone] Nicole Bauer MD Mixed stress and urge urinary incontinence (Primary Dx); Moderate persistent asthma without complication; Degeneration of intervertebral disc of lumbar region with discogenic back pain; Dermatitis; Chronic midline low back pain, unspecified whether sciatica present 09/27/2024 Travel 09/18/2024 Patient Outreach [address] [phone] Nicole Bauer MD Pre-visit Planning (SDOH screening negative and tobacco screening negative) from Last 3 Months Immunizations Immunization Administration [...] Answer Date Recorded Patient Health Questionnaire-9 Score 2 09/27/2024 Patient Health Questionnaire-9 Score 2 09/27/2024 Last PHQ-9: Questionnaire Data Not on file 0 09/27/2024 Housing Stability Answer Date Recorded What is your housing situation today? I have noni jacome 09/18/[address] you li ve. Do you have problems with any of the following? None of the above 09/18/2024 Food Insecurity Answer Date Recorded Within the past 12 months, y ou worried that your food would run out before you got money to buy more: Never True 09/18/2024 Within the past 12 months,th e food you bought just didn't last and you didn't have enough money to get more: Never True 04/2024 Transportation Answer Date Recorded In the past 12 months, has l ack of transportation kept you from medical appts, meetings, work or from getting things needed for daily living? No 09/18/2024 Utilities Answer Date Recorded In the past 12 months, has t he electric, gas, oil or water company threatened to shut off services in your home? No 09/18/2024 Depression Answer Date Recorded Patient Health Questionnaire-2 Score 0 09/27/2024 Internet Access Answer Date Recorded Internet Access Q1 Yes 09/18/2024 Internet Access Q2 Not on file 09/18/2024 Comments No Sex and Gender Information Value Date Recorded Sex Assigned at Female 01/17/2022 10:14 AM EDT Legal Sex Female 10:14 AM EDT Gender Identity Female 01/17/2022 10:14 AM EDT Sexual Orientation Choose not to disclose 10/31/ 2022 10:14 AM EDT Last Filed Vital Signs Vital Sign Reading Time Taken Comments Blood Pressure 135/78 10/22/2024 1:23 PM EDT Pulse 75 10/22/2024 1:23 PM EDT Temperature 35.7 C (96.2 F) 10/22/2024 1:23 PM EDT Respiratory Rate 18 10/22/2024 1:23 PM EDT Oxygen Saturation 98% 10/22/2024 1:23 PM EDT Inhaled Oxygen Concentration - - Weight 64.4 kg (142 lb) 10/16/2024 3:06 PM EDT Height 142.9 cm (4' 8.25 ) 09/27/2024 12:21 PM E DT Body Mass Index 31.55 09/27/2024 12:21 PM EDT Plan of Treatment Health Maintenance Due Date Last Done Comments Alcohol/Substance Use Screening 1957 Zoster Vaccines (3 of 3) 07/18/2024 05/23/2024, 06/18 Mammogram 10/12/2024 10/13/2023, 01/18, 02/01/2023, Additional history exists COVID-19 Vaccine (3 - season) 2024 06/18/2021, 05/27/2021 Influenza Vaccine (#1) 2024 , 12/13/2022, 12/09/2021, Additional history exists DTaP/Tdap/Td Vaccines (2 - Td or Tdap) 07/09/2025 07/10/2015, 06/18/2005, 07/15/1996 SDOH Screening 09/18/2025 09/18/2024 Depression Screening 09/27/2025 09/27/2024, 09/28/19 25 Tobacco Screening 10/16/2025 10/16/2024 Lipid Panel 11/02/2027 11/01/2022, 01/23/2020 Pneumococcal Vaccine: 50+ Years Completed 08/01/2016, 02/25/2016, 11/12/2014, Additional history exists RSV Patients and Patients Aged 60 years or older Completed 06/27/2023 Hepatitis C Screening Completed 09/04/2023 HIB Vaccines Aged Out No longer eligi [...] Procedure Name Priority Date/Time Associated Diagnosis Comments CT CHEST WO CONTRAST Routine 12/18/2024 1:05 PM EDT BASIC METABOLIC PANEL Routine 10/22/2024 3:10 PM EDT Weakness CBC Routine 10/22/2024 3:10 PM EDT Weakness ECG 12-LEAD Routine 10/22/2024 2:25 PM EDT Chest tightness XR CHEST 2 VIEWS Routine 10/22/2024 2:10 PM EDT Chest tightness ECG 12-LEAD Routine 10/16/2024 5:00 PM EDT Chest heaviness XR CHEST 2 VIEWS Routine 10/16/2024 3:35 PM EDT Cough in adult patient POCT INFLUENZA A (ID NOW RAPID MOLECULAR) Routine 10/16/2024 3:10 PM EDT Cough in adult patient POCT RAPID COVID ANTIGEN Routine 10/16/2024 3:09 PM EDT Cough in adult patient POCT INFLUENZA B (ID NOW RAPID MOLECULAR) Routine 10/16/2024 3:09 PM EDT Cough in adult patient BI MAMMOGRAM SCREENING TOMOSYNTHESIS BILATERAL Routine 10/13/2023 12:55 PM EDT HEPATITIS C AB W/REFL TO HCV RNA, QN, PCR Routine 09/04/2023 2:55 PM EDT Chronic fatigue LIPID PANEL WITH REFLEX TO DIRECT LDL Routine 11/01/2022 11:32 AM EDT Benign hypertension from Last 3 Months or Most Recently Relevant to Health Maintenance Results * CT Chest w/o Contrast (12/18/2024 1:05 PM EDT) Anatomical Region Laterality Modality Body, Chest Computed Tomogra phy 12/18/2024 1:05 PM EDT Narrative 12/18/2024 1:48 PM EDT [place] [address] CT Scan Report Signed Patient: Eden Mckinney MR#: [id number] : 1945 Acct:[id number] Age/Sex: 79 / F ADM Date: 12/18/24 Loc: HO.CT Attending Dr: Bam Chamorro MD Ordering Physician: Bam Chamorro MD Date of Service: 12/18/24 Procedure(s): CT chest wo IV con Accession Number(s): [id number] cc: Elma Diaz MD; Bam Chamorro MD Report Number: [id number]: Total DLP = 145.00 mGy-cm Reason for Exam: R91.8 - Other nonspecific abnormal finding of lung field EXAMINATION: CT CHEST WITHOUT CONTRAST CLINICAL INFORMATION: Pulmonary nodule. COMPARISON: 10/20/2023, 11/18/2022. TECHNIQUE: Multidetector volumetric CT imaging of the chest was done. Axial MIP volume rendering provided. Sagittal and coronal reformatted images were obtained. This CT examination was performed using dose optimization techniques as appropriate, variously including the following: *Automated exposure control *Adjustment of mA and/or kV according to patient size (this includes techniques or standardized protocols for targeted exams where dose is matched to indication/reason for exam; i.e. extremities or head) *Use of iterative reconstruction technique FINDINGS: NODULES: Stable average diameter 4 mm nodule in the right upper lobe medially (series 6, image 37). This demonstrates a pleural tag and may represent an intrapulmonary lymph node. 4 mm nodule in the lateral posterior right upper lobe (series 6, image 51) is unchanged. 4 mm endobronchial nodule in the superior segment left lower lobe (series 6, image 55) is unchanged. There is no new or enlarging pulmonary nodule. LUNGS: Lungs are well inspired bilaterally. Mild emphysema. There are no consolidations or abnormal interstitial opacities. Mild linear scarring is noted in both lower lobes. Mild linear scarring also present in the lateral right upper lobe, also unchanged. Small airways demonstrate minimal bronchiectasis. There is no bronchial wall thickening. No effusion or pneumothorax. MEDIASTINUM: No abnormal lymph nodes or masses. Thyroid is unremarkable. Central airways are patent. Aorta is nonaneurysmal, with moderate degree of calcification. Main pulmonary artery is normal in size. Heart size is top normal. There is no pericardial effusion. CORONARY ARTERY CALCIFICATION: Moderate. AXILLA/CHEST WALL: No masses or abnormal lymph nodes. UPPER ABDOMEN: Limited imaging of the upper abdominal structures demonstrates no abnormality. OSSEOUS STRUCTURES: No suspicious lytic or blastic bone lesion. Mild degenerative changes in the spine. CT/CT chest wo IV con IMPRESSION: 1. A few scattered 4 mm tiny nodules are stable and unchanged from the prior exams. No new or enlarging pulmonary nodule. 2. Mild COPD. No active lung disease. 3. Ancillary findings as discussed in the body of the report. Electronically signed by: Jaylan Gonzalez MD 12/18/2024 01:45 PM EDT Dictated By: Jaylan Gonzalez MD Signed By: <Electronically signed by Jaylan Gonzalez MD in OV> 12/18/24 1345 DD/ 1305 TD/TT: 12/18/24 1327 Principal Android Developer: Procedure Note Donotuseinterpreter, Image - 12/18/[address] [address] [address] Scan Report Signed Patient: Eden MckinneyMR#: [id number] : 5Acct:[id number] Age/Sex: 79 / FADM Date: 12/18/24 Loc: HO.CT Attending Dr: Bam Chamorro MD Ordering Physician: Bam Chamorro MD Date of Service: 12/18/24 Procedure(s): CT chest wo IV con Accession Number(s): [id number] cc: Elma Diaz MD; Bam Chamorro MD Report Number: [id number]: Total DLP = 145.00 mGy-cm Reason for Exam: R91.8 - Other nonspecific abnormal finding of lung field EXAMINATION: CT CHEST WITHOUT CONTRAST CLINICAL INFORMATION: Pulmonary nodule. COMPARISON: 10/20/2023, 11/18/2022. TECHNIQUE: Multidetector volumetric CT imaging of the chest was done. Axial MIP volume rendering provided. Sagittal and coronal reformatted images were obtained. This CT examination was performed using dose optimization techniques as appropriate, variously including the following: *Automated exposure control *Adjustment of mA and/or kV according to patient size (this includes techniques or standardized protocols for targeted exams where dose is matched to indication/reason for exam; i.e. extremities or head) *Use of iterative reconstruction technique FINDINGS: NODULES: Stable average diameter 4 mm nodule in the right upper lobe medially (series 6, image 37). This demonstrates a pleural tag and may represent an intrapulmonary lymph node. 4 mm nodule in the lateral posterior right upper lobe (series 6, image 51) is unchanged. 4 mm endobronchial nodule in the superior segment left lower lobe (series 6, image 55) is unchanged. There is no new or enlarging pulmonary nodule. LUNGS: Lungs are well inspired bilaterally. Mild emphysema. There are no consolidations or abnormal interstitial opacities. Mild linear scarring is noted in both lower lobes. Mild linear scarring also present in the lateral right upper lobe, also unchanged. Small airways demonstrate minimal bronchiectasis. There is no bronchial wall thickening. No effusion or pneumothorax. MEDIASTINUM: No abnormal lymph nodes or masses. Thyroid is unremarkable. Central airways are patent. Aorta is nonaneurysmal, with moderate degree of calcification. Main pulmonary artery is normal in size. Heart size is top normal. There is no pericardial effusion. CORONARY ARTERY CALCIFICATION: Moderate. AXILLA/CHEST WALL: No masses or abnormal lymph nodes. UPPER ABDOMEN: Limited imaging of the upper abdominal structures demonstrates no abnormality. OSSEOUS STRUCTURES: No suspicious lytic or blastic bone lesion. Mild degenerative changes in the spine. CT/CT chest wo IV con IMPRESSION: 1. A few scattered 4 mm tiny nodules are stable and unchanged from the prior exams. No new or enlarging pulmonary nodule. 2. Mild COPD. No active lung disease. 3. Ancillary findings as discussed in the body of the report. Electronically signed by: Jaylan Gonzalez MD 12/18/2024 01:45 PM EDT RP Dictated By: Jaylan Gonzalez MD Signed By: <Electronically signed by Jaylan Gonzalez MD in OV> 12/18/24 1345 DD/ 1305 TD/TT: 12/18/24 1327 Principal Android Developer: [facility] External Provider IMG CT PROCEDURES Final Result * CBC (10/22/2024 3:10 PM EDT) White Blood Count 9.5 4.8 - 10.8 X10*3/uL [facility] Red Blood Count 4.57 4.20 - 5.50 X10*6/uL [facility] Hemoglobin 14.0 12.0 - 16.0 g/dl [facility] Hematocrit 41.3 37.0 - 47.0 % [facility] Mean Corpuscular Volume 90.4 80.0 - 98.0 fL [facility] Mean Corpuscular Hemoglobin 30.6 27.0 - 33.0 pg [facility] Mean Corpuscular HGB Conc 33.9 31.0 - 35.0 g/dl [facility] Red Cell Distribution Width 12.7 11.0 - 16.0 % [facility] Platelet Count 243 160 - 400 X10*3/uL [facility] Mean Platelet Volume 10.9 9.4 - 12.3 fL [facility] NRBC Pct Auto 0.0 0.0 - 0.2 /100WBC [facility] NRBC Abs Auto 0.000 0.0 - 0.012 X10*3/uL [facility] Blood Venous blood specimen / Unknown 10/22/2024 3:10 PM EDT 10/22/2024 4:03 PM EDT Elma Diaz MD LAB BLOOD ORDERABLES Final Result Performing Organization Address [facility] Co de Phone Number [facility] [address] [place] [address] [phone] * (ABNORMAL) Basic Metabolic Panel (10/22/2024 3:10 PM EDT) Sodium 141 135 - 145 mmol/L [facility] Potassium 3.8 3.3 - 5.1 mmol/L [facility] Chloride 102 96 - 108 mmol/L [facility] Carbon Dioxide 33(H) 22 - 29 mmol/L [facility] Anion Gap 10(L) 12 - 20 [facility] Urea Nitrogen (BUN) 17(H) 9 - 16 mg/dL [facility] Creatinine, Serum 1.05 0.5 - 1.4 mg/dL [facility] Estimated Glomerular Filt Rate 51 [facility] Comment:Chronic Kidney Disea se: Estimated GFR < 60 mL/min/1.36c4Fdyizu Kidney Disease: Estimated GFR < 15 mL/min/1.73m2 Glucose 98 60 - 115 mg/dL [facility] Calcium 9.5 8.4 - 10.2 mg/dL [facility] Blood Venous blood specimen / Unknown 10/22/2024 3:10 PM EDT 10/22/2024 4:03 PM EDT us Elma Diaz MD LAB BLOOD ORDERABLES Final Result Performing Organization Address City/[facility]/ZIP Co de Phone Number [facility] [address] [place] [address] [phone] * ECG 12 lead (10/22/2024 2:25 PM EDT) Only the most recent of2 resultswithin the time period is included. Elma Figueroa MD - 10/22/2024 2:25 PM EDT NSR 59 bpm, no evidence of ischemia or past infarction. Elma Diaz MD ECG ORDERABLES Final Resu lt * XR Chest 2 Views (10/22/2024 2:10 PM EDT) Only the most recent of2 resultswithin the time period is included. Anatomical Region Laterality Modality Chest Radiographic Grace ging 10/22/2024 2:10 PM EDT Narrative 10/22/2024 3:10 PM EDT [address] [address] XRay Report Signed Patient: Eden Mckinney MR#: [id number] : 1945 Acct:[id number] Age/Sex: 79 / F ADM Date: 10/22/24 Loc: HO.HHCX Attending Dr: Elma Diaz MD Ordering Physician: Elma Diaz MD Date of Service: 10/22/24 Procedure(s): XR chest 2V Accession Number(s): [id number] cc: Elma Diaz MD EXAMINATION: XR CHEST CLINICAL INFORMATION: cotninued chest tigness. COMPARISON: October 16, 2024 TECHNIQUE: 2 views of the chest were obtained. FINDINGS: Subtle coarse interstitial markings are again seen in the right upper lung zone. Lungs are clear otherwise. Heart size is within normal limits. There is atherosclerotic calcification in the aortic knob. There is no blunting of the costophrenic angles. XR/XR chest 2V IMPRESSION: Stable mild chronic changes in the right upper lung zone. Electronically signed by: Alejandro Diaz MD 10/22/2024 03:07 PM EDT Dictated By: Alejandro Diaz MD Signed By: <Electronically signed by Alejandro Diaz MD in OV> 10/22/24 1507 DD/ 1410 TD/TT: 10/22/24 1410 Principal Android Developer: Procedure Note Donotuseinterpreter, Image - 10/22/[address] [address] XRay Report Signed Patient: Eden MckinneyMR#: [id number] : 5Acct:[id number] Age/Sex: 79 / FADM Date: 10/22/24 Loc: HO.HHCX Attending Dr: Elma Diaz MD Ordering Physician: Elma Diaz MD Date of Service: 10/22/24 Procedure(s): XR chest 2V Accession Number(s): [id number] cc: Elma Diaz MD EXAMINATION: XR CHEST CLINICAL INFORMATION: cotninued chest tigness. COMPARISON: October 16, 2024 TECHNIQUE: 2 views of the chest were obtained. FINDINGS: Subtle coarse interstitial markings are again seen in the right upper lung zone. Lungs are clear otherwise. Heart size is within normal limits. There is atherosclerotic calcification in the aortic knob. There is no blunting of the costophrenic angles. XR/XR chest 2V IMPRESSION: Stable mild chronic changes in the right upper lung zone. Electronically signed by: Alejandro Diaz MD 10/22/2024 03:07 PM EDT Dictated By: Alejandro Diaz MD Signed By: <Electronically signed by Alejandro Diaz MD in OV> 10/22/24 1507 DD/ 1410 TD/TT: 10/22/24 1410 Principal Android Developer: Elma Diaz MD IMG XR PROCEDURES Edited R esult - Final * Influenza A (ID NOW Rapid Molecular) (10/16/2024 3:10 PM EDT) Influenza A Negative Negative, Indeterminate [facility] Swab 10/16/2024 3:10 PM EDT Nimisha Brown MD POINT OF CARE TEST ENTER/EDIT ORDERABLES Final Result [facility] [address] [place] [phone] [phone] * Influenza B (ID NOW Rapid Molecular) (10/16/2024 3:09 PM EDT) Influenza B Negative Negative, Indeterminate [facility] Swab 10/16/2024 3:09 PM EDT Nimisha Brown MD POINT OF CARE TEST ENTER/EDIT ORDERABLES Final Result [facility] [address] [place] [phone] * POCT Rapid COVID Ag (10/16/2024 3:09 PM EDT) Rapid COVID Ag Negative Swab 10/16/2024 3:09 PM EDT Nimisha Brown MD POINT OF CARE TEST ENTER/EDIT ORDERABLES Final Result * BI Mammogram Screening Tomosynthesis Bilateral (10/13/2023 12:55 PM EDT) Anatomical Region Laterality Modality Breast Bilateral Mammography 10/13/2023 12:5 5 PM EDT Narrative 10/13/2023 2:18 PM EDT [facility] [address] [place] [address] Mammography Report Signed Patient: Eden Mckinney MR#: [id number] : 1945 Acct:[id number] Age/Sex: 78 / F ADM Date: 10/13/23 Loc: HO.MAMMO Attending Dr: Nicole Bauer MD Ordering Physician: Nicole Bauer MD Results: 2Be nign Findings Date of Service: 10/13/23 Follow Up: 1 Year From Orig ina Mammogram Procedure(s): MM tomosynthesis screening BI Accession Number(s): [id number] cc: Nicole Bauer MD EXAMINATION: MM SCREENING [...] in OV> 10/13/23 1414 DD/ 1255 TD/TT: Principal Android Developer: Procedure Note Donotuseinterpreter, Image - 10/13/2023 [place] [facility] [address] [place] [address] Mammography Report Signed Patient: Eden MckinneyMR#: [id number] : 5Acct:[id number] Age/Sex: 78 / FADM Date: 10/13/23 Loc: KAYLEE Attending Dr: Nicole Bauer MD Ordering Physician: Nicole Bauer MDResults: 2Be nign Findings Date of Service: 10/13/23Follow Up: 1 Year From Orig inal Mammogram Procedure(s): MM tomosynthesis screening BI Accession Number(s): [id number] cc: Nicole Bauer MD EXAMINATION: MM SCREENING [...] in OV> 10/13/23 1414 DD/ 1255 TD/TT: Principal Android Developer: us Nicole Bauer MD IMG BI PROCEDURES Final Result * Hepatitis C Antibody with Reflex to HCV, RNA, Quantitative, Real-Time PCR (09/04/2023 2:55 PM EDT) Hepatitis C Antibody Nonreactive Nonreactive [facility] Comment:Antibodies to HCV no t detected; does not exclude early acuteHCV infection. Blood Venous blood specimen / Unknown 09/04/2023 2:55 PM EDT 09/04/2023 3:56 PM EDT us Jorge A Quinteros MD LAB BLOOD ORDERABLES Final Result [facility] [address] [place] [phone] * Lipid Panel with Reflex to Direct LDL (11/01/2022 11:32 AM EDT) Triglycerides 117 mg/dL [facility] Comment:Desirable Triglyceri de: less than 150 mg/dLBorderline High Triglyceride 150-199 mg/dLHigh Triglyceride: 200-499 mg/dLVery High Triglyceride: greater than or equal to 5OO mg/dL Cholesterol 155 mg/dL [facility] Comment:Desirable Cholestero l: less than 200 mg/dLBorderline High Cholesterol: 200-239 mg/dLHigh Cholesterol: greater than 239 mg/dL LDL Cholesterol Calculated 92 mg/dl [facility] Comment:Desirable LDL: less than 100 mg/dLNear Optimal/Above Optimal LDL: 110- 129 mg/dLBorderline High LDL: 130-159 mg/dLHigh LDL: 160-189 mg/dLVery High LDL: greater than or equal to 190 mg/dL HDL Cholesterol 40 mg/dL [facility] Comment:Desirable HDL: great er than 40 mg/dL Note: This HDL assay may give artificially low results in patients with liver disease. Blood 11/01/2022 11:3 2 AM EDT 11/01/2022 1:31 PM EDT us Nicole Bauer MD LAB BLOOD ORDERABLES Fin al Result [facility] [address] [place] [address] [phone] from Last 3 Months or Most Recently Relevant to Health Maintenance Insurance [employer] (HMO D-SNP) JESSA JIMENEZ [id number] Care Teams Box Cutter Relationship Specialty Start Date End Date Nicole Bauer MD [address] [place] [phone] PCP - General Family Medicine 11/03/17
--- OUTSIDE RECORDS SUMMARY | 2024-12-18 14:18 | XMS_ITS | Encounter Summary ---
Author Organization [employer] Address [address] [facility] 7t [place] [address] Care Team Providers Care Track Walker Name Role Phone Nicole Bauer MD Primary Care Provider + Reason for Visit * Reason Comments Med Refill Encounter Details Date Type Department Care Team ([facility] st Contact Info) Description 05/26/2022 Refill [facility] [address] [place] [address] [phone] Jesus Dixon MD [address] [place] [address] [phone] Social History Tobacco Use Types Packs/Day Years [...] on filedocumented in this encounter Care Teams Track Walker Relationship Specialty Start Date End Date Nicole Bauer MD [address] [place] [address] [phone] PCP - General Family Medicine 11/03/17 documented as of this encounter
--- OUTSIDE RECORDS SUMMARY | 2024-12-18 14:18 | XMS_ITS | Encounter Summary ---
Author Organization [employer] Address [address] [facility] 7t [place] [address] Care Team Providers Care Driver Retraining Instructor Name Role Phone Nicole Bauer MD Primary Care Provider + Reason for Visit * Reason Comments Med Refill Encounter Details Date Type Department Care Team ([facility] st Contact Info) Description 07/06/2024 Refill [facility] [address] [place], [place] [phone] Nicole Bauer MD [address] [place], [place] [phone] Itchy scalp Social History Tobacco Use Types [...] documented as of this encounter Care Teams Driver Retraining Instructor Relationship Specialty Start Date End Date Nicole Bauer MD [address] [place] [phone] PCP - General Family Medicine 11/03/17 documented as of this encounter
--- OUTSIDE RECORDS SUMMARY | 2024-12-18 14:18 | XMS_ITS | Encounter Summary ---
Author Organization [employer] Address [address] [facility] [address] 7t [place] [address] Care Team Providers Care Wet Mix Operator Name Role Phone Nicole Bauer MD Primary Care Provider + Reason for Visit * Reason Comments Med Refill Encounter Details Date Type Department Care Team ([facility] st Contact Info) Description 04/14/2023 Refill [facility] [address] [place], [place] [phone] Carly Garner MD [address] [place], [place] [phone] Itchy scalp Social History Tobacco Use Types [...] disorder documented in this encounter Care Teams Wet Mix Operator Relationship Specialty Start Date End Date Nicole Bauer MD [address] [place] [phone] PCP - General Family Medicine 11/03/17 documented as of this encounter
--- OUTSIDE RECORDS SUMMARY | 2024-12-18 14:18 | XMS_ITS | Encounter Summary ---
Author Organization [employer] Address [address] 7[address] [place] [address] Care Team Providers Care Business Representative Name Role Phone Nicole Bauer MD Primary Care Provider + Encounter Details Date Type Department Care Team (Late st Contact Info) Description 03/03/2023 Orders Only [facility] [address] [place], [place] [phone] Jayna Chang MD [address] [place], [place] [phone] Social History Tobacco Use Types Packs/Day Years [...] on filedocumented in this encounter Care Teams Business Representative Relationship Specialty Start Date End Date Nicole Bauer MD [address] [place] [phone] PCP - General Family Medicine 11/03/17 documented as of this encounter
--- OUTSIDE RECORDS SUMMARY | 2024-12-18 14:18 | XMS_ITS | Encounter Summary ---
Author Organization [employer] Address [address] [facility] [address] 7[address] [place] [address] Care Team Providers Care Third Hand Name Role Phone Nicole Bauer MD Primary Care Provider + Encounter Details Date Type Department Care Team ([facility] st Contact Info) Description 12/18/2024 Orders Only [facility] External Provider, [facility] Social History Tobacco Use Types Packs/Day Years [...] on file documented as of this encounter Procedures Procedure Name Priority Date/Time Associated Diagnosis Comments CT CHEST WO CONTRAST Routine 12/18/2024 1:05 PM EDT documented in this encounter Results * CT Chest w/o Contrast (12/18/2024 1:05 PM EDT) Anatomical Region Laterality Modality Body, Chest Computed Tomogra phy 12/18/2024 1:05 PM EDT Narrative 12/18/2024 1:48 PM EDT [place] [address] [address] Scan Report Signed Patient: Eden Mckinney MR#: [id number] : 1945 Acct:[id number] Age/Sex: 79 / F ADM Date: 12/18/24 Loc: HO.CT Attending Dr: Bam Chamorro MD Ordering Physician: Bam Chamorro MD Date of Service: 12/18/24 Procedure(s): CT chest wo IV con Accession Number(s): [id number] cc: Elma Diaz MD; Bam Chamorro MD Report Number: [id number]: Total DLP = 145.00 mGy-cm Reason for [...] 12/18/24 1345 DD/ 1305 TD/TT: 12/18/24 1327 Final Inspector Paper: Procedure Note Donotuseinterpreter, Image - 12/18/[address] [address] [address] Scan Report Signed Patient: Eden MckinneyMR#: [id number] : 5Acct:[id number] Age/Sex: 79 / FADM Date: 12/18/24 Loc: HO.CT Attending Dr: Bam Chamorro MD Ordering Physician: Bam Chamorro MD Date of Service: 12/18/24 Procedure(s): CT chest wo IV con Accession Number(s): [id number] cc: Elma Diaz MD; Bam Chamorro MD Report Number: [id number]: Total DLP = 145.00 mGy-cm Reason for [...] 12/18/24 1345 DD/ 1305 TD/TT: 12/18/24 1327 Final Inspector Paper: [facility] External Provider IMG CT PROCEDURES Final Result documented in this encounter Visit Diagnoses Not on filedocumented in this encounter Additional Health Concerns Assessment Noted Time PHQ-9 Depression Total Score: 2 09/28/19 25 12:25 PM EDT documented as of this encounter Care Teams Third Hand Relationship Specialty Start Date End Date Nicole Bauer MD [address] [place] [phone] PCP - General Family Medicine 11/03/17 documented as of this encounter
== END 2024-12-18 13:01 | disposition home or self-care (01) ==
LOC: HO.CT 13:00
PROVIDERS: PCP Family Medicine; Visit Provider Hospitalist
DX: R91.8 Other nonspecific abnormal finding of lung field (principal)
CPT/HCPCS: 71250

== ENCOUNTER → 2024-12-18 13:02 | Outpatient (BNV) | payer OTHER, SELFPAY | PROVIDERS: PCP Family Medicine; Visit Provider Radiology Diagnostic Radiology | DX: R91.8 Other nonspecific abnormal finding of lung field (principal); J44.9 Chronic obstructive pulmonary disease, unspecified | CPT/HCPCS: 71250 ==

== ENCOUNTER 2025-01-21 13:36 | Outpatient (AMB) | payer OTHER, SELFPAY ==
--- NOTE | 2025-01-21 13:39 | MHC.OFFVIS ---
Vital Signs 01/21/25 13:45 Height 4 ft 10 in Weight 143 lb 4.807 oz BMI 29.9 BP 107/61 Blood Pressure Location Lt brachial Position Sitting Pulse 70 Intake Visit Reasons: 6 mo f/u GERD, CIC Intake Note: Eden presents in the officce as a 6 month follow up for GERD and CIC. CC: States that she is not having concerns at this time. Car Builder Required: Yes Car Builder Name: [email or web address] [id number] Allergies Tetanus Vaccines and Toxoid (TETANUS VACCINES AND TOXOID) Allergy (Mild, Verified 01/21/25 13:46) SWELLING, RASH albuterol (ALBUTEROL) Allergy (Unknown, Verified 01/21/25 13:46) HIVES verapamil (VERAPAMIL) Allergy (Unknown, Verified 01/21/25 13:46) UNKNOWN aspirin Adverse Reaction (Severe, Verified 01/21/25 13:46) Abdominal Pain From Tuberculin PPD Leigh Test Allergy (Unknown, Uncoded 01/21/25 13:46) ARM SWELLING TB test Allergy (Unknown, Uncoded 01/21/25 13:46) large local reaction HPI HPI 6 mo f/u GERD, CIC: Details: Assessment & Plan (1) GERD (gastroesophageal reflux disease): Code(s): K21.9 - Gastro-esophageal reflux disease without esophagitis Category: Medical (2) Irritable bowel syndrome with both constipation and diarrhea: Code(s): K58.2 - Mixed irritable bowel syndrome Category: Medical Plan Bulgarian #[id number] Her GI regimen consists of Trulance, lansoprazole, colace and fiber. She was also out of her fiber for a time and she bought an OTC fiber powder with good effect. she continues to be satisfied with the current regimen. Return office visit in 6 months Medications: New lansoprazole 30 mg PO BID 180 caps 1RF 90 days K21.9 - Gastro-esophageal reflux disease without esophagitis Refilled docusate sodium 100 mg PO BID 180 caps 1RF K58.2 - Mixed irritable bowel syndrome plecanatide (Trulance) 3 mg PO DAILY 30 tabs 6RF K59.04 - Chronic idiopathic constipation methylcellulose (laxative) (Citrucel) 1,000 mg (2 x 500 mg) PO DAILY 60 tabs 6RF 30 days K58.2 - Mixed irritable bowel syndrome TODAY'S VISIT Bulgarian # PFSH Medical History Pulmonary nodules Pneumonitis Costochondritis COVID-19 Gastritis Hyperlipidemia Supraventricular tachycardia Osteopenia Hx of migraine headaches Hx of sinusitis HTN (hypertension) Bronchial asthma Surgical History History of esophagogastroduodenoscopy (EGD) Hx of colonoscopy Status post tubal ligation Family History Mother Heart problem Angina pectoris Daughter Breast cancer Social History Household Members: None Housing: Apartment Are you a primary child care specialist to a significant other at home: No Do you presently have visiting nurse or other home services: Yes Alcohol intake: current Alcohol intake frequency: does not drink Patient Tobacco Use Status: Never used Tobacco service: No Current occupational status: retired Current occupation: rt handed Female Reproductive History Menstrual Age of Menarche: 13 Review of Systems Const Denies fatigue, Denies fever(s), Denies night sweats, Denies poor appetite and Denies weight loss Eyes Details: glasses Reports requires corrective lenses ENT Reports Normal hearing present, Denies dental pain, Denies dysphagia, Denies hearing loss, Denies mouth pain, Denies odynophagia, Denies throat swelling, Denies tongue swelling and Reports other (Dentition adequate) Card Reports no additional complaints Resp Reports no additional complaints GI Details: Denies abdominal pain, Denies melena, Denies bloating, Denies hematochezia, Reports constipation, Denies GI cramping, Denies dysphagia, Denies excessive flatus, Denies early satiety, Reports heartburn, Denies diarrhea, Denies nausea, Denies odynophagia, Denies vomiting and Denies hematemesis Skin/Breast Denies pruritus, Denies lesions, Denies rash and Denies jaundice Neuro Reports Normal hearing present and Denies Abnormal speech present Endo Denies fatigue Aller/Immun Denies throat swelling and Denies tongue swelling Physical Exam Vital Signs: Last Vital Signs Pulse 70 01/21/25 13:45 BP 107/61 01/21/25 13:45 BMI result Body Mass Index 29.9 Const General: cooperative, no acute distress, well developed and well groomed Nutritional Appearance: well nourished and obese Orientation/consciousness: oriented to person, oriented to place and oriented to time Limitations: language barrier HEENT Head: Yes normocephalic and Yes atraumatic Eyes General: appearance normal, both eyes and all related structures Pupils: Equal, round and reactive pupils present Neck Neck: Yes normal visual inspection and Yes no lymphadenopathy Thyroid: Thyroid normal Resp Effort & Inspection: normal respiratory effort and able to speak in complete sentences Auscultation: clear to auscultation bilaterally Cardio Rate: regular rate Rhythm: regular rhythm Heart sounds: Normal, physiologic split S2 sound present Peripheral pulses: radial pulses present and posterior tibial pulses present GI Inspection: No distended, Yes Abdominal panniculus present and Yes obesity Palpation (GI): Soft to palpation, nontender, no guarding, not rigid and No hepatosplenomegaly present Percussion: Yes normal to percussion Auscultation: normal bowel sounds Rectal Exam - Female: deferred Skin General skin exam: no rashes or lesions noted, turgor normal, skin not dry, no jaundice, No spider nevi and no striae Rashes: no rashes Nails: normal Neuro General: oriented to person, oriented to place and oriented to time Cranial nerves: Yes Equal, round and reactive pupils present and Yes Normal hearing present Speech: No Abnormal speech present Extrem General: Yes normal to inspection, No clubbing, No cyanosis and No edema Psych Appearance: grossly normal and well kempt Mental Status: mental status grossly normal Speech and movement: Normal speech and movement present Affect: normal affect Attitude: cooperative Thought process: Normal thought process present and not confabulating Thought content: Normal thought content present Insight: Fair insight present (Psych) and Limited insight present (Psych) Judgement: Fair judgement present (Psych) and Limited judgement present (Psych) Assessment & Plan Assessment & Plan (1) Chronic idiopathic constipation: Code(s): K59.04 - Chronic idiopathic constipation Category: Medical (2) GERD (gastroesophageal reflux disease): Code(s): K21.9 - Gastro-esophageal reflux disease without esophagitis Category: Medical (3) Colon cancer screening: Comment: 2022= negative Cologuard test repeat in 3 years Code(s): Z12.11 - Encounter for screening for malignant neoplasm of colon Category: Medical (4) Tubular adenoma of colon: Comment: She is due for repeat colonoscopy in 2021 r/t large TA. 10-12 mm sessile polyp removed at that time 2019 Code(s): D12.6 - Benign neoplasm of colon, unspecified Category: Medical Plan Bulgarian #Latosha aguiar Her GI regimen consists of Trulance, lansoprazole, colace and fiber. She continues to do well with control of her constipation and her GERD on her current regimen. We review her colon cancer screening and she does have a history of tubular adenoma in the past, however she is not in favor of colonoscopy. Because of this we did a Cologuard screening in 2022 that was negative. I let her know that we need to repeat that next year as it is standard practice to repeat this every 3 years. Should it come back positive at any point then we need to consider colonoscopy. She repeat verbalizes understanding of this. Return office visit in 6 months Medications: Changed From plecanatide (Trulance) 3 mg PO DAILY 30 tabs 6RF K59.04 - Chronic idiopathic constipation To plecanatide (Trulance) 3 mg PO DAILY 90 tabs 1RF 90 days K59.04 - Chronic idiopathic constipation From methylcellulose (laxative) (Citrucel) 1,000 mg (2 x 500 mg) PO DAILY 30 days 60 tabs 6RF K58.2 - Mixed irritable bowel syndrome To methylcellulose (laxative) (Citrucel) 1,000 mg (2 x 500 mg) PO DAILY 180 tabs 1RF 90 days K58.2 - Mixed irritable bowel syndrome Refilled docusate sodium 100 mg PO BID 180 caps 1RF K58.2 - Mixed irritable bowel syndrome lansoprazole 30 mg PO BID 180 caps 1RF 90 days K21.9 - Gastro-esophageal reflux disease without esophagitis Coding Level of Care Code Est Pt Level 3 (03705) Diagnoses Chronic idiopathic constipation K59.04 GERD (gastroesophageal reflux disease) K21.9 Colon cancer screening Z12.11 Tubular adenoma of colon D12.6
[2025-01-21 13:45] VITALS: BP 107/61; PULSE 70; BMI 29.9
--- OUTSIDE RECORDS SUMMARY | 2025-01-21 16:39 | XMS_ITS | Encounter Summary ---
Author Organization [employer] Address [address] [facility] 7t [place] [address] Care Team Providers Care Merchandising Professor Name Role Phone Nicole Bauer MD Primary Care Provider + Reason for Visit * Reason Onset Date Comments Durable Medical Equipment 01/16/2025 Encounter Details Date Type Department Care Team ([place] [facility] Contact Info) Description 01/16/2025 Telephone [facility] [address] [place], [place] [phone] Nicole Bauer MD [address] [place], [place] [phone] Durable Medical Equipment Social History Tobacco Use Types Packs/Day Years [...] encounter Miscellaneous Notes * Telephone Encounter - Joesphaida Chamorro - 01/16/2025 2:46 PM EDT Tc from pt requesting a script for a cane. If any questions you can contact pt at [phone]. (Upper Sorbian Speaker) documented in this encounter Plan of Treatment Not on file documented as of this encounter Visit Diagnoses Not on filedocumented in this encounter Additional Health Concerns Assessment Noted Time PHQ-9 Depression Total Score: 2 09/28/19 25 12:25 PM EDT documented as of this encounter Care Teams Merchandising Professor Relationship Specialty Start Date End Date Nicole Bauer MD [address] [place] [phone] PCP - General Family Medicine 11/03/17 documented as of this encounter
--- OUTSIDE RECORDS SUMMARY | 2025-01-21 16:39 | XMS_ITS | Clinical Summary ---
Author Organization [employer] Address [address] [place] [address] 7t [place] [address] Care Team Providers Care Pipe Smoking Machine Offbearer Name Role Phone Nicole Bauer MD Primary [...] 1 TABLET BY MOUTH EVERY DAY Active Nebulizer misc Use as directed 1 each Active Fiber-Lax 625 MG tablet Take 2 tablets by mouth Once per day. Active betamethasone valerate (Valisone) 0.1 % cream Apply topically if needed in the morning and at bedtime (dryness). 45 g 2 Active cyanocobalamin (Vitamin B-12) 1000 MCG tablet Take 1,000 mcg by mouth Once per day. Active Ascorbic Acid (vitamin C) 250 MG tablet Take 250 mg by mouth Once per day. Active losartan (Cozaar) 50 MG tablet Take 1 tablet (50 mg) by mouth Once per day. 30 tablet 11 025 2025 Active atorvastatin (Lipitor) 20 MG tablet TAKE 1 TABLET BY MOUTH AT BEDTIME 90 tablet Active DULoxetine (Cymbalta) [address] capsule Take 1 capsule (30 mg) by mouth Once per day. Do not crush or chew. 30 capsule 025 2025 Active fluticasone (Flovent) 220 MCG/ACT inhaler Inhale 1 puff in the morning and at bedtime. Rinse mouth with water after use to reduce aftertaste and incidence of candidiasis. Do not swallow. 12 g 025 2025 Active Diclofenac Sodium 1 % gelIndications:De generation of intervertebral disc of lumbar region with discogenic back pain Apply topically to affected area twice a day as needed for pain 150 g Active Emollient (CeraVe Moisturizing) cream Mix with triamcinolone cream and apply daily to affected area 340 mL Active triamcinolone (Kenalog) 0.1 % cream Mix with moisturizing cream and apply daily to affected area 80 g Active levalbuterol (Xopenex) 0.63 MG/3ML nebulizer solutionIndicatio ns:Moderate persistent asthma without complication Take 1 ampule by nebulization every 6 (six) hours if needed for wheezing. 72 mL 025 2025 Active hydroCHLOROthiazi de (HYDRODiuril) 25 MG tablet Take 1 tablet (25 mg) by mouth in the morning. 90 tablet Active Acetaminophen Extra Strength 500 MG tabletIndications :Degeneration of intervertebral disc of lumbar region with discogenic back pain,Chronic midline low back pain, unspecified whether sciatica present TAKE 1 TABLET BY MOUTH EVERY 6 HOURS NEEDED FOR PAIN OR FEVER 30 tablet 1 Active fexofenadine (Suzanne) 180 MG tabletIndications :Allergy, sequela TAKE 1 TABLET BY MOUTH EVERYDAY AT NOON 90 tablet 2 025 Active gabapentin (Neurontin) 100 MG capsuleIndication s:Itchy scalp TAKE 1 CAPSULE BY MOUTH AT BEDTIME 30 capsule 2 025 Active fexofenadine (Suzanne) 180 MG tabletIndications :Allergy, sequela TAKE 1 TABLET BY MOUTH EVERYDAY AT NOON 90 tablet 2 025 2024 Discontinued gabapentin (Neurontin) 100 MG capsuleIndication s:Itchy scalp TAKE 1 CAPSULE BY MOUTH AT [...] home care assistance for most ADLS (see TENTER [employer]ER description). Cervical paraspinal muscle spasm 04/11/2022 Assessment [...] Xopenex as needed and follow- up with elementary classroom teacher Assessment & Plan (09/22/2024 2:51 PM EDT): [...] patient was prescribed a nebulizer from the [employer] vendor [employer]. Instructions on how to use [...] EDT): continue albuterol Prn and FU with elementary classroom teacher Assessment & Plan (06/13/2022 6:06 PM EDT): [...] Encounters Date Type Department Care Team Description 01/16/2025 Telephone [facility] [address] [place] [address] Nicole Bauer MD Durable Medical Equipment 01/14/2025 Refill [facility] [address] [place] [address] Nicole Bauer MD Itchy scalp 01/05/2025 Refill [facility] [address] [place] [address] Nicole Bauer MD Allergy, sequela; Itchy scalp 12/18/2024 Orders Only [facility] External Provider, [facility] 11/09/2024 Refill [facility] [address] [place] [address] Nicole Bauer MD Degeneration of intervertebral disc of lumbar region with discogenic back pain; Chronic midline low back pain, unspecified whether sciatica present 11/08/2024 Refill [facility] [address] [place] [address] Nicole Bauer MD 10/22/2024 2:00 PM EDT Office Visit [facility] [address] [place] [phone] Elma Diaz MD Weakness (Primary Dx); Chest tightness 10/22/2024 Results Follow-Up [facility] [address] [place] [phone] Elma Diaz MD XR Chest 2 Views from Last 3 Months Immunizations Immunization Administration [...] Routine 10/22/2024 2:10 PM EDT Chest tightness BI MAMMOGRAM SCREENING TOMOSYNTHESIS BILATERAL Routine 10/13/2023 [...] PM EDT Narrative 12/18/2024 1:48 PM EDT [address] [address] [address] Scan Report Signed Patient: Eden Mckinney MR#: [id number] : 1945 Acct:[id number] Age/Sex: 79 / F ADM Date: 12/18/24 Loc: HO.CT Attending Dr: Bam Chamorro MD Ordering Physician: Bam Chamorro MD Date of Service: 12/18/24 Procedure(s): CT chest wo IV con Accession Number(s): [id number] cc: Elma Diaz MD; Bam Chamorro MD Report Number: [id number]: Total DLP = 145.00 mGy-cm Reason for [...] 12/18/24 1345 DD/ 1305 TD/TT: 12/18/24 1327 Yarn Tester: Procedure Note Donotuseinterpreter, Image - 12/18/[address] [address] [address] Scan Report Signed Patient: Eden MckinneyMR#: [id number] : 5Acct:[id number] Age/Sex: 79 / FADM Date: 12/18/24 Loc: HO.CT Attending Dr: Bam Chamorro MD Ordering Physician: Bam Chamorro MD Date of Service: 12/18/24 Procedure(s): CT chest wo IV con Accession Number(s): [id number] cc: Elma Diaz MD; Bam Chamorro MD Report Number: [id number]: Total DLP = 145.00 mGy-cm Reason for [...] 12/18/24 1345 DD/ 1305 TD/TT: 12/18/24 1327 Yarn Tester: us [facility] External Provider IMG CT PROCEDURES Final Result * CBC (10/22/2024 3:10 PM EDT) White Blood Count 9.5 4.8 - 10.8 X10*3/uL [facility] Red Blood Count 4.57 4.20 - 5.50 X10*6/uL [facility] Hemoglobin 14.0 12.0 - 16.0 g/dl [facility] Hematocrit 41.3 37.0 - 47.0 % [facility] Mean Corpuscular Volume 90.4 80.0 - 98.0 fL [facility] Mean Corpuscular Hemoglobin 30.6 27.0 - 33.0 pg [facility] Mean Corpuscular HGB Conc 33.9 31.0 - 35.0 g/dl [facility] Red Cell Distribution Width 12.7 11.0 - 16.0 % [facility] Platelet Count 243 160 - 400 X10*3/uL [facility] Mean Platelet Volume 10.9 9.4 - 12.3 fL [facility] NRBC Pct Auto 0.0 0.0 - 0.2 /100WBC [facility] NRBC Abs Auto 0.000 0.0 - 0.012 X10*3/uL [facility] Blood Venous blood specimen / Unknown 10/22/2024 3:10 PM EDT 10/22/2024 4:03 PM EDT us Elma Diaz MD LAB BLOOD ORDERABLES Final Result [facility] [address] [place] [address] [phone] * (ABNORMAL) Basic Metabolic Panel (10/22/2024 3:10 PM EDT) Sodium 141 135 - 145 mmol/L [facility] Potassium 3.8 3.3 - 5.1 mmol/L [facility] Chloride 102 96 - 108 mmol/L [facility] Carbon Dioxide 33(H) 22 - 29 mmol/L [facility] Anion Gap 10(L) 12 - 20 [facility] Urea Nitrogen (BUN) 17(H) 9 - 16 mg/dL [facility] Creatinine, Serum 1.05 0.5 - 1.4 mg/dL [facility] Estimated Glomerular Filt Rate 51 [facility] Comment:Chronic Kidney Disea se: Estimated GFR < 60 mL/min/1.06z8Uusubr Kidney Disease: Estimated GFR < 15 mL/min/1.73m2 Glucose 98 60 - 115 mg/dL [facility] Calcium 9.5 8.4 - 10.2 mg/dL [facility] Blood Venous blood specimen / Unknown 10/22/2024 3:10 PM EDT 10/22/2024 4:03 PM EDT us Elma Diaz MD LAB BLOOD ORDERABLES Final Result [facility] [address] [place] [address] [phone] * ECG 12 lead (10/22/2024 2:25 PM EDT) Narrative Elma Diaz MD - 10/22/2024 2:25 PM EDT NSR 59 bpm, no evidence of ischemia or past infarction. us Elma Diaz MD ECG ORDERABLES Final Resu lt * XR Chest 2 Views (10/22/2024 2:10 PM EDT) Anatomical Region Laterality Modality Chest Radiographic Grace ging 10/22/2024 2:10 PM EDT Narrative 10/22/2024 3:10 PM EDT [address] [address] XRay Report Signed Patient: Eden Mckinney MR#: [id number] : 1945 Acct:[id number] Age/Sex: 79 / F ADM Date: 10/22/24 Loc: .HHCX Attending Dr: Elma Diaz MD Ordering Physician: Elma Diaz MD Date of Service: 10/22/24 Procedure(s): XR chest 2V Accession Number(s): [id number] cc: Elma Diaz MD EXAMINATION: XR CHEST [...] Alejandro Diaz MD 10/22/2024 03:07 PM EDT RP Dictated By: Alejandro Diaz MD Signed By: <Electronically signed by Alejandro Diaz MD in OV> 10/22/24 1507 DD/ 1410 TD/TT: 10/22/241409 Yarn Tester: Procedure Note Donotuseinterpreter, Image - 10/22/[address] [address] XRay Report Signed Patient: Itzel Mckinney#: [id number] : 5Acct:[id number] Age/Sex: 79 / FADM Date: 10/22/24 [facility]: Elma Diaz MD Ordering Physician: Elma Diaz MD Date of Service: 10/22/24 Procedure(s): XR chest 2V Accession Number(s): [id number] cc: Elma Diaz MD EXAMINATION: XR CHEST [...] Alejandro Diaz MD 10/22/2024 03:07 PM EDT RP Dictated By: Alejandro Diaz MD Signed By: <Electronically signed by Alejandro Diaz MD in OV> 10/22/24 1507 DD/ 1410 TD/TT: 10/22/24 141 Yarn Tester: Elma Diaz MD IMG XR PROCEDURES Edited R esult - Final * BI Mammogram Screening Tomosynthesis Bilateral (10/13/2023 12:55 PM EDT) Anatomical Region Laterality Modality Breast Bilateral Mammography 10/13/2023 12:5 5 PM EDT Narrative 10/13/2023 2:18 PM EDT [facility] [address] [place] [address] Mammography Report Signed Patient: Eden Mciknney MR#: [id number] : 1945 Acct:[id number] Age/Sex: 78 / F ADM Date: 10/13/23 Loc: HO.MAMMO Attending Dr: Nicole Bauer MD Ordering Physician: Nicole Bauer MD Results: 2Be nign Findings Date of Service: 10/13/23 Follow Up: 1 Year From Orig ina Mammogram Procedure(s): MM tomosynthesis screening BI Accession Number(s): [id number] cc: Nicole Bauer MD EXAMINATION: MM SCREENING [...] in OV> 10/13/23 1414 DD/ 1255 TD/TT: Yarn Tester: Procedure Note Donotuseinterpreter, Image - [facility]/13/[facility] [address] [place], [place] [address] Mammography Report Signed Patient: Eden MckinneyMR#: [id number] : 5Acct:[id number] Age/Sex: 78 / FADM Date: 10/13/23 Loc: HO.MAMMO Attending Dr: Nicole Bauer MD Ordering Physician: Nicole Bauer MDResults: 2Be nign Findings Date of Service: 10/13/23Follow Up: 1 Year From [facility] ina Mammogram Procedure(s): MM tomosynthesis screening BI Accession Number(s): [id number] cc: Nicole Bauer MD EXAMINATION: MM SCREENING [...] in OV> 10/13/23 1414 DD/ 1255 TD/TT: Yarn Tester: us Nicole Bauer MD IMG BI PROCEDURES Final Result * Hepatitis C Antibody with Reflex to HCV, RNA, Quantitative, Real-Time PCR (09/04/2023 2:55 PM EDT) Hepatitis C Antibody Nonreactive Nonreactive [facility] Comment:Antibodies to HCV no t detected; does not exclude early acuteHCV infection. Blood Venous blood specimen / Unknown 09/04/2023 2:55 PM EDT 09/04/2023 3:56 PM EDT us Jorge A Quinteros MD LAB BLOOD ORDERABLES Final Result [facility] [address] [place] [phone] * Lipid Panel with Reflex to Direct LDL (11/01/2022 11:32 AM EDT) Triglycerides 117 mg/dL [facility] Comment:Desirable Triglyceri de: less than 150 mg/dLBorderline High Triglyceride 150-199 mg/dLHigh Triglyceride: 200-499 mg/dLVery High Triglyceride: greater than or equal to 5OO mg/dL Cholesterol 155 mg/dL [facility] Comment:Desirable Cholestero l: less than 200 mg/dLBorderline High Cholesterol: 200-239 mg/dLHigh Cholesterol: greater than 239 mg/dL LDL Cholesterol Calculated 92 mg/dl [facility] Comment:Desirable LDL: less than 100 mg/dLNear Optimal/Above Optimal LDL: 110- 129 mg/dLBorderline High LDL: 130-159 mg/dLHigh LDL: 160-189 mg/dLVery High LDL: greater than or equal to 190 mg/dL HDL Cholesterol 40 mg/dL [facility] Comment:Desirable HDL: great er than 40 mg/dL Note: This HDL assay may give artificially low results in patients with liver disease. Blood 11/01/2022 11:3 2 AM EDT 11/01/2022 1:31 PM EDT Nicole Bauer MD LAB BLOOD ORDERABLES Fin al Result [facility] [address] [place] [address] [phone] from Last 3 Months or Most Recently Relevant to Health Maintenance [facility]O D-SNP[facility] JESSA JIMENEZ [id number] Care Teams Pipe Smoking Machine Offbearer Relationship Specialty Start Date End Date Nicole Bauer MD [address] [place], [place] PCP - General Family Medicine 11/03/17
--- OUTSIDE RECORDS SUMMARY | 2025-01-21 16:39 | XMS_ITS | Encounter Summary ---
Author Organization [employer] Address [address] 7[address] [place] [address] Care Team Providers Care C Iron Worker Name Role Phone Nicole Bauer MD Primary Care Provider + Encounter Details Date Type Department Care Team (Late st Contact Info) Description 03/03/2023 Orders Only [facility] [address] [place], [place] [phone] Jayna Chang MD [address] [place], [place] [phone] Social History Tobacco Use Types Packs/Day Years [...] on filedocumented in this encounter Care Teams C Iron Worker Relationship Specialty Start Date End Date Nicole Bauer MD [address] [place] [phone] PCP - General Family Medicine 11/03/17 documented as of this encounter
--- OUTSIDE RECORDS SUMMARY | 2025-01-21 16:39 | XMS_ITS | Encounter Summary ---
Author Organization [employer] Address [address]t [place] [address] Care Team Providers Care Sales Representative Adding Machines Name Role Phone Nicole Bauer MD Primary Care Provider + Reason for Visit * Reason Comments Med Refill Encounter Details Date Type Department Care Team ([facility] st Contact Info) Description 07/06/2024 Refill [facility] [address] [place], [place] [phone] Nicole Bauer MD [address] [place], [place] [phone] Itchy scalp Social History Tobacco Use Types [...] documented as of this encounter Care Teams Sales Representative Adding Machines Relationship Specialty Start Date End Date Nicole Bauer MD [address] [place] [phone] PCP - General Family Medicine 11/03/17 documented as of this encounter
--- OUTSIDE RECORDS SUMMARY | 2025-01-21 16:39 | XMS_ITS | Encounter Summary ---
Author Organization [employer] Address [address] [facility] 7t [place] [address] Care Team Providers Care Shell Trim Tool Setter Name Role Phone Nicole Bauer MD Primary Care Provider + Reason for Visit * Reason Comments Med Refill Encounter Details Date Type Department Care Team ([facility] st Contact Info) Description 04/13/2024 Refill [facility] [address] [place], [place] [phone] Nicole Bauer MD [address] [place], [place] [phone] Itchy scalp Social History Tobacco Use Types [...] documented as of this encounter Care Teams Shell Trim Tool Setter Relationship Specialty Start Date End Date Nicole Bauer MD [address] [place] [phone] PCP - General Family Medicine 11/03/17 documented as of this encounter
--- OUTSIDE RECORDS SUMMARY | 2025-01-21 16:39 | XMS_ITS | Encounter Summary ---
Author Organization [employer] Address [address] [facility] [address] [place] [address] Care Team Providers Care Cosmetic Chemist Name Role Phone Nicole Bauer MD Primary Care Provider + Reason for Visit * Reason Comments Med Refill Encounter Details Date Type Department Care Team ([facility] st Contact Info) Description 05/26/2022 Refill [facility] [address] [place] [phone] Jesus Dixon MD [address] [place] [address] [phone] Social History Tobacco Use Types Packs/Day Years [...] on filedocumented in this encounter Care Teams Cosmetic Chemist Relationship Specialty Start Date End Date Nicole Bauer MD [address] [place] [phone] PCP - General Family Medicine 11/03/17 documented as of this encounter
--- OUTSIDE RECORDS SUMMARY | 2025-01-21 16:39 | XMS_ITS | Patient Health Record ---
Author Organization [facility] Address [address] [place] [address] Care Team Providers Care Linderman Machine Operator Name Role Phone Nicole Bauer MD Primary Care Provider Unavail able Mike Alvarez Unavailable [phone] Chandrakant [place] MD Unavailable Unavailable Allergies Allergen [...] 10 MG 1 tablet Orally Once a day; Duration: 30 day(s) Active Lisinopril 10 MG 1 tablet Orally Once a day; Duration: 30 day(s) Active hydroCHLOROthiazide 25 MG 1 tablet in th e morning Orally Once a day; Duration: 30 day(s) Active Calcitrate Plus D 315-200 MG-UNIT 1 tablet Orally QOD Active Metoprolol Succinate 25 MG 1 capsule Ora lly Once a day; Duration: 30 day(s) Active Dexilant 60 MG 1 capsule Orally Onc e a day; Duration: 30 day(s) Active Cartia XT 120 MG 1 capsule Orally Onc e a day; Duration: 30 day(s) Active Atorvastatin Calcium 20 MG 1 tablet Oral ly Once a day; Duration: 30 day(s) Active Immunizations Vaccine Route Administration [...] Problem Status W/U Status Risk Notes Problem History of adenomatous polyp of colon (020189574) Hx of adenomatous colonic polyps (Z86.010) Active confirmed Problem Esophageal dysphagia (11623925) Esophageal dysphagia (R13.10) Active confirmed Plan Of Treatment No Information Insurance Providers Payer Name Payer Address Payer Phone Subscriber Number Group Number Insured Name Patient Relationship to Insured Coverage Start Date Coverage End Date [facility] [address] [facility] [address] [id number] JULIET MONTANO Self - patient is the insured Medical (General) History Medical History History ICD Code Denies ID,DM,CVA,Lung disease,renal dise ase Hypertension Breast cancer Asthma Tubular adenomas removed in 2007 by me a nd in [address] Strong GERD-EGD with Dr. Strong in 2013 that revealed a hiatal hernia, but no significant esophagitis nor Eubanks's esophagus Surgical History Surgery Date(Month/Year) Lumpectomy, left breast Tubal ligation
--- OUTSIDE RECORDS SUMMARY | 2025-01-21 16:39 | XMS_ITS | Encounter Summary ---
Author Organization [employer] Address [address] [place] [address] Care Team Providers Care Railroad Car Inspector Name Role Phone Nicole Bauer MD Primary Care Provider + Reason for Visit * Reason Comments Med Refill Encounter Details Date Type Department Care Team ([facility] st Contact Info) Description 04/14/2023 Refill [facility] [address] [place], [place] [phone] Carly Garner MD [address] [place], [place] [phone] Itchy scalp Social History Tobacco Use Types [...] disorder documented in this encounter Care Teams Railroad Car Inspector Relationship Specialty Start Date End Date Nicole Bauer MD [address] [place] [phone] PCP - General Family Medicine 11/03/17 documented as of this encounter
== END 2025-01-21 14:30 | disposition home or self-care (01) ==
LOC: HO.HGI 13:37
PROVIDERS: PCP Internal Medicine; Visit Provider Nurse Practitioner
DX: Z12.11 Encounter for screening for malignant neoplasm of colon (principal); Z86.0101 Personal history of adenomatous and serrated colon polyps; K59.04 Chronic idiopathic constipation; K21.9 Gastro-esophageal reflux disease without esophagitis
CPT/HCPCS: 99213

== ENCOUNTER → 2025-01-21 13:36 | Outpatient (BNVA) | payer OTHER, SELFPAY | PROVIDERS: PCP Internal Medicine; Visit Provider Nurse Practitioner | DX: K21.9 Gastro-esophageal reflux disease without esophagitis (principal); K59.04 Chronic idiopathic constipation; D12.6 Benign neoplasm of colon, unspecified; Z12.11 Encounter for screening for malignant neoplasm of colon | CPT/HCPCS: 99212 ==

== ENCOUNTER 2025-02-21 13:20 | Outpatient (AMB) | payer OTHER, SELFPAY ==
[2025-02-21 13:23] VITALS: BP 110/62; PULSE 64; O2SAT 98; BMI 30.6
--- NOTE | 2025-02-21 13:23 | MHC.OFFVIS ---
Vital Signs 02/21/25 13:23 Height 4 ft 10 in Weight 146 lb 9.718 oz BMI 30.6 BP 110/62 Blood Pressure Location Rt brachial Position Sitting Pulse 64 Pulse Source Pulse Oximeter Pulse Oximetry (%) 98 Oxygen Delivery Method Room Air Intake Visit Reasons: pulmonary nodules Floor Press Operator Required: Yes Floor Press Operator Services: Floor Press Operator Offered & Declined Floor Press Operator Name: MD speaks moldovan Accompanied by: Self / Same As Patient Allergies Tetanus Vaccines and Toxoid (TETANUS VACCINES AND TOXOID) Allergy (Mild, Verified 02/21/25 13:27) SWELLING, RASH albuterol (ALBUTEROL) Allergy (Unknown, Verified 02/21/25 13:27) HIVES verapamil (VERAPAMIL) Allergy (Unknown, Verified 02/21/25 13:27) UNKNOWN aspirin Adverse Reaction (Severe, Verified 02/21/25 13:27) Abdominal Pain From Tuberculin PPD Leigh Test Allergy (Unknown, Uncoded 01/21/25 13:46) ARM SWELLING TB test Allergy (Unknown, Uncoded 01/21/25 13:46) large local reaction HPI Comments Details: The patient is a 79 year woman with a history of asthma who apparently was in her usual state health until sometime in February when she was in the mall and she fell down the escalator is a. She had significant amount of discomfort in injuries due to the event. She was taken to the hospital which she did have a CT of her major structures. She was noted to have evidence pneumonitis in the upper lung zones primarily on the right and also some small pulmonary nodules. The patient also has been complaining of worsening cough shortness of breath. And she still recovering from her significant injury. Will go ahead and request blood work in addition to that be reasonable just to treated with some prednisone to see if we can not decrease the inflammatory changes. in the meantime she is going to continue with respiratory therapy. 08/16/2022 the patient is here for pulmonary follow-up visit. Overall she is doing okay. A few weeks ago she did have a fall in the bathroom hurt her right chest area. She did come into the hospital and she did have a rib series without any evidence of any fractures. She also start the prednisone because she did not like the way it made her feel. She did take it for a 1-2 weeks. I did review her chest x-ray that she had recently that shows better aeration overall. I do not appreciate any crackles on examination to suggest pneumonitis either. I do believe that she is doing better. She will need a repeat CT scan at some point. The patient also has continue to use the Flovent daily. She had 1 episode which she was having significant shortness of breath making it hard for her to breathe. She did use her Xopenex with good effect. She also has a history of glaucoma so therefore use of muscarinic antagonist are relatively contraindicated. Therefore, I did recommend that she can use Xopenex once or twice a day and also as needed in between. Hopefully this along with her Flovent will give her good asthma control without unnecessary adverse effects. 11/29/2022 the patient is here for pulmonary follow-up visit. Overall she is doing well from a respiratory status. Over the summer she did have an episode of shortness of breath but now is back to baseline. She continues on the Flovent. She also has a rescue inhaler that she does not use more than twice a week. The patient has had issues with her gait. She has had some falls. Still recovering from some injuries. The patient does use a cane. She also has a walker at home. In the meantime she also had a CT scan of the chest on 11/18/2022 demonstrating stable pulmonary nodules although she has 2 new nodules measuring 3 and 5 mm in size. Both on the right side. The patient also still has some areas of ground-glass opacities have not changed. Based on the new nodules she will need another CT scan in a year's time. If the patient has any worsening symptoms prior to the next visit she will call in order to further optimize respiratory therapy. 12/05/2023 the patient is here for a pulmonary follow-up visit. Overall the patient has been doing well from a respiratory status. the patient has not had any exacerbations from her breathing. She does have a rescue inhaler but she typically does not use it often typically less than 2 times a week. She did undergo a CT scan of the chest which we personally reviewed. The patient does have stable pulmonary nodules although she does have a new 4 mm pulmonary nodule also noted. The nodules do not look concerning. Although based on the fact that there is a new nodule she should have a repeat CT scan in a year's time. In the meantime she will continue with current respiratory therapy. If any issues arise she will call for an earlier assessment. Otherwise will follow-up after the CAT scan. 02/21/2025 the patient is here for pulmonary follow-up visit. Overall the patient is doing okay. She was sick about a month ago with a bout of bronchitis. The patient did go to [facility]. Currently she is feeling better. She did undergo a CT scan of the chest also recently to follow-up her pulmonary nodules. I did review it and compared to her CAT scan from 2023. Pulmonary nodules appear to be stable. The areas of interstitial changes also stable. No additional CAT scans warranted. She continues have some shortness of breath with activity. She does complain of wheezing. She has been using the Flovent. Also personally reason she does not have an updated rescue inhaler. Will switch her over to Advair HFA and also she can have her levo albuterol as needed. If she continues to have difficulties breathing she can always call for further recommendations. [facility] Medical History Pulmonary nodules Pneumonitis Costochondritis COVID-19 Gastritis Hyperlipidemia Supraventricular tachycardia Osteopenia Hx of migraine headaches Hx of sinusitis HTN (hypertension) Bronchial asthma Surgical History History of esophagogastroduodenoscopy (EGD) Hx of colonoscopy Status post tubal ligation Family History Mother Heart problem Angina pectoris Daughter Breast cancer Social History Household Members: None Housing: Apartment Are you a primary dog daycare provider to a significant other at home: No Do you presently have visiting nurse or other home services: Yes Alcohol intake: current Alcohol intake frequency: does not drink Patient Tobacco Use Status: Never used Tobacco service: No Current occupational status: retired Current occupation: rt handed Female Reproductive History Menstrual Age of Menarche: 13 Review of Systems Const Denies chills, Denies fatigue, Denies fever(s), Denies frequent falls, Denies weakness, Denies weight gain and Denies weight loss ENT Reports Normal hearing present and Denies dizziness Card Denies chest pain, Denies leg edema, Denies lightheadedness, Denies palpitations, Denies dyspnea, Denies dyspnea on exertion, Denies orthopnea and Denies other (loss of consciousness) Resp Reports cough, Denies dyspnea, Denies dyspnea on exertion and Reports wheezing GI Denies hematochezia and Denies change in stool character Musc Denies abnormal gait, Reports myalgias, Reports arthralgias and Reports joint swelling Neuro Reports Normal hearing present, Denies Abnormal speech present, Denies abnormal gait, Denies dizziness, Denies frequent falls and Denies weakness Endo Denies fatigue and Denies palpitations Aller/Immun Reports wheezing Physical Exam Vital Signs: Last Vital Signs Pulse 64 02/21/25 13:23 BP 110/62 02/21/25 13:23 Pulse Ox 98 02/21/25 13:23 Oxygen Delivery Method Room Air 02/21/25 13:23 BMI result Body Mass Index 30.6 Const General: cooperative, no acute distress, well developed and well groomed HEENT Head: Yes normocephalic Eyes General: appearance normal, both eyes and all related structures Neck Neck: Yes normal visual inspection and Yes no lymphadenopathy Chest Chest palpation & inspection: normal inspection of the chest Resp Effort & Inspection: normal respiratory effort and able to speak in complete sentences Auscultation: no crackles, no rales, no rhonchi, no wheezes and diminished lung sounds Cardio Rate: regular rate Rhythm: regular rhythm Heart sounds: Normal, physiologic split S2 sound present GI Palpation (GI): Soft to palpation Auscultation: normal bowel sounds Skin General skin exam: no rashes or lesions noted Rashes: no rashes Nails: normal Neuro Cranial nerves: Yes Normal hearing present Speech: No Abnormal speech present Extrem General: Yes normal to inspection, No clubbing, No cyanosis and No edema Psych Appearance: grossly normal and well kempt Assessment & Plan Assessment & Plan (1) Pneumonitis: Comment: unchanged, likely some degree of scarring/injury Code(s): J18.9 - Pneumonia, unspecified organism Category: Medical (2) Pulmonary nodules: Code(s): R91.8 - Other nonspecific abnormal finding of lung field Category: Medical (3) Bronchial asthma: Code(s): J45.909 - Unspecified asthma, uncomplicated Category: Medical Qualifiers: Asthma complication type: uncomplicated Asthma persistence: persistent Asthma severity: moderate Qualified Code(s): J45.40 - Moderate persistent asthma, uncomplicated Plan start Advair HFA stop Flovent No LAMA due to history of glaucoma Xopenex twice a day and as needed F/U 6 months Medications: New fluticasone propion-salmeterol 230-21 mcg/actuation (Advair HFA) 2 puffs inhalation BID 12 grams 11RF 30 days Changed From levalbuterol tartrate 45 mcg/actuation 1 inh inhalation DAILY To levalbuterol tartrate 45 mcg/actuation 1 inh inhalation DAILY 30 days 15 grams 11RF Coding Level of Care Code Complex visit Add On G2211 Diagnoses Pneumonitis J18.9 Pulmonary nodules R91.8 Moderate persistent asthma without complication J45.40 Asthma complication type: uncomplicated Asthma persistence: persistent Asthma severity: moderate Time Spent (min) 16
--- OUTSIDE RECORDS SUMMARY | 2025-02-21 17:26 | XMS_ITS | Encounter Summary ---
Author Organization [employer] Address [address] [facility] 7t [place] [address] Care Team Providers Care Mail Weigher Name Role Phone Nicole Bauer MD Primary Care Provider + Reason for Visit * Reason Comments Med Refill Encounter Details Date Type Department Care Team ([facility] st Contact Info) Description 07/06/2024 Refill [facility] [address] [place], [place] [phone] Nicole Bauer MD [address] [place], [place] [phone] Itchy scalp Social History Tobacco Use Types [...] Care Team (Late st Contact Info) Description 2025 1:30 PM EST Immunization [facility] [address] [place] [phone] 03/03/2025 1:30 PM EST Immunization [facility] [address] [place] [phone] 03/10/2025 1:00 PM EST Immunization [facility] [address] [place] [phone] 04/17/2025 12:00 PM EST Office Visit [facility] [address] [place] [phone] Nicole Bauer MD [address] [place] [phone] documented as of this encounter Visit Diagnoses Diagnosis Itchy scalp Unspecified pruritic disorder documented in this encounter Additional Health Concerns Assessment Noted Time PHQ-9 Depression Total Score: 0 06/19/19 24 1:08 PM EDT documented as of this encounter Care Teams Mail Weigher Relationship Specialty Start Date End Date Nicole Bauer MD [address] [place] [phone] PCP - General Family Medicine 11/03/17 documented as of this encounter
--- OUTSIDE RECORDS SUMMARY | 2025-02-21 17:26 | XMS_ITS | Encounter Summary ---
Author Organization [employer] Address [address] [facility] 7t [place] [address] Care Team Providers Care Screen Repairer Crusher Name Role Phone Nicole Bauer MD Primary Care Provider + Reason for Visit * Reason Comments Med Refill Encounter Details Date Type Department Care Team ([facility] Contact Info) Description 05/26/2022 Refill [facility] [address] [place] [address] [phone] Jesus Dixon MD [address] [place] [address] [phone] Social History Tobacco Use Types Packs/Day Years [...] Upcoming Encounters Date Type Department Care Team ([facility] Contact Info) Description 2025 1:30 PM EST Immunization [facility] [address] [place] [address] [phone] 03/03/2025 1:30 PM EST Immunization [facility] [address] [place] [phone] 03/10/2025 1:00 PM EST Immunization [address] [phone] 04/17/2025 12:00 PM EST Office Visit [address] [phone] Nicole Bauer MD [address] [place] [phone] documented as of this encounter Visit Diagnoses Not on filedocumented in this encounter Care Teams Screen Repairer Crusher Relationship Specialty Start Date End Date Nicole Bauer MD [address] [place] [phone] PCP - General Family Medicine 11/03/17 documented as of this encounter
--- OUTSIDE RECORDS SUMMARY | 2025-02-21 17:26 | XMS_ITS | Encounter Summary ---
Author Organization [employer] Address [address] [facility] 7t [place] [address] Care Team Providers Care Industrial Analyst Name Role Phone Nicole Bauer MD Primary Care Provider + Reason for Visit * Reason Comments Med Refill Encounter Details Date Type Department Care Team ([facility] st Contact Info) Description 04/13/2024 Refill [facility] [address] [place], [place] [phone] Nicole Bauer MD [address] [place], [place] [phone] Itchy scalp Social History Tobacco Use Types [...] is your housing situation today? I have noin jacome 06/19/[address] you [...] Info) Description 2025 1:30 PM EST Immunization [facility] [address] [place] [phone] 03/03/2025 1:30 PM EST Immunization [facility] [address] [place] [phone] 03/10/2025 1:00 PM EST Immunization [facility] [address] [place] [phone] 04/17/2025 12:00 PM EST Office Visit [facility] [address] [place] [phone] Nicole Bauer MD [address] [place] [phone] documented as of this encounter Visit Diagnoses Diagnosis Itchy scalp Unspecified pruritic disorder documented in this encounter Additional Health Concerns Assessment Noted Time PHQ-9 Depression Total Score: 0 06/19/19 24 1:08 PM EDT documented as of this encounter Care Teams Industrial Analyst Relationship Specialty Start Date End Date Nicole Bauer MD [address] [place] [phone] PCP - General Family Medicine 11/03/17 documented as of this encounter
--- OUTSIDE RECORDS SUMMARY | 2025-02-21 17:27 | XMS_ITS | Clinical Summary ---
Author Organization [employer] Address [address] [place] [address] 7t [place] [address] Care Team Providers Care Border Measurer Name Role Phone Nicole Bauer MD Primary [...] mouth Once per day. 30 tablet 11 5 12:18 PM EST 04/26/19 25 Active atorvastatin (Lipitor) 20 MG tablet TAKE 1 TABLET BY MOUTH AT BEDTIME 90 tablet 3 06/13/19 25 Active DULoxetine (Cymbalta) [address] capsule Take 1 capsule (30 mg) by mouth Once per day. Do not crush or chew. 30 capsule 5 12:18 PM EST 06/28/19 25 Active fluticasone (Flovent) 220 MCG/ACT [...] affected area 80 g 09/28/19 25 Active levalbuterol (Xopenex) 0.63 MG/3ML nebulizer solutionIndication s:Moderate persistent asthma without complication Take 1 ampule by nebulization every 6 (six) hours if needed for wheezing. 72 mL 10/17/19 25 026 Active hydroCHLOROthiazid e (HYDRODiuril) 25 MG tablet Take 1 tablet (25 mg) by mouth in the morning. 90 tablet 3 5 12:18 PM EST 11/09/19 25 Active Acetaminophen Extra Strength 500 MG tabletIndications: Degeneration of intervertebral disc of lumbar region with discogenic back pain,Chronic midline low back pain, unspecified whether sciatica present TAKE 1 TABLET BY MOUTH EVERY 6 HOURS NEEDED FOR PAIN OR FEVER 30 tablet 1 11/14/19 25 Active fexofenadine (Suzanne) 180 MG tabletIndications: Allergy, sequela TAKE 1 TABLET BY MOUTH EVERYDAY AT NOON 90 tablet 2 01/08/20 25 Active gabapentin (Neurontin) 100 MG capsuleIndications :Itchy scalp TAKE 1 CAPSULE BY MOUTH AT BEDTIME 30 capsule 2 12:18 PM EST 01/15/20 25 Active Active Problems Problem Noted Date Diagnosed Date Mixed stress and urge urinary incontinence 06/27 Assessment & Plan (09/27/2024 1:58 PM EDT): Improved, continue duloxetine and Worple labs as needed Assessment & Plan (09/22/2024 2:49 PM EDT): Encouraged re Kegel's exercises Will start duloxetine as she has [...] home care assistance for most ADLS (see FRONT DESK WORKER description). Cervical paraspinal muscle spasm 04/11/2022 [...] Xopenex as needed and follow- up with lens molding equipment operator Assessment & Plan (09/22/2024 2:51 PM EDT): [...] EDT): continue albuterol Prn and FU with lens molding equipment operator Assessment & Plan (06/13/2022 6:06 PM [...] pulmonolgy in a month Leg weakness, bilateral 01/09/2023/03/2024 Assessment & Plan (01/09/2023 2:25 PM EDT): [...] Encounters Date Type Department Care Team Description 01/31/2025 Telephone [facility] [address] [place] [address] Nicole Bauer MD recall 01/23/2025 Telephone [facility] [address] [place] [address] Nicole Bauer MD DME Cane 01/16/2025 Telephone [facility] [address] [place] [address] Nicole Bauer MD Durable Medical Equipment 01/14/2025 Refill [facility] [address] [place] [address] Nicole Bauer MD Itchy scalp 01/05/2025 Refill [facility] [address] [place] [address] Nicole Bauer MD Allergy, sequela; Itchy scalp 12/18/2024 Orders Only [facility] External Provider, [facility] from Last 3 Months Immunizations Immunization Administration [...] 09/27/2024 12:21 PM EDT Plan of Treatment Upcoming Encounters Date Type Department Care Team (Late st Contact Info) Description 2025 1:30 PM EST Immunization [facility] [address] [place] [phone] 03/03/2025 1:30 PM EST Immunization [facility] [address] [place] [phone] 03/10/2025 1:00 PM EST Immunization [facility] [address] [place] [phone] 04/17/2025 12:00 PM EST Office Visit [facility] [address] [place] [address] Nicole Bauer MD [address] [place] [address] Health Maintenance Due Date Last Done Comments [...] WO CONTRAST Routine 12/18/2024 1:05 PM EDT BI MAMMOGRAM SCREENING TOMOSYNTHESIS BILATERAL Routine 10/13/2023 [...] PM EDT Narrative 12/18/2024 1:48 PM EDT [place] [address] [address] Scan Report Signed Patient: Eden Mckinney MR#: [id number] : 1945 Acct:[id number] Age/Sex: 79 / F ADM Date: 12/18/24 Loc: HO.CT Attending Dr: Bam Chamorro MD Ordering Physician: Bam Chamorro MD Date of Service: 12/18/24 Procedure(s): CT chest wo IV con Accession Number(s): [id number] cc: Elma Diaz MD; Bam Chamorro MD Report Number: [id number]: Total DLP = 145.00 mGy-cm Reason for [...] 12/18/24 1345 DD/ 1305 TD/TT: 12/18/24 1327 Bilingual Spanish Inbound Sales: Procedure Note Donotuseinterpreter, Image - 12/18/[address] [address] [address] Scan Report Signed Patient: Itzel Mckinney#: [id number] : 5Acct:[id number] Age/Sex: 79 / FADM Date: 12/18/24 Loc: HO.CT Attending Dr: Bam Chamorro MD Ordering Physician: Bam Chamorro MD Date of Service: 12/18/24 Procedure(s): CT chest wo IV con Accession Number(s): [id number] cc: Elma Diaz MD; Bam Chamorro MD Report Number: [id number]: Total DLP = 145.00 mGy-cm Reason for [...] 12/18/24 1345 DD/ 1305 TD/TT: 12/18/24 1327 Bilingual Spanish Inbound Sales: [facility] External Provider IMG CT PROCEDURES Final Result * BI Mammogram Screening Tomosynthesis Bilateral (10/13/2023 12:55 PM EDT) Anatomical Region Laterality Modality Breast Bilateral Mammography 10/13/2023 12:5 5 PM EDT Narrative 10/13/2023 2:18 PM EDT [facility] [address] [place] [address] Mammography Report Signed Patient: Edne Mckinney MR#: [id number] : 1945 Acct:[id number] Age/Sex: 78 / F ADM Date: 10/13/23 Loc: HO.MAMMO Attending Dr: Nicole Bauer MD Ordering Physician: Nicole Bauer MD Results: 2Be nign Findings Date of Service: 10/13/23 Follow Up: 1 Year From Orig inal Mammogram Procedure(s): MM tomosynthesis screening BI Accession Number(s): [id number] cc: Nicole Bauer MD EXAMINATION: MM SCREENING [...] in OV> 10/13/23 1414 DD/ 1255 TD/TT: Bilingual Spanish Inbound Sales: Procedure Note Donotuseinterpreter, Image - 10/13/2023 [facility] [address] [place], [place] [address] Mammography Report Signed Patient: Eden Mckinney#: [id number] : 5Acct:[id number] Age/Sex: 78 / FADM Date: 10/13/23 Loc: [facility] Attending Dr: Nicole Bauer MD Ordering Physician: Nicole Bauer MDResults: 2Be nign Findings Date of Service: 10/13/23Follow Up: 1 Year From Orig inal Mammogram Procedure(s): MM tomosynthesis screening BI Accession Number(s): [id number] cc: Nicole Bauer MD EXAMINATION: MM SCREENING [...] in OV> 10/13/23 1414 DD/ 1255 TD/TT: Bilingual Spanish Inbound Sales: us Nicole Bauer MD IMG BI PROCEDURES Final Result * Hepatitis C Antibody with Reflex to HCV, RNA, Quantitative, Real-Time PCR (09/04/2023 2:55 PM EDT) Hepatitis C Antibody Nonreactive Nonreactive [facility] Comment:Antibodies to HCV no t detected; does not exclude early acuteHCV infection. Blood Venous blood specimen / Unknown 09/04/2023 2:55 PM EDT 09/04/2023 3:56 PM EDT us Jorge A Quinteros MD LAB BLOOD ORDERABLES Final Result [facility] [address] [place] [phone] * Lipid Panel with Reflex to Direct LDL (11/01/2022 11:32 AM EDT) Triglycerides 117 mg/dL [facility] Comment:Desirable Triglyceri de: less than 150 mg/dLBorderline High Triglyceride 150-199 mg/dLHigh Triglyceride: 200-499 mg/dLVery High Triglyceride: greater than or equal to 5OO mg/dL Cholesterol 155 mg/dL [facility] Comment:Desirable Cholestero l: less than 200 mg/dLBorderline High Cholesterol: 200-239 mg/dLHigh Cholesterol: greater than 239 mg/dL LDL Cholesterol Calculated 92 mg/dl [facility] Comment:Desirable LDL: less than 100 mg/dLNear Optimal/Above Optimal LDL: 110- 129 mg/dLBorderline High LDL: 130-159 mg/dLHigh LDL: 160-189 mg/dLVery High LDL: greater than or equal to 190 mg/dL HDL Cholesterol 40 mg/dL [facility] Comment:Desirable HDL: great er than 40 mg/dL Note: This HDL assay may give artificially low results in patients with liver disease. Blood 11/01/2022 11:3 2 AM EDT 11/01/2022 1:31 PM EDT us Nicole Bauer MD LAB BLOOD ORDERABLES Fin al Result [facility] [address] [place] [phone] from Last 3 Months or Most Recently Relevant to Health Maintenance Insurance [employer] (HMO D-SNP) JESSA JIMENEZ [id number] Care Teams Border Measurer Relationship Specialty Start Date End Date Nicole Bauer MD [address] [place] [phone] PCP - General Family Medicine 11/03/17
--- OUTSIDE RECORDS SUMMARY | 2025-02-21 17:27 | XMS_ITS | Encounter Summary ---
Author Organization [employer] Address [address] [place] [address] Care Team Providers Care Wood Planer Name Role Phone Nicole Bauer MD Primary Care Provider + Encounter Details Date Type Department Care Team (Late st Contact Info) Description 03/03/2023 Orders Only [facility] [address] [place], [place] [phone] Jayna Chang MD [address] [place], [place] [phone] Social History Tobacco Use Types Packs/Day Years [...] Info) Description 2025 1:30 PM EST Immunization [address] [address] 03/03/2025 1:30 PM EST Immunization [address] [address] 03/10/2025 1:00 PM EST Immunization [address] [address] 04/17/2025 12:00 PM EST Office Visit [address] [address] Nicole Bauer MD [address] [place] [phone] documented as of this encounter Visit Diagnoses Not on filedocumented in this encounter Care Teams Wood Planer Relationship Specialty Start Date End Date Nicole Bauer MD [address] [place] [phone] PCP - General Family Medicine 11/03/17 documented as of this encounter
--- OUTSIDE RECORDS SUMMARY | 2025-02-21 17:27 | XMS_ITS | Encounter Summary ---
Author Organization [employer] Address [address] [place] [address] Care Team Providers Care Medical Supervisor Name Role Phone Nicole Bauer MD Primary Care Provider + Reason for Visit * Reason Comments Med Refill Encounter Details Date Type Department Care Team ([facility] st Contact Info) Description 04/14/2023 Refill [facility] [address] [place], [place] [phone] Carly Garner MD [address] [place], [place] [phone] Itchy scalp Social History Tobacco Use Types [...] Info) Description 2025 1:30 PM EST Immunization [address] [address] 03/03/2025 1:30 PM EST Immunization [address] [address] 03/10/2025 1:00 PM EST Immunization [address] [address] 04/17/2025 12:00 PM EST Office Visit [address] [address] Nicole Bauer MD [address] [place] [phone] documented as of this encounter Visit Diagnoses Diagnosis Itchy scalp Unspecified pruritic disorder documented in this encounter Care Teams Medical Supervisor Relationship Specialty Start Date End Date Nicole Bauer MD [address] [place] [phone] PCP - General Family Medicine 11/03/17 documented as of this encounter
== END 2025-02-21 13:44 | disposition home or self-care (01) ==
LOC: HO.HPS 13:21
PROVIDERS: PCP Internal Medicine; Visit Provider Hospitalist
DX: J18.9 Pneumonia, unspecified organism (principal); R91.8 Other nonspecific abnormal finding of lung field; J45.40 Moderate persistent asthma, uncomplicated
CPT/HCPCS: 99214; G2211

== ENCOUNTER → 2025-02-21 13:20 | Outpatient (BNVA) | payer OTHER, SELFPAY | PROVIDERS: PCP Internal Medicine; Visit Provider Hospitalist | DX: J18.9 Pneumonia, unspecified organism (principal); R91.8 Other nonspecific abnormal finding of lung field; J45.40 Moderate persistent asthma, uncomplicated | CPT/HCPCS: 99212 ==